=== PATIENT | male | born 1965 | race Caucasian/White ===

== ENCOUNTER 2020-03-17 09:49 | Outpatient (REF) | payer OTHER, SELFPAY ==
[2020-03-17 10:12] LABS: COVID-19 Test Negative (Negative)
== END 2020-03-17 09:50 | disposition home or self-care (01) ==
LOC: HO.LAB 09:49
PROVIDERS: Visit Provider Internal Medicine
DX: Z20.828 Contact with and (suspected) exposure to other viral communicable diseases (principal)
CPT/HCPCS: 87635; C9803

== ENCOUNTER 2020-04-02 10:52 | Outpatient (REF) | payer OTHER, SELFPAY ==
[2020-04-02 11:32] LABS: Glucose Urine UA NEG (NEG); Leukocyte Esterase Urine NEG (NEG); Nitrite Urine NEG (NEG); PH 6.5 (5.0-8.0); Urine Blood TRACE (NEG); Urine Ketones NEG (NEG); Urine Protein 2+ MG/DL (NEG-TRACE)
[2020-04-02 11:34] LABS: Appearance Urine CLEAR; Color Urine YELLOW
[2020-04-02 11:44] LABS: Squamous Epithelial Cell Urine 1+ /LPF; WBC Urine 0 /HPF (0-4)
[2020-04-02 11:54] LABS: Anion Gap 15 (12-20); Blood Urea Nitrogen 15 mg/dL (9-16); Calcium 8.8 mg/dL (8.4-10.2); Carbon Dioxide 28 mmol/L (22-29); Chloride 103 mmol/L (96-108); Estimated Glomerular Filt Rate > 60; Iron 52 mcg/dL (45-160); Magnesium 1.8 mg/dL (1.6-2.6); Percent Iron Saturation 18 % (15-50); Potassium 4.4 mmol/l (3.3-5.1); Sodium 142 mmol/L (135-145); Total Iron Binding Capacity 297 mcg/dL (228-428); Unsaturated Iron Binding 245 ug/dL; Uric Acid 6.6 mg/dL (3.4-7.0)
[2020-04-02 11:55] LABS: Renal w Reflex Lab Use Only Order verified
[2020-04-02 11:59] LABS: Estimated Average Glucose 131 mg/dL; Hemoglobin A1c % 6.2 %
[2020-04-02 12:06] LABS: Creatinine Urine 75.87 mg/dL
[2020-04-02 12:15] LABS: Ferritin 69 ng/mL (20-250)
[2020-04-02 12:18] LABS: Microalbum/Creatinine Ratio Ur 689.3 ug/mg cr
[2020-04-02 12:23] LABS: Vitamin D 25-OH Total 28.5 ng/mL (>30)
[2020-04-02 12:55] LABS: Creatinine Urine 76.98 mg/dL; Protein/Creatinine Ratio, Ur 0.95 (<0.2); Total Protein Urine Random 73 mg/dL (<12)
[2020-04-05 11:57] LABS: PTHI 69 pg/mL (14-64)
== END 2020-04-02 10:53 | disposition home or self-care (01) ==
LOC: HO.LAB 10:52
PROVIDERS: PCP Internal Medicine; Visit Provider Internal Medicine Nephrology
DX: I12.9 Hypertensive chronic kidney disease with stage 1 through stage 4 chronic kidney disease, or unspecified chronic kidney disease (principal); N18.2 Chronic kidney disease, stage 2 (mild); R80.9 Proteinuria, unspecified
CPT/HCPCS: 80051; 81001; 82040; 82043; 82306; 82310; 82565; 82728; 83036; 83540; 83735; 83970; 84100; 84156; 84520; 84550

== ENCOUNTER 2020-05-14 09:41 | Outpatient (REF) | payer OTHER, SELFPAY ==
[2020-05-14 10:12] LABS: MANUAL DIFF FLAG NO
[2020-05-14 10:13] LABS: Basophils Percent Auto 0.6 % (0-2); Eosinophils Absolute Auto 0.3 X10*3/uL (0.0-0.4); Eosinophils Percent Auto 3.7 % (0-4); Hematocrit 40.1 % (42-52); Imm Gran Abs Auto 0.02 X10*3/uL (0.00-0.03); Imm Gran Pct Auto 0.3 % (0.0-0.4); Lymphocytes Absolute Auto 2.2 X10*3/uL (1.2-4.9); Lymphocytes Percent Auto 32.8 % (20-40); Mean Corpuscular HGB Conc 32.4 g/dl (31.0-36.0); Mean Corpuscular Hemoglobin 29.3 pg (27.0-33.0); Mean Corpuscular Volume 90.5 fL (80-98); Mean Platelet Volume 9.1 fL (9.4-12.4); Monocytes Absolute Auto 0.9 X10*3/uL (0.1-1.2); Monocytes Percent Auto 13.6 % (2-11); Neutrophils Absolute Auto 3.4 X10*3/uL (2.0-8.3); Platelet Count 359 X10*3/uL (160-400); Red Blood Count 4.43 X10*6/uL (4.60-5.80); Red Cell Distribution Width 12.9 % (11.0-16.0); White Blood Count 6.8 X10*3/uL (4.8-10.8)
[2020-05-14 10:14] LABS: Glucose Urine UA NEG (NEG); Leukocyte Esterase Urine NEG (NEG); Nitrite Urine NEG (NEG); Specific Gravity - Urine >= 1.030 (1.005-1.025); Urine Blood TRACE (NEG); Urine Ketones NEG (NEG); Urine Protein 2+ MG/DL (NEG-TRACE)
[2020-05-14 10:15] LABS: Appearance Urine CLEAR; Color Urine YELLOW
[2020-05-14 10:45] LABS: Alanine Aminotransferase 24 U/L (0-40); Albumin Level 4.1 g/dL (3.5-5.0); Alkaline Phosphatase 83 U/L (39-117); Anion Gap 11 (12-20); Aspartate Amino Transferase 15 U/L (5-37); Bilirubin Total 0.5 mg/dL (0.0-1.0); Blood Urea Nitrogen 16 mg/dL (9-16); Calcium 8.8 mg/dL (8.4-10.2); Carbon Dioxide 30 mmol/L (22-29); Chloride 104 mmol/L (96-108); Cholesterol 169 mg/dL; Estimated Glomerular Filt Rate > 60; Glucose Fasting 122 mg/dL (60-99); HDL Cholesterol 35 mg/dL; LDL Cholesterol Calculated 113 mg/dl; Sodium 141 mmol/L (135-145); Total Protein 7.2 g/dL (6.5-8.0); Triglycerides 108 mg/dL
[2020-05-14 11:07] LABS: TSH reflex Free T4 0.63 mIU/mL (0.32-4.0); Vitamin D 25-OH Total 26.8 ng/mL (>30)
[2020-05-14 11:13] LABS: Creatinine Urine 124.24 mg/dL
[2020-05-14 11:16] LABS: RBC Urine 0-2 /HPF (0); Squamous Epithelial Cell Urine TRACE /LPF; WBC Urine 0 /HPF (0-4)
[2020-05-14 11:27] LABS: Microalbum/Creatinine Ratio Ur 755.7 ug/mg cr
== END 2020-05-14 09:42 | disposition home or self-care (01) ==
LOC: HO.LAB 09:41
PROVIDERS: PCP Internal Medicine; Visit Provider Internal Medicine
DX: I10 Essential (primary) hypertension (principal); R73.01 Impaired fasting glucose; E78.00 Pure hypercholesterolemia, unspecified; R80.9 Proteinuria, unspecified; K21.9 Gastro-esophageal reflux disease without esophagitis; E55.9 Vitamin D deficiency, unspecified; R00.2 Palpitations; E66.3 Overweight
CPT/HCPCS: 36415; 80053; 80061; 81001; 82043; 82306; 84443; 85025

== ENCOUNTER → 2020-06-13 09:38 | Outpatient (BNVA) | payer OTHER, SELFPAY | PROVIDERS: PCP Internal Medicine; Visit Provider Internal Medicine ==

== ENCOUNTER 2020-07-12 | Outpatient (REF) | payer OTHER, SELFPAY ==
[2020-07-14 12:42] LABS: OBS Int Ctl Valid YES; OBS1 NEG (NEG)
== END 2020-07-12 00:01 | disposition home or self-care (01) ==
LOC: HO.LNP
PROVIDERS: Visit Provider Internal Medicine Gastroenterology
DX: D64.9 Anemia, unspecified (principal)
CPT/HCPCS: 82272

== ENCOUNTER 2020-07-26 08:22 | Day surgery (SDC) | payer OTHER, SELFPAY ==
--- NOTE | 2020-07-25 08:45 | HO.ANESPROP2 ---
Documented by User: Shirley Tierra 07/25/20 08:53 HPI - Anesthesia Eval Consult details Narrative: 55yo M for Upper Endoscopy *Multiple med allergies* PMFSH Active Problems Active Problems: All Active Problems (Updated 06/13/20 @ 09:59 by Lazarus An MD) Overweight (BMI 25.0-29.9) (Acute) Anxiety (Acute) Primary insomnia (Acute) Obstructive sleep apnea (Acute) Anemia (Acute) Left thigh pain (Acute) Primary osteoarthritis of left hip (Acute) Vitamin D deficiency (Acute) Proteinuria (Acute) Palpitations (Acute) Impaired fasting glucose (Acute) Pure hypercholesterolemia (Acute) Benign essential hypertension (Acute) Blepharitis of eyelid of right eye (Acute) Past Medical History Medical History (Updated 07/26/20 @ 09:24 by Linda Dick) Anemia Anxiety Benign essential hypertension Impaired fasting glucose Left thigh pain Obstructive sleep apnea Overweight (BMI 25.0-29.9) Palpitations Primary insomnia Primary osteoarthritis of left hip Proteinuria Pure hypercholesterolemia Vitamin D deficiency Family History Family History Father No problems noted. Mother Hypertension Brother Hypertension Family/Other Asthma Surgical History Surgical History History of arthroplasty of left hip History of hip surgery Social History Social History Alcohol intake: never Smoking Status: Never smoker Use of substances other than those prescribed or required for medical reasons: No Advance Directives: No Advance Directives Information Provided: Yes Meds Allergies Allergy/AdvReac Type Severity Reaction Status Date / Time amlodipine Allergy Unknown gi Verified 06/13/20 09:45 atorvastatin Allergy Unknown myalgia at Verified 06/13/20 09:45 80 mg, muscle px chlorthalidone Allergy Unknown excessive Verified 06/13/20 09:45 urination glipizide Allergy Unknown Unknown Verified 06/13/20 09:45 hydrochlorothiazide Allergy Unknown dizziness, Verified 06/13/20 09:45 excessive urination ibuprofen [From MOTRIN] Allergy Unknown irregular Verified 06/13/20 09:45 heartbeat metformin Allergy Unknown chokling Verified 06/13/20 09:45 sensation metoprolol Allergy Unknown slow heart Verified 06/13/20 09:45 rate nifedipine Allergy Unknown tachy/kate Verified 06/13/20 09:45 buspirone [From BUSPAR] AdvReac Unknown STOMACH Verified 06/13/20 09:45 UPSET canagliflozin [Invokana] AdvReac Unknown SYNCOPE Verified 06/13/20 09:45 clonidine [From CATAPRES] AdvReac Unknown STOMACH Verified 06/13/20 09:45 UPSET SHELLFISH Allergy Severe ANAPHYLAXIS Uncoded 05/23/20 09:02 Sucralfate Allergy Unknown chest pain Uncoded 05/23/20 09:02 Home Medications Medication Instructions Recorded Confirmed Last Taken Type aspirin 81 mg tablet,delayed 81 mg PO DAILY 05/23/20 05/23/20 07/17/20 History release carvedilol 3.125 mg tablet 3.125 mg PO BID 05/23/20 05/23/20 Unknown History chlorthalidone 25 mg tablet 25 mg PO DAILY 05/23/20 05/23/20 Unknown History lisinopril 40 mg tablet 40 mg PO DAILY 05/23/20 05/23/20 Unknown History nisoldipine 8.5 mg tablet,extended 8.5 mg PO BEDTIME 05/23/20 05/23/20 Unknown History release 24 hr diclofenac sodium 1 % topical gel g TOPICAL 06/13/20 Unknown History Exam Exam Date and Time: July 25, 2020 0845 Pertinent Lab Results Pertinent Lab Results: Laboratory Tests 05/14/20 05/14/20 09:57 09:57 WBC 6.8 Hgb 13.0 L Hct 40.1 L Plt Count 359 Sodium 141 Potassium 4.0 Chloride 104 Carbon Dioxide 30 H BUN 16 Creatinine 0.83 Assessment and Plan Assessment Anesthesia Assessment: Chart Reviewed Documented by User: Linda Dick 07/26/20 09:25 [facility] Past Medical History Medical History (Updated 07/26/20 @ 09:24 by Linda Dick) Anemia Anxiety Benign essential hypertension Impaired fasting glucose Left thigh pain Obstructive sleep apnea Overweight (BMI 25.0-29.9) Palpitations Primary insomnia Primary osteoarthritis of left hip Proteinuria Pure hypercholesterolemia Vitamin D deficiency Family History Family History Father No problems noted. Mother Hypertension Brother Hypertension Family/Other Asthma Family history of problems with anesthesia: No Surgical History Surgical History History of arthroplasty of left hip History of hip surgery History of Problems with Anesthesia: No Social History Social History Alcohol intake: never Smoking Status: Never smoker Use of substances other than those prescribed or required for medical reasons: No Advance Directives: No Advance Directives Information Provided: Yes Meds Allergies Allergy/AdvReac Type Severity Reaction Status Date / Time amlodipine Allergy Unknown gi Verified 06/13/20 09:45 atorvastatin Allergy Unknown myalgia at Verified 06/13/20 09:45 80 mg, muscle px chlorthalidone Allergy Unknown excessive Verified 06/13/20 09:45 urination glipizide Allergy Unknown Unknown Verified 06/13/20 09:45 hydrochlorothiazide Allergy Unknown dizziness, Verified 06/13/20 09:45 excessive urination ibuprofen [From MOTRIN] Allergy Unknown irregular Verified 06/13/20 09:45 heartbeat metformin Allergy Unknown chokling Verified 06/13/20 09:45 sensation metoprolol Allergy Unknown slow heart Verified 06/13/20 09:45 rate nifedipine Allergy Unknown tachy/kate Verified 06/13/20 09:45 buspirone [From BUSPAR] AdvReac Unknown STOMACH Verified 06/13/20 09:45 UPSET canagliflozin [Invokana] AdvReac Unknown SYNCOPE Verified 06/13/20 09:45 clonidine [From CATAPRES] AdvReac Unknown STOMACH Verified 06/13/20 09:45 UPSET SHELLFISH Allergy Severe ANAPHYLAXIS Uncoded 05/23/20 09:02 Sucralfate Allergy Unknown chest pain Uncoded 05/23/20 09:02 Home Medications Medication Instructions Recorded Confirmed Last Taken Type aspirin 81 mg tablet,delayed 81 mg PO DAILY 05/23/20 05/23/20 07/17/20 History release carvedilol 3.125 mg tablet 3.125 mg PO BID 05/23/20 05/23/20 Unknown History chlorthalidone 25 mg tablet 25 mg PO DAILY 05/23/20 05/23/20 Unknown History lisinopril 40 mg tablet 40 mg PO DAILY 05/23/20 05/23/20 Unknown History nisoldipine 8.5 mg tablet,extended 8.5 mg PO BEDTIME 05/23/20 05/23/20 Unknown History release 24 hr diclofenac sodium 1 % topical gel g TOPICAL 06/13/20 Unknown History Exam Height,Weight and Vital Signs: Vital Signs Temp Pulse Resp BP Pulse Ox 07/26/20 08:55 96.7 F L 71 16 140/87 H 98 Airway Mallampati Class: II TM Dist: >3cm Neck ROM: Full Heart: RRR Lungs: CTAB Assessment and Plan Assessment Anesthesia Assessment: Anesthesia Plan Discussed and Chart Reviewed Final Anesthetic Review NPO: Yes ASA Class: III Final Preanesthetic Review: No Changes in Pt Med Stat, Meds/Allgs Chart Reviewed, Consent Obtained/Reviewed and Anes Risks/Benef Reviewed Patient Risk: Intermediate Procedure Risk: Low Assessment/Block/Sedation in SS: Assess/Block/Sedation-SS Anesthetic Plan Anesthetic Plan: MAC: Disposition: Standard PACU
[2020-07-25 09:19] VITALS: BMI 28.6
[2020-07-26 08:55] VITALS: BP 140/87; PULSE 71; RESP 16; TEMP 35.9; O2SAT 98
[2020-07-26] MEDS: Lactated Ringers 1,000 ML 100 ML IVCONT (09:11)
--- NOTE | 2020-07-26 09:30 | MHC.SHP ---
Pre-Procedural Eval Section A The patient is an INPATIENT: No Changes since office visit: No Cold of Flu in the past 2 weeks, No New Medical Problems, No Changes in Medication and No Patient answered all questions The History & Physical has been completed within 30 days and I have reviewed it.: Yes Section B Chief Complaint: anemia Allergies: Allergies Allergy/AdvReac Type Severity Reaction Status Date / Time amlodipine Allergy Unknown gi Verified 06/13/20 09:45 atorvastatin Allergy Unknown myalgia at Verified 06/13/20 09:45 80 mg, muscle px chlorthalidone Allergy Unknown excessive Verified 06/13/20 09:45 urination glipizide Allergy Unknown Unknown Verified 06/13/20 09:45 hydrochlorothiazide Allergy Unknown dizziness, Verified 06/13/20 09:45 excessive urination ibuprofen [From MOTRIN] Allergy Unknown irregular Verified 06/13/20 09:45 heartbeat metformin Allergy Unknown chokling Verified 06/13/20 09:45 sensation metoprolol Allergy Unknown slow heart Verified 06/13/20 09:45 rate nifedipine Allergy Unknown tachy/kate Verified 06/13/20 09:45 buspirone [From BUSPAR] AdvReac Unknown STOMACH Verified 06/13/20 09:45 UPSET canagliflozin [Invokana] AdvReac Unknown SYNCOPE Verified 06/13/20 09:45 clonidine [From CATAPRES] AdvReac Unknown STOMACH Verified 06/13/20 09:45 UPSET SHELLFISH Allergy Severe ANAPHYLAXIS Uncoded 05/23/20 09:02 Sucralfate Allergy Unknown chest pain Uncoded 05/23/20 09:02 Plan I have reviewed the history and physical and performed a pertinent physical examination on my patient. No changes have occurred unless specified.
--- NOTE | 2020-07-26 09:47 | PM.OP ---
Brief Operative Note Date of Service: 07/26/20 Pre-op diagnosis: anemia gerd Post-op diagnosis: same (gastric polyps) Surgeon: Ravindra Dietz Anesthesia: MAC Estimated blood loss (mL): 5 Pathology: other (bxs antrum, duodenum, polyps, egj) Condition: stable Disposition: PACU
[2020-07-26 09:50] VITALS: BP 117/79; PULSE 76; RESP 15; TEMP 36.4; O2SAT 94
[2020-07-26 10:05] VITALS: BP 133/87; PULSE 73; RESP 20; TEMP 36.4; O2SAT 98
--- NOTE | 2020-07-26 14:05 | OP_ITS ---
SURGEON: Ravindra Dietz MD INDICATIONS: Anemia. PREOPERATIVE DIAGNOSIS: POSTOPERATIVE DIAGNOSIS: PROCEDURE PERFORMED: Upper endoscopy with biopsy. ESTIMATED BLOOD LOSS: COMPLICATIONS: ANESTHESIA: ASSISTANTS: SPECIMENS: MEDICATIONS: Monitored anesthesia care. DESCRIPTION OF PROCEDURE: History and physical performed. The risks and benefits of the procedure were explained to the patient. Informed consent was obtained. The patient was placed in the left lateral decubitus position. The Olympus video gastroscope was introduced into the esophagus, stomach, and duodenum. Examination was performed and the scope was removed. He tolerated the procedure well and was taken to recovery area in stable condition. FINDINGS: ESOPHAGUS: The esophagus showed no esophagitis. There was no stricture. Biopsies were obtained from the EG junction. STOMACH: The stomach showed multiple benign-appearing gastric polyps in the body and fundus. Two of these were biopsied. All measured less than 10 mm. Antral biopsies were also obtained to rule out H pylori. DUODENUM: The bulb and second portion were normal. Random biopsies were obtained from the second portion. IMPRESSION: Gastric polyps. RECOMMENDATION: Follow up the biopsy results. MD SKYE Virk/JIMMY / [id number]
== END 2020-07-26 10:27 ==
LOC: HO.SSS 08:23
PROVIDERS: PCP Internal Medicine; Visit Provider Internal Medicine Gastroenterology
PROC: 0DJ08ZZ Inspection of Upper Intestinal Tract, Via Natural or Artificial Opening Endoscopic (ICD-10-PCS; CPT 43235; principal; 2020-07-26 09:00)
DX: D64.9 Anemia, unspecified (principal); K21.9 Gastro-esophageal reflux disease without esophagitis; K31.7 Polyp of stomach and duodenum; I10 Essential (primary) hypertension; E11.9 Type 2 diabetes mellitus without complications; E55.9 Vitamin D deficiency, unspecified; G47.33 Obstructive sleep apnea (adult) (pediatric); Z99.89 Dependence on other enabling machines and devices; Z79.82 Long term (current) use of aspirin; Z79.899 Other long term (current) drug therapy; Z88.8 Allergy status to other drugs, medicaments and biological substances
CPT/HCPCS: 43239; 88305; 88342

== ENCOUNTER 2020-08-08 16:03 | Outpatient (REF) | payer OTHER, SELFPAY ==
--- NOTE | ~2020-08-08 | XR_ITS ---
EXAMINATION: XR CHEST CLINICAL INFORMATION: Chest pain COMPARISON: 10/06/2018 TECHNIQUE: 2 views of the chest were obtained. FINDINGS: The lungs are well expanded. There is no focal consolidation, edema, or effusion. No pneumothorax. The cardiomediastinal silhouette is within normal limits. No acute osseous abnormality. XR/XR chest 2V IMPRESSION: Clear lungs.
== END 2020-08-08 16:04 | disposition home or self-care (01) ==
LOC: HO.XRAY 16:03
PROVIDERS: PCP Internal Medicine; Visit Provider Internal Medicine
DX: R07.9 Chest pain, unspecified (principal)
CPT/HCPCS: 71046

== ENCOUNTER → 2020-08-09 10:04 | Outpatient (REF) | payer OTHER, SELFPAY ==
--- NOTE | 2020-08-09 10:09 | ECG_ITS ---
Test Reason : 06.18.9 Blood Pressure : / mmHG Vent. Rate : 065 BPM Atrial Rate : 065 BPM P-R Int : 198 ms QRS Dur : 096 ms QT Int : 394 ms P-R-T Axes : 056 020 035 degrees QTc Int : 409 ms Normal sinus rhythm Normal ECG When compared with ECG of 12-OCT-2016 01:04, No significant change was found Referred By: Bassam Amezcua Electronically Signed By:GWYN DRAPER MD
== END ==
LOC: HO.CARD 10:04
PROVIDERS: PCP Internal Medicine; Visit Provider Internal Medicine
DX: Z13.9 Encounter for screening, unspecified (principal)
CPT/HCPCS: 93005

== ENCOUNTER 2020-08-30 00:59 | Emergency (ER) | payer OTHER, SELFPAY ==
[2020-08-30 01:43] VITALS: BP 175/106; PULSE 86; RESP 16; TEMP 37.6; O2SAT 97; BMI 28.4
--- NOTE | 2020-08-30 02:32 | ED_ITS ---
HPI - General Adult General Chief complaint: Abdominal Pain Stated complaint: covid symptoms Time Seen by Provider: 08/30/20 01:21 Source: patient Mode of arrival: ambulatory History of Present Illness HPI narrative: 55-year-old male presents with multiple medical complaints that include body aches, multiple episodes of diarrhea without blood but reports abdominal cramping that are so numerous he is unable to quantify and this started on , as well as chronic palpitations but otherwise denies shortness of breath or chest pain. He also endorses fevers and last took an antipyretic at noon. He denies any recent travel and states he has not received his COVID 19 vaccine because ?he does not want it?. Related Data Home Medications Medication Instructions Recorded Confirmed aspirin 81 mg tablet,delayed 81 mg PO DAILY 05/23/20 05/23/20 release carvedilol 3.125 mg tablet 3.125 mg PO BID 05/23/20 05/23/20 chlorthalidone 25 mg tablet 25 mg PO DAILY 05/23/20 05/23/20 lisinopril 40 mg tablet 40 mg PO DAILY 05/23/20 05/23/20 nisoldipine 8.5 mg tablet,extended 8.5 mg PO BEDTIME 05/23/20 05/23/20 release 24 hr diclofenac sodium 1 % topical gel g TOPICAL 06/13/20 acetaminophen 500 mg tablet 1,000 mg PO Q6H PRN 08/08/20 oxycodone 5 mg tablet 5 mg PO DAILY PRN tab 08/08/20 Previous Rx's Medication Instructions Recorded cholecalciferol (vitamin D3) 25 25 mcg PO DAILY #90 cap 02/29/20 mcg (1,000 unit) capsule omeprazole 20 mg capsule,delayed 20 mg PO DAILY #90 cap 04/30/20 release gabapentin 100 mg capsule 100 mg PO BID 30 Days #60 cap 05/23/20 atorvastatin 40 mg tablet 40 mg PO DAILY #90 tab 07/26/20 clonazepam 1 mg tablet See Rx Instructions .ROUTE 07/29/20 .COMPLEX 30 Days #30 tab Allergies Allergy/AdvReac Type Severity Reaction Status Date / Time amlodipine Allergy Unknown gi Verified 08/30/20 01:52 atorvastatin Allergy Unknown myalgia at Verified 08/30/20 01:52 80 mg, muscle px chlorthalidone Allergy Unknown excessive Verified 08/30/20 01:52 urination glipizide Allergy Unknown Unknown Verified 08/30/20 01:52 hydrochlorothiazide Allergy Unknown dizziness, Verified 08/30/20 01:52 excessive urination ibuprofen [From MOTRIN] Allergy Unknown irregular Verified 08/30/20 01:52 heartbeat metformin Allergy Unknown chokling Verified 08/30/20 01:52 sensation metoprolol Allergy Unknown slow heart Verified 08/30/20 01:52 rate nifedipine Allergy Unknown tachy/kate Verified 08/30/20 01:52 buspirone [From BUSPAR] AdvReac Unknown STOMACH Verified 08/30/20 01:52 UPSET canagliflozin [Invokana] AdvReac Unknown SYNCOPE Verified 08/30/20 01:52 clonidine [From CATAPRES] AdvReac Unknown STOMACH Verified 08/30/20 01:52 UPSET SHELLFISH Allergy Severe ANAPHYLAXIS Uncoded 08/30/20 01:52 Sucralfate Allergy Unknown chest pain Uncoded 08/30/20 01:52 Review of Systems Review of Systems: Pertinent positives and negatives as stated in HPI and 10 point review of systems is otherwise negative. [facility] Past Medical History Source: nursing notes reviewed Medical History Anemia Anxiety Benign essential hypertension Impaired fasting glucose Left thigh pain Obstructive sleep apnea Overweight (BMI 25.0-29.9) Palpitations Primary insomnia Primary osteoarthritis of left hip Proteinuria Pure hypercholesterolemia Vitamin D deficiency Surgical History History of arthroplasty of left hip History of hip surgery Family History Family History Father No problems noted. Mother Hypertension Brother Hypertension Family/Other Asthma Social History Social History Alcohol intake: never Smoking Status: Never smoker Use of substances other than those prescribed or required for medical reasons: No Advance Directives: No Physical Exam Vital Signs: Vital Signs: Last Vital Signs Temp 99.6 F 08/30/20 01:43 Pulse 86 08/30/20 01:43 Resp 16 08/30/20 01:43 BP 175/106 H 08/30/20 01:43 Pulse Ox 97 08/30/20 01:43 Body Mass Index 28.4 VITAL SIGNS: Reviewed. GENERAL: Well developed, well nourished, in no acute distress. HEAD: Normocephalic/atraumatic EYES: PERRLA, EOMI NOSE: Nares patent bilateral OROPHARYNX: no oral lesions noted, posterior pharynx clear NECK: Supple, no adenopathy LUNGS: Normal breath sounds. No adventitious sounds or accessory muscle use. SpO2<97> CARDIOVASCULAR: Regular rate and rhythm without noted murmurs ABDOMEN: Soft, non-tender, non-distended with bowel sounds. NEUROLOGIC: Alert and oriented x 4. Course Course Course Narrative: 55-year-old male with history and clinical presentation suggestive of viral syndrome/gastroenteritis and possible lightheadedness secondary to multiple episodes of diarrhea. Review of all investigations without acute findings from chronically stable. COVID-19 was negative and results from stool sample will be pending. On re- evaluation patient sources that his diarrhea has improved from initial onset. He was discharged in stable condition instructed to continue drinking plenty of fluids and follow up with his primary care provider. Medical Decision Making Lab Data Result diagrams: 08/30/20 04:20 08/30/20 04:20 Labs: Lab Results 08/30/20 08/30/20 08/30/20 Range/Units 02:23 04:20 04:20 WBC 10.5 (4.8-10.8) X10*3/uL RBC 4.57 L (4.60-5.80) X10*6/uL Hgb 13.6 L (14.0-18.0) g/dl Hct 41.3 L (42-52) % MCV 90.4 (80-98) fL MCH 29.8 (27.0-33.0) pg MCHC 32.9 (31.0-36.0) g/dl RDW 12.7 (11.0-16.0) % Plt Count 324 (160-400) X10*3/uL MPV 9.1 L (9.4-12.4) fL Immature Gran % (Auto) 0.2 (0.0-0.4) % Neut % (Auto) 65.3 (45-73) % Lymph % (Auto) 19.8 L (20-40) % Perkins % (Auto) 12.3 H (2-11) % Eos % (Auto) 1.9 (0-4) % Baso % (Auto) 0.5 (0-2) % Lymph # (Auto) 2.1 (1.2-4.9) X10*3/uL Perkins # (Auto) 1.3 H (0.1-1.2) X10*3/uL Eos # (Auto) 0.2 (0.0-0.4) X10*3/uL Baso # (Auto) 0.1 (0.0-0.2) X10*3/uL Abs Immat Gran (auto) 0.02 (0.00-0.03) X10*3/uL Absolute Neuts (auto) 6.9 (2.0-8.3) X10*3/uL Absolute Nucleated RBC 0.000 (0.0-0.012) X10*3/uL Nucleated RBC % (auto) 0.0 (0.0-0.2) /100WBC Sodium 142 (135-145) mmol/L Potassium 4.1 (3.3-5.1) mmol/L Chloride 105 (96-108) mmol/L Carbon Dioxide 27 (22-29) mmol/L Anion Gap 14 (12-20) BUN 14 (9-16) mg/dL Creatinine 0.87 (0.5-1.4) mg/dL Estim Creat Clear Calc 106.9 Estimated GFR > 60 Random Glucose 117 H (60-115) mg/dL Calcium 9.0 (8.4-10.2) mg/dL Total Bilirubin 0.5 (0.0-1.0) mg/dL AST 16 (5-37) U/L ALT 21 (0-40) U/L Alkaline Phosphatase 90 (39-117) U/L Total Protein 7.2 (6.5-8.0) g/dL Albumin 4.1 (3.5-5.0) g/dL Coronavirus (PCR) NEGATIVE (Negative) Influenza Type A (PCR) NEGATIVE (Negative) Influenza Type B (PCR) NEGATIVE (Negative) RSV RNA Qual (PCR) NEGATIVE (Negative) Discharge Plan Discharge Clinical Impression: Diarrhea Patient Disposition: Home, Self-Care Instructions: Acute Diarrhea (ED) Additional Instructions: Return to the emergency department should you experience any acute worsening of your symptoms, however, continue with the workup scheduled with your primary care provider. Follow-up with your primary care provider today. Prescriptions: No Action cholecalciferol (vitamin D3) 25 mcg (1,000 unit) capsule 25 mcg PO DAILY Qty: 90 RF: 1 omeprazole 20 mg capsule,delayed release(DR/EC) 20 mg PO DAILY Qty: 90 RF: 1 atorvastatin 40 mg tablet 40 mg PO DAILY Qty: 90 RF: 3 clonazepam 1 mg tablet See Rx Instructions .ROUTE .COMPLEX 30 Days Qty: 30 RF: 0 carvedilol 3.125 mg tablet 3.125 mg PO BID RF: 0 lisinopril 40 mg tablet 40 mg PO DAILY RF: 0 chlorthalidone 25 mg tablet 25 mg PO DAILY RF: 0 nisoldipine 8.5 mg tablet extended release 24 hr 8.5 mg PO BEDTIME RF: 0 aspirin 81 mg tablet,delayed release (DR/EC) 81 mg PO DAILY RF: 0 gabapentin 100 mg capsule 100 mg PO BID 30 Days Qty: 60 RF: 5 diclofenac sodium 1 % gel topical RF: 0 Referrals: Sim Reardon MD [Primary Care Provider] - 2 days (Re-evaluation )
[2020-08-30 03:21] LABS: Influenza A PCR NEGATIVE (Negative); Influenza B PCR NEGATIVE (Negative); Resp Syncy Virus RNA Qual PCR NEGATIVE (Negative); SARS COV2 PCR INHOUSE NEGATIVE (Negative)
[2020-08-30 04:24] LABS: MANUAL DIFF FLAG NO
--- NOTE | 2020-08-30 04:24 | PC.NURSE ---
patient ambulated to the bathroom with a steady gait to attempt to obtain a stool sample.
[2020-08-30 04:25] LABS: Basophils Absolute Auto 0.1 X10*3/uL (0.0-0.2); Basophils Percent Auto 0.5 % (0-2); Eosinophils Absolute Auto 0.2 X10*3/uL (0.0-0.4); Eosinophils Percent Auto 1.9 % (0-4); Hematocrit 41.3 % (42-52); Hemoglobin 13.6 g/dl (14.0-18.0); Imm Gran Abs Auto 0.02 X10*3/uL (0.00-0.03); Imm Gran Pct Auto 0.2 % (0.0-0.4); Lymphocytes Absolute Auto 2.1 X10*3/uL (1.2-4.9); Lymphocytes Percent Auto 19.8 % (20-40); Mean Corpuscular HGB Conc 32.9 g/dl (31.0-36.0); Mean Corpuscular Hemoglobin 29.8 pg (27.0-33.0); Mean Corpuscular Volume 90.4 fL (80-98); Mean Platelet Volume 9.1 fL (9.4-12.4); Monocytes Absolute Auto 1.3 X10*3/uL (0.1-1.2); Monocytes Percent Auto 12.3 % (2-11); Neutrophils Absolute Auto 6.9 X10*3/uL (2.0-8.3); Neutrophils Percent Auto 65.3 % (45-73); Platelet Count 324 X10*3/uL (160-400); Red Blood Count 4.57 X10*6/uL (4.60-5.80); Red Cell Distribution Width 12.7 % (11.0-16.0); White Blood Count 10.5 X10*3/uL (4.8-10.8)
[2020-08-30 04:56] LABS: Alanine Aminotransferase 21 U/L (0-40); Albumin Level 4.1 g/dL (3.5-5.0); Alkaline Phosphatase 90 U/L (39-117); Anion Gap 14 (12-20); Aspartate Amino Transferase 16 U/L (5-37); Bilirubin Total 0.5 mg/dL (0.0-1.0); Blood Urea Nitrogen 14 mg/dL (9-16); Carbon Dioxide 27 mmol/L (22-29); Chloride 105 mmol/L (96-108); Creatinine Clr Calc Pharmacy 106.9; Estimated Glomerular Filt Rate > 60; Glucose Random 117 mg/dL (60-115); Potassium 4.1 mmol/L (3.3-5.1); Sodium 142 mmol/L (135-145); Total Protein 7.2 g/dL (6.5-8.0)
[2020-08-30 05:29] VITALS: BP 135/81; PULSE 85; RESP 16; O2SAT 98
== END 2020-08-30 05:44 | disposition home or self-care (01) ==
PROVIDERS: Nurse Practitioner Family; Emergency Provider Student in an Organized Health Care Education/Training Program; PCP Internal Medicine
DX: R19.7 Diarrhea, unspecified (principal); Z20.822 Contact with and (suspected) exposure to COVID-19; R50.9 Fever, unspecified
CPT/HCPCS: 0241U; 36415; 80053; 85025; 99283; 99284

== ENCOUNTER 2020-09-03 09:31 | Outpatient (REF) | payer OTHER, SELFPAY ==
[2020-09-03 10:25] LABS: MANUAL DIFF FLAG NO
[2020-09-03 10:31] LABS: Basophils Percent Auto 0.1 % (0-2); Eosinophils Percent Auto 0.2 % (0-4); Hematocrit 38.9 % (42-52); Hemoglobin 12.6 g/dl (14.0-18.0); Imm Gran Abs Auto 0.05 X10*3/uL (0.00-0.03); Imm Gran Pct Auto 0.4 % (0.0-0.4); Lymphocytes Absolute Auto 1.9 X10*3/uL (1.2-4.9); Lymphocytes Percent Auto 14.5 % (20-40); Mean Corpuscular HGB Conc 32.4 g/dl (31.0-36.0); Mean Corpuscular Volume 89.6 fL (80-98); Mean Platelet Volume 9.4 fL (9.4-12.4); Monocytes Percent Auto 7.8 % (2-11); Neutrophils Absolute Auto 10.2 X10*3/uL (2.0-8.3); Platelet Count 394 X10*3/uL (160-400); Red Blood Count 4.34 X10*6/uL (4.60-5.80); Red Cell Distribution Width 12.5 % (11.0-16.0); White Blood Count 13.3 X10*3/uL (4.8-10.8)
[2020-09-03 10:45] LABS: Glucose Urine UA NEG (NEG); Leukocyte Esterase Urine NEG (NEG); Nitrite Urine NEG (NEG); PH 6.5 (5.0-8.0); Urine Blood TRACE (NEG); Urine Ketones NEG (NEG); Urine Protein 2+ MG/DL (NEG-TRACE)
[2020-09-03 10:50] LABS: Appearance Urine CLEAR; Color Urine YELLOW
[2020-09-03 10:59] LABS: Alanine Aminotransferase 28 U/L (0-40); Albumin Level 3.9 g/dL (3.5-5.0); Alkaline Phosphatase 83 U/L (39-117); Anion Gap 15 (12-20); Aspartate Amino Transferase 15 U/L (5-37); Bilirubin Total 0.4 mg/dL (0.0-1.0); Blood Urea Nitrogen 23 mg/dL (9-16); Calcium 9.1 mg/dL (8.4-10.2); Carbon Dioxide 26 mmol/L (22-29); Chloride 105 mmol/L (96-108); Cholesterol 195 mg/dL; Estimated Glomerular Filt Rate > 60; Glucose Fasting 121 mg/dL (60-99); HDL Cholesterol 33 mg/dL; LDL Cholesterol Calculated 139 mg/dl; Potassium 4.4 mmol/L (3.3-5.1); Sodium 142 mmol/L (135-145); Total Protein 7.2 g/dL (6.5-8.0); Triglycerides 118 mg/dL
[2020-09-03 11:10] LABS: RBC Urine 0-2 /HPF (0); Squamous Epithelial Cell Urine TRACE /LPF; WBC Urine 0 /HPF (0-4)
[2020-09-03 11:20] LABS: TSH reflex Free T4 0.58 uIU/mL (0.32-4.0); Vitamin D 25-OH Total 38.2 ng/mL (>30)
[2020-09-03 11:44] LABS: Creatinine Urine 94.98 mg/dL
[2020-09-03 11:57] LABS: Microalbum/Creatinine Ratio Ur 662.2 ug/mg cr
[2020-09-05 04:03] LABS: Folate 16.3 ng/mL (> or = 4.0); Vitamin B12 866 pg/mL (200-900)
== END 2020-09-03 09:32 | disposition home or self-care (01) ==
LOC: HO.LAB 09:31
PROVIDERS: PCP Internal Medicine; Visit Provider Internal Medicine
DX: I10 Essential (primary) hypertension (principal); D64.9 Anemia, unspecified; E78.00 Pure hypercholesterolemia, unspecified; R73.01 Impaired fasting glucose; R80.9 Proteinuria, unspecified; E66.3 Overweight; R00.2 Palpitations; M79.652 Pain in left thigh; E55.9 Vitamin D deficiency, unspecified
CPT/HCPCS: 36415; 80053; 80061; 81001; 82043; 82306; 82607; 82746; 84443; 85025

== ENCOUNTER 2020-09-20 10:33 | Outpatient (REF) | payer OTHER, SELFPAY ==
[2020-09-20 12:12] LABS: MANUAL DIFF FLAG NO
[2020-09-20 12:16] LABS: Basophils Absolute Auto 0.1 X10*3/uL (0.0-0.2); Basophils Percent Auto 0.8 % (0-2); Eosinophils Absolute Auto 0.2 X10*3/uL (0.0-0.4); Eosinophils Percent Auto 2.9 % (0-4); Hematocrit 41.6 % (42-52); Hemoglobin 13.5 g/dl (14.0-18.0); Imm Gran Abs Auto 0.02 X10*3/uL (0.00-0.03); Imm Gran Pct Auto 0.3 % (0.0-0.4); Lymphocytes Absolute Auto 2.1 X10*3/uL (1.2-4.9); Lymphocytes Percent Auto 28.5 % (20-40); Mean Corpuscular HGB Conc 32.5 g/dl (31.0-36.0); Mean Corpuscular Volume 89.5 fL (80-98); Mean Platelet Volume 9.5 fL (9.4-12.4); Monocytes Absolute Auto 0.8 X10*3/uL (0.1-1.2); Monocytes Percent Auto 11.3 % (2-11); Neutrophils Absolute Auto 4.1 X10*3/uL (2.0-8.3); Neutrophils Percent Auto 56.2 % (45-73); Platelet Count 397 X10*3/uL (160-400); Red Blood Count 4.65 X10*6/uL (4.60-5.80); Red Cell Distribution Width 12.9 % (11.0-16.0); White Blood Count 7.3 X10*3/uL (4.8-10.8)
[2020-09-20 12:24] LABS: Glucose Urine UA NEG (NEG); Leukocyte Esterase Urine NEG (NEG); Nitrite Urine NEG (NEG); PH 6.5 (5.0-8.0); Specific Gravity - Urine 1.025 (1.005-1.025); Urine Blood TRACE (NEG); Urine Ketones NEG (NEG); Urine Protein 2+ MG/DL (NEG-TRACE)
[2020-09-20 12:29] LABS: Appearance Urine CLEAR; Color Urine YELLOW
[2020-09-20 12:39] LABS: C Reactive Protein 0.32 mg/dL (< or = 0.50)
[2020-09-20 12:52] LABS: WBC Urine 0-2 /HPF (0-4)
[2020-09-20 13:04] LABS: Erythrocyte Sedimentation Rate 12 MM/HR (0-15)
[2020-09-22 13:32] LABS: Anti Nuclear Antibody Screen NEGATIVE (NEGATIVE)
== END 2020-09-20 10:34 | disposition home or self-care (01) ==
LOC: HO.LAB 10:33
PROVIDERS: PCP Internal Medicine; Visit Provider Internal Medicine
DX: M79.10 Myalgia, unspecified site (principal); R53.83 Other fatigue; D72.829 Elevated white blood cell count, unspecified
CPT/HCPCS: 36415; 81001; 81003; 82550; 85025; 85652; 86038; 86039; 86140

== ENCOUNTER 2020-12-10 10:47 | Outpatient (REF) | payer OTHER, SELFPAY ==
[2020-12-10 11:27] LABS: MANUAL DIFF FLAG NO
[2020-12-10 11:36] LABS: Basophils Absolute Auto 0.1 X10*3/uL (0.0-0.2); Basophils Percent Auto 0.9 % (0-2); Eosinophils Absolute Auto 0.3 X10*3/uL (0.0-0.4); Eosinophils Percent Auto 4.8 % (0-4); Hematocrit 40.9 % (42-52); Hemoglobin 13.6 g/dl (14.0-18.0); Imm Gran Abs Auto 0.01 X10*3/uL (0.00-0.03); Imm Gran Pct Auto 0.2 % (0.0-0.4); Lymphocytes Absolute Auto 1.8 X10*3/uL (1.2-4.9); Lymphocytes Percent Auto 32.7 % (20-40); Mean Corpuscular HGB Conc 33.3 g/dl (31.0-36.0); Mean Corpuscular Hemoglobin 29.7 pg (27.0-33.0); Mean Corpuscular Volume 89.3 fL (80-98); Mean Platelet Volume 9.3 fL (9.4-12.4); Neutrophils Absolute Auto 2.3 X10*3/uL (2.0-8.3); Neutrophils Percent Auto 42.4 % (45-73); Platelet Count 336 X10*3/uL (160-400); Red Blood Count 4.58 X10*6/uL (4.60-5.80); White Blood Count 5.5 X10*3/uL (4.8-10.8)
[2020-12-10 11:40] LABS: Glucose Urine UA NEG (NEG); Leukocyte Esterase Urine NEG (NEG); Nitrite Urine NEG (NEG); PH 6.5 (5.0-8.0); UACC Culture Trigger NO; Urine Blood TRACE (NEG); Urine Ketones NEG (NEG); Urine Protein 2+ MG/DL (NEG-TRACE)
[2020-12-10 11:44] LABS: Estimated Average Glucose 131 mg/dL; Hemoglobin A1c % 6.2 %
[2020-12-10 11:45] LABS: Appearance Urine CLEAR; Color Urine YELLOW
[2020-12-10 12:07] LABS: Bacteria Urine TRACE /LPF; Squamous Epithelial Cell Urine TRACE /LPF; WBC Urine 0 /HPF (0-4)
[2020-12-10 12:12] LABS: Anion Gap 11 (12-20); Blood Urea Nitrogen 14 mg/dL (9-16); Calcium 9.1 mg/dL (8.4-10.2); Carbon Dioxide 28 mmol/L (22-29); Chloride 106 mmol/L (96-108); Creatinine Urine 105.76 mg/dL; Estimated Glomerular Filt Rate > 60; Magnesium 1.9 mg/dL (1.6-2.6); Protein/Creatinine Ratio, Ur 1.51 (<0.2); Sodium 141 mmol/L (135-145); Total Protein Urine Random 160 mg/dL (<12)
[2020-12-10 12:25] LABS: Microalbum/Creatinine Ratio Ur 1062.7 ug/mg cr
[2020-12-10 13:08] LABS: Renal w Reflex Lab Use Only Order verified
[2020-12-10 13:21] LABS: Iron 44 mcg/dL (45-160); Percent Iron Saturation 15 % (15-50); Total Iron Binding Capacity 296 mcg/dL (228-428); Unsaturated Iron Binding 252 ug/dL
[2020-12-10 13:41] LABS: Ferritin 59 ng/mL (20-250)
== END 2020-12-10 10:48 | disposition home or self-care (01) ==
LOC: HO.LAB 10:47
PROVIDERS: Absent Provider Internal Medicine; PCP Internal Medicine; Visit Provider Internal Medicine Nephrology
DX: I12.9 Hypertensive chronic kidney disease with stage 1 through stage 4 chronic kidney disease, or unspecified chronic kidney disease (principal); N18.2 Chronic kidney disease, stage 2 (mild); R80.9 Proteinuria, unspecified; E11.22 Type 2 diabetes mellitus with diabetic chronic kidney disease; E11.21 Type 2 diabetes mellitus with diabetic nephropathy
CPT/HCPCS: 36415; 80051; 81001; 82040; 82043; 82310; 82565; 82728; 83036; 83540; 83735; 84100; 84156; 84520; 85025

== ENCOUNTER → 2021-02-02 08:56 | Outpatient (BNVA) | payer OTHER, SELFPAY | PROVIDERS: PCP Internal Medicine; Referring Provider Internal Medicine; Visit Provider Internal Medicine Cardiovascular Disease | DX: I95.1 Orthostatic hypotension (principal); I10 Essential (primary) hypertension; E78.5 Hyperlipidemia, unspecified; I25.10 Atherosclerotic heart disease of native coronary artery without angina pectoris | CPT/HCPCS: 93005 ==

== ENCOUNTER 2021-02-07 10:18 | Outpatient (REF) | payer OTHER, SELFPAY ==
[2021-02-07 11:41] LABS: Cholesterol 195 mg/dL; HDL Cholesterol 37 mg/dL; LDL Cholesterol Calculated 126 mg/dl; Triglycerides 162 mg/dL
[2021-02-08 14:46] LABS: CRP High Sensitivity 2.6 mg/L
== END 2021-02-07 10:19 | disposition home or self-care (01) ==
LOC: HO.LAB 10:18
PROVIDERS: PCP Internal Medicine; Visit Provider Internal Medicine Cardiovascular Disease
DX: E78.5 Hyperlipidemia, unspecified (principal); I10 Essential (primary) hypertension; I25.10 Atherosclerotic heart disease of native coronary artery without angina pectoris
CPT/HCPCS: 36415; 80061; 86141

== ENCOUNTER → 2021-03-15 09:56 | Outpatient (BNVA) | payer OTHER, SELFPAY | PROVIDERS: PCP Internal Medicine; Referring Provider Internal Medicine; Visit Provider Internal Medicine Cardiovascular Disease ==

== ENCOUNTER 2021-03-18 09:13 | Outpatient (REF) | payer OTHER, SELFPAY ==
[2021-03-18 09:28] LABS: MANUAL DIFF FLAG NO
[2021-03-18 10:29] LABS: Basophils Absolute Auto 0.1 X10*3/uL (0.0-0.2); Basophils Percent Auto 0.8 % (0-2); Eosinophils Absolute Auto 0.3 X10*3/uL (0.0-0.4); Eosinophils Percent Auto 4.9 % (0-4); Hematocrit 40.2 % (42.0-52.0); Hemoglobin 13.2 g/dl (14.0-18.0); Imm Gran Abs Auto 0.01 X10*3/uL (0.00-0.03); Imm Gran Pct Auto 0.2 % (0.0-0.4); Lymphocytes Absolute Auto 2.2 X10*3/uL (1.2-4.9); Lymphocytes Percent Auto 35.3 % (20-40); Mean Corpuscular HGB Conc 32.8 g/dl (31.0-36.0); Mean Corpuscular Hemoglobin 29.5 pg (27.0-33.0); Mean Corpuscular Volume 89.7 fL (80.0-98.0); Mean Platelet Volume 9.6 fL (9.4-12.4); Monocytes Absolute Auto 0.8 X10*3/uL (0.1-1.2); Monocytes Percent Auto 13.4 % (2-11); Neutrophils Absolute Auto 2.9 x10*3/uL (2.0-8.3); Neutrophils Percent Auto 45.4 % (45-73); Platelet Count 349 X10*3/uL (160-400); Red Blood Count 4.48 X10*6/uL (4.60-5.80); Red Cell Distribution Width 12.7 % (11.0-16.0); White Blood Count 6.3 X10*3/uL (4.8-10.8)
[2021-03-18 10:31] LABS: Appearance Urine CLEAR; Color Urine YELLOW; Glucose Urine UA NEG (NEG); Leukocyte Esterase Urine NEG (NEG); Nitrite Urine NEG (NEG); PH 6.5 (5.0-8.0); Specific Gravity - Urine 1.015 (1.005-1.025); UACC Culture Trigger NO; Urine Blood NEG (NEG); Urine Ketones NEG (NEG); Urine Protein 2+ MG/DL (NEG-TRACE)
[2021-03-18 10:36] LABS: Estimated Average Glucose 131 mg/dL; Hemoglobin A1c % 6.2 %
[2021-03-18 10:46] LABS: Alanine Aminotransferase 28 U/L (0-40); Albumin Level 4.1 g/dL (3.5-5.0); Alkaline Phosphatase 85 U/L (39-117); Anion Gap 14 (12-20); Aspartate Amino Transferase 18 U/L (5-37); Bilirubin Total 1.2 mg/dL (0.0-1.0); Blood Urea Nitrogen 13 mg/dL (9-16); Calcium 9.1 mg/dL (8.4-10.2); Carbon Dioxide 25 mmol/L (22-29); Chloride 106 mmol/L (96-108); Cholesterol 153 mg/dL; Estimated Glomerular Filt Rate > 60; Glucose Fasting 112 mg/dL (60-99); HDL Cholesterol 35 mg/dL; LDL Cholesterol Calculated 95 mg/dl; Potassium 3.8 mmol/L (3.3-5.1); Sodium 141 mmol/L (135-145); Total Protein 7.3 g/dL (6.5-8.0); Triglycerides 119 mg/dL
[2021-03-18 10:49] LABS: Mucus Urine TRACE /LPF; RBC Urine 0 /HPF (0); Squamous Epithelial Cell Urine TRACE /LPF; WBC Urine 0 /HPF (0-4)
[2021-03-18 11:09] LABS: TSH reflex Free T4 0.69 uIU/mL (0.32-4.0); Vitamin D 25-OH Total 36.9 ng/mL (>30)
== END 2021-03-18 09:14 | disposition home or self-care (01) ==
LOC: HO.LAB 09:13
PROVIDERS: PCP Internal Medicine; Visit Provider Internal Medicine
DX: I10 Essential (primary) hypertension (principal); R73.01 Impaired fasting glucose; E78.00 Pure hypercholesterolemia, unspecified; E55.9 Vitamin D deficiency, unspecified
CPT/HCPCS: 36415; 80053; 80061; 81001; 82306; 83036; 84443; 85025

== ENCOUNTER → 2021-04-04 09:08 | Outpatient (REF) | payer OTHER, SELFPAY ==
--- NOTE | ~2021-04-04 | NM_ITS ---
Myocardial perfusion study Indication: Extensive coronary artery calcium suggestive of significant CAD to evaluate for myocardial ischemia Technique: The patient was brought in for a Lexiscan perfusion study on 04/04/2021. Patient performed low-level exercise and was injected 0.4 mg of Lexiscan intravenously. Within a minute of injection, 35 mCi of sestamibi was given intravenously. Images were obtained using the SPECT gamma camera interlaced with the gating device. Images were obtained in supine position. Resting perfusion study was performed on 04/05/2021. Patient was administered 35 mCi of sestamibi intravenously at rest. Images were then obtained in supine position. Images obtained with and without CT attenuation. Total DLP 91 mGy-cm. Images were processed with the software and compared side to side in short axis, horizontal long axis and vertical long axis views. Findings: The stress perfusion study showed non attenuated images show mildly reduced uptake in the inferior wall of the LV myocardium. Remainder of the LV myocardium is normally perfused. Attenuation corrected images show mildly reduced uptake in the apex of the LV myocardium.. The gated study shows normal LV systolic function with visually estimated LVEF of greater than 60 %. LV cavity is normal in size. The gated study shows normal systolic wall thickening and contraction of segments. Resting study shows no significant change in perfusion pattern compared to stress perfusion study. Gating at rest reveals normal systolic wall motion with ejection fraction at 64%. The findings are consistent with no clear reversible defect suggestive of ischemia. Likely normal myocardial perfusion. NM/NM cardiolite stress test Impression: 1. Myocardial perfusion imaging study shows likely normal myocardial perfusion 2. Gated LVEF is 64% 3. Transient ischemic dilatation not present EKG is nondiagnostic for ischemia
--- NOTE | 2021-04-04 09:13 | CA_ITS ---
Acquisition Time: 2021-04-04 10:26:27 Total Exercise Time: 00:02:00 Test Indications: CAD Medications: SEE CHART Protocol: LEXISCAN Max HR: 122 BPM 74% of Pred: 163 BPM Max BP: 148/078 mmHG Max Work Load: 1.6 METS Pharmacological stress test with Lexiscan injection, while walking on treadmill, without anginal symptoms, with rare PVC, with normotensive response to injection, with nondiagnostic EKG for ischemia. In recovery he reported nausea that was treated with Aminophylline 75mg IVP to reverse Lexiscan with resolution of symptom. Nuclear images pending. Test reviewed with Dr Cates. Note: test was ordered as an exercise nuclear stress test and pt reports inability to walk at brisk pace on treadmill due to hip replacement surgery and current knee pain. Test changed to a pharmacological nuclear stress test. Referred By: Bhupinder Puente Overread By: ALONZO KENDRICK
== END ==
LOC: HO.CARD 09:08
PROVIDERS: PCP Internal Medicine; Visit Provider Internal Medicine Cardiovascular Disease
DX: I25.10 Atherosclerotic heart disease of native coronary artery without angina pectoris (principal)
CPT/HCPCS: 78452; 93017; A9500; J0280; J2785

== ENCOUNTER 2021-04-26 09:45 | Outpatient (REF) | payer OTHER, SELFPAY ==
[2021-04-26 10:49] LABS: Cholesterol 157 mg/dL; HDL Cholesterol 34 mg/dL; LDL Cholesterol Calculated 103 mg/dl; Triglycerides 102 mg/dL
== END 2021-04-26 09:46 | disposition home or self-care (01) ==
LOC: HO.LAB 09:45
PROVIDERS: PCP Internal Medicine; Visit Provider Internal Medicine Cardiovascular Disease
DX: I25.10 Atherosclerotic heart disease of native coronary artery without angina pectoris (principal)
CPT/HCPCS: 36415; 80061

== ENCOUNTER 2021-06-15 09:22 | Outpatient (REF) | payer OTHER, SELFPAY ==
[2021-06-15 10:16] LABS: MANUAL DIFF FLAG NO
[2021-06-15 10:35] LABS: Basophils Percent Auto 0.4 % (0-2); Eosinophils Absolute Auto 0.2 X10*3/uL (0.0-0.4); Eosinophils Percent Auto 3.1 % (0-4); Imm Gran Abs Auto 0.01 X10*3/uL (0.00-0.03); Imm Gran Pct Auto 0.1 % (0.0-0.4); Lymphocytes Absolute Auto 2.1 X10*3/uL (1.2-4.9); Mean Corpuscular HGB Conc 32.5 g/dl (31.0-36.0); Mean Corpuscular Hemoglobin 29.1 pg (27.0-33.0); Mean Corpuscular Volume 89.7 fL (80.0-98.0); Mean Platelet Volume 9.3 fL (9.4-12.4); Monocytes Absolute Auto 1.1 X10*3/uL (0.1-1.2); Monocytes Percent Auto 16.8 % (2-11); Neutrophils Absolute Auto 3.3 x10*3/uL (2.0-8.3); Neutrophils Percent Auto 48.6 % (45-73); Platelet Count 348 X10*3/uL (160-400); Red Blood Count 4.46 X10*6/uL (4.60-5.80); Red Cell Distribution Width 13.1 % (11.0-16.0); White Blood Count 6.7 X10*3/uL (4.8-10.8)
[2021-06-15 10:46] LABS: Estimated Average Glucose 137 mg/dL; Hemoglobin A1c % 6.4 %
[2021-06-15 10:55] LABS: Alanine Aminotransferase 37 U/L (0-40); Albumin Level 4.2 g/dL (3.5-5.0); Alkaline Phosphatase 84 U/L (39-117); Anion Gap 9 (12-20); Aspartate Amino Transferase 22 U/L (5-37); Bilirubin Total 0.5 mg/dL (0.0-1.0); Blood Urea Nitrogen 13 mg/dL (9-16); Calcium 9.2 mg/dL (8.4-10.2); Carbon Dioxide 30 mmol/L (22-29); Chloride 105 mmol/L (96-108); Cholesterol 145 mg/dL; Estimated Glomerular Filt Rate > 60; Glucose Fasting 117 mg/dL (60-99); HDL Cholesterol 33 mg/dL; LDL Cholesterol Calculated 96 mg/dl; Potassium 4.2 mmol/L (3.3-5.1); Sodium 140 mmol/L (135-145); Total Protein 7.3 g/dL (6.5-8.0); Triglycerides 80 mg/dL
[2021-06-15 11:04] LABS: Iron 45 mcg/dL (45-160); Percent Iron Saturation 15 % (15-50); Total Iron Binding Capacity 310 mcg/dL (228-428); Unsaturated Iron Binding 265 ug/dL
[2021-06-15 11:16] LABS: TSH reflex Free T4 0.52 uIU/mL (0.32-4.0); Vitamin D 25-OH Total 36.6 ng/mL (>30)
[2021-06-15 11:22] LABS: Ferritin 72 ng/mL (20-250)
[2021-06-15 11:25] LABS: Uric Acid 6.5 mg/dL (3.4-7.0)
[2021-06-15 12:12] LABS: Appearance Urine CLEAR; Color Urine YELLOW; Glucose Urine UA NEG (NEG); Leukocyte Esterase Urine NEG (NEG); Nitrite Urine NEG (NEG); UACC Culture Trigger NO; Urine Blood TRACE (NEG); Urine Ketones NEG (NEG); Urine Protein 2+ MG/DL (NEG-TRACE)
[2021-06-15 12:29] LABS: RBC Urine 0-2 /HPF (0); WBC Urine 0-2 /HPF (0-4)
[2021-06-15 12:30] LABS: Squamous Epithelial Cell Urine TRACE /LPF
[2021-06-15 13:06] LABS: Creatinine Urine 89.45 mg/dL
[2021-06-15 13:28] LABS: Microalbum/Creatinine Ratio Ur 1331.4 ug/mg cr
[2021-06-15 21:15] LABS: Creatinine Urine 90.42 mg/dL; Total Protein Urine Random 172 mg/dL (<12)
[2021-06-16 17:32] LABS: Calcium (PTHI) 8.9 mg/dL (8.6-10.3); PTHI 98 pg/mL (14-64)
[2021-06-21 14:47] LABS: VITAMIN D (1,25 OH) D3 55 pg/mL; Vit D (1,25-Dihydroxy) Total 55 pg/mL (18-72); Vitamin D (1,25 OH) D2 <8 pg/mL
== END 2021-06-15 09:23 | disposition home or self-care (01) ==
LOC: HO.LAB 09:22
PROVIDERS: PCP Internal Medicine; Visit Provider Internal Medicine Nephrology
DX: I12.9 Hypertensive chronic kidney disease with stage 1 through stage 4 chronic kidney disease, or unspecified chronic kidney disease (principal); N18.2 Chronic kidney disease, stage 2 (mild); E11.22 Type 2 diabetes mellitus with diabetic chronic kidney disease; E11.21 Type 2 diabetes mellitus with diabetic nephropathy; R80.1 Persistent proteinuria, unspecified; E78.00 Pure hypercholesterolemia, unspecified; E55.9 Vitamin D deficiency, unspecified; G47.33 Obstructive sleep apnea (adult) (pediatric)
CPT/HCPCS: 36415; 80053; 80061; 81001; 81003; 82043; 82306; 82652; 82728; 83036; 83540; 83970; 84156; 84443; 84550; 85025

== ENCOUNTER 2021-08-24 12:52 | Outpatient (REF) | payer OTHER, SELFPAY ==
[2021-08-24 13:49] LABS: Alanine Aminotransferase 35 U/L (0-40); Aspartate Amino Transferase 20 U/L (5-37); Cholesterol 150 mg/dL; HDL Cholesterol 39 mg/dL; LDL Cholesterol Calculated 90 mg/dl; Triglycerides 107 mg/dL
== END 2021-08-24 12:53 | disposition home or self-care (01) ==
LOC: HO.LAB 12:52
PROVIDERS: PCP Internal Medicine; Visit Provider Nurse Practitioner Family
DX: E78.00 Pure hypercholesterolemia, unspecified (principal)
CPT/HCPCS: 36415; 80061; 84450; 84460

== ENCOUNTER → 2021-09-07 08:51 | Outpatient (BNVA) | payer OTHER, SELFPAY | PROVIDERS: PCP Internal Medicine; Referring Provider Internal Medicine; Visit Provider Internal Medicine Cardiovascular Disease | DX: I25.10 Atherosclerotic heart disease of native coronary artery without angina pectoris (principal); I10 Essential (primary) hypertension | CPT/HCPCS: 93005 ==

== ENCOUNTER 2021-11-03 09:43 | Outpatient (REF) | payer OTHER, SELFPAY ==
[2021-11-03 10:08] LABS: MANUAL DIFF FLAG NO
[2021-11-03 10:23] LABS: Basophils Absolute Auto 0.1 X10*3/uL (0.0-0.2); Basophils Percent Auto 0.9 % (0-2); Eosinophils Absolute Auto 0.3 X10*3/uL (0.0-0.4); Eosinophils Percent Auto 4.6 % (0-4); Hematocrit 39.7 % (42.0-52.0); Hemoglobin 13.4 g/dl (14.0-18.0); Imm Gran Abs Auto 0.02 X10*3/uL (0.00-0.03); Imm Gran Pct Auto 0.3 % (0.0-0.4); Lymphocytes Absolute Auto 1.9 X10*3/uL (1.2-4.9); Lymphocytes Percent Auto 27.5 % (20-40); Mean Corpuscular HGB Conc 33.8 g/dl (31.0-36.0); Mean Corpuscular Hemoglobin 30.1 pg (27.0-33.0); Mean Corpuscular Volume 89.2 fL (80.0-98.0); Mean Platelet Volume 9.3 fL (9.4-12.4); Monocytes Absolute Auto 1.1 X10*3/uL (0.1-1.2); Monocytes Percent Auto 15.8 % (2-11); Neutrophils Absolute Auto 3.6 x10*3/uL (2.0-8.3); Neutrophils Percent Auto 50.9 % (45-73); Platelet Count 307 X10*3/uL (160-400); Red Blood Count 4.45 X10*6/uL (4.60-5.80)
[2021-11-03 10:49] LABS: Estimated Average Glucose 131 mg/dL; Hemoglobin A1c % 6.2 %
[2021-11-03 10:54] LABS: Appearance Urine CLEAR; Color Urine STRAW; Glucose Urine UA NEG (NEG); Leukocyte Esterase Urine NEG (NEG); Nitrite Urine NEG (NEG); UACC Culture Trigger NO; Urine Blood TRACE (NEG); Urine Ketones NEG (NEG); Urine Protein 2+ MG/DL (NEG-TRACE)
[2021-11-03 11:08] LABS: Creatinine Urine 76.21 mg/dL
[2021-11-03 11:45] LABS: Prostate Specific Antigen 3.22 ng/mL (<0.05-4.0); Vitamin D 25-OH Total 37.3 ng/mL (>30)
[2021-11-03 11:47] LABS: Alanine Aminotransferase 30 U/L (0-40); Albumin Level 4.2 g/dL (3.5-5.0); Alkaline Phosphatase 89 U/L (39-117); Anion Gap 9 (12-20); Aspartate Amino Transferase 20 U/L (5-37); Bilirubin Total 0.2 mg/dL (0.0-1.0); Blood Urea Nitrogen 15 mg/dL (9-16); Carbon Dioxide 28 mmol/L (22-29); Chloride 105 mmol/L (96-108); Cholesterol 156 mg/dL; Estimated Glomerular Filt Rate > 60; Glucose Fasting 136 mg/dL (60-99); HDL Cholesterol 36 mg/dL; LDL Cholesterol Calculated 101 mg/dl; Potassium 4.2 mmol/L (3.3-5.1); Sodium 138 mmol/L (135-145); Total Protein 7.1 g/dL (6.5-8.0); Triglycerides 99 mg/dL
[2021-11-03 11:47] LABS: Microalbum/Creatinine Ratio Ur 1015.6 ug/mg cr
[2021-11-03 11:52] LABS: Squamous Epithelial Cell Urine TRACE /LPF
[2021-11-03 11:53] LABS: WBC Urine 0-2 /HPF (0-4)
== END 2021-11-03 09:44 | disposition home or self-care (01) ==
LOC: HO.LAB 09:43
PROVIDERS: PCP Internal Medicine; Visit Provider Internal Medicine
DX: Z00.00 Encounter for general adult medical examination without abnormal findings (principal); E55.9 Vitamin D deficiency, unspecified; I10 Essential (primary) hypertension; E78.00 Pure hypercholesterolemia, unspecified; N40.0 Benign prostatic hyperplasia without lower urinary tract symptoms; R80.9 Proteinuria, unspecified; R73.01 Impaired fasting glucose; Z12.5 Encounter for screening for malignant neoplasm of prostate
CPT/HCPCS: 36415; 80053; 80061; 81001; 82043; 82306; 83036; 84153; 84443; 85025

== ENCOUNTER 2021-12-13 10:30 | Outpatient (REF) | payer OTHER, SELFPAY ==
--- NOTE | ~2021-12-13 | FL_ITS ---
EXAMINATION: FL BARIUM SWALLOW CLINICAL INFORMATION: Dysphagia. COMPARISON: None. TECHNIQUE: Barium swallow examination is performed using fluoroscopic evaluation in addition to multiple fluoroscopic spot views. The patient is imaged both upright and prone and using both thick and thin sulfate along with effervescent granules. Fluoroscopy time: 1.8 minutes DAP: 10.189 Gycm2 Images: 67 FINDINGS: Following oral administration of thick barium and barium-coated turkey there is normal propagation of bolus from the oral cavity through the pharynx, esophagus into stomach without any evidence of obstruction, narrowing or stricture. No laryngeal penetration or aspiration is seen. On oral administration of barium tablet there is spontaneous passage through the pharynx, esophagus into stomach without obstruction. On placing patient prone lying and oral administration of thin barium there is good distention of the esophagus without any intrinsic filling defect, narrowing or extrinsic compression. FL/FL barium swallow IMPRESSION: Unremarkable barium swallow exam.
== END 2021-12-13 10:31 | disposition home or self-care (01) ==
LOC: HO.XRAY 10:30
PROVIDERS: PCP Internal Medicine; Visit Provider Internal Medicine Gastroenterology
DX: R13.10 Dysphagia, unspecified (principal)
CPT/HCPCS: 74220

== ENCOUNTER 2022-04-13 09:54 | Outpatient (REF) | payer OTHER, SELFPAY ==
[2022-04-13 10:24] LABS: MANUAL DIFF FLAG NO
[2022-04-13 10:47] LABS: Basophils Absolute Auto 0.1 X10*3/uL (0.0-0.2); Basophils Percent Auto 0.9 % (0-2); Eosinophils Absolute Auto 0.4 X10*3/uL (0.0-0.4); Eosinophils Percent Auto 5.4 % (0-4); Hematocrit 39.8 % (42.0-52.0); Hemoglobin 13.2 g/dl (14.0-18.0); Imm Gran Abs Auto 0.03 X10*3/uL (0.00-0.03); Imm Gran Pct Auto 0.5 % (0.0-0.4); Lymphocytes Absolute Auto 1.9 X10*3/uL (1.2-4.9); Lymphocytes Percent Auto 28.7 % (20-40); Mean Corpuscular HGB Conc 33.2 g/dl (31.0-36.0); Mean Corpuscular Hemoglobin 29.4 pg (27.0-33.0); Mean Corpuscular Volume 88.6 fL (80.0-98.0); Mean Platelet Volume 9.3 fL (9.4-12.4); Monocytes Absolute Auto 0.9 X10*3/uL (0.1-1.2); Monocytes Percent Auto 13.8 % (2-11); Neutrophils Absolute Auto 3.4 x10*3/uL (2.0-8.3); Neutrophils Percent Auto 50.7 % (45-73); Platelet Count 320 X10*3/uL (160-400); Red Blood Count 4.49 X10*6/uL (4.60-5.80); Red Cell Distribution Width 13.2 % (11.0-16.0); White Blood Count 6.7 X10*3/uL (4.8-10.8)
[2022-04-13 10:51] LABS: Appearance Urine Clear; Color Urine Yellow; Glucose Urine UA Negative (Negative); Leukocyte Esterase Urine Negative (Negative); Nitrite Urine Positive (Negative); Specific Gravity - Urine 1.015 (1.005-1.025); UMIC TRIGGER UACC YES; Urine Blood Negative (Negative); Urine Ketones Negative (Negative); Urine Protein 100 (2+) mg/dL (Neg-Trace)
[2022-04-13 11:05] LABS: Bacteria Urine 4+ (None Seen); Hyaline Casts Urine 0-2 /LPF (0-2); RBC Urine 0-2 /HPF (0-2); Squamous Epithelial Cell Urine 0-2 /HPF (0-2); UACC Culture Trigger YES; WBC Urine 0-5 /HPF (0-5)
[2022-04-13 11:10] LABS: Estimated Average Glucose 137 mg/dL; Hemoglobin A1c % 6.4 %
[2022-04-13 11:57] LABS: Alanine Aminotransferase 30 U/L (0-40); Albumin Level 4.2 g/dL (3.5-5.0); Alkaline Phosphatase 79 U/L (39-117); Anion Gap 11 (12-20); Aspartate Amino Transferase 19 U/L (5-37); Blood Urea Nitrogen 15 mg/dL (9-16); Calcium 9.1 mg/dL (8.4-10.2); Carbon Dioxide 28 mmol/L (22-29); Chloride 104 mmol/L (96-108); Cholesterol 146 mg/dL; Estimated Glomerular Filt Rate > 60; Glucose Fasting 127 mg/dL (60-99); HDL Cholesterol 34 mg/dL; LDL Cholesterol Calculated 94 mg/dl; Sodium 139 mmol/L (135-145); Total Protein 7.1 g/dL (6.5-8.0); Triglycerides 90 mg/dL
[2022-04-13 12:13] LABS: TSH reflex Free T4 0.47 uIU/mL (0.32-4.0); Vitamin D 25-OH Total 35.7 ng/mL (>30)
[2022-04-13 12:32] LABS: Bilirubin Total 0.8 mg/dL (0.0-1.0)
== END 2022-04-13 09:55 | disposition home or self-care (01) ==
LOC: HO.LAB 09:54
PROVIDERS: PCP Internal Medicine; Visit Provider Internal Medicine
DX: E55.9 Vitamin D deficiency, unspecified (principal); E78.00 Pure hypercholesterolemia, unspecified; R73.01 Impaired fasting glucose; I10 Essential (primary) hypertension
CPT/HCPCS: 36415; 80053; 80061; 81001; 81003; 82306; 83036; 84443; 85025; 87086; 87088; 87186

== ENCOUNTER 2022-08-10 10:05 | Outpatient (REF) | payer OTHER, SELFPAY ==
[2022-08-10 10:23] LABS: MANUAL DIFF FLAG NO
[2022-08-10 10:29] LABS: Basophils Absolute Auto 0.1 X10*3/uL (0.0-0.2); Basophils Percent Auto 1.2 % (0-2); Eosinophils Absolute Auto 0.6 X10*3/uL (0.0-0.4); Eosinophils Percent Auto 7.8 % (0-4); Hematocrit 41.6 % (42.0-52.0); Hemoglobin 13.7 g/dl (14.0-18.0); Imm Gran Abs Auto 0.02 X10*3/uL (0.00-0.03); Imm Gran Pct Auto 0.3 % (0.0-0.4); Lymphocytes Absolute Auto 2.2 X10*3/uL (1.2-4.9); Mean Corpuscular HGB Conc 32.9 g/dl (31.0-36.0); Mean Corpuscular Hemoglobin 29.7 pg (27.0-33.0); Mean Corpuscular Volume 90.2 fL (80.0-98.0); Mean Platelet Volume 9.3 fL (9.4-12.4); Monocytes Percent Auto 13.2 % (2-11); Neutrophils Absolute Auto 3.5 x10*3/uL (2.0-8.3); Neutrophils Percent Auto 47.5 % (45-73); Platelet Count 338 X10*3/uL (160-400); Red Blood Count 4.61 X10*6/uL (4.60-5.80); Red Cell Distribution Width 12.8 % (11.0-16.0); White Blood Count 7.3 X10*3/uL (4.8-10.8)
[2022-08-10 10:38] LABS: Estimated Average Glucose 143 mg/dL; Hemoglobin A1c % 6.6 %
[2022-08-10 11:02] LABS: Alanine Aminotransferase 33 U/L (0-40); Albumin Level 4.1 g/dL (3.5-5.0); Alkaline Phosphatase 88 U/L (39-117); Anion Gap 13 (12-20); Aspartate Amino Transferase 20 U/L (5-37); Bilirubin Total 0.8 mg/dL (0.0-1.0); Blood Urea Nitrogen 15 mg/dL (9-16); Calcium 9.1 mg/dL (8.4-10.2); Carbon Dioxide 26 mmol/L (22-29); Chloride 106 mmol/L (96-108); Cholesterol 172 mg/dL; Estimated Glomerular Filt Rate > 60; Glucose Fasting 136 mg/dL (60-99); HDL Cholesterol 34 mg/dL; LDL Cholesterol Calculated 118 mg/dl; Potassium 4.1 mmol/L (3.3-5.1); Sodium 141 mmol/L (135-145); Total Protein 6.9 g/dL (6.5-8.0); Triglycerides 100 mg/dL
[2022-08-10 11:17] LABS: TSH reflex Free T4 0.72 uIU/mL (0.32-4.0); Vitamin D 25-OH Total 42.8 ng/mL (>30)
[2022-08-10 12:21] LABS: Appearance Urine Clear; Color Urine Yellow; Glucose Urine UA Negative (Negative); Leukocyte Esterase Urine Negative (Negative); Nitrite Urine Negative (Negative); Specific Gravity - Urine 1.015 (1.005-1.025); UMIC TRIGGER UACC YES; Urine Blood Negative (Negative); Urine Ketones Negative (Negative); Urine Protein 100 (2+) mg/dL (Neg-Trace)
[2022-08-10 12:28] LABS: Bacteria Urine 1+ (None Seen); Hyaline Casts Urine 0-2 /LPF (0-2); Squamous Epithelial Cell Urine 0-2 /HPF (0-2); WBC Urine 0-5 /HPF (0-5)
== END 2022-08-10 10:06 | disposition home or self-care (01) ==
LOC: HO.LAB 10:05
PROVIDERS: Absent Provider Internal Medicine; PCP Internal Medicine; Visit Provider Internal Medicine Cardiovascular Disease
DX: E78.00 Pure hypercholesterolemia, unspecified (principal); E55.9 Vitamin D deficiency, unspecified; R73.01 Impaired fasting glucose; I10 Essential (primary) hypertension; R30.0 Dysuria
CPT/HCPCS: 36415; 80053; 80061; 81001; 81003; 82306; 83036; 84443; 85025

== ENCOUNTER 2022-08-20 10:03 | Outpatient (REF) | payer OTHER, SELFPAY ==
--- NOTE | ~2022-08-20 | XR_ITS ---
EXAMINATION: XR LUMBOSACRAL SPINE CLINICAL INFORMATION: M54.42 - Lumbago with sciatica, left side COMPARISON: Left hip radiographs 05/22/2022, pelvic radiograph 02/24/2018, CT abdomen and pelvis 05/09/2015. TECHNIQUE: Three views of the lumbosacral spine. 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 Suspect left L5 spondylolysis on the CT exam. There are 5 nonrib-bearing lumbar vertebrae of normal height and normal lumbar lordosis. There is a gentle levocurvature again noted thoracolumbar region. There is no lumbar vertebral compression or spondylolisthesis or retrolisthesis. No destructive process. No focal disc narrowing or erosive changes. The SI joints and remainder of the sacrum are unremarkable. 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 -No lumbar vertebral compression, spondylolisthesis, disc narrowing, destructive process.
--- NOTE | ~2022-08-20 | XR_ITS ---
EXAMINATION: XR HIP, LEFT CLINICAL INFORMATION: M54.42 - Lumbago with sciatica, left side COMPARISON: Left fifth radiographs 11/27/2017, pelvis 02/24/2018, lumbar spine 08/20/2022. TECHNIQUE: Two views of the left hip. FINDINGS: There is bipolar hip replacement. Hardware is intact. No fracture, dislocation, destructive process, or osteolysis. Soft tissue planes are unremarkable. XR/XR hip LT min 2V IMPRESSION: Left hip replacement. Hardware intact. No destructive process.
== END 2022-08-20 10:04 | disposition home or self-care (01) ==
LOC: HO.XRAY 10:03
PROVIDERS: PCP Internal Medicine; Visit Provider Internal Medicine
DX: M54.42 Lumbago with sciatica, left side (principal); Z96.642 Presence of left artificial hip joint
CPT/HCPCS: 72100; 73502

== ENCOUNTER → 2022-09-10 08:50 | Outpatient (BNVA) | payer OTHER, SELFPAY | PROVIDERS: PCP Internal Medicine; Referring Provider Internal Medicine; Visit Provider Internal Medicine Cardiovascular Disease | DX: I25.10 Atherosclerotic heart disease of native coronary artery without angina pectoris (principal); I10 Essential (primary) hypertension | CPT/HCPCS: 93005 ==

== ENCOUNTER 2022-11-16 22:05 | Emergency (ER) | payer OTHER, SELFPAY ==
--- NOTE | ~2022-11-16 | US_ITS ---
EXAMINATION: US VENOUS ULTRASOUND WITH DOPPLER LOWER EXTREMITY, RIGHT CLINICAL INFORMATION: Status post knee surgery, calf swelling and pain COMPARISON: None available. TECHNIQUE: Ultrasound of the deep veins is performed from the hip to the calf with compression sonography and color and pulse Doppler assessment. Spectral analysis with color-flow imaging is performed. FINDINGS: There is normal venous compression and respiratory variation and augmented flow. The visualized common femoral vein, superficial femoral vein, profunda femoral vein, popliteal vein, and the trifurcation region shows no evidence of deep venous thrombosis. There is no significant popliteal fossa cyst. If the patient's symptoms persist, followup ultrasound in 5 days 7 days might be of value to exclude proximal propagation from a non-visualized calf vein. US/US venous duplex LE RT IMPRESSION: No DVT demonstrated in the right lower extremity.
[2022-11-16 22:30] VITALS: BP 141/76; PULSE 87; RESP 17; TEMP 36.3; O2SAT 97
--- NOTE | 2022-11-17 00:16 | PC.NURSE ---
Pt A&Ox4, reports 10/10 right knee pain, Pt reports increase swelling to calf area that started today. Pt had knee surgery 11/05/2022. Incision is intact, no drainage noted, bruising around area noted, no warmth to touch. Pt ambulated with walker and knee immobilizer.
--- NOTE | 2022-11-17 00:52 | ED.GENADULT ---
HPI - General Adult General Chief complaint: Extremity Problem Stated complaint: R/O DVT Time Seen by Provider: 11/17/22 00:39 Source: patient and RN notes reviewed Mode of arrival: ambulatory Limitations: no limitations History of Present Illness HPI narrative: 57-year-old male presents for evaluation of right leg swelling/calf pain. 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 to rule out DVT Patient denies any chest pain or shortness of breath Related Data Home Medications Medication Instructions Recorded Confirmed aspirin 81 mg tablet,delayed 81 mg PO DAILY 05/23/20 09/10/22 release acetaminophen 500 mg tablet 1,000 mg PO Q6H PRN 08/08/20 09/10/22 (Tylenol Extra Strength) oxycodone 5 mg tablet 5 mg PO DAILY PRN 08/08/20 09/10/22 amlodipine 5 mg tablet 5 mg PO DAILY 04/20/22 09/10/22 Previous Rx's Medication Instructions Recorded cholecalciferol (vitamin D3) 25 25 mcg PO DAILY #90 caps 02/29/20 mcg (1,000 unit) capsule diclofenac sodium 1 % topical gel 4 g topical QID PRN pain 30 days 07/26/21 #100 grams carvedilol 3.125 mg tablet (Coreg) See Rx Instructions PO BID 90 days 09/07/21 #270 tabs ezetimibe 10 mg tablet (Zetia) 10 mg PO DAILY #90 tabs 03/06/22 atorvastatin 80 mg tablet 80 mg PO DAILY #90 tabs 04/05/22 gabapentin 100 mg capsule 200 mg PO BID 30 days #120 caps 07/18/22 omeprazole 20 mg capsule,delayed 20 mg PO DAILY #90 caps 09/04/22 release lisinopril 40 mg tablet 40 mg PO DAILY #90 tabs 09/16/22 evolocumab 140 mg/mL subcutaneous 140 mg subcut Q2W #2 mL 09/17/22 pen injector (Jason Sanchez) tizanidine 4 mg tablet 4 mg PO Q8H PRN muscle spasms 30 09/17/22 days #90 tabs clonazepam 1 mg tablet See Rx Instructions .Route 10/19/22 .COMPLEX 30 days #30 tabs Allergies Allergy/AdvReac Type Severity Reaction Status Date / Time amlodipine Allergy Unknown gi Verified 11/16/22 22:30 atorvastatin Allergy Unknown myalgia at Verified 11/16/22 22:30 80 mg, muscle px chlorthalidone Allergy Unknown excessive Verified 11/16/22 22:30 urination glipizide Allergy Unknown Unknown Verified 11/16/22 22:30 hydrochlorothiazide Allergy Unknown dizziness, Verified 11/16/22 22:30 excessive urination ibuprofen [From MOTRIN] Allergy Unknown irregular Verified 11/16/22 22:30 heartbeat metformin Allergy Unknown chokling Verified 11/16/22 22:30 sensation metoprolol Allergy Unknown slow heart Verified 11/16/22 22:30 rate nifedipine Allergy Unknown tachy/kate Verified 11/16/22 22:30 buspirone [From BUSPAR] AdvReac Unknown STOMACH Verified 11/16/22 22:30 UPSET canagliflozin [Invokana] AdvReac Unknown SYNCOPE Verified 11/16/22 22:30 clonidine [From CATAPRES] AdvReac Unknown STOMACH Verified 11/16/22 22:30 UPSET SHELLFISH Allergy Severe ANAPHYLAXIS Uncoded 11/16/22 22:30 Sucralfate Allergy Unknown chest pain Uncoded 11/16/22 22:30 Review of Systems Cardiovascular: Cardiovascular: Denies chest pain and Denies dyspnea Respiratory: Respiratory: Denies cough and Denies dyspnea Musculoskeletal: Musculoskeletal: Reports arthralgias and Reports joint swelling PMFSH Past Medical History Medical History Anemia Anxiety Benign essential hypertension CAD (coronary artery disease) Fatigue Impaired fasting glucose Left thigh pain Myalgia Obstructive sleep apnea Overweight (BMI 25.0-29.9) Palpitations Primary insomnia Primary osteoarthritis of left hip Proteinuria Pure hypercholesterolemia Vitamin D deficiency Surgical History History of arthroplasty of left hip History of hip surgery Family History Family History Father No problems noted. 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 Cognitive needs: No Hearing needs: No Vision needs: Yes Physical Exam ED Vital Signs: Vital Signs - 24 hr 11/16/22 22:30 Temperature 97.3 F Pulse Rate 87 Respiratory Rate 17 Blood Pressure 141/76 H Pulse Oximetry 97 Oxygen Delivery Method Room Air BMI result Body Mass Index 30.0 Const General: healthy appearing, comfortable, no acute distress, alert and awake Nutritional Appearance: well nourished Orientation/consciousness: patient oriented x3 HENMT Head: Yes normocephalic and Yes atraumatic Eyes Eyelids: Yes eyelids normal Conjunctivae: conjunctivae normal Sclerae: sclerae normal Corneas: corneas normal Pupils: Equal, round and reactive pupils present EOM: EOMs intact bilaterally Neck Neck: Yes full ROM Resp Effort & Inspection: normal respiratory effort, able to speak in complete sentences and not labored Skin Other: Large, healing surgical incisions and right anterior knee. No surrounding erythema. There remains some degree of surrounding ecchymosis. There is moderate edema. Patient has mild calf tenderness. Skin is warm, dry, well perfused, no palpable cords General skin exam: elasticity normal Neuro General: patient oriented x3 Cranial nerves: Yes Equal, round and reactive pupils present and Yes Bilaterally intact EOM present Cognition (Neuro): normal cognition Medical Decision Making Medical Decision Making MDM Narrative: Patient has continued right leg pain and swelling after a recent orthopedic surgery. Ultrasound is negative for DVT. His pain is likely related to the surgery but he is stable for discharge at this time. Differential Diagnosis Postop pain DVT Leg edema Dependent edema Thrombophlebitis Cellulitis Radiology Impression Discussion of test interpretation with radiology: I have reviewed the radiologist's reading. (No acute DVT of the right lower extremity) Discharge Plan Discharge Clinical Impression: Acute pain of right lower extremity Patient Disposition: Home, Self-Care Instructions: Leg Pain (ED) Additional Instructions: Your ultrasound was negative for a DVT/blood clots. Your pain is most likely related to your recent surgery. It does not appear infected and appears to be healing well Continue with your current pain regimen. Elevate the leg while at rest. Follow-up with your orthopedic doctor as planned Prescriptions: No Action cholecalciferol (vitamin D3) 25 mcg (1,000 unit) capsule 25 mcg PO DAILY Qty: 90 1RF ezetimibe [Zetia] 10 mg tablet 10 mg PO DAILY Qty: 90 3RF atorvastatin 80 mg tablet 80 mg PO DAILY Qty: 90 3RF gabapentin 100 mg capsule 200 mg PO BID 30 Days Qty: 120 5RF omeprazole 20 mg capsule,delayed release(DR/EC) 20 mg PO DAILY Qty: 90 1RF lisinopril 40 mg tablet 40 mg PO DAILY Qty: 90 0RF tizanidine 4 mg tablet 4 mg PO Q8H PRN (Reason: muscle spasms) 30 Days Qty: 90 0RF Repatha SureClick 140 mg/mL pen injector 140 mg subcut Q2W Qty: 2 5RF clonazepam 1 mg tablet See Rx Instructions .ROUTE .COMPLEX 30 Days Qty: 30 0RF Rx Instructions: 1/2 to 1 tablet by mouth once a day as needed for increased anxiety; oxycodone 5 mg tablet 5 mg PO DAILY PRN acetaminophen [Tylenol Extra Strength] 500 mg tablet 1,000 mg PO Q6H PRN aspirin 81 mg tablet,delayed release (DR/EC) 81 mg PO DAILY diclofenac sodium 1 % gel 4 g topical QID PRN (Reason: pain) 30 Days Qty: 100 5RF amlodipine 5 mg tablet 5 mg PO DAILY carvedilol [Coreg] 3.125 mg tablet See Rx Instructions PO BID 90 Days Qty: 270 1RF Rx Instructions: 1 tablet in a.m. and 2 tablets in p.m. PO 2 times a day; must administer with a meal/food
== END 2022-11-17 01:21 | disposition home or self-care (01) ==
PROVIDERS: Emergency Provider Emergency Medicine; PCP Internal Medicine
DX: M79.661 Pain in right lower leg (principal); E78.00 Pure hypercholesterolemia, unspecified; Z96.651 Presence of right artificial knee joint; Z79.82 Long term (current) use of aspirin; Z79.899 Other long term (current) drug therapy
CPT/HCPCS: 93971; 99284

== ENCOUNTER 2022-12-11 11:58 | Outpatient (REF) | payer OTHER, SELFPAY ==
[2022-12-11 12:20] LABS: MANUAL DIFF FLAG NO
[2022-12-11 12:48] LABS: Basophils Absolute Auto 0.1 X10*3/uL (0.0-0.2); Basophils Percent Auto 1.1 % (0-2); Eosinophils Absolute Auto 0.3 X10*3/uL (0.0-0.4); Eosinophils Percent Auto 5.6 % (0-4); Hematocrit 39.4 % (42.0-52.0); Hemoglobin 12.7 g/dl (14.0-18.0); Imm Gran Abs Auto 0.02 X10*3/uL (0.00-0.03); Imm Gran Pct Auto 0.4 % (0.0-0.4); Lymphocytes Absolute Auto 1.7 X10*3/uL (1.2-4.9); Lymphocytes Percent Auto 30.7 % (20-40); Mean Corpuscular HGB Conc 32.2 g/dl (31.0-36.0); Mean Corpuscular Hemoglobin 29.2 pg (27.0-33.0); Mean Corpuscular Volume 90.6 fL (80.0-98.0); Mean Platelet Volume 9.3 fL (9.4-12.4); Monocytes Absolute Auto 0.7 X10*3/uL (0.1-1.2); Monocytes Percent Auto 12.9 % (2-11); Neutrophils Absolute Auto 2.8 x10*3/uL (2.0-8.3); Neutrophils Percent Auto 49.3 % (45-73); Platelet Count 304 X10*3/uL (160-400); Red Blood Count 4.35 X10*6/uL (4.60-5.80); Red Cell Distribution Width 13.7 % (11.0-16.0); White Blood Count 5.6 X10*3/uL (4.8-10.8)
[2022-12-11 13:22] LABS: Estimated Average Glucose 120 mg/dL; Hemoglobin A1c % 5.8 %
[2022-12-11 13:24] LABS: Alanine Aminotransferase 17 U/L (0-40); Albumin Level 4.1 g/dL (3.5-5.0); Alkaline Phosphatase 97 U/L (39-117); Anion Gap 12 (12-20); Aspartate Amino Transferase 13 U/L (5-37); Bilirubin Total 0.7 mg/dL (0.0-1.0); Blood Urea Nitrogen 13 mg/dL (9-16); Calcium 9.2 mg/dL (8.4-10.2); Carbon Dioxide 29 mmol/L (22-29); Chloride 105 mmol/L (96-108); Cholesterol 80 mg/dL; Estimated Glomerular Filt Rate > 60; Glucose Fasting 116 mg/dL (60-99); HDL Cholesterol 33 mg/dL; LDL Cholesterol Calculated 32 mg/dl; Potassium 4.1 mmol/L (3.3-5.1); Sodium 142 mmol/L (135-145); Total Protein 7.7 g/dL (6.5-8.0); Triglycerides 77 mg/dL
[2022-12-11 13:40] LABS: Prostate Specific Antigen Scr 3.97 ng/mL (<0.05-4.0)
[2022-12-11 13:41] LABS: TSH reflex Free T4 0.59 uIU/mL (0.32-4.0); Vitamin D 25-OH Total 36.8 ng/mL (>30)
[2022-12-11 14:31] LABS: Appearance Urine Clear; Color Urine Yellow; Glucose Urine UA Negative (Negative); Leukocyte Esterase Urine Negative (Negative); Nitrite Urine Negative (Negative); Specific Gravity - Urine 1.015 (1.005-1.025); UMIC TRIGGER UACC YES; Urine Blood Trace (Negative); Urine Ketones Negative (Negative); Urine Protein 100 (2+) mg/dL (Neg-Trace)
[2022-12-11 14:36] LABS: Bacteria Urine None Seen (None Seen); Hyaline Casts Urine 0-2 /LPF (0-2); RBC Urine 0-2 /HPF (0-2); Squamous Epithelial Cell Urine 0-2 /HPF (0-2); WBC Urine 0-5 /HPF (0-5)
[2022-12-11 15:40] LABS: Creatinine Urine 91.06 mg/dL
[2022-12-11 15:56] LABS: Microalbum/Creatinine Ratio Ur 744.5 ug/mg cr
== END 2022-12-11 11:59 | disposition home or self-care (01) ==
LOC: HO.LAB 11:58
PROVIDERS: PCP Internal Medicine; Visit Provider Internal Medicine
DX: Z00.00 Encounter for general adult medical examination without abnormal findings (principal); Z12.5 Encounter for screening for malignant neoplasm of prostate; E55.9 Vitamin D deficiency, unspecified; E11.9 Type 2 diabetes mellitus without complications; I10 Essential (primary) hypertension; E78.00 Pure hypercholesterolemia, unspecified
CPT/HCPCS: 36415; 80053; 80061; 81001; 82043; 82306; 83036; 84153; 84443; 85025

== ENCOUNTER 2022-12-25 09:04 | Outpatient (AMB) | payer OTHER, SELFPAY ==
[2022-12-25 09:06] VITALS: BP 140/82; PULSE 65; O2SAT 98; BMI 29.7
--- NOTE | 2022-12-25 09:06 | MHC.PC.OV ---
Vital Signs 12/25/22 09:06 Height 5 ft 9 in Weight 201 lb BMI 29.7 BP 140/82 H Blood Pressure Location Lt brachial Position Sitting Pulse 65 Pulse Source Pulse Oximeter Pulse Oximetry (%) 98 Oxygen Delivery Method Room Air Intake Visit Reasons: PE Professional Healthcare Representative Required: No Accompanied by: Self / Same As Patient Allergies amlodipine Allergy (Unknown, Verified 12/25/22 09:30) gi atorvastatin Allergy (Unknown, Verified 12/25/22 09:30) myalgia at 80 mg, muscle px chlorthalidone Allergy (Unknown, Verified 12/25/22 09:30) excessive urination glipizide Allergy (Unknown, Verified 12/25/22 09:30) Unknown hydrochlorothiazide Allergy (Unknown, Verified 12/25/22 09:30) dizziness, excessive urination ibuprofen [From MOTRIN] Allergy (Unknown, Verified 12/25/22 09:30) irregular heartbeat metformin Allergy (Unknown, Verified 12/25/22 09:30) chokling sensation metoprolol Allergy (Unknown, Verified 12/25/22 09:30) slow heart rate nifedipine Allergy (Unknown, Verified 12/25/22 09:30) tachy/kate buspirone [From BUSPAR] Adverse Reaction (Unknown, Verified 12/25/22 09:30) STOMACH UPSET canagliflozin [Invokana] Adverse Reaction (Unknown, Verified 12/25/22 09:30) SYNCOPE clonidine [From CATAPRES] Adverse Reaction (Unknown, Verified 12/25/22 09:30) STOMACH UPSET SHELLFISH Allergy (Severe, Uncoded 12/25/22 09:30) ANAPHYLAXIS Sucralfate Allergy (Unknown, Uncoded 12/25/22 09:30) chest pain Medication List - Last Reconciled 12/25/22 by Sim Reardon MD acetaminophen (Tylenol Extra Strength) 1,000 mg PO Q6H PRN amlodipine 5 mg PO DAILY aspirin 81 mg PO DAILY atorvastatin 80 mg PO DAILY carvedilol (Coreg) 1 tablet in a.m. and 2 tablets in p.m. PO 2 times a day; must administer with a meal/food 90 days celecoxib 200 mg PO DAILY cholecalciferol (vitamin D3) 25 mcg PO DAILY cholecalciferol (vitamin D3) 125 mcg PO DAILY clonazepam 1/2 to 1 tablet by mouth once a day as needed for increased anxiety; 30 days diclofenac sodium 1% 4 grams topical QID PRN 30 days docusate sodium 100 mg PO DAILY evolocumab (Repatha SureClick) 140 mg subcut Q2W evolocumab (Repatha SureClick) 140 mg subcut Q2W ezetimibe (Zetia) 10 mg PO DAILY gabapentin 200 mg (2 x 100 mg) PO BID 30 days hydromorphone 2 mg PO Q4-6H PRN lisinopril 40 mg PO DAILY melatonin 10 mg PO BEDTIME PRN [id number] mcg (Centrum Silver Men) 1 tab PO DAILY omeprazole 20 mg PO DAILY oxycodone 5 mg PO DAILY PRN sennosides (Natural Senna Laxative) 8.6 mg PO DAILY tizanidine 4 mg PO Q8H PRN 30 days Tobacco use date assessed: 12/25/22 Dental Screening Dental Screen Date: 12/25/22 Did you have a dental visit in the last 12 months?: No Did you have a dental problem in the last 6 months where you did not have access to dental care?: No Was dental information given to patient?: No HPI PE HPI Details Patient comes in today for his annual physical examination States that he feels okay Had total right knee arthroplasty with [facility] back on 11/05/22 - states that his knee is healing well but he still has some pain in the knee Is still going to physical therapy for his knee He denies any headaches or dizziness Denies any chest pains, no SOB No nausea/vomiting, no abdominal pain No change in bowel habits noted Denies any acute urinary symptoms Had his follow up labs done a couple of weeks ago - to discuss his results Had his last screening colonoscopy (normal) done with Dr. Dietz in July 2018 - was advised to get repeat procedure in 10 years [facility] Medical History Anemia Anxiety Benign essential hypertension CAD (coronary artery disease) Fatigue Impaired fasting glucose Left thigh pain Myalgia Obstructive sleep apnea Overweight (BMI 25.0-29.9) Palpitations Primary insomnia Primary osteoarthritis of left hip Proteinuria Pure hypercholesterolemia Vitamin D deficiency Surgical History (Updated 12/25/22 @ 09:35 by Sim Reardon MD) History of arthroplasty of left hip History of arthroplasty of right knee (~11/05/22) History of hip surgery Hx of colonoscopy Family History Father No problems noted. 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 1. Little interest or pleasure in doing things: not at all 2. Feeling down, depressed, or hopeless: not at all 3. Trouble falling or staying asleep, or sleeping too much: not at all 4. Feeling tired or having little energy: not at all 5. Poor appetite or overeating: not at all 6. Feeling bad about yourself - or that you are a failure or have let yourself or your family down: not at all 7. Trouble concentrating on things, such as reading the newspaper or watching television: not at all 8. Moving or speaking so slowly that other people could have noticed. Or the opposite - being so fidgety or restless that you have been moving around a lot more than usual: not at all 9. Thoughts that you would be better off or of hurting yourself in some way: not at all Total score: 0 Depression Screening Interpretation: Negative 05702 - PHQ-9 Billing: Yes Source: Developed by Drs. Alex Clarke, Nhung Wolf, Jese Leos and colleagues, with an educational kristin from [employer]. Thrive Questionnaire Date Thrive assessed: 12/25/22 I am a: Patient What is your living situation today?: I have a steady place to live Within the past 12 months, did the food you bought not last and you didn't have the money to get more?: Never true Within the past 12 months, did you worry whether your food would run out before you got money to buy more?: Never true Do you have trouble paying for medicines?: No Do you have trouble getting transportation to medical appointments?: No Do you have trouble paying your heating and electricity bill?: No Do you have trouble taking care of your child, family member or friend?: No Do you have trouble with day-to-day activities such as bathing, preparing meals, shopping, managing finances, etc.?: No Are you currently unemployed and looking for a job?: No Are you interested in more education?: No Please select the resources that you would like help with: None Currently or been in a relationship where the following occur: no concerns reported AUDIT C Alcohol Use Questionnaire (AUDIT-C) 1. How often do you have a drink containing alcohol?: Never 3. How often do you have six or more drinks on one occasion?: Never Total Score: 0 Score Reviewed/Action Taken: Yes DILLON-7 AMB Questionnaire DILLON-7 Date DILLON - 7 assessed: 12/25/22 Feeling nervous, anxious, or on edge: 0 = Not at all Not being able to stop or control worryin = Not at all Worrying too much about different things: 0 = Not at all Trouble relaxin = Not at all Being so restless that it is hard to sit still: 0 = Not at all Becoming easily annoyed or irritable: 0 = Not at all Feeling afraid as if something awful might happen: 0 = Not at all Total DILLON-7 score (0-4 normal; 5-9 mild; 10-14 moderate; 15-21 severe): 0 Source: Developed by Drs. Alex Clarke, Nhung Wolf, Jese Leos and colleagues, with an educational kristin from [employer]. Review of Systems Const Denies chills, Denies fatigue, Denies fever(s), Denies headache(s), Denies malaise and Denies weakness Eyes Denies blurry vision, Denies change in vision, Denies irritation and Denies itchy eyes ENT Denies dysphagia, Denies dizziness, Denies otalgia, Denies headache(s), Denies nasal congestion, Denies neck pain, Denies odynophagia and Denies sore throat Card Denies chest pain, Denies rapid heart rate, Denies irregular heart rhythm, Denies palpitations and Denies dyspnea Resp Denies chest congestion, Denies cough, Denies dyspnea and Denies wheezing GI Denies abdominal pain, Denies bloating, Denies constipation, Denies dysphagia, Denies heartburn, Denies diarrhea, Denies nausea, Denies odynophagia and Denies vomiting Denies hematuria, Denies difficulty urinating, Denies dysuria, Denies urinary frequency and Denies urinary urgency Musc Denies back pain, Reports arthralgias (right knee - S/P arthroplasty on 11/05/22), Reports joint swelling (mild, in the right knee), Denies muscle weakness and Denies neck pain Skin/Breast Denies change in pigmentation, Denies lesions, Denies rash and Denies unusual bruising Neuro Denies dizziness, Denies headache(s), Denies paresthesias and Denies weakness Endo Denies fatigue and Denies palpitations Aller/Immun Denies itchy eyes and Denies wheezing Physical exam (Primary Care) Vital Signs: Last Vital Signs Pulse 65 12/25/22 09:06 BP 140/82 H 12/25/22 09:06 Pulse Ox 98 12/25/22 09:06 Oxygen Delivery Method Room Air 12/25/22 09:06 BMI result Body Mass Index 29.7 Tobacco/Smoking Status: Tobacco use Status Tobacco use date assessed 12/25/22 12/25/22 09:07 Patient Tobacco Use Status Never used Tobacco 12/25/22 09:07 e-Cigarette/Vaping Use Never Used 12/25/22 09:07 PHQ-9: PHQ-9 Score PHQ-9: Total score 0 12/25/22 09:21 Depression Screening Interpretation: Negative Thrive Assessment: Date of Thrive Assessment Date Thrive assessed 12/25/22 12/25/22 09:07 Currently or been in a relationship where the following occur: no concerns reported Const General: no acute distress, alert and awake Orientation/consciousness: patient oriented x3 HENMT Head: Yes normocephalic and Yes atraumatic Ears: external ears normal, TM's normal bilaterally and EAC's normal General nose exam: No nasal discharge present Face and sinus: Yes normal facial exam and Yes sinuses nontender Teeth and gingiva: dentition normal Throat: Yes posterior oropharynx normal and Yes tonsils normal (no TP congestion) Eyes Eyelids: Yes eyelids normal Conjunctivae: conjunctivae normal Pupils: Equal, round and reactive pupils present EOM: EOMs intact bilaterally Neck Neck: Yes no lymphadenopathy and Yes supple Thyroid: Thyroid normal Resp Auscultation: clear to auscultation bilaterally, no rales and no wheezes Cardio Rate: regular rate Rhythm: regular rhythm Heart sounds: no murmurs GI Palpation (GI): Soft to palpation, nontender and No hepatosplenomegaly present Auscultation: normal bowel sounds General: Yes no CVA tenderness Back/Spine/Pelvis Back: no CVA tenderness Thoracic/Lumbar Spine: thoracic and lumbar spine normal to inspection Skin Lesions: no lesions Rashes: no rashes Neuro General: patient oriented x3, moves all extremities, no focal motor deficits and CN's II-XI intact bilaterally Cranial nerves: Yes Equal, round and reactive pupils present Cognition (Neuro): normal cognition Gait exam (Neuro): Normal gait present Extrem General: Yes no clubbing, cyanosis or edema Right lower extremity: knee ((+) mild tenderness over the knee, with a healed vertical scar noted) Results Reviewed Results Reviewed: Laboratory Tests 12/11/22 12/11/22 12/11/22 12:17 12:17 12:17 WBC 5.6 Hgb 12.7 L Hct 39.4 L Plt Count 304 Sodium 142 Potassium 4.1 Creatinine 0.85 Estimated GFR > 60 Fasting Glucose 116 H Hemoglobin A1c % Calcium 9.2 AST 13 ALT 17 Triglycerides 77 Cholesterol 80 LDL Cholesterol, Calc 32 HDL Cholesterol 33 PSA Screen 25-OH Vitamin D Total 36.8 TSH 0.59 Ur Specific [place] 1.015 Urine Protein 100 (2+) H Urine Glucose (UA) Negative Urine Blood Trace H Microalb/Creat Ratio 12/11/22 12/11/22 12/11/22 12:17 12:17 12:17 WBC Hgb Hct Plt Count Sodium Potassium Creatinine Estimated GFR Fasting Glucose Hemoglobin A1c % 5.8 Calcium AST ALT Triglycerides Cholesterol LDL Cholesterol, Calc HDL Cholesterol PSA Screen 3.97 25-OH Vitamin D Total TSH Ur Specific [place] Urine Protein Urine Glucose (UA) Urine Blood Microalb/Creat Ratio 744.5 Assessment and Plan Assessment & Plan (1) Annual physical exam: Code(s): Z00.00 - Encounter for general adult medical examination without abnormal findings Plan: Results of his labs done a couple of weeks ago reviewed and discussed with patient Patient is up-to-date with his colon cancer screening PSA is again slightly elevated on his recent labs at 3.97 but patient denies any acute urinary symptoms Will recheck his PSA in 6 months and if it remains elevated, may need to refer to urology for further evaluation (2) CAD (coronary artery disease): Comment: Coronary calcium score greater than 1000, February 2021 Code(s): I25.10 - Atherosclerotic heart disease of [place] coronary artery without angina pectoris Qualifiers: Coronary Disease-Associated Artery/Lesion type: unspecified vessel or lesion type [place] vs. transplanted heart: [place] heart Associated angina: without angina Qualified Code(s): I25.10 - Atherosclerotic heart disease of [place] coronary artery without angina pectoris Plan: Recently had coronary CTA done last year (2020) to assess his CV risks - test came out showing significantly elevated coronary calcium score of > 1000 suggestive of 3-vessel disease Nuclear stress testing done at [facility] in April 2021 came out normal Continue Aspirin 81 mg QD and Carvedilol 3.125 mg in AM and 6.25 mg in PM Follow up with cardiology as scheduled (3) Palpitations: Comment: Echocardiogram (normal EF, mild TR and mild MR) and Holter monitor (SR with rare PAC and PVC) done last year (2019) were mostly normal Code(s): R00.2 - Palpitations Plan: Symptoms have reportedly subsided/resolved and have not recurred recently Follow up with cardiology as scheduled (4) Benign essential hypertension: Code(s): I10 - Essential (primary) hypertension Plan: Reinforced low sodium diet - goal is systolic BP of at least 120 to 130 mm Continue Amlodipine 5 mg QD, Lisinopril 40 mg QD and Carvedilol 3.125 mg in AM and 6.25 mg in PM Follow up with cardiology as scheduled (5) Pure hypercholesterolemia: Code(s): E78.00 - Pure hypercholesterolemia, unspecified Plan: Patient is advised that his cholesterol numbers have improved significantly from previous - states that this is mostly because he is now back on Repatha injections Reinforced low cholesterol diet Continue Atorvastatin 80 mg QD and Ezetimibe 10 mg QD Cardiology has recommended adding/switching to Praluent, especially in light of patient's recent high coronary calcium CTA score and he is now alsoon Repatha 140 mg SQ every 2 weeks Will recheck his labs and fasting lipids in 4 months for follow up (6) Impaired fasting glucose: Comment: Was on hypoglycemics in the past but stopped secondary to side effects. Not taking any medication for diabetes now. Very rarely checks his blood sugar. Code(s): R73.01 - Impaired fasting glucose Plan: HgbA1c has improved to 5.8% on his labs done a couple of weeks ago; was at 6.6% previously Reinforced low calorie diet/exercise as tolerated Will recheck his labs and HgbA1c in 4 months for follow up (7) Proteinuria: Code(s): R80.9 - Proteinuria, unspecified Qualifiers: Proteinuria type: unspecified Qualified Code(s): R80.9 - Proteinuria, unspecified Plan: Patient still has significant proteinuria on his recent labs although this appears to be stable lately Follow up with nephrology as scheduled (8) Vitamin D deficiency: Code(s): E55.9 - Vitamin D deficiency, unspecified Plan: Corrected - continue VItamin D3 2000 units QD (9) Primary osteoarthritis of left hip: Comment: S/P total left hip arthroplasty with [facility] in August 2019 and S/P physical therapy, with significant improvement of hip pain Code(s): M16.12 - Unilateral primary osteoarthritis, left hip Plan: Continue Tylenol 325 mg every 4 to 6 hours as needed Follow up with orthopedics ([facility]) as scheduled or as needed (10) Obstructive sleep apnea: Comment: Obstructive sleep apnea, well treated with use of CPAP. He is very compliant and benefitting from the use of CPAP. No specific issues concerning CPAP device. Code(s): G47.33 - Obstructive sleep apnea (adult) (pediatric) Plan: Continue using his CPAP device when sleeping at night States that he has been experiencing some problems with his CPAP device mask (poor fit?) and will be checking with the Sleep Medicine specialist for this soon (11) Anemia: Code(s): D64.9 - Anemia, unspecified Qualifiers: Anemia type: unspecified type Qualified Code(s): D64.9 - Anemia, unspecified Plan: Iron studies done previously were normal Patient last had a normal colonoscopy with Dr. Dietz on 07/21/2008 and last year in July 2020; normal EGD done at [facility] in 2017 Will continue to monitor his CBC regularly (12) Left thigh pain: Comment: EMG & NCV done on 01/28/2020 revealed (+) chronic left mid lumbar radiculopathy with mild underlying sensorimotor peripheral neuropathy Code(s): M79.652 - Pain in left thigh Plan: Possible meralgia paresthetica Continue Gabapentin 200 mg BID - symptoms appear controlled lately with Rx (13) Primary osteoarthritis of right knee: Code(s): M17.11 - Unilateral primary osteoarthritis, right knee Plan: MRI of the right knee done at [facility] on 02/13/2020 revealed (+) significant OA changes He is now S/P total right knee arthroplasty with [facility], done on 11/05/22 and is currently still going to physical therapy for his knee Follow up with [facility] as scheduled (14) Primary insomnia: Code(s): F51.01 - Primary insomnia Plan: Sleep hygiene reinforced Continue OTC Melatonin PRN for sleep (15) Anxiety: Code(s): F41.9 - Anxiety disorder, unspecified Plan: Continue Clonazepam 1 mg 1/2 to 1 tablet once a day as needed (16) Overweight (BMI 25.0-29.9): Code(s): E66.3 - Overweight Plan: Reinforced diet/exercise as tolerated/lose weight Plan Follow up in 4 months Orders: Orders Comprehensive [place]. Panel Fast 4 Months E78.00 - Pure hypercholesterolemia, unspecified Hemoglobin A1c 4 Months E11.9 - Type 2 diabetes mellitus without complications Lipid Panel 4 Months E78.00 - Pure hypercholesterolemia, unspecified Vitamin B12 and Folate 4 Months D64.9 - Anemia, unspecified, E53.8 - Deficiency of other specified B group vitamins IRON PROFILE 4 Months D64.9 - Anemia, unspecified Complete Blood Count Auto Diff 4 Months D64.9 - Anemia, unspecified TSH reflex Free T4 4 Months E78.00 - Pure hypercholesterolemia, unspecified Vitamin D 25-OH Total 4 Months E55.9 - Vitamin D deficiency, unspecified Microalbumin, Random (w Creat) 4 Months E11.9 - Type 2 diabetes mellitus without complications UA CC w/rflx Micro + Cult 4 Months R30.0 - Dysuria Coding Level of Care Code Est Pt Level 4 (05121) Diagnoses Annual physical exam Z00.00 CAD (coronary artery disease) I25.10 Coronary Disease-Associated Artery/Lesion type: unspecified vessel or lesion type [place] vs. transplanted heart: [place] heart Associated angina: without angina Palpitations R00.2 Benign essential hypertension I10 Pure hypercholesterolemia E78.00 Impaired fasting glucose R73.01 Proteinuria R80.9 Proteinuria type: unspecified Vitamin D deficiency E55.9 Primary osteoarthritis of left hip M16.12 Obstructive sleep apnea G47.33 Anemia D64.9 Anemia type: unspecified type Left thigh pain M79.652 Primary osteoarthritis of right knee M17.11 Primary insomnia F51.01 Anxiety F41.9 Overweight (BMI 25.0-29.9) E66.3
== END 2022-12-25 09:41 | disposition home or self-care (01) ==
PROVIDERS: PCP Internal Medicine; Visit Provider Internal Medicine
DX: Z00.00 Encounter for general adult medical examination without abnormal findings (principal); I10 Essential (primary) hypertension; F41.9 Anxiety disorder, unspecified; E55.9 Vitamin D deficiency, unspecified; I25.10 Atherosclerotic heart disease of native coronary artery without angina pectoris; R00.2 Palpitations; E78.00 Pure hypercholesterolemia, unspecified; R73.01 Impaired fasting glucose; R80.9 Proteinuria, unspecified; M16.12 Unilateral primary osteoarthritis, left hip; G47.33 Obstructive sleep apnea (adult) (pediatric); D64.9 Anemia, unspecified
CPT/HCPCS: 99396

== ENCOUNTER 2023-01-23 15:47 | Outpatient (AMB) | payer OTHER, SELFPAY ==
[2023-01-23 15:50] VITALS: BP 150/90; PULSE 82; TEMP 36.6; O2SAT 97
--- NOTE | 2023-01-23 15:50 | AM.OFFWIN_ITS ---
Intake Vital Signs 01/23/23 15:50 Height 5 ft 9 in Weight 203 lb BMI 30.0 BP 150/90 H Blood Pressure Location Rt brachial Position Sitting Pulse 82 Pulse Source Pulse Oximeter Temp 97.9 F Temp Source Temporal Artery Scan Pulse Oximetry (%) 97 Intake Visit Reasons: EP, diarrhea, abdominal pain Intake Note: pt is here for c/o diarrhea, abd pain Patient Tobacco Use Status: Never used Tobacco Allergies amlodipine Allergy (Unknown, Verified 01/26/23 08:04) gi atorvastatin Allergy (Unknown, Verified 01/26/23 08:04) myalgia at 80 mg, muscle px chlorthalidone Allergy (Unknown, Verified 01/26/23 08:04) excessive urination glipizide Allergy (Unknown, Verified 01/26/23 08:04) Unknown hydrochlorothiazide Allergy (Unknown, Verified 01/26/23 08:04) dizziness, excessive urination ibuprofen [From MOTRIN] Allergy (Unknown, Verified 01/26/23 08:04) irregular heartbeat metformin Allergy (Unknown, Verified 01/26/23 08:04) chokling sensation metoprolol Allergy (Unknown, Verified 01/26/23 08:04) slow heart rate nifedipine Allergy (Unknown, Verified 01/26/23 08:04) tachy/kate buspirone [From BUSPAR] Adverse Reaction (Unknown, Verified 01/26/23 08:04) STOMACH UPSET canagliflozin [Invokana] Adverse Reaction (Unknown, Verified 01/26/23 08:04) SYNCOPE clonidine [From CATAPRES] Adverse Reaction (Unknown, Verified 01/26/23 08:04) STOMACH UPSET SHELLFISH Allergy (Severe, Uncoded 01/26/23 08:04) ANAPHYLAXIS Sucralfate Allergy (Unknown, Uncoded 01/26/23 08:04) chest pain Medication List - Last Reconciled 01/26/23 by Rito Leslie MD acetaminophen (Tylenol Extra Strength) 1,000 mg PO Q6H PRN amlodipine 5 mg PO DAILY aspirin 81 mg PO DAILY atorvastatin 80 mg PO DAILY carvedilol (Coreg) 1 tablet in a.m. and 2 tablets in p.m. PO 2 times a day; must administer with a meal/food 90 days celecoxib 200 mg PO DAILY cholecalciferol (vitamin D3) 125 mcg PO DAILY ciprofloxacin HCl 250 mg PO BID clonazepam 1/2 to 1 tablet by mouth once a day as needed for increased anxiety; 30 days diclofenac sodium 1% 4 grams topical QID PRN 30 days docusate sodium 100 mg PO DAILY evolocumab (Repatha SureClick) 140 mg subcut Q2W ezetimibe (Zetia) 10 mg PO DAILY gabapentin 200 mg (2 x 100 mg) PO BID 30 days hydromorphone 2 mg PO Q4-6H PRN lisinopril 40 mg PO DAILY melatonin 10 mg PO BEDTIME PRN [id number] mcg (Centrum Silver Men) 1 tab PO DAILY omeprazole 20 mg PO DAILY oxycodone 5 mg PO DAILY PRN sennosides (Natural Senna Laxative) 8.6 mg PO DAILY tizanidine 4 mg PO Q8H PRN 30 days Do you need a note to return to daycare/school/sports/work: Yes HPI EP, diarrhea, abdominal pain HPI Details 58-year-old male presents to the office for a sick visit. For the few days patient is complaining of diarrhea and abdominal pain. No fevers or chills. Increased frequency of going to the bathroom. Liquid stool. Patient reports that he is not passing any blood or mucus. [facility] Medical History CAD (coronary artery disease) Fatigue Myalgia Overweight (BMI 25.0-29.9) Anxiety Primary insomnia Obstructive sleep apnea Anemia Left thigh pain Primary osteoarthritis of left hip Vitamin D deficiency Proteinuria Palpitations Impaired fasting glucose Pure hypercholesterolemia Benign essential hypertension Surgical History (Updated 12/25/22 @ 09:35 by Sim Reardon MD) History of arthroplasty of right knee (~11/05/22) Hx of colonoscopy History of arthroplasty of left hip History of hip surgery Family History Father No problems noted. 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 Cognitive needs: No Hearing needs: No Vision needs: Yes Physical Exam Vital Signs: Last Vital Signs Temp 97.9 F 01/23/23 15:50 Pulse 82 01/23/23 15:50 BP 150/90 H 01/23/23 15:50 Pulse Ox 97 01/23/23 15:50 BMI result Body Mass Index 30.0 Const General: cooperative and healthy appearing Nutritional Appearance: well nourished Orientation/consciousness: patient oriented x3 Limitations: no limitations HEENT Head: Yes normal to inspection Eyes General: appearance normal, both eyes and all related structures Neck Neck: Yes normal visual inspection Chest Chest palpation & inspection: normal palpation of entire chest wall Resp Effort & Inspection: normal respiratory effort Neuro General: patient oriented x3 Assessment & Plan Assessment & Plan (1) Diarrhea: Code(s): R19.7 - Diarrhea, unspecified Plan Most likely infectious etiology. Blood work has been ordered. Cipro has been ordered. Will call with results. Orders: Orders Complete Blood Count no Diff 01/23/23 R19.7 - Diarrhea, unspecified Liver Panel 01/23/23 R19.7 - Diarrhea, unspecified Basic Metabolic Panel 01/23/23 R19.7 - Diarrhea, unspecified Medications: New ciprofloxacin HCl 250 mg PO BID 14 tabs 0RF Coding Level of Care Code Est Pt Level 4 (27669) Diagnoses Diarrhea R19.7
== END 2023-01-23 17:00 | disposition home or self-care (01) ==
PROVIDERS: PCP Internal Medicine; Visit Provider Internal Medicine
DX: R19.7 Diarrhea, unspecified (principal)
CPT/HCPCS: 99214

== ENCOUNTER 2023-01-23 16:58 | Outpatient (REF) | payer OTHER, SELFPAY ==
[2023-01-23 17:34] LABS: Hematocrit 42.8 % (42.0-52.0); Hemoglobin 13.9 g/dl (14.0-18.0); Mean Corpuscular HGB Conc 32.5 g/dl (31.0-36.0); Mean Corpuscular Hemoglobin 28.8 pg (27.0-33.0); Mean Corpuscular Volume 88.8 fL (80.0-98.0); Mean Platelet Volume 9.4 fL (9.4-12.4); Platelet Count 378 X10*3/uL (160-400); Red Blood Count 4.82 X10*6/uL (4.60-5.80); White Blood Count 8.3 X10*3/uL (4.8-10.8)
[2023-01-23 18:17] LABS: Alanine Aminotransferase 22 U/L (0-40); Albumin Level 4.3 g/dL (3.5-5.0); Alkaline Phosphatase 127 U/L (39-117); Anion Gap 14 (12-20); Aspartate Amino Transferase 18 U/L (5-37); Bilirubin Direct 0.2 mg/dL (0.0-0.5); Bilirubin Total 0.6 mg/dL (0.0-1.0); Blood Urea Nitrogen 10 mg/dL (9-16); Calcium 9.5 mg/dL (8.4-10.2); Carbon Dioxide 28 mmol/L (22-29); Chloride 103 mmol/L (96-108); Estimated Glomerular Filt Rate > 60; Glucose Random 112 mg/dL (60-115); Potassium 3.9 mmol/L (3.3-5.1); Sodium 141 mmol/L (135-145); Total Protein 8.1 g/dL (6.5-8.0)
== END 2023-01-23 16:59 | disposition home or self-care (01) ==
LOC: HO.LAB 16:58
PROVIDERS: PCP Internal Medicine; Visit Provider Internal Medicine
DX: R19.7 Diarrhea, unspecified (principal)
CPT/HCPCS: 36415; 80048; 80076; 85027

== ENCOUNTER 2023-04-20 10:02 | Outpatient (REF) | payer OTHER, SELFPAY ==
[2023-04-20 10:26] LABS: MANUAL DIFF FLAG NO
[2023-04-20 10:47] LABS: Basophils Absolute Auto 0.1 X10*3/uL (0.0-0.2); Basophils Percent Auto 0.8 % (0-2); Eosinophils Absolute Auto 0.2 X10*3/uL (0.0-0.4); Eosinophils Percent Auto 3.4 % (0-4); Hematocrit 39.4 % (42.0-52.0); Hemoglobin 12.9 g/dl (14.0-18.0); Imm Gran Abs Auto 0.02 X10*3/uL (0.00-0.03); Imm Gran Pct Auto 0.3 % (0.0-0.4); Lymphocytes Absolute Auto 1.8 X10*3/uL (1.2-4.9); Lymphocytes Percent Auto 27.3 % (20-40); Mean Corpuscular HGB Conc 32.7 g/dl (31.0-36.0); Mean Corpuscular Hemoglobin 28.5 pg (27.0-33.0); Mean Corpuscular Volume 87.2 fL (80.0-98.0); Mean Platelet Volume 9.1 fL (9.4-12.4); Monocytes Absolute Auto 0.8 X10*3/uL (0.1-1.2); Monocytes Percent Auto 11.6 % (2-11); Neutrophils Absolute Auto 3.7 x10*3/uL (2.0-8.3); Neutrophils Percent Auto 56.6 % (45-73); Platelet Count 343 X10*3/uL (160-400); Red Blood Count 4.52 X10*6/uL (4.60-5.80); Red Cell Distribution Width 13.8 % (11.0-16.0); White Blood Count 6.5 X10*3/uL (4.8-10.8)
[2023-04-20 11:01] LABS: Estimated Average Glucose 143 mg/dL; Hemoglobin A1c % 6.6 % (<6.0)
[2023-04-20 11:22] LABS: Alanine Aminotransferase 27 U/L (0-40); Albumin Level 4.1 g/dL (3.5-5.0); Alkaline Phosphatase 114 U/L (39-117); Anion Gap 15 (12-20); Aspartate Amino Transferase 19 U/L (5-37); Bilirubin Total 0.9 mg/dL (0.0-1.0); Blood Urea Nitrogen 16 mg/dL (9-16); Calcium 9.2 mg/dL (8.4-10.2); Carbon Dioxide 24 mmol/L (22-29); Chloride 107 mmol/L (96-108); Cholesterol 80 mg/dL (<200); Estimated Glomerular Filt Rate > 60; Glucose Fasting 130 mg/dL (60-99); HDL Cholesterol 38 mg/dL (>40); Iron 76 mcg/dL (45-160); LDL Cholesterol Calculated 32 mg/dL (<100); Percent Iron Saturation 28 % (15-50); Potassium 3.8 mmol/L (3.3-5.1); Sodium 142 mmol/L (135-145); Total Iron Binding Capacity 275 mcg/dL (228-428); Total Protein 7.7 g/dL (6.5-8.0); Triglycerides 52 mg/dL (<150); Unsaturated Iron Binding 199 ug/dL
[2023-04-20 11:40] LABS: TSH reflex Free T4 0.49 uIU/mL (0.32-4.0); Vitamin D 25-OH Total 42.1 ng/mL (>30)
[2023-04-20 11:46] LABS: Appearance Urine Clear; Color Urine Yellow; Glucose Urine UA Negative (Negative); Leukocyte Esterase Urine Negative (Negative); Nitrite Urine Negative (Negative); PH 7.5 (5.0-9.0); UMIC TRIGGER UACC YES; Urine Blood Negative (Negative); Urine Ketones Negative (Negative); Urine Protein 100 (2+) mg/dL (Neg-Trace)
[2023-04-20 11:49] LABS: Bacteria Urine None Seen (None Seen); Hyaline Casts Urine 0-2 /LPF (0-2); RBC Urine 0-2 /HPF (0-2); Squamous Epithelial Cell Urine 0-2 /HPF (0-2); WBC Urine 0-5 /HPF (0-5)
[2023-04-20 11:51] LABS: Folate 12.9 ng/mL (> or = 4.0); Vitamin B12 1128 pg/mL (200-900)
[2023-04-20 12:07] LABS: Creatinine Urine 44.72 mg/dL; Microalbum/Creatinine Ratio Ur 1012.9 ug/mg cr (<30)
== END 2023-04-20 10:03 | disposition home or self-care (01) ==
LOC: HO.LAB 10:02
PROVIDERS: PCP Internal Medicine; Visit Provider Internal Medicine
DX: D64.9 Anemia, unspecified (principal); E55.9 Vitamin D deficiency, unspecified; E11.9 Type 2 diabetes mellitus without complications; E53.8 Deficiency of other specified B group vitamins; E78.00 Pure hypercholesterolemia, unspecified
CPT/HCPCS: 36415; 80053; 80061; 81001; 82043; 82306; 82570; 82607; 82746; 83036; 83540; 84443; 85025

== ENCOUNTER 2023-05-01 09:01 | Outpatient (AMB) | payer OTHER, SELFPAY ==
--- NOTE | 2023-05-01 09:03 | MHC.PC.OV ---
Vital Signs 05/01/23 09:05 Height 5 ft 9 in Weight 201 lb 8 oz BMI 29.8 BP 120/64 Blood Pressure Location Lt brachial Position Sitting Pulse 85 Pulse Source Pulse Oximeter Pulse Oximetry (%) 98 Oxygen Delivery Method Room Air Intake Visit Reasons: hyperlipidemia, OA, DM, anemia Intake Note: Patient is here to follow up on Hyperlipidemia, OA, DM, Anemia. Complaint of feeling sick, symptoms are sore throat, stuffy noise, cough, body ache. Covid test was negative. 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: Not Required per policy Accompanied by: Self / Same As Patient Allergies amlodipine Allergy (Unknown, Verified 05/01/23 09:17) gi atorvastatin Allergy (Unknown, Verified 05/01/23 09:17) myalgia at 80 mg, muscle px chlorthalidone Allergy (Unknown, Verified 05/01/23 09:17) excessive urination glipizide Allergy (Unknown, Verified 05/01/23 09:17) Unknown hydrochlorothiazide Allergy (Unknown, Verified 05/01/23 09:17) dizziness, excessive urination ibuprofen [From MOTRIN] Allergy (Unknown, Verified 05/01/23 09:17) irregular heartbeat metformin Allergy (Unknown, Verified 05/01/23 09:17) chokling sensation metoprolol Allergy (Unknown, Verified 05/01/23 09:17) slow heart rate nifedipine Allergy (Unknown, Verified 05/01/23 09:17) tachy/kate buspirone [From BUSPAR] Adverse Reaction (Unknown, Verified 05/01/23 09:17) STOMACH UPSET canagliflozin [Invokana] Adverse Reaction (Unknown, Verified 05/01/23 09:17) SYNCOPE clonidine [From CATAPRES] Adverse Reaction (Unknown, Verified 05/01/23 09:17) STOMACH UPSET SHELLFISH Allergy (Severe, Uncoded 05/01/23 09:17) ANAPHYLAXIS Sucralfate Allergy (Unknown, Uncoded 05/01/23 09:17) chest pain Medication List - Last Reconciled 05/01/23 by Sim Reardon MD acetaminophen (Tylenol Extra Strength) 1,000 mg PO Q6H PRN amlodipine 5 mg PO DAILY aspirin 81 mg PO DAILY atorvastatin 80 mg PO DAILY carvedilol (Coreg) 1 tablet in a.m. and 2 tablets in p.m. PO 2 times a day; must administer with a meal/food 90 days celecoxib 200 mg PO DAILY cholecalciferol (vitamin D3) 125 mcg PO DAILY clonazepam 1/2 to 1 tablet by mouth once a day as needed for increased anxiety; 30 days diclofenac sodium 1% 4 grams topical QID PRN 30 days docusate sodium 100 mg PO DAILY evolocumab (Repatha SureClick) 140 mg subcut Q2W 90 days ezetimibe (Zetia) 10 mg PO DAILY gabapentin 200 mg (2 x 100 mg) PO BID 30 days hydromorphone 2 mg PO Q4-6H PRN lisinopril 40 mg PO DAILY melatonin 10 mg PO BEDTIME PRN [id number] mcg (Centrum Silver Men) 1 tab PO DAILY omeprazole 20 mg PO DAILY oxycodone 5 mg PO DAILY PRN sennosides (Natural Senna Laxative) 8.6 mg PO DAILY tizanidine 4 mg PO Q8H PRN 30 days Tobacco use date assessed: 05/01/23 HPI hyperlipidemia, OA, DM, anemia HPI Details Patient comes in today for his follow up visit States that he has been feeling sick for the past 3 days, with malaise, sore throat, nasal and sinus congestion Notes that he feels somewhat feverish at times but he has no way of checking his own temperature Coughs up some brownish phlegm at times He denies any headaches or dizziness Denies any chest pains, no SOB although his chest feels somewhat congested lately No nausea/vomiting, no abdominal pain No change in bowel habits noted Had his follow up labs done a couple of weeks ago - to discuss his results [facility] Medical History (Updated 05/01/23 @ 09:49 by Sim Reardon MD) Type 2 diabetes mellitus with albuminuria CAD (coronary artery disease) Fatigue Myalgia Overweight (BMI 25.0-29.9) Anxiety Primary insomnia Obstructive sleep apnea Anemia Left thigh pain Primary osteoarthritis of left hip Vitamin D deficiency Proteinuria Palpitations Impaired fasting glucose Pure hypercholesterolemia Benign essential hypertension Surgical History (Updated 05/01/23 @ 09:32 by Sim Reardon MD) History of arthroplasty of right knee (~11/05/22) Hx of colonoscopy History of arthroplasty of left hip History of hip surgery Family History Father No problems noted. 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 Alex Clarke, Nhung Wolf, Jese Leos and colleagues, with an educational kristin from [email or web address]. Review of Systems Const Denies chills, Reports fatigue, Denies fever(s), Denies headache(s) and Reports malaise ENT Denies dysphagia, Denies dizziness, Denies otalgia, Denies headache(s), Reports nasal congestion, Denies odynophagia, Denies sinus pain and Reports sore throat (mild) Card Denies chest pain, Denies palpitations and Denies dyspnea Resp Reports chest congestion (mild), Reports cough (on and off, coughs up brownish phlegm at times), Denies dyspnea and Denies wheezing GI Denies abdominal pain, Denies constipation, Denies dysphagia, Denies heartburn, Denies diarrhea, Denies nausea, Denies odynophagia and Denies vomiting Denies dysuria, Denies nocturia and Denies urinary frequency Musc Reports back pain (left lower back ), Reports arthralgias (right knee, on and off) and Reports radiating pain into limb (left leg - see HPI) Skin/Breast Denies rash Neuro Denies dizziness, Denies headache(s) and Reports radicular pain (in the left leg - on and off - worse at night and with increased activity) Endo Reports fatigue and Denies palpitations Aller/Immun Denies wheezing Physical exam (Primary Care) Vital Signs: Last Vital Signs Pulse 85 05/01/23 09:05 BP 120/64 05/01/23 09:05 Pulse Ox 98 05/01/23 09:05 Oxygen Delivery Method Room Air 05/01/23 09:05 BMI result Body Mass Index 29.8 Tobacco/Smoking Status: Tobacco use Status Tobacco use date assessed 05/01/23 05/01/23 09:13 Patient Tobacco Use Status Never used Tobacco 05/01/23 09:13 e-Cigarette/Vaping Use Never Used 05/01/23 09:13 Thrive Assessment: Date of Thrive Assessment Date Thrive assessed 12/25/22 05/01/23 09:13 Const General: no acute distress and alert HENMT Ears: TM's normal bilaterally and EAC's normal Face and sinus: No sinus tenderness Throat: Yes tonsils normal (no TP congestion) and Yes posterior oropharynx abnormal (increased erythema over the posterior pharynx) Neck Neck: Yes no lymphadenopathy and Yes supple Thyroid: Thyroid normal Resp Auscultation: no rales, rhonchi (occasional), no wheezes and bronchial breath sounds (mild) bilateral Cardio Rate: regular rate Rhythm: regular rhythm Heart sounds: no murmurs GI Palpation (GI): Soft to palpation and nontender Auscultation: normal bowel sounds Back/Spine/Pelvis Thoracic/Lumbar Spine: lumbar spinal tenderness Skin Rashes: no rashes Extrem General: Yes no clubbing, cyanosis or edema Results Reviewed Results Reviewed: Laboratory Tests 04/20/23 04/20/23 10:21 10:24 WBC 6.5 Hgb 12.9 L Hct 39.4 L Plt Count 343 Sodium 142 Potassium 3.8 Creatinine 0.86 Estimated GFR > 60 Fasting Glucose 130 H Hemoglobin A1c % 6.6 H Calcium 9.2 Iron 76 TIBC 275 % Saturation 28 AST 19 ALT 27 Triglycerides 52 Cholesterol 80 LDL Cholesterol, Calc 32 HDL Cholesterol 38 L Vitamin B12 1128 H 25-OH Vitamin D Total 42.1 TSH 0.49 Urine pH 7.5 Ur Specific [place] 1.010 Urine Protein 100 (2+) H Urine Glucose (UA) Negative Urine Blood Negative Urine Nitrite Negative Ur Leukocyte Esterase Negative Microalb/Creat Ratio 1012.9 H Assessment and Plan Assessment & Plan (1) CAD (coronary artery disease): Comment: Coronary calcium score greater than 1000, February 2021 Code(s): I25.10 - Atherosclerotic heart disease of [place] coronary artery without angina pectoris Qualifiers: Coronary Disease-Associated Artery/Lesion type: unspecified vessel or lesion type [place] vs. transplanted heart: [place] heart Associated angina: without angina Qualified Code(s): I25.10 - Atherosclerotic heart disease of [place] coronary artery without angina pectoris Plan: Recently had coronary CTA done in 2020 to assess his CV risks - test came out with a significantly elevated coronary calcium score of > 1000 suggestive of 3-vessel disease Nuclear stress testing done at [facility] [place] in April 2021 came out normal Continue Aspirin 81 mg QD and Carvedilol 3.125 mg in AM and 6.25 mg in PM Follow up with cardiology as scheduled (2) Palpitations: Comment: Echocardiogram (normal EF, mild TR and mild MR) and Holter monitor (SR with rare PAC and PVC) done last year (2019) were mostly normal Code(s): R00.2 - Palpitations Plan: Symptoms have reportedly subsided and have not recurred recently Follow up with cardiology as scheduled (3) Benign essential hypertension: Code(s): I10 - Essential (primary) hypertension Plan: Reinforced low sodium diet - goal is systolic BP of at least 120 to 130 mm Continue Amlodipine 5 mg QD, Lisinopril 40 mg QD and Carvedilol 3.125 mg in AM and 6.25 mg in PM Follow up with cardiology as scheduled (4) Pure hypercholesterolemia: Code(s): E78.00 - Pure hypercholesterolemia, unspecified Plan: Results of his labs done a couple of weeks ago reviewed and discussed with patient - his cholesterol numbers are well-controlled and remain at goal Reinforced low cholesterol diet Continue Atorvastatin 80 mg QD, Ezetimibe 10 mg QD and Repatha 140 mg SQ every 2 weeks Will recheck his labs and fasting lipids in 4 months for follow up (5) Type 2 diabetes mellitus with albuminuria: Comment: Was on hypoglycemics in the past but stopped secondary to side effects. Not taking any medication for diabetes now. Very rarely checks his blood sugar. Code(s): E11.29 - Type 2 diabetes mellitus with other diabetic kidney complication; R80.9 - Proteinuria, unspecified Plan: HgbA1c has regressed again to 6.6% on his labs done a couple of weeks ago; was previously at 5.8% a few months ago Reinforced low calorie diet/exercise as tolerated Will recheck his labs and HgbA1c in 4 months for follow up - is advised that IF he cannot get his blood sugar back under control over the next few months, we may need to consider starting him again on medications to help manage his diabetes (6) Proteinuria: Code(s): R80.9 - Proteinuria, unspecified Qualifiers: Proteinuria type: unspecified Qualified Code(s): R80.9 - Proteinuria, unspecified Plan: Patient still has significant proteinuria on his recent labs although this appears to be stable Follow up with nephrology as scheduled - per request, will refer him to Dr. Rose stubbs here at [facility] [place] as he states he used to see him at his other practice and would like to continue following up with the same doctor (7) Vitamin D deficiency: Code(s): E55.9 - Vitamin D deficiency, unspecified Plan: Continue VItamin D3 2000 units QD (8) Primary osteoarthritis of left hip: Comment: S/P total left hip arthroplasty with [facility] in August 2019 and S/P physical therapy, with significant improvement of hip pain Code(s): M16.12 - Unilateral primary osteoarthritis, left hip Plan: Continue Tylenol 325 mg every 4 to 6 hours as needed Follow up with orthopedics ([facility]) as scheduled or as needed (9) Obstructive sleep apnea: Comment: Obstructive sleep apnea, well treated with use of CPAP. He is very compliant and benefitting from the use of CPAP. No specific issues concerning CPAP device. Code(s): G47.33 - Obstructive sleep apnea (adult) (pediatric) Plan: Continue using his CPAP device when sleeping at night States that he has been experiencing some problems with his CPAP device mask (poor fit?) and will be checking with the Sleep Medicine specialist for this soon (10) Anemia: Code(s): D64.9 - Anemia, unspecified Qualifiers: Anemia type: unspecified type Qualified Code(s): D64.9 - Anemia, unspecified Plan: Iron studies done recently were again normal Patient last had a normal colonoscopy with Dr. Dietz on 07/21/2008 and last year in July 2020; normal EGD done at [facility] in 2017 Will continue to monitor his CBC regularly (11) Respiratory tract infection: Code(s): J98.8 - Other specified respiratory disorders Plan: Most likely viral URI Continue with OTC cough/cold meds PRN for symptomatic relief for now but instructed to call of his symptoms progress or if he feels worse over the next few days Will send him to the lab to check his viral respiratory panel (12) Left thigh pain: Comment: EMG & NCV done on 01/28/2020 revealed (+) chronic left mid lumbar radiculopathy with mild underlying sensorimotor peripheral neuropathy Code(s): M79.652 - Pain in left thigh Plan: Possible meralgia paresthetica Continue Gabapentin 200 mg BID - symptoms appear controlled lately with Rx (13) Primary osteoarthritis of right knee: Code(s): M17.11 - Unilateral primary osteoarthritis, right knee Plan: MRI of the right knee done at [facility] on 02/13/2020 revealed (+) significant OA changes S/P total right knee arthroplasty with [facility] on 11/05/22 and completed physical therapy for his knee Follow up with [facility] as scheduled (14) Primary insomnia: Code(s): F51.01 - Primary insomnia Plan: Sleep hygiene reinforced Continue OTC Melatonin PRN for sleep (15) Anxiety: Code(s): F41.9 - Anxiety disorder, unspecified Plan: Continue Clonazepam 1 mg 1/2 to 1 tablet once a day as needed (16) Overweight (BMI 25.0-29.9): Code(s): E66.3 - Overweight Plan: Reinforced diet/exercise as tolerated/lose weight Plan Follow up in 4 months Orders: Orders SARS-CoV2/FLU/RSV Today J98.8 - Other specified respiratory disorders Hemoglobin A1c 4 Months E11.9 - Type 2 diabetes mellitus without complications TSH reflex Free T4 4 Months E78.00 - Pure hypercholesterolemia, unspecified Prostate Specific Antigen 4 Months R97.20 - Elevated prostate specific antigen [PSA] Complete Blood Count Auto Diff 4 Months I10 - Essential (primary) hypertension Comprehensive [place]. Panel Fast 4 Months E78.00 - Pure hypercholesterolemia, unspecified UA CC w/rflx Micro + Cult 4 Months R30.0 - Dysuria Referrals Nephrology Referral R80.9 - Proteinuria, unspecified Coding Level of Care Code Est Pt Level 4 (99138) Diagnoses Coronary artery disease involving [place] heart without angina pectoris, unspecified vessel or lesion type I25.10 Coronary Disease-Associated Artery/Lesion type: unspecified vessel or lesion type [place] vs. transplanted heart: [place] heart Associated angina: without angina Palpitations R00.2 Benign essential hypertension I10 Pure hypercholesterolemia E78.00 Type 2 diabetes mellitus with albuminuria E11.29; R80.9 Proteinuria, unspecified type R80.9 Proteinuria type: unspecified Vitamin D deficiency E55.9 Primary osteoarthritis of left hip M16.12 Obstructive sleep apnea G47.33 Anemia, unspecified type D64.9 Anemia type: unspecified type Respiratory tract infection J98.8 Left thigh pain M79.652 Primary osteoarthritis of right knee M17.11 Primary insomnia F51.01 Anxiety F41.9 Overweight (BMI 25.0-29.9) E66.3
[2023-05-01 09:05] VITALS: BP 120/64; PULSE 85; O2SAT 98; BMI 29.8
== END 2023-05-01 09:40 | disposition home or self-care (01) ==
PROVIDERS: PCP Internal Medicine; Visit Provider Internal Medicine
DX: I25.10 Atherosclerotic heart disease of native coronary artery without angina pectoris (principal); R00.2 Palpitations; I10 Essential (primary) hypertension; E11.29 Type 2 diabetes mellitus with other diabetic kidney complication; E78.00 Pure hypercholesterolemia, unspecified; R80.9 Proteinuria, unspecified; E55.9 Vitamin D deficiency, unspecified; M16.12 Unilateral primary osteoarthritis, left hip; G47.33 Obstructive sleep apnea (adult) (pediatric); D64.9 Anemia, unspecified; J98.8 Other specified respiratory disorders; M79.652 Pain in left thigh
CPT/HCPCS: 99214

== ENCOUNTER 2023-05-01 09:46 | Outpatient (REF) | payer OTHER, SELFPAY ==
[2023-05-01 10:38] LABS: Influenza A PCR NEGATIVE (Negative); Influenza B PCR NEGATIVE (Negative); Resp Syncy Virus RNA Qual PCR NEGATIVE (Negative); SARS COV2 PCR INHOUSE NEGATIVE (Negative)
== END 2023-05-01 09:47 | disposition home or self-care (01) ==
LOC: HO.LAB 09:46
PROVIDERS: PCP Internal Medicine; Visit Provider Internal Medicine
DX: J98.8 Other specified respiratory disorders (principal); Z20.822 Contact with and (suspected) exposure to COVID-19
CPT/HCPCS: 0241U

== ENCOUNTER 2023-05-14 14:23 | Outpatient (AMB) | payer OTHER, SELFPAY ==
--- NOTE | 2023-05-14 14:27 | HO.NEPHOV_ITS ---
HPI HPI Comments History of Present Illness Details Middle-aged man with a history of longstanding hypertension diabetes mellitus with proteinuria. However no new over the last 15-20 years. He is currently on lisinopril for protection. New recently amlodipine was added. In the past he was on calcium channel matt which caused leg edema. However he is able to tolerate amlodipine 5 mg. He has gained some weight. He is not monitoring his blood sugars regularly. [facility] Medical History (Updated 05/14/23 @ 14:47 by Jarvis Rose MD) Type 2 diabetes mellitus with albuminuria CAD (coronary artery disease) Fatigue Myalgia Overweight (BMI 25.0-29.9) Anxiety Primary insomnia Obstructive sleep apnea Anemia Left thigh pain Primary osteoarthritis of left hip Vitamin D deficiency Proteinuria Palpitations Impaired fasting glucose Pure hypercholesterolemia Benign essential hypertension Surgical History History of arthroplasty of right knee (~11/05/22) Hx of colonoscopy History of arthroplasty of left hip History of hip surgery Family History Father No problems noted. 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 Cognitive needs: No Hearing needs: No Vision needs: Yes (glasses) Vital Signs 05/14/23 14:28 05/14/23 14:44 Height 5 ft 9 in Weight 202 lb 4 oz BMI 29.9 BP 140/80 H 120/70 Blood Pressure Location Lt brachial Lt brachial Pulse 74 Pulse Source Pulse Oximeter Pulse Oximetry (%) 97 Oxygen Delivery Method Room Air Physical Exam Vital Signs: Last Vital Signs Pulse 74 05/14/23 14:28 BP 120/70 05/14/23 14:44 Pulse Ox 97 05/14/23 14:28 Oxygen Delivery Method Room Air 05/14/23 14:28 BMI result Body Mass Index 29.9 Const General: comfortable Nutritional Appearance: well nourished Orientation/consciousness: patient oriented x3 HEENT Head: No normal to inspection Mouth: moist mucous membranes Neck Neck: Yes supple and Yes no JVD Resp Auscultation: clear to auscultation bilaterally, no rales and rub present Cardio Jugular venous distension: no JVD Palpation: no palpable S3 and no palpable S4 Heart sounds: no rubs GI Palpation (GI): Soft to palpation and nontender Percussion: No Fluid wave present General: Yes no CVA tenderness Back/Spine/Pelvis Back: no CVA tenderness Skin General skin exam: no rashes or lesions noted Neuro General: patient oriented x3 Extrem General: Yes no pedal edema and No clubbing Assessment & Plan Assessment & Plan (1) Proteinuria: Code(s): R80.9 - Proteinuria, unspecified Qualifiers: Proteinuria type: unspecified Qualified Code(s): R80.9 - Proteinuria, unspecified (2) Benign essential hypertension: Code(s): I10 - Essential (primary) hypertension (3) Type 2 diabetes mellitus with albuminuria: Code(s): E11.29 - Type 2 diabetes mellitus with other diabetic kidney complication; R80.9 - Proteinuria, unspecified Plan Middle-aged man with proteinuria in the setting of longstanding diabetes mellitus. He probably has underlying diabetic nephropathy. Renal function stable. Goal is to slow the progression of renal disease. We will continue to maximize CLEVE inhibition. blood pressure should be maintained less than 130/80. Discussed importance of tight control of blood sugar to maintain hemoglobin A1c at the target range. We also discussed weight loss. Today I have not made any changes. Increase him to stand low-sodium diet. Continue to avoid nephrotoxic agents including NSAIDs. Orders: Orders Basic Metabolic Panel 5 Months E11.29 - Type 2 diabetes mellitus with other diabetic kidney complication, R80.9 - Proteinuria, unspecified Creatinine Urine 5 Months E11.29 - Type 2 diabetes mellitus with other diabetic kidney complication, R80.9 - Proteinuria, unspecified Total Protein Urine Random 5 Months E11.29 - Type 2 diabetes mellitus with other diabetic kidney complication, R80.9 - Proteinuria, unspecified Medications: New carvedilol must administer with a meal/food 6.25 mg PO BID 30 tabs 6RF amlodipine 5 mg PO DAILY 30 tabs 6RF Coding Level of Care Code Est Pt Level 4 (18012) Diagnoses Proteinuria, unspecified type R80.9 Proteinuria type: unspecified Benign essential hypertension I10 Type 2 diabetes mellitus with albuminuria E11.29; R80.9 Results Reviewed Nephrology Results: Hgb 12.9 g/dl (14.0-18.0) L 04/20/23 WBC 6.5 X10*3/uL (4.8-10.8) 04/20/23 Plt Count 343 X10*3/uL (160-400) 04/20/23 Sodium 142 mmol/L (135-145) 04/20/23 Potassium 3.8 mmol/L (3.3-5.1) 04/20/23 Chloride 107 mmol/L (96-108) 04/20/23 Carbon Dioxide 24 mmol/L (22-29) 04/20/23 BUN 16 mg/dL (9-16) 04/20/23 Creatinine 0.86 mg/dL (0.5-1.4) 04/20/23 Calcium 9.2 mg/dL (8.4-10.2) 04/20/23 Urine Protein 100 (2+) mg/dL (Neg-Trace) H 04/20/23 Urine Creatinine 44.72 mg/dL 04/20/23
[2023-05-14 14:28] VITALS: BP 140/80; PULSE 74; O2SAT 97; BMI 29.9
[2023-05-14 14:44] VITALS: BP 120/70
== END 2023-05-14 14:50 | disposition home or self-care (01) ==
PROVIDERS: PCP Internal Medicine; Referring Provider Internal Medicine; Visit Provider Internal Medicine Hypertension Specialist
DX: R80.9 Proteinuria, unspecified (principal); I10 Essential (primary) hypertension; E11.29 Type 2 diabetes mellitus with other diabetic kidney complication
CPT/HCPCS: 99214

== ENCOUNTER → 2023-05-14 14:23 | Outpatient (BNVA) | payer OTHER, SELFPAY | PROVIDERS: PCP Internal Medicine; Referring Provider Internal Medicine; Visit Provider Internal Medicine Hypertension Specialist ==

== ENCOUNTER 2023-08-22 11:50 | Outpatient (REF) | payer OTHER, SELFPAY ==
[2023-08-22 12:15] LABS: MANUAL DIFF FLAG NO
[2023-08-22 12:27] LABS: Basophils Absolute Auto 0.1 X10*3/uL (0.0-0.2); Basophils Percent Auto 1.1 % (0-2); Eosinophils Absolute Auto 0.3 X10*3/uL (0.0-0.4); Eosinophils Percent Auto 4.5 % (0-4); Hematocrit 42.5 % (42.0-52.0); Hemoglobin 13.9 g/dl (14.0-18.0); Imm Gran Abs Auto 0.02 X10*3/uL (0.00-0.03); Imm Gran Pct Auto 0.3 % (0.0-0.4); Lymphocytes Percent Auto 28.2 % (20-40); Mean Corpuscular HGB Conc 32.7 g/dl (31.0-36.0); Mean Corpuscular Volume 88.7 fL (80.0-98.0); Mean Platelet Volume 9.1 fL (9.4-12.4); Monocytes Absolute Auto 0.9 X10*3/uL (0.1-1.2); Monocytes Percent Auto 12.6 % (2-11); Neutrophils Absolute Auto 3.8 x10*3/uL (2.0-8.3); Neutrophils Percent Auto 53.3 % (45-73); Platelet Count 319 X10*3/uL (160-400); Red Blood Count 4.79 X10*6/uL (4.60-5.80); Red Cell Distribution Width 13.2 % (11.0-16.0); White Blood Count 7.1 X10*3/uL (4.8-10.8)
[2023-08-22 12:36] LABS: Estimated Average Glucose 143 mg/dL; Hemoglobin A1c % 6.6 % (<6.0)
[2023-08-22 13:10] LABS: Alanine Aminotransferase 25 U/L (0-40); Albumin Level 4.1 g/dL (3.5-5.0); Alkaline Phosphatase 109 U/L (39-117); Anion Gap 8 (12-20); Aspartate Amino Transferase 19 U/L (5-37); Bilirubin Total 0.7 mg/dL (0.0-1.0); Blood Urea Nitrogen 15 mg/dL (9-16); Calcium 9.1 mg/dL (8.4-10.2); Carbon Dioxide 31 mmol/L (22-29); Chloride 108 mmol/L (96-108); Estimated Glomerular Filt Rate > 60; Glucose Fasting 121 mg/dL (60-99); Potassium 3.8 mmol/L (3.3-5.1); Sodium 143 mmol/L (135-145); Total Protein 7.5 g/dL (6.5-8.0)
[2023-08-22 13:26] LABS: Prostate Specific Antigen 4.13 ng/mL (<0.05-4.0)
[2023-08-22 13:27] LABS: TSH reflex Free T4 0.76 uIU/mL (0.32-4.0)
[2023-08-22 14:01] LABS: Appearance Urine Clear; Color Urine Yellow; Glucose Urine UA Negative (Negative); Leukocyte Esterase Urine Negative (Negative); Nitrite Urine Negative (Negative); UMIC TRIGGER UACC YES; Urine Blood Negative (Negative); Urine Ketones Negative (Negative); Urine Protein 100 (2+) mg/dL (Neg-Trace)
[2023-08-22 14:15] LABS: Bacteria Urine None Seen (None Seen); Hyaline Casts Urine 0-2 /LPF (0-2); RBC Urine 0-2 /HPF (0-2); Squamous Epithelial Cell Urine 0-2 /HPF (0-2); WBC Urine 0-5 /HPF (0-5)
== END 2023-08-22 11:51 | disposition home or self-care (01) ==
LOC: HO.LAB 11:50
PROVIDERS: PCP Internal Medicine; Visit Provider Internal Medicine
DX: Z12.5 Encounter for screening for malignant neoplasm of prostate (principal); I10 Essential (primary) hypertension; E78.00 Pure hypercholesterolemia, unspecified; R97.20 Elevated prostate specific antigen [PSA]; E11.9 Type 2 diabetes mellitus without complications
CPT/HCPCS: 36415; 80053; 81001; 81003; 83036; 84153; 84443; 85025

== ENCOUNTER 2023-09-02 09:20 | Outpatient (AMB) | payer OTHER, SELFPAY ==
--- NOTE | 2023-09-02 09:21 | A.OFFPC_ITS ---
Vital Signs 09/02/23 09:24 Height 5 ft 9 in Weight 200 lb 6 oz BMI 29.6 BP 132/78 Blood Pressure Location Lt brachial Position Sitting Pulse 67 Pulse Source Pulse Oximeter Pulse Oximetry (%) 96 Oxygen Delivery Method Room Air Intake Visit Reasons: 4mth f/u Intake Note: Patient is here to follow up on DM, CAD, HTN, DANO. 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: Not Required per policy Accompanied by: Self / Same As Patient Allergies amlodipine Allergy (Unknown, Verified 09/02/23 09:33) gi atorvastatin Allergy (Unknown, Verified 09/02/23 09:33) myalgia at 80 mg, muscle px chlorthalidone Allergy (Unknown, Verified 09/02/23 09:33) excessive urination glipizide Allergy (Unknown, Verified 09/02/23 09:33) Unknown hydrochlorothiazide Allergy (Unknown, Verified 09/02/23 09:33) dizziness, excessive urination ibuprofen [From MOTRIN] Allergy (Unknown, Verified 09/02/23 09:33) irregular heartbeat metformin Allergy (Unknown, Verified 09/02/23 09:33) chokling sensation metoprolol Allergy (Unknown, Verified 09/02/23 09:33) slow heart rate nifedipine Allergy (Unknown, Verified 09/02/23 09:33) tachy/kate buspirone [From BUSPAR] Adverse Reaction (Unknown, Verified 09/02/23 09:33) STOMACH UPSET canagliflozin [Invokana] Adverse Reaction (Unknown, Verified 09/02/23 09:33) SYNCOPE clonidine [From CATAPRES] Adverse Reaction (Unknown, Verified 09/02/23 09:33) STOMACH UPSET SHELLFISH Allergy (Severe, Uncoded 09/02/23 09:33) ANAPHYLAXIS Sucralfate Allergy (Unknown, Uncoded 09/02/23 09:33) chest pain Medication List - Last Reconciled 09/02/23 by Sim Reardon MD acetaminophen (Tylenol Extra Strength) 1,000 mg PO Q6H PRN amlodipine 5 mg PO DAILY aspirin 81 mg PO DAILY atorvastatin 80 mg PO DAILY carvedilol 6.25 mg PO BID celecoxib 200 mg PO DAILY cholecalciferol (vitamin D3) 125 mcg PO DAILY clonazepam 1/2 to 1 tablet by mouth once a day as needed for increased anxiety; 30 days diclofenac sodium 1% 4 grams topical QID PRN 30 days docusate sodium 100 mg PO DAILY evolocumab (Repatha SureClick) 140 mg subcut Q2W 90 days ezetimibe (Zetia) 10 mg PO DAILY gabapentin 200 mg (2 x 100 mg) PO BID 30 days hydromorphone 2 mg PO Q4-6H PRN lisinopril 40 mg PO DAILY melatonin 10 mg PO BEDTIME PRN [id number] mcg (Centrum Silver Men) 1 tab PO DAILY omeprazole 20 mg PO DAILY sennosides (Natural Senna Laxative) 8.6 mg PO DAILY tizanidine 4 mg PO Q8H PRN 30 days Tobacco use date assessed: 09/02/23 Dental Screening Dental Screen Date: 09/02/23 Did you have a dental visit in the last 12 months?: No Did you have a dental problem in the last 6 months where you did not have access to dental care?: No Was dental information given to patient?: No HPI 4mth f/u HPI Details Patient comes in today for his follow up visit States that he feels okay He denies any headaches or dizziness Denies any chest pains, no SOB No nausea/vomiting, no abdominal pain No change in bowel habits noted Had his follow up labs done a couple of weeks ago - to discuss his results [facility] Medical History Type 2 diabetes mellitus with albuminuria CAD (coronary artery disease) Fatigue Myalgia Overweight (BMI 25.0-29.9) Anxiety Primary insomnia Obstructive sleep apnea Anemia Left thigh pain Primary osteoarthritis of left hip Vitamin D deficiency Proteinuria Palpitations Impaired fasting glucose Pure hypercholesterolemia Benign essential hypertension Surgical History History of arthroplasty of right knee (~11/05/22) Hx of colonoscopy History of arthroplasty of left hip History of hip surgery Family History Father No problems noted. 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 1. Little interest or pleasure in doing things: not at all 2. Feeling down, depressed, or hopeless: not at all 3. Trouble falling or staying asleep, or sleeping too much: not at all 4. Feeling tired or having little energy: not at all 5. Poor appetite or overeating: not at all 6. Feeling bad about yourself - or that you are a failure or have let yourself or your family down: not at all 7. Trouble concentrating on things, such as reading the newspaper or watching television: not at all 8. Moving or speaking so slowly that other people could have noticed. Or the opposite - being so fidgety or restless that you have been moving around a lot more than usual: not at all 9. Thoughts that you would be better off or of hurting yourself in some way: not at all Total score: 0 Depression Screening Interpretation: Negative Depression Screening Done: Yes 69918 - PHQ-9 Billing: Yes Source: Developed by Drs. Alex Clarke, Nhung Wolf, Jese Leos and colleagues, with an educational kristin from [employer]. Thrive Questionnaire Date Thrive assessed: 09/02/23 I am a: Patient What is your living situation today?: I have a steady place to live Within the past 12 months, did the food you bought not last and you didn't have the money to get more?: Never true Within the past 12 months, did you worry whether your food would run out before you got money to buy more?: Never true Do you have trouble paying for medicines?: No Do you have trouble getting transportation to medical appointments?: No Do you have trouble paying your heating and electricity bill?: No Do you have trouble taking care of your child, family member or friend?: No Do you have trouble with day-to-day activities such as bathing, preparing meals, shopping, managing finances, etc.?: No Are you currently unemployed and looking for a job?: No Are you interested in more education?: No Currently or been in a relationship where the following occur: no concerns reported THRIVE Score: 0 AUDIT C Alcohol Use Questionnaire (AUDIT-C) 1. How often do you have a drink containing alcohol?: Never Total Score: 0 Score Reviewed/Action Taken: Yes DILLON-7 AMB Questionnaire DILLON-7 Date DILLON - 7 assessed: 09/02/23 Feeling nervous, anxious, or on edge: 0 = Not at all Not being able to stop or control worryin = Not at all Worrying too much about different things: 0 = Not at all Trouble relaxin = Not at all Being so restless that it is hard to sit still: 0 = Not at all Becoming easily annoyed or irritable: 0 = Not at all Feeling afraid as if something awful might happen: 0 = Not at all Total DILLON-7 score (0-4 normal; 5-9 mild; 10-14 moderate; 15-21 severe): 0 Source: Developed by Drs. Alex Clarke, Nhung Wolf, Jese Leos and colleagues, with an educational kristin from [employer]. Review of Systems Const Denies chills, Denies fatigue, Denies fever(s) and Denies headache(s) ENT Denies dysphagia, Denies dizziness, Denies otalgia, Denies headache(s), Denies neck pain, Denies odynophagia and Denies sore throat Card Denies chest pain, Denies palpitations and Denies dyspnea Resp Denies cough, Denies dyspnea and Denies wheezing GI Denies abdominal pain, Denies constipation, Denies dysphagia, Denies heartburn, Denies diarrhea, Denies nausea, Denies odynophagia and Denies vomiting Denies dysuria, Denies nocturia and Denies urinary frequency Musc Reports back pain (over the left lower back ), Reports arthralgias (right knee, on and off) and Denies neck pain Skin/Breast Denies rash Neuro Denies dizziness and Denies headache(s) Endo Denies fatigue and Denies palpitations Aller/Immun Denies wheezing Physical exam (Primary Care) Vital Signs: Last Vital Signs Pulse 67 09/02/23 09:24 BP 132/78 09/02/23 09:24 Pulse Ox 96 09/02/23 09:24 Oxygen Delivery Method Room Air 09/02/23 09:24 BMI result Body Mass Index 29.6 Tobacco/Smoking Status: Tobacco use Status Tobacco use date assessed 09/02/23 09/02/23 09:29 Patient Tobacco Use Status Never used Tobacco 09/02/23 09:29 e-Cigarette/Vaping Use Never Used 09/02/23 09:29 PHQ-9: PHQ-9 Score PHQ-9: Total score 0 09/02/23 09:29 Depression Screening Interpretation: Negative Thrive Assessment: Date of Thrive Assessment Date Thrive assessed 09/02/23 09/02/23 09:29 Currently or been in a relationship where the following occur: no concerns reported Const General: no acute distress and alert HENMT Ears: TM's normal bilaterally and EAC's normal Throat: Yes posterior oropharynx normal and Yes tonsils normal (no TP congestion) Neck Neck: Yes no lymphadenopathy and Yes supple Thyroid: Thyroid normal Resp Auscultation: clear to auscultation bilaterally, no rales and no wheezes Cardio Rate: regular rate Rhythm: regular rhythm Heart sounds: no murmurs GI Palpation (GI): Soft to palpation and nontender Auscultation: normal bowel sounds General: Yes no CVA tenderness Back/Spine/Pelvis Back: no CVA tenderness Thoracic/Lumbar Spine: lumbar spinal tenderness Skin Rashes: no rashes Extrem General: Yes no clubbing, cyanosis or edema Results Reviewed Results Reviewed: Laboratory Tests 04/20/23 04/20/23 08/22/23 10:21 10:24 12:10 WBC Hgb Hct Plt Count Sodium Potassium Creatinine Estimated GFR Fasting Glucose Hemoglobin A1c % Calcium AST ALT Triglycerides 52 Cholesterol 80 LDL Cholesterol, Calc 32 HDL Cholesterol 38 L Prostate Specific Ag TSH Ur Specific [place] 1.020 Urine Protein 100 (2+) H Urine Glucose (UA) Negative Urine Blood Negative Urine Nitrite Negative Ur Leukocyte Esterase Negative Microalb/Creat Ratio 1012.9 H 08/22/23 12:13 WBC 7.1 Hgb 13.9 L Hct 42.5 Plt Count 319 Sodium 143 Potassium 3.8 Creatinine 0.92 Estimated GFR > 60 Fasting Glucose 121 H Hemoglobin A1c % 6.6 H Calcium 9.1 AST 19 ALT 25 Triglycerides Cholesterol LDL Cholesterol, Calc HDL Cholesterol Prostate Specific Ag 4.13 H TSH 0.76 Ur Specific [place] Urine Protein Urine Glucose (UA) Urine Blood Urine Nitrite Ur Leukocyte Esterase Microalb/Creat Ratio Assessment and Plan Assessment & Plan (1) CAD (coronary artery disease): Comment: Coronary calcium score greater than 1000, February 2021 Code(s): I25.10 - Atherosclerotic heart disease of cheesh-na coronary artery without angina pectoris Qualifiers: Coronary Disease-Associated Artery/Lesion type: unspecified vessel or lesion type [place] vs. transplanted heart: cheesh-na heart Associated angina: without angina Qualified Code(s): I25.10 - Atherosclerotic heart disease of cheesh-na coronary artery without angina pectoris Plan: Recently had coronary CTA done in 2020 to assess his CV risks - test came out with a significantly elevated coronary calcium score of > 1000 suggestive of 3- vessel disease Nuclear stress testing done at [facility] in April 2021 came out normal Continue Aspirin 81 mg QD and Carvedilol 6.25 mg BID Follow up with cardiology as scheduled (2) Palpitations: Comment: Echocardiogram (normal EF, mild TR and mild MR) and Holter monitor (SR with rare PAC and PVC) done last year (2019) were mostly normal Code(s): R00.2 - Palpitations Plan: Symptoms have reportedly subsided and have not recurred recently Follow up with cardiology as scheduled (3) Benign essential hypertension: Code(s): I10 - Essential (primary) hypertension Plan: Reinforced low sodium diet - goal is systolic BP of at least 120 to 130 mm Continue Amlodipine 5 mg QD, Lisinopril 40 mg QD and Carvedilol 6.25 mg BID Follow up with cardiology as scheduled (4) Pure hypercholesterolemia: Code(s): E78.00 - Pure hypercholesterolemia, unspecified Plan: Results of his labs done a couple of weeks ago reviewed and discussed with patient - his cholesterol numbers are well-controlled and remain at goal Reinforced low cholesterol diet Continue Atorvastatin 80 mg QD, Ezetimibe 10 mg QD and Repatha 140 mg SQ every 2 weeks Will recheck his labs and fasting lipids in 4 months for follow up (5) Type 2 diabetes mellitus with albuminuria: Code(s): E11.29 - Type 2 diabetes mellitus with other diabetic kidney complication; R80.9 - Proteinuria, unspecified Plan: His HgbA1c has remained unchanged at 6.6% on his labs done a couple of weeks ago - goal is at least <7.0% but ideally <6.5% Reinforced low calorie diet/exercise as tolerated Will recheck his labs and HgbA1c in 4 months for follow up (6) Proteinuria: Code(s): R80.9 - Proteinuria, unspecified Qualifiers: Proteinuria type: unspecified Qualified Code(s): R80.9 - Proteinuria, unspecified Plan: Patient still has significant proteinuria on his recent labs although this appears to be stable [place] [facility] as scheduled (7) Vitamin D deficiency: Code(s): E55.9 - Vitamin D deficiency, unspecified Plan: Continue VItamin D3 2000 units QD (8) Primary osteoarthritis of left hip: Comment: S/P total left hip arthroplasty with [facility] in August 2019 and S/P physical therapy, with significant improvement of hip pain Code(s): M16.12 - Unilateral primary osteoarthritis, left hip Plan: Continue Tylenol 325 mg every 4 to 6 hours as needed Follow up with orthopedics ([facility]) as scheduled or as needed (9) Obstructive sleep apnea: Comment: Obstructive sleep apnea, well treated with use of CPAP. He is very compliant and benefitting from the use of CPAP. No specific issues concerning CPAP device. Code(s): G47.33 - Obstructive sleep apnea (adult) (pediatric) Plan: Continue using his CPAP device when sleeping at night States that he has been experiencing some problems with his CPAP device mask (poor fit?) and will be checking with the Sleep Medicine specialist for this soon (10) Anemia: Code(s): D64.9 - Anemia, unspecified Qualifiers: Anemia type: unspecified type Qualified Code(s): D64.9 - Anemia, unspecified Plan: Iron studies done recently were again normal Patient last had a normal colonoscopy with Dr. Dietz on 07/21/2008 and last year in July 2020; normal EGD done at [facility] in 2017 Will continue to monitor his CBC regularly (11) Elevated PSA: Code(s): R97.20 - Elevated prostate specific antigen [PSA] Plan: He is advised that his PSA level came back elevated (>4) and is higher than his level from last year Patient denies any acute urinary symptoms but as his level is now >4.0 ng/ml, advised that he should at least get this checked out further Will refer him to urology for further evaluation and management (12) Primary osteoarthritis of right knee: Code(s): M17.11 - Unilateral primary osteoarthritis, right knee Plan: MRI of the right knee done at [facility] on 02/13/2020 revealed (+) significant OA changes S/P total right knee arthroplasty with [facility] on 11/05/22 and completed physical therapy for his knee Follow up with [facility] as scheduled (13) Primary insomnia: Code(s): F51.01 - Primary insomnia Plan: Sleep hygiene reinforced Continue OTC Melatonin PRN for sleep (14) Anxiety: Code(s): F41.9 - Anxiety disorder, unspecified Plan: Continue Clonazepam 1 mg 1/2 to 1 tablet once a day as needed (15) Overweight (BMI 25.0-29.9): Code(s): E66.3 - Overweight Plan: Reinforced diet/exercise as tolerated/lose weight Plan To return in 4 months for his next annual physical examination Orders: Orders Lipid Panel 4 Months E78.00 - Pure hypercholesterolemia, unspecified Complete Blood Count Auto Diff 4 Months D64.9 - Anemia, unspecified Microalbumin, Random (w Creat) 4 Months E11.9 - Type 2 diabetes mellitus without complications TSH reflex Free T4 4 Months E78.00 - Pure hypercholesterolemia, unspecified Vitamin B12 and Folate 4 Months E53.8 - Deficiency of other specified B group vitamins Hemoglobin A1c 4 Months E11.9 - Type 2 diabetes mellitus without complications Comprehensive [place]. Panel Fast 4 Months E78.00 - Pure hypercholesterolemia, unspecified UA CC w/rflx Micro + Cult 4 Months R30.0 - Dysuria Vitamin D 25-OH Total 4 Months E55.9 - Vitamin D deficiency, unspecified Referrals Urology Referral R97.20 - Elevated prostate specific antigen [PSA] Coding Level of Care Code Est Pt Level 4 (41995) Diagnoses Coronary artery disease involving cheesh-na heart without angina pectoris, unspecified vessel or lesion type I25.10 Coronary Disease-Associated Artery/Lesion type: unspecified vessel or lesion type [place] vs. transplanted heart: cheesh-na heart Associated angina: without angina Palpitations R00.2 Benign essential hypertension I10 Pure hypercholesterolemia E78.00 Type 2 diabetes mellitus with albuminuria E11.29; R80.9 Proteinuria, unspecified type R80.9 Proteinuria type: unspecified Vitamin D deficiency E55.9 Primary osteoarthritis of left hip M16.12 Obstructive sleep apnea G47.33 Anemia, unspecified type D64.9 Anemia type: unspecified type Elevated PSA R97.20 Primary osteoarthritis of right knee M17.11 Primary insomnia F51.01 Anxiety F41.9 Overweight (BMI 25.0-29.9) E66.3
[2023-09-02 09:24] VITALS: BP 132/78; PULSE 67; O2SAT 96; BMI 29.6
== END 2023-09-02 09:54 | disposition home or self-care (01) ==
PROVIDERS: PCP Internal Medicine; Visit Provider Internal Medicine
DX: I25.10 Atherosclerotic heart disease of native coronary artery without angina pectoris (principal); R00.2 Palpitations; E11.29 Type 2 diabetes mellitus with other diabetic kidney complication; R80.9 Proteinuria, unspecified; E55.9 Vitamin D deficiency, unspecified; M16.12 Unilateral primary osteoarthritis, left hip; G47.33 Obstructive sleep apnea (adult) (pediatric); D64.9 Anemia, unspecified; R97.20 Elevated prostate specific antigen [PSA]; M17.11 Unilateral primary osteoarthritis, right knee; F51.01 Primary insomnia; F41.9 Anxiety disorder, unspecified
CPT/HCPCS: 99214

== ENCOUNTER 2023-09-09 08:47 | Outpatient (AMB) | payer OTHER, SELFPAY ==
[2023-09-09 08:49] VITALS: BP 110/70; PULSE 62; BMI 29.9
--- NOTE | 2023-09-09 08:49 | MHC.OFFVIS ---
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: No Allergies amlodipine Allergy (Unknown, Verified 09/02/23 09:33) gi atorvastatin Allergy (Unknown, Verified 09/02/23 09:33) myalgia at 80 mg, muscle px chlorthalidone Allergy (Unknown, Verified 09/02/23 09:33) excessive urination glipizide Allergy (Unknown, Verified 09/02/23 09:33) Unknown hydrochlorothiazide Allergy (Unknown, Verified 09/02/23 09:33) dizziness, excessive urination ibuprofen [From MOTRIN] Allergy (Unknown, Verified 09/02/23 09:33) irregular heartbeat metformin Allergy (Unknown, Verified 09/02/23 09:33) chokling sensation metoprolol Allergy (Unknown, Verified 09/02/23 09:33) slow heart rate nifedipine Allergy (Unknown, Verified 09/02/23 09:33) tachy/kate buspirone [From BUSPAR] Adverse Reaction (Unknown, Verified 09/02/23 09:33) STOMACH UPSET canagliflozin [Invokana] Adverse Reaction (Unknown, Verified 09/02/23 09:33) SYNCOPE clonidine [From CATAPRES] Adverse Reaction (Unknown, Verified 09/02/23 09:33) STOMACH UPSET SHELLFISH Allergy (Severe, Uncoded 09/02/23 09:33) ANAPHYLAXIS Sucralfate Allergy (Unknown, Uncoded 09/02/23 09:33) chest pain Medication List - Last Reconciled 09/09/23 by Bhupinder Puente MD acetaminophen (Tylenol Extra Strength) 1,000 mg PO Q6H PRN amlodipine 5 mg PO DAILY aspirin 81 mg PO DAILY atorvastatin 80 mg PO DAILY carvedilol 6.25 mg PO BID celecoxib 200 mg PO DAILY cholecalciferol (vitamin D3) 125 mcg PO DAILY clonazepam 1/2 to 1 tablet by mouth once a day as needed for increased anxiety; 30 days diclofenac sodium 1% 4 grams topical QID PRN 30 days docusate sodium 100 mg PO DAILY evolocumab (Repatha SureHeberick) 140 mg subcut Q2W 90 days ezetimibe (Zetia) 10 mg PO DAILY gabapentin 200 mg (2 x 100 mg) PO BID 30 days hydromorphone 2 mg PO Q4-6H PRN lisinopril 40 mg PO DAILY melatonin 10 mg PO BEDTIME PRN [id number] mcg (Centrum Silver Men) 1 tab PO DAILY omeprazole 20 mg PO DAILY sennosides (Natural Senna Laxative) 8.6 mg PO DAILY tizanidine 4 mg PO Q8H PRN 30 days HPI Comments Details: Girish comes for follow-up. He has been doing well from cardiac perspective. 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 Denies any exertional chest pain or shortness of breath. Denies any palpitations or prolonged irregular heartbeat. Denies any lightheadedness or syncope. Drinks adequate water. Takes all his medications. He says his sugars always high although his hemoglobin A1c is at 6.6 which is optimized. His last LDL is 32 mg/dL well controlled. Takes all his medications. [facility] Medical History Type 2 diabetes mellitus with albuminuria CAD (coronary artery disease) Fatigue Myalgia Overweight (BMI 25.0-29.9) Anxiety Primary insomnia Obstructive sleep apnea Anemia Left thigh pain Primary osteoarthritis of left hip Vitamin D deficiency Proteinuria Palpitations Impaired fasting glucose Pure hypercholesterolemia Benign essential hypertension Surgical History History of arthroplasty of right knee (~11/05/22) Hx of colonoscopy History of arthroplasty of left hip History of hip surgery Family History Father No problems noted. 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 Cognitive needs: No Hearing needs: No Vision needs: Yes (glasses) Review of Systems Const Denies chills, Denies fatigue, Denies fever(s), Denies frequent falls, Denies weakness, Denies weight gain and Denies weight loss ENT Denies dizziness Card Denies chest pain, Denies leg edema, Denies lightheadedness, Denies palpitations, Denies dyspnea, Denies dyspnea on exertion, Denies orthopnea and Denies other (loss of consciousness) Resp Denies cough, Denies dyspnea and Denies dyspnea on exertion GI Denies hematochezia and Denies change in stool character Musc Denies abnormal gait, Denies muscle weakness, Denies numbness, Denies radiating pain into limb and Denies tingling Neuro Denies abnormal gait, Denies dizziness, Denies frequent falls, Denies numbness, Denies tingling and Denies weakness Endo Denies fatigue and Denies palpitations Physical Exam Vital Signs: Last Vital Signs Pulse 62 09/09/23 08:49 BP 110/70 09/09/23 08:49 BMI result Body Mass Index 29.9 Const General: cooperative, comfortable, no acute distress, alert and awake Nutritional Appearance: overweight Orientation/consciousness: patient oriented x3 Limitations: no limitations Neck Neck: Yes trachea midline, Yes supple and Yes no JVD Resp Effort & Inspection: normal respiratory effort Auscultation: clear to auscultation bilaterally Cardio Jugular venous distension: no JVD Palpation: normal PMI Rate: regular rate Rhythm: regular rhythm Heart sounds: S1 normal heart sound present, S2 normal heart sound present, no click, no gallops and no murmurs GI Auscultation: normal bowel sounds Skin General skin exam: no rashes or lesions noted Neuro General: patient oriented x3 Extrem General: Yes no clubbing, cyanosis or edema Office Procedures EKG Details: EKG shows normal sinus rhythm with normal EKG [id number], Complete Assessment & Plan Assessment & Plan (1) CAD (coronary artery disease): Comment: Coronary calcium score greater than 1000, February 2021 Code(s): I25.10 - Atherosclerotic heart disease of augustine coronary artery without angina pectoris Category: Medical Qualifiers: Coronary Disease-Associated Artery/Lesion type: unspecified vessel or lesion type [place] vs. transplanted heart: augustine heart Associated angina: without angina Qualified Code(s): I25.10 - Atherosclerotic heart disease of [place] coronary artery without angina pectoris Plan: CAD with extensive calcium. No current symptoms of angina. He is diabetic could have silent myocardial ischemia. Follow-up exercise myocardial perfusion imaging 1 year's time. Continue aggressive medical therapy. LDL is well optimized. His diabetes also appears to be well controlled. Continue current therapy. Blood pressure is currently well optimized. Advised to call me with any new symptoms. (2) Benign essential hypertension: Code(s): I10 - Essential (primary) hypertension Category: Medical Plan: Hypertension with significantly labile blood pressure in the past with symptoms of orthostatic syncope in the past. This has not resolved on current regimen. Doing well with increase fluid intake and current regimen. Advised to monitor blood pressure intermittently at home. Low-salt diet was discussed. Participate in stress mitigation strategy. Continue CPAP therapy. Follow-up echocardiogram in 1 year's time. Will follow up in the clinic in 1 year's time, sooner p.r.n.. Thank you for allowing me to partake in his care Coding Level of Care Code Est Pt Level 4 (12847) Diagnoses Coronary artery disease involving augustine heart without angina pectoris, unspecified vessel or lesion type I25.10 Coronary Disease-Associated Artery/Lesion type: unspecified vessel or lesion type [place] vs. transplanted heart: augustine heart Associated angina: without angina Benign essential hypertension I10 CPT Codes EKG - CPT: [id number], Complete ([id number])
== END 2023-09-09 09:26 | disposition home or self-care (01) ==
PROVIDERS: Visit Provider Internal Medicine Cardiovascular Disease
DX: I25.10 Atherosclerotic heart disease of native coronary artery without angina pectoris (principal); I10 Essential (primary) hypertension
CPT/HCPCS: 93010; 99214

== ENCOUNTER → 2023-09-09 08:47 | Outpatient (BNVA) | payer OTHER, SELFPAY | PROVIDERS: Visit Provider Internal Medicine Cardiovascular Disease | DX: I25.10 Atherosclerotic heart disease of native coronary artery without angina pectoris (principal); I10 Essential (primary) hypertension | CPT/HCPCS: 93005 ==

== ENCOUNTER 2023-10-15 15:11 | Outpatient (AMB) | payer OTHER, SELFPAY ==
--- NOTE | 2023-10-15 15:13 | A.OFFVIS_ITS ---
Intake Visit Reasons: elevated PSA Intake Note: New Patient is present for Elevated PSA Antibiotic Allergy: None Blood Thinner: Aspirin Patient states he was seen at [facility] Requested notes Allergies amlodipine Allergy (Unknown, Verified 12/24/23 09:59) gi atorvastatin Allergy (Unknown, Verified 12/24/23 09:59) myalgia at 80 mg, muscle px chlorthalidone Allergy (Unknown, Verified 12/24/23 09:59) excessive urination glipizide Allergy (Unknown, Verified 12/24/23 09:59) Unknown hydrochlorothiazide Allergy (Unknown, Verified 12/24/23 09:59) dizziness, excessive urination ibuprofen [From MOTRIN] Allergy (Unknown, Verified 12/24/23 09:59) irregular heartbeat metformin Allergy (Unknown, Verified 12/24/23 09:59) chokling sensation metoprolol Allergy (Unknown, Verified 12/24/23 09:59) slow heart rate nifedipine Allergy (Unknown, Verified 12/24/23 09:59) tachy/kate buspirone [From BUSPAR] Adverse Reaction (Unknown, Verified 12/24/23 09:59) STOMACH UPSET canagliflozin [Invokana] Adverse Reaction (Unknown, Verified 12/24/23 09:59) SYNCOPE clonidine [From CATAPRES] Adverse Reaction (Unknown, Verified 12/24/23 09:59) STOMACH UPSET SHELLFISH Allergy (Severe, Uncoded 12/24/23 09:59) ANAPHYLAXIS Sucralfate Allergy (Unknown, Uncoded 12/24/23 09:59) chest pain HPI Comments Details: Girish is a pleasant male. He is a patient of Dr. Reardon. He has seen for the following urologic conditions - elevated PSA - erectile dysfunction Repeat PSA in three-month Trial erectile medications Elevated PSA Borderline MARYCARMEN normal PSA - 08/27 4.1 Erectile dysfunction Progressive Trouble maintaining erection [facility] Medical History Type 2 diabetes mellitus with albuminuria CAD (coronary artery disease) Fatigue Myalgia Overweight (BMI 25.0-29.9) Anxiety Primary insomnia Obstructive sleep apnea Anemia Left thigh pain Primary osteoarthritis of left hip Vitamin D deficiency Proteinuria Palpitations Impaired fasting glucose Pure hypercholesterolemia Benign essential hypertension Surgical History History of arthroplasty of right knee (~11/05/22) Hx of colonoscopy History of arthroplasty of left hip History of hip surgery Family History Father No problems noted. 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 Cognitive needs: No Hearing needs: No Vision needs: Yes (glasses) Review of Systems Const Denies chills and Denies fever(s) Card Reports no additional complaints and Denies syncope Resp Denies cough GI Denies abdominal pain and Denies heartburn Reports as per HPI and Denies change in libido Neuro Denies syncope Psych Denies change in libido Endo Denies change in libido Physical Exam Const General: cooperative, healthy appearing, comfortable and no acute distress Orientation/consciousness: patient oriented x3 HEENT Face and sinus: Yes normal facial exam Mouth: moist mucous membranes Neck Neck: Yes normal visual inspection, Yes full ROM and Yes trachea midline Chest Chest palpation & inspection: normal inspection of the chest Resp Effort & Inspection: normal respiratory effort, able to speak in complete sentences and no respiratory distress GI Inspection: Yes normal to inspection Back/Spine/Pelvis Cervical Spine: normal cervical lordosis Thoracic/Lumbar Spine: thoracic and lumbar spine normal to inspection Skin General skin exam: no rashes or lesions noted Neuro General: patient oriented x3, gait normal, tone normal and moves all extremities Extrem General: Yes normal to inspection and Yes capillary refill normal Assessment & Plan Assessment & Plan (1) Erectile dysfunction associated with type 2 diabetes mellitus: Code(s): E11.69 - Type 2 diabetes mellitus with other specified complication; N52.1 - Erectile dysfunction due to diseases classified elsewhere Category: Medical Plan Three-month follow-up baseline labs Trial daily tadalafil Orders: Orders PSA,Total (Free>4and<10) 3 Months R97.20 - Elevated prostate specific antigen [PSA] Testosterone, Free/Total 3 Months E11.69 - Type 2 diabetes mellitus with other specified complication, N52.1 - Erectile dysfunction due to diseases classified elsewhere Medications: New tadalafil 5 mg PO DAILY 90 tabs 1RF sexual activity 90 days E11.69 - Type 2 diabetes mellitus with other specified complication, N52.1 - Erectile dysfunction due to diseases classified elsewhere Patient Instructions: Imaging studies, laboratory and physical exam results were discussed and reviewed in detail. No major barriers to patient understanding were identified. An opportunity to ask questions regarding the treatment plan was provided. All questions were answered. The patient expressed understanding and agreement with the above treatment plan. The patient is aware they should contact our office by phone for worsening of their current condition or the appearance of new urologic symptoms. Compliance is encouraged with any medications and followup testing that is ordered. It is a privilege to participate in the urologic care of your patient. If you have any questions or concerns regarding treatment for the above conditions, or other urologic issues, please do not hesitate to contact me. The office teleph one contact is [phone]. This note is constructed using voice recognition software. While every effort has been made to ensure accuracy maintenance technician 2nd shift errors may have been included. Yours sincerely, Dr Benny Suazo MD, [facility] - Urology Providers of Expert, Compassionate Care for the Genitourinary System Coding Level of Care Code New Pt Level 4 (05647) Diagnoses Erectile dysfunction associated with type 2 diabetes mellitus E11.69; N52.1
== END 2023-10-15 16:04 | disposition home or self-care (01) ==
PROVIDERS: PCP Internal Medicine; Visit Provider Urology
DX: E11.69 Type 2 diabetes mellitus with other specified complication (principal); N52.1 Erectile dysfunction due to diseases classified elsewhere
CPT/HCPCS: 99204

== ENCOUNTER → 2023-10-15 15:11 | Outpatient (BNVA) | payer OTHER, SELFPAY | PROVIDERS: PCP Internal Medicine; Visit Provider Urology ==

== ENCOUNTER 2023-11-06 09:58 | Outpatient (REF) | payer OTHER, SELFPAY ==
[2023-11-06 11:02] LABS: Anion Gap 10 (12-20); Blood Urea Nitrogen 14 mg/dL (9-16); Calcium 9.1 mg/dL (8.4-10.2); Carbon Dioxide 28 mmol/L (22-29); Chloride 105 mmol/L (96-108); Estimated Glomerular Filt Rate > 60; Glucose Random 122 mg/dL (60-115); Potassium 3.9 mmol/L (3.3-5.1); Sodium 139 mmol/L (135-145)
[2023-11-06 11:18] LABS: Creatinine Urine 78.55 mg/dL; Total Protein Urine Random 87 mg/dL (<12)
== END 2023-11-06 09:59 | disposition home or self-care (01) ==
LOC: HO.LAB 09:58
PROVIDERS: PCP Internal Medicine; Visit Provider Internal Medicine Hypertension Specialist
DX: E11.29 Type 2 diabetes mellitus with other diabetic kidney complication (principal); R80.9 Proteinuria, unspecified
CPT/HCPCS: 36415; 80048; 82570; 84156

== ENCOUNTER → 2023-11-12 16:33 | Outpatient (BNVA) | payer OTHER, SELFPAY | PROVIDERS: PCP Internal Medicine; Visit Provider Internal Medicine Hypertension Specialist ==

== ENCOUNTER → 2023-11-12 16:47 | Outpatient (AMB) | payer OTHER, SELFPAY ==
[2023-11-12 16:33] VITALS: BP 118/80; PULSE 73; O2SAT 97; BMI 30.4
--- NOTE | 2023-11-12 16:33 | HO.NEPHOV_ITS ---
Vital Signs 11/12/23 16:33 Height 5 ft 9 in Weight 206 lb BMI 30.4 BP 118/80 Blood Pressure Location Lt brachial Position Sitting Pulse 73 Pulse Source Pulse Oximeter Pulse Oximetry (%) 97 Oxygen Delivery Method Room Air Intake Visit Reasons: Proteinuria 6 months fu/ Conf Package Delivery Driver Required: No Accompanied by: Self / Same As Patient Allergies amlodipine Allergy (Unknown, Verified 11/12/23 16:35) gi atorvastatin Allergy (Unknown, Verified 11/12/23 16:35) myalgia at 80 mg, muscle px chlorthalidone Allergy (Unknown, Verified 11/12/23 16:35) excessive urination glipizide Allergy (Unknown, Verified 11/12/23 16:35) Unknown hydrochlorothiazide Allergy (Unknown, Verified 11/12/23 16:35) dizziness, excessive urination ibuprofen [From MOTRIN] Allergy (Unknown, Verified 11/12/23 16:35) irregular heartbeat metformin Allergy (Unknown, Verified 11/12/23 16:35) chokling sensation metoprolol Allergy (Unknown, Verified 11/12/23 16:35) slow heart rate nifedipine Allergy (Unknown, Verified 11/12/23 16:35) tachy/kate buspirone [From BUSPAR] Adverse Reaction (Unknown, Verified 11/12/23 16:35) STOMACH UPSET canagliflozin [Invokana] Adverse Reaction (Unknown, Verified 11/12/23 16:35) SYNCOPE clonidine [From CATAPRES] Adverse Reaction (Unknown, Verified 11/12/23 16:35) STOMACH UPSET SHELLFISH Allergy (Severe, Uncoded 10/15/23 15:14) ANAPHYLAXIS Sucralfate Allergy (Unknown, Uncoded 10/15/23 15:14) chest pain HPI Comments Details: Middle-aged man with a history of longstanding hypertension diabetes mellitus with proteinuria. However no new over the last 15-20 years. He is currently on lisinopril for protection. New recently amlodipine was added. In the past he was on calcium channel matt which caused leg edema. However he is able to tolerate amlodipine 5 mg. He has gained some weight. He is not monitoring his blood sugars regularly. 11/12/23 Overall doing well Gained few pounds Left ankle is mildly swollen [facility] Medical History Type 2 diabetes mellitus with albuminuria CAD (coronary artery disease) Fatigue Myalgia Overweight (BMI 25.0-29.9) Anxiety Primary insomnia Obstructive sleep apnea Anemia Left thigh pain Primary osteoarthritis of left hip Vitamin D deficiency Proteinuria Palpitations Impaired fasting glucose Pure hypercholesterolemia Benign essential hypertension Surgical History History of arthroplasty of right knee (~11/05/22) Hx of colonoscopy History of arthroplasty of left hip History of hip surgery Family History Father No problems noted. 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 Cognitive needs: No Hearing needs: No Vision needs: Yes (glasses) Physical Exam Vital Signs: Last Vital Signs Pulse 73 11/12/23 16:33 Pulse Ox 97 11/12/23 16:33 Oxygen Delivery Method Room Air 11/12/23 16:33 BMI result Body Mass Index 30.4 Const General: comfortable; No acute distress Orientation/consciousness: patient oriented x3 Eyes General: appearance normal, both eyes and all related structures Visual Yates: normal visual yates by confrontation Neck Neck: Yes supple and Yes no JVD Resp Effort & Inspection: normal respiratory effort and respiratory effort not decreased Auscultation: rhonchi Cardio Palpation: no palpable S3 and no palpable S4 Heart sounds: no rubs GI Inspection: Yes normal to inspection Palpation (GI): Soft to palpation Percussion: Yes normal to percussion Auscultation: normal bowel sounds General: Yes no CVA tenderness Back/Spine/Pelvis Back: no CVA tenderness Skin General skin exam: no petechiae and no purpura Neuro General: patient oriented x3 and no focal motor deficits Extrem General: No clubbing and No edema Results Reviewed Nephrology Results: Hgb 13.9 g/dl (14.0-18.0) L 08/22/23 WBC 7.1 X10*3/uL (4.8-10.8) 08/22/23 Plt Count 319 X10*3/uL (160-400) 08/22/23 Sodium 139 mmol/L (135-145) 11/06/23 Potassium 3.9 mmol/L (3.3-5.1) 11/06/23 Chloride 105 mmol/L (96-108) 11/06/23 Carbon Dioxide 28 mmol/L (22-29) 11/06/23 BUN 14 mg/dL (9-16) 11/06/23 Creatinine 0.86 mg/dL (0.5-1.4) 11/06/23 Calcium 9.1 mg/dL (8.4-10.2) 11/06/23 Urine Protein 100 (2+) mg/dL (Neg-Trace) H 08/22/23 Urine Creatinine 78.55 mg/dL 11/06/23 Assessment & Plan Assessment & Plan (1) Proteinuria: Code(s): R80.9 - Proteinuria, unspecified Category: Medical Qualifiers: Proteinuria type: unspecified Qualified Code(s): R80.9 - Proteinuria, unspecified (2) Benign essential hypertension: Code(s): I10 - Essential (primary) hypertension Category: Medical (3) Type 2 diabetes mellitus with albuminuria: Code(s): E11.29 - Type 2 diabetes mellitus with other diabetic kidney complication; R80.9 - Proteinuria, unspecified Category: Medical Plan Middle-aged man with proteinuria in the setting of longstanding diabetes mellitus. He probably has underlying diabetic nephropathy. Renal function stable. Goal is to slow the progression of renal disease. We will continue to maximize CLEVE inhibition. blood pressure should be maintained less than 130/80. Discussed importance of tight control of blood sugar to maintain hemoglobin A1c at the target range. He would benefit from SGLT-2 inhibitor. We also discussed weight loss. Today I have not made any changes. Encouraged him to stay on low-sodium diet. Continue to avoid nephrotoxic agents including NSAIDs. (Admits to eating junk food/fast food!!) Coding Level of Care Code Est Pt Level 4 (20207) Diagnoses Proteinuria, unspecified type R80.9 Proteinuria type: unspecified Benign essential hypertension I10 Type 2 diabetes mellitus with albuminuria E11.29; R80.9
== END | disposition home or self-care (01) ==
LOC: HO.HKA 16:33
PROVIDERS: PCP Internal Medicine; Visit Provider Internal Medicine Hypertension Specialist
DX: R80.9 Proteinuria, unspecified (principal); I10 Essential (primary) hypertension; E11.29 Type 2 diabetes mellitus with other diabetic kidney complication
CPT/HCPCS: 99214

== ENCOUNTER 2023-12-09 09:48 | Outpatient (AMB) | payer OTHER, SELFPAY ==
[2023-12-09 09:57] VITALS: BP 120/78; PULSE 74; O2SAT 98; BMI 30.8
--- NOTE | 2023-12-09 09:57 | A.OFFVIS_ITS ---
Vital Signs 12/09/23 09:57 Height 5 ft 9 in Weight 208 lb 5.389 oz BMI 30.8 BP 120/78 Blood Pressure Location Lt brachial Position Sitting Pulse 74 Pulse Source Pulse Oximeter Pulse Oximetry (%) 98 Oxygen Delivery Method Room Air Intake Visit Reasons: Sleep apnea Intake Note: pt is here for follow up of DANO and doing well with cpap. 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 Required: No Allergies amlodipine Allergy (Unknown, Verified 12/09/23 10:22) gi atorvastatin Allergy (Unknown, Verified 12/09/23 10:22) myalgia at 80 mg, muscle px chlorthalidone Allergy (Unknown, Verified 12/09/23 10:22) excessive urination glipizide Allergy (Unknown, Verified 12/09/23 10:22) Unknown hydrochlorothiazide Allergy (Unknown, Verified 12/09/23 10:22) dizziness, excessive urination ibuprofen [From MOTRIN] Allergy (Unknown, Verified 12/09/23 10:22) irregular heartbeat metformin Allergy (Unknown, Verified 12/09/23 10:22) chokling sensation metoprolol Allergy (Unknown, Verified 12/09/23 10:22) slow heart rate nifedipine Allergy (Unknown, Verified 12/09/23 10:22) tachy/kate buspirone [From BUSPAR] Adverse Reaction (Unknown, Verified 12/09/23 10:22) STOMACH UPSET canagliflozin [Invokana] Adverse Reaction (Unknown, Verified 12/09/23 10:22) SYNCOPE clonidine [From CATAPRES] Adverse Reaction (Unknown, Verified 12/09/23 10:22) STOMACH UPSET SHELLFISH Allergy (Severe, Uncoded 12/09/23 10:22) ANAPHYLAXIS Sucralfate Allergy (Unknown, Uncoded 12/09/23 10:22) chest pain Do you need a note to return to daycare/school/sports/work: No HPI HPI Sleep apnea: Details: Girish 58 years old gentleman is here for his f u of sleep apnea. He has come for follow-up after almost 2 years. He uses CPAP device every night very regularly and sleeps good. There is no problem with the CPAP device. He is well worse with the use of CPAP device and also with the cleaning process. Is the CPAP device is not transmitting the data for compliance. But he has no issues with its use and he uses at least for 6 hours every night. [facility] Medical History Type 2 diabetes mellitus with albuminuria CAD (coronary artery disease) Fatigue Myalgia Overweight (BMI 25.0-29.9) Anxiety Primary insomnia Obstructive sleep apnea Anemia Left thigh pain Primary osteoarthritis of left hip Vitamin D deficiency Proteinuria Palpitations Impaired fasting glucose Pure hypercholesterolemia Benign essential hypertension Surgical History History of arthroplasty of right knee (~11/05/22) Hx of colonoscopy History of arthroplasty of left hip History of hip surgery Family History Father No problems noted. 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 Cognitive needs: No Hearing needs: No Vision needs: Yes (glasses) Review of Systems Const Denies chills, Denies fatigue, Denies fever(s), Denies frequent falls, Denies weakness, Denies weight gain and Denies weight loss ENT Denies dizziness Card Denies chest pain, Denies leg edema, Denies lightheadedness, Denies palpitations, Denies dyspnea, Denies dyspnea on exertion, Denies orthopnea and Denies other (loss of consciousness) Resp Denies cough, Denies dyspnea and Denies dyspnea on exertion GI Denies hematochezia and Denies change in stool character Musc Denies abnormal gait, Denies muscle weakness, Denies numbness, Denies radiating pain into limb and Denies tingling Neuro Denies abnormal gait, Denies dizziness, Denies frequent falls, Denies numbness, Denies tingling and Denies weakness Endo Denies fatigue and Denies palpitations Physical Exam Vital Signs: Last Vital Signs Pulse 74 12/09/23 09:57 BP 120/78 12/09/23 09:57 Pulse Ox 98 12/09/23 09:57 Oxygen Delivery Method Room Air 08/05/24 09:57 BMI result Body Mass Index 30.8 Const General: healthy appearing (Slightly overweight), comfortable, no acute distress, alert and awake Orientation/consciousness: patient oriented x3 HEENT Head: Yes normal to inspection General nose exam: No nasal polyps present and No nasal discharge present Face and sinus: Yes sinuses nontender Mouth: oropharynx normal Throat: Yes posterior oropharynx normal Eyes General: appearance normal, both eyes and all related structures Neck Neck: Yes normal visual inspection, Yes no lymphadenopathy, Yes trachea midline and Yes no JVD Thyroid: Thyroid normal Resp Effort & Inspection: normal respiratory effort Auscultation: clear to auscultation bilaterally, no crackles and no wheezes Percussion: percussion normal Cardio Palpation: normal PMI Rate: regular rate Rhythm: regular rhythm Heart sounds: no gallops and no murmurs Peripheral pulses: Peripheral pulses 2+ throughout GI Palpation (GI): Soft to palpation, nontender, No hepatosplenomegaly present and no masses Auscultation: normal bowel sounds Back/Spine/Pelvis Thoracic/Lumbar Spine: thoracic and lumbar spine normal to inspection Skin General skin exam: no rashes or lesions noted Neuro General: patient oriented x3 and no focal motor deficits Cranial nerves: Yes CN's II-XII intact bilaterally Extrem General: Yes normal to inspection, Yes no clubbing, cyanosis or edema and Yes no calf tenderness Psych Appearance: grossly normal and well kempt Speech and movement: Normal speech and movement present Results Reviewed Results Reviewed: His CPAP device the is about 7 years old, but he claims that is working fine and does not give any trouble. He does not transmit data for the compliance report. But according to him he is using it regularly Assessment & Plan Assessment & Plan (1) Obstructive sleep apnea: Comment: Obstructive sleep apnea, well treated with use of CPAP. He is very compliant and benefitting from the use of CPAP. No specific issues concerning CPAP device. Code(s): G47.33 - Obstructive sleep apnea (adult) (pediatric) Category: Medical Plan: Commended for good compliance and advised to continue using the CPAP every night. If his CPAP device starts giving any problem mechanically or functionally then he will be eligible to have a new CPAP device. Coding Level of Care Code Est Pt Level 3 (66924) Diagnoses Obstructive sleep apnea G47.33
== END 2023-12-09 10:24 | disposition home or self-care (01) ==
PROVIDERS: PCP Internal Medicine; Visit Provider Internal Medicine
DX: G47.33 Obstructive sleep apnea (adult) (pediatric) (principal)
CPT/HCPCS: 99213

== ENCOUNTER → 2023-12-09 09:48 | Outpatient (BNVA) | payer OTHER, SELFPAY | PROVIDERS: PCP Internal Medicine; Visit Provider Internal Medicine ==

== ENCOUNTER 2023-12-24 09:49 | Outpatient (AMB) | payer OTHER, SELFPAY ==
--- NOTE | 2023-12-24 09:57 | AM.OFFWIN_ITS ---
Intake Vital Signs 12/24/23 09:58 Height 5 ft 9 in Weight 208 lb BMI 30.7 BP 130/90 H Blood Pressure Location Rt brachial Position Sitting Pulse 84 Pulse Source Pulse Oximeter Temp 98.9 F Temp Source Oral Pulse Oximetry (%) 98 Oxygen Delivery Method Room Air Intake Visit Reasons: EP- sore throat, fever, runny nose, diarrheia Intake Note: Patient here for sore throat,runny nose, diarrhea that started yesterday. Patient Tobacco Use Status: Never used Tobacco Allergies amlodipine Allergy (Unknown, Verified 12/24/23 09:59) gi atorvastatin Allergy (Unknown, Verified 12/24/23 09:59) myalgia at 80 mg, muscle px chlorthalidone Allergy (Unknown, Verified 12/24/23 09:59) excessive urination glipizide Allergy (Unknown, Verified 12/24/23 09:59) Unknown hydrochlorothiazide Allergy (Unknown, Verified 12/24/23 09:59) dizziness, excessive urination ibuprofen [From MOTRIN] Allergy (Unknown, Verified 12/24/23 09:59) irregular heartbeat metformin Allergy (Unknown, Verified 12/24/23 09:59) chokling sensation metoprolol Allergy (Unknown, Verified 12/24/23 09:59) slow heart rate nifedipine Allergy (Unknown, Verified 12/24/23 09:59) tachy/kate buspirone [From BUSPAR] Adverse Reaction (Unknown, Verified 12/24/23 09:59) STOMACH UPSET canagliflozin [Invokana] Adverse Reaction (Unknown, Verified 12/24/23 09:59) SYNCOPE clonidine [From CATAPRES] Adverse Reaction (Unknown, Verified 12/24/23 09:59) STOMACH UPSET SHELLFISH Allergy (Severe, Uncoded 12/24/23 09:59) ANAPHYLAXIS Sucralfate Allergy (Unknown, Uncoded 12/24/23 09:59) chest pain Do you need a note to return to daycare/school/sports/work: Yes HPI HPI Comments History of Present Illness Details 58 y/o male patient who presents to the walk in clinic with c/o URI symptoms. Reports that symptoms started Saturday. He has been using OTC remedies with some relief. Reports fever this morning (100F) and took Acetaminophen with good relief. Denies nausea or vomiting but reports diarrhea and bloating. 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 [facility] Medical History Type 2 diabetes mellitus with albuminuria CAD (coronary artery disease) Fatigue Myalgia Overweight (BMI 25.0-29.9) Anxiety Primary insomnia Obstructive sleep apnea Anemia Left thigh pain Primary osteoarthritis of left hip Vitamin D deficiency Proteinuria Palpitations Impaired fasting glucose Pure hypercholesterolemia Benign essential hypertension Surgical History History of arthroplasty of right knee (~11/05/22) Hx of colonoscopy History of arthroplasty of left hip History of hip surgery Family History Father No problems noted. 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 Cognitive needs: No Hearing needs: No Vision needs: Yes (glasses) Review of Systems Const All systems reviewed & are unremarkable except as noted in HPI and below Physical Exam Vital Signs: Last Vital Signs Temp 98.9 F 12/24/23 09:58 Pulse 84 12/24/23 09:58 BP 130/90 H 12/24/23 09:58 Pulse Ox 98 12/24/23 09:58 Oxygen Delivery Method Room Air 12/24/23 09:58 BMI result Body Mass Index 30.7 Const General: cooperative and no acute distress Nutritional Appearance: overweight Orientation/consciousness: patient oriented x3 HEENT Head: Yes normocephalic Ears: external ears normal and TM abnormal bulging bilateral and with fluid be hind the TM bilateral; not erythematous, not perforated and not retracted General nose exam: Normal nasal mucous membranes and turbinates present Face and sinus: Yes sinuses nontender Mouth: moist mucous membranes Throat: Yes posterior oropharynx normal Resp Effort & Inspection: normal respiratory effort and able to speak in complete sentences Auscultation: clear to auscultation bilaterally, no crackles, no rales, no rhonchi and no wheezes Cardio Heart sounds: S1 normal heart sound present and S2 normal heart sound present Neuro General: patient oriented x3 Results AMB Rapid Strep AMB Rapid Strep Negative Last Edit by EDEN Morfin on 12/24/23 10:09 Results Reviewed Results Reviewed: Laboratory Last Values Strep Scn Rapid Clinic Negative 12/24/23 10:05 Assessment & Plan Assessment & Plan (1) Upper respiratory infection: Code(s): J06.9 - Acute upper respiratory infection, unspecified Qualifiers: URI type: unspecified viral URI Qualified Code(s): J06.9 - Acute upper respiratory infection, unspecified Plan: Rest and hydrate well with warm fluids and honey OTC cold remedies Orders: Orders AMB Rapid Strep Screen Today Z13.9 - Encounter for screening, unspecified SARS-CoV2/FLU/RSV Today J06.9 - Acute upper respiratory infection, unspecified Medications: New metoclopramide HCl (Reglan) 10 mg PO Q6H PRN 30 tabs 0RF nausea and vomiting and diarrhea R19.7 - Diarrhea, unspecified Changed From acetaminophen (Tylenol Extra Strength) 1,000 mg PO Q6H PRN J06.9 - Acute upper respiratory infection, unspecified To acetaminophen (Tylenol Extra Strength) 1,000 mg (2 x 500 mg) PO Q8H PRN 30 tabs 0RF fever J06.9 - Acute upper respiratory infection, unspecified Coding Level of Care Code Est Pt Level 3 (07779) Diagnoses Viral upper respiratory tract infection J06.9 URI type: unspecified viral URI Time Spent (min) 15
[2023-12-24 09:58] VITALS: BP 130/90; PULSE 84; TEMP 37.2; O2SAT 98; BMI 30.7
== END 2023-12-24 10:25 | disposition home or self-care (01) ==
PROVIDERS: PCP Internal Medicine; Visit Provider Nurse Practitioner Family
DX: Z13.9 Encounter for screening, unspecified (principal); J06.9 Acute upper respiratory infection, unspecified
CPT/HCPCS: 87880; 99213

== ENCOUNTER 2023-12-24 10:11 | Outpatient (REF) | payer OTHER, SELFPAY ==
[2023-12-24 14:15] LABS: Influenza A PCR NEGATIVE (Negative); Influenza B PCR NEGATIVE (Negative); Resp Syncy Virus RNA Qual PCR NEGATIVE (Negative); SARS COV2 PCR INHOUSE NEGATIVE (Negative)
== END 2023-12-24 10:12 | disposition home or self-care (01) ==
LOC: HO.LAB 10:11
PROVIDERS: Visit Provider Nurse Practitioner Family
DX: J06.9 Acute upper respiratory infection, unspecified (principal)
CPT/HCPCS: 0241U

== ENCOUNTER 2024-01-09 09:19 | Outpatient (REF) | payer OTHER, SELFPAY ==
[2024-01-09 09:40] LABS: MANUAL DIFF FLAG NO
[2024-01-09 10:26] LABS: Basophils Absolute Auto 0.1 X10*3/uL (0.0-0.2); Eosinophils Absolute Auto 0.4 X10*3/uL (0.0-0.4); Hematocrit 40.4 % (42.0-52.0); Hemoglobin 13.4 g/dl (14.0-18.0); Imm Gran Abs Auto 0.01 X10*3/uL (0.00-0.03); Imm Gran Pct Auto 0.2 % (0.0-0.4); Lymphocytes Absolute Auto 2.1 X10*3/uL (1.2-4.9); Lymphocytes Percent Auto 35.2 % (20-40); Mean Corpuscular HGB Conc 33.2 g/dl (31.0-36.0); Mean Corpuscular Hemoglobin 29.2 pg (27.0-33.0); Mean Platelet Volume 9.2 fL (9.4-12.4); Monocytes Absolute Auto 0.8 X10*3/uL (0.1-1.2); Monocytes Percent Auto 13.7 % (2-11); Neutrophils Absolute Auto 2.5 x10*3/uL (2.0-8.3); Neutrophils Percent Auto 42.9 % (45-73); Platelet Count 334 X10*3/uL (160-400); Red Blood Count 4.59 X10*6/uL (4.60-5.80); White Blood Count 5.8 X10*3/uL (4.8-10.8)
[2024-01-09 10:36] LABS: Appearance Urine Clear; Color Urine Yellow; Glucose Urine UA Negative (Negative); Leukocyte Esterase Urine Negative (Negative); Nitrite Urine Negative (Negative); PH 6.5 (5.0-9.0); Specific Gravity - Urine 1.015 (1.005-1.025); UMIC TRIGGER UACC YES; Urine Blood Negative (Negative); Urine Ketones Negative (Negative); Urine Protein 100 (2+) mg/dL (Neg-Trace)
[2024-01-09 10:36] LABS: Estimated Average Glucose 140 mg/dL; Hemoglobin A1c % 6.5 % (<6.0)
[2024-01-09 10:43] LABS: Bacteria Urine None Seen (None Seen); Hyaline Casts Urine 0-2 /LPF (0-2); RBC Urine 0-2 /HPF (0-2); Squamous Epithelial Cell Urine 0-2 /HPF (0-2); WBC Urine 0-5 /HPF (0-5)
[2024-01-09 11:07] LABS: Creatinine Urine 60.76 mg/dL; Microalbum/Creatinine Ratio Ur 622.1 ug/mg cr (<30)
[2024-01-09 11:13] LABS: PSA,Total (Free>4and<10) 3.75 ng/mL (0.00-4.00)
[2024-01-09 11:26] LABS: Alanine Aminotransferase 33 U/L (0-40); Albumin Level 3.9 g/dL (3.5-5.0); Alkaline Phosphatase 101 U/L (39-117); Anion Gap 13 (12-20); Aspartate Amino Transferase 18 U/L (5-37); Bilirubin Total 0.5 mg/dL (0.0-1.0); Blood Urea Nitrogen 12 mg/dL (9-16); Calcium 8.9 mg/dL (8.4-10.2); Carbon Dioxide 25 mmol/L (22-29); Chloride 108 mmol/L (96-108); Cholesterol 86 mg/dL (<200); Estimated Glomerular Filt Rate > 60; Glucose Fasting 139 mg/dL (60-99); HDL Cholesterol 35 mg/dL (>40); LDL Cholesterol Calculated 36 mg/dL (<100); Potassium 3.8 mmol/L (3.3-5.1); Sodium 142 mmol/L (135-145); Total Protein 7.2 g/dL (6.5-8.0); Triglycerides 77 mg/dL (<150)
[2024-01-09 11:27] LABS: TSH reflex Free T4 0.69 uIU/mL (0.32-4.0); Vitamin D 25-OH Total 38.3 ng/mL (>30)
[2024-01-09 11:29] LABS: Folate 16.7 ng/mL (> or = 4.0); Vitamin B12 1098 pg/mL (200-900)
[2024-01-13 19:28] LABS: Testosterone, Free 39.3 pg/mL (35.0-155.0); Testosterone, Total 189 ng/dL (250-1100)
== END 2024-01-09 09:20 | disposition home or self-care (01) ==
LOC: HO.LAB 09:19
PROVIDERS: Absent Provider Urology; PCP Internal Medicine; Visit Provider Internal Medicine
DX: D64.9 Anemia, unspecified (principal); E11.9 Type 2 diabetes mellitus without complications; E78.00 Pure hypercholesterolemia, unspecified; E53.8 Deficiency of other specified B group vitamins; E55.9 Vitamin D deficiency, unspecified; R97.20 Elevated prostate specific antigen [PSA]; E11.69 Type 2 diabetes mellitus with other specified complication; N52.1 Erectile dysfunction due to diseases classified elsewhere; Z12.5 Encounter for screening for malignant neoplasm of prostate
CPT/HCPCS: 36415; 80053; 80061; 81001; 82043; 82306; 82570; 82607; 82746; 83036; 84153; 84402; 84403; 84443; 85025

== ENCOUNTER 2024-01-24 09:02 | Outpatient (AMB) | payer OTHER, SELFPAY ==
[2024-01-24 09:03] VITALS: BP 110/68; PULSE 72; O2SAT 95; BMI 30.6
--- NOTE | 2024-01-24 09:03 | A.OFFPC_ITS ---
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 Accompanied by: Self / Same As Patient Allergies amlodipine Allergy (Unknown, Verified 01/24/24 09:19) gi atorvastatin Allergy (Unknown, Verified 01/24/24 09:19) myalgia at 80 mg, muscle px chlorthalidone Allergy (Unknown, Verified 01/24/24 09:19) excessive urination glipizide Allergy (Unknown, Verified 01/24/24 09:19) Unknown hydrochlorothiazide Allergy (Unknown, Verified 01/24/24 09:19) dizziness, excessive urination ibuprofen [From MOTRIN] Allergy (Unknown, Verified 01/24/24 09:19) irregular heartbeat metformin Allergy (Unknown, Verified 01/24/24 09:19) chokling sensation metoprolol Allergy (Unknown, Verified 01/24/24 09:19) slow heart rate nifedipine Allergy (Unknown, Verified 01/24/24 09:19) tachy/kate buspirone [From BUSPAR] Adverse Reaction (Unknown, Verified 01/24/24 09:19) STOMACH UPSET canagliflozin [Invokana] Adverse Reaction (Unknown, Verified 01/24/24 09:19) SYNCOPE clonidine [From CATAPRES] Adverse Reaction (Unknown, Verified 01/24/24 09:19) STOMACH UPSET SHELLFISH Allergy (Severe, Uncoded 01/24/24 09:19) ANAPHYLAXIS Sucralfate Allergy (Unknown, Uncoded 01/24/24 09:19) chest pain Medication List - Last Reconciled 01/24/24 by Sim Reardon MD acetaminophen (Tylenol Extra Strength) 1,000 mg (2 x 500 mg) PO Q8H PRN amlodipine 5 mg PO DAILY aspirin 81 mg PO DAILY atorvastatin 80 mg PO DAILY carvedilol 6.25 mg PO BID cholecalciferol (vitamin D3) 125 mcg PO DAILY clonazepam 1/2 to 1 tablet by mouth once a day as needed for increased anxiety; 30 days diclofenac sodium 1% 4 grams topical QID PRN 30 days evolocumab (Repatha SureClick) 140 mg subcut Q2W 90 days ezetimibe (Zetia) 10 mg PO DAILY gabapentin 200 mg (2 x 100 mg) PO BID 30 days hydromorphone 2 mg PO Q4-6H PRN lisinopril 40 mg PO DAILY melatonin 10 mg PO BEDTIME PRN metoclopramide HCl (Reglan) 10 mg PO Q6H PRN [id number] mcg (Centrum Silver Men) 1 tab PO DAILY omeprazole 20 mg PO DAILY tadalafil 5 mg PO DAILY 90 days tizanidine 4 mg PO Q8H PRN 30 days tramadol 50 - 100 mg PO QID PRN Tobacco use date assessed: 01/24/24 Dental Screening Dental Screen Date: 01/24/24 Did you have a dental visit in the last 12 months?: No Did you have a dental problem in the last 6 months where you did not have access to dental care?: No Was dental information given to patient?: No HPI pe HPI Details Patient comes in today for his annual physical examination States that he feels okay He denies any headaches or dizziness Denies any chest pains, no SOB No nausea/vomiting, no abdominal pain No change in bowel habits noted He denies any acute urinary symptoms He continues to experience recurrent knee pain, including the right knee which he had TKA on with [facility] last year Was reportedly advised that they will likely need to do a revision arthroplasty on his knee and patient is still debating on whether he wants to get this done or not He had his follow up labs done a couple of weeks ago - to discuss his results His screening colonoscopy (normal) was last done on 07/26/[address] Dietz - was recommended to get his repeat colonoscopy again in 10 years [facility] Medical History Type 2 diabetes mellitus with albuminuria CAD (coronary artery disease) Fatigue Myalgia Overweight (BMI 25.0-29.9) Anxiety Primary insomnia Obstructive sleep apnea Anemia Left thigh pain Primary osteoarthritis of left hip Vitamin D deficiency Proteinuria Palpitations Impaired fasting glucose Pure hypercholesterolemia Benign essential hypertension Surgical History History of arthroplasty of right knee (~11/05/22) Hx of colonoscopy History of arthroplasty of left hip History of hip surgery Family History Father No problems noted. 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 1. Little interest or pleasure in doing things: not at all 2. Feeling down, depressed, or hopeless: not at all 3. Trouble falling or staying asleep, or sleeping too much: not at all 4. Feeling tired or having little energy: several days 5. Poor appetite or overeating: not at all 6. Feeling bad about yourself - or that you are a failure or have let yourself or your family down: not at all 7. Trouble concentrating on things, such as reading the newspaper or watching television: not at all 8. Moving or speaking so slowly that other people could have noticed. Or the opposite - being so fidgety or restless that you have been moving around a lot more than usual: not at all 9. Thoughts that you would be better off or of hurting yourself in some way: not at all Total score: 1 Depression Screening Interpretation: Negative Depression Screening Done: Yes 50971 - PHQ-9 Billing: Yes Source: Developed by Drs. Alex Clarke, Nhung Wolf, Jese Leos and colleagues, with an educational kristin from [employer]. Thrive Questionnaire Date Thrive assessed: 01/24/24 I am a: Patient What is your living situation today?: I have a steady place to live Within the past 12 months, did the food you bought not last and you didn't have the money to get more?: I choose not to answer this question Within the past 12 months, did you worry whether your food would run out before you got money to buy more?: I choose not to answer this question Do you have trouble paying for medicines?: No Do you have trouble getting transportation to medical appointments?: No Do you have trouble paying your heating and electricity bill?: No Do you have trouble taking care of your child, family member or friend?: No Do you have trouble with day-to-day activities such as bathing, preparing meals, shopping, managing finances, etc.?: No Are you currently unemployed and looking for a job?: No Are you interested in more education?: No Please select the resources that you would like help with: None Currently or been in a relationship where the following occur: No concerns reported THRIVE Score: 0 AUDIT C Alcohol Use Questionnaire (AUDIT-C) 1. How often do you have a drink containing alcohol?: Never 3. How often do you have six or more drinks on one occasion?: Never Total Score: 0 Score Reviewed/Action Taken: Yes DILLON-7 AMB Questionnaire DILLON-7 Date DILLON - 7 assessed: 01/24/24 Feeling nervous, anxious, or on edge: 0 = Not at all Not being able to stop or control worryin = Not at all Worrying too much about different things: 0 = Not at all Trouble relaxin = Not at all Being so restless that it is hard to sit still: 0 = Not at all Becoming easily annoyed or irritable: 0 = Not at all Feeling afraid as if something awful might happen: 0 = Not at all Total DILLON-7 score (0-4 normal; 5-9 mild; 10-14 moderate; 15-21 severe): 0 Source: Developed by Drs. Alex Clarke, Nhung Wolf, Jese Leos and colleagues, with an educational kristin from [employer]. Review of Systems Const Denies chills, Denies fatigue, Denies fever(s), Denies headache(s), Denies malaise and Denies weakness Eyes Denies blurry vision, Denies change in vision, Denies irritation and Denies itchy eyes ENT Denies dysphagia, Denies dizziness, Denies otalgia, Denies headache(s), Denies nasal congestion, Denies neck pain, Denies odynophagia and Denies sore throat Card Denies chest pain, Denies rapid heart rate, Denies irregular heart rhythm, Denies palpitations and Denies dyspnea Resp Denies chest congestion, Denies cough, Denies dyspnea and Denies wheezing GI Denies abdominal pain, Denies bloating, Denies constipation, Denies dysphagia, Denies heartburn, Denies diarrhea, Denies nausea, Denies odynophagia and Denies vomiting Denies hematuria, Denies difficulty urinating, Denies dysuria, Denies urinary frequency and Denies urinary urgency Musc Reports back pain (on and off), Reports arthralgias (right knee), Denies joint swelling, Denies muscle weakness and Denies neck pain Skin/Breast Denies change in pigmentation, Denies lesions, Denies rash and Denies unusual bruising Neuro Denies dizziness, Denies headache(s), Denies paresthesias and Denies weakness Endo Denies fatigue and Denies palpitations Aller/Immun Denies itchy eyes and Denies wheezing Physical exam (Primary Care) Vital Signs: Last Vital Signs Pulse 72 01/24/24 09:03 BP 110/68 01/24/24 09:03 Pulse Ox 95 01/24/24 09:03 Oxygen Delivery Method Room Air 01/24/24 09:03 BMI result Body Mass Index 30.6 Tobacco/Smoking Status: Tobacco use Status Tobacco use date assessed 01/24/24 01/24/24 09:09 Patient Tobacco Use Status Never used Tobacco 01/24/24 09:09 e-Cigarette/Vaping Use Never Used 01/24/24 09:09 PHQ-9: PHQ-9 Score PHQ-9: Total score 1 01/24/24 09:09 Depression Screening Interpretation: Negative Thrive Assessment: Date of Thrive Assessment Date Thrive assessed 01/24/24 01/24/24 09:09 Currently or been in a relationship where the following occur: No concerns reported Const General: no acute distress, alert and awake Orientation/consciousness: patient oriented x3 HENMT Head: Yes normocephalic and Yes atraumatic Ears: external ears normal, TM's normal bilaterally and EAC's normal General nose exam: No nasal discharge present Face and sinus: Yes normal facial exam and Yes sinuses nontender Teeth and gingiva: dentition normal Throat: Yes posterior oropharynx normal and Yes tonsils normal (no TP congestion) Eyes Eyelids: Yes eyelids normal Conjunctivae: conjunctivae normal Pupils: Equal, round and reactive pupils present EOM: EOMs intact bilaterally Neck Neck: Yes no lymphadenopathy and Yes supple Thyroid: Thyroid normal Resp Auscultation: clear to auscultation bilaterally, no rales and no wheezes Cardio Rate: regular rate Rhythm: regular rhythm Heart sounds: no murmurs GI Palpation (GI): Soft to palpation, nontender and No hepatosplenomegaly present Auscultation: normal bowel sounds General: Yes no CVA tenderness Back/Spine/Pelvis Back: no CVA tenderness Thoracic/Lumbar Spine: lumbar spinal tenderness (mild) Skin Lesions: no lesions Rashes: no rashes Neuro General: patient oriented x3, moves all extremities, no focal motor deficits and CN's II-XI intact bilaterally Cranial nerves: Yes Equal, round and reactive pupils present Cognition (Neuro): normal cognition Gait exam (Neuro): Normal gait present Extrem General: Yes no clubbing, cyanosis or edema Right lower extremity: knee Details: tenderness; no swelling Results Reviewed Results Reviewed: Laboratory Tests 01/09/24 01/09/24 09:32 09:38 WBC 5.8 Hgb 13.4 L Hct 40.4 L Plt Count 334 Sodium 142 Potassium 3.8 Creatinine 0.83 Estimated GFR > 60 Fasting Glucose 139 H Hemoglobin A1c % 6.5 H Calcium 8.9 AST 18 ALT 33 Triglycerides 77 Cholesterol 86 LDL Cholesterol, Calc 36 HDL Cholesterol 35 L Total PSA 3.75 Vitamin B12 1098 H 25-OH Vitamin D Total 38.3 TSH 0.69 Total Testosterone 189 L Fr Testosterone Dialys 39.3 Ur Specific [place] 1.015 Urine Protein 100 (2+) H Urine Glucose (UA) Negative Urine Blood Negative Urine Nitrite Negative Ur Leukocyte Esterase Negative Microalb/Creat Ratio 622.1 H Assessment and Plan Assessment & Plan (1) Annual physical exam: Code(s): Z00.00 - Encounter for general adult medical examination without abnormal findings Plan: Results of his labs done a couple of weeks ago reviewed and discussed with patient He is up-to-date with his colon cancer screening - had his last colonoscopy done in [address] Dietz and he will be due for repeat colonoscopy in 10 years (2030) (2) CAD (coronary artery disease): Comment: Coronary calcium score greater than 1000, February 2021 Code(s): I25.10 - Atherosclerotic heart disease of [place] coronary artery without angina pectoris Qualifiers: Coronary Disease-Associated Artery/Lesion type: unspecified vessel or lesion type [place] vs. transplanted heart: [place] heart Associated angina: without angina Qualified Code(s): I25.10 - Atherosclerotic heart disease of [place] coronary artery without angina pectoris Plan: Patient had coronary CTA done in 2020 to assess his CV risks - test came out with a significantly elevated coronary calcium score of > 1000 suggestive of 3-vessel disease Nuclear stress testing done at [facility] [place] in April 2021 came out normal Continue Aspirin 81 mg QD and Carvedilol 6.25 mg BID Follow up with cardiology as scheduled (3) Palpitations: Comment: Echocardiogram (normal EF, mild TR and mild MR) and Holter monitor (SR with rare PAC and PVC) done last year (2019) were mostly normal Code(s): R00.2 - Palpitations Plan: States that his symptoms have reportedly subsided and have not been recurring too often lately Follow up with cardiology as scheduled (4) Benign essential hypertension: Code(s): I10 - Essential (primary) hypertension Plan: Reinforced low sodium diet - goal is systolic BP of at least 120 to 130 mm Continue Amlodipine 5 mg QD, Lisinopril 40 mg QD and Carvedilol 6.25 mg BID Follow up with cardiology as scheduled (5) Pure hypercholesterolemia: Code(s): E78.00 - Pure hypercholesterolemia, unspecified Plan: Patient is advised that his cholesterol numbers remain very well-controlled and at goal Reinforced low cholesterol diet Continue Atorvastatin 80 mg QD, Ezetimibe 10 mg QD and Repatha 140 mg SQ every 2 weeks Will recheck his labs and fasting lipids in 4 months for follow up (6) Type 2 diabetes mellitus with albuminuria: Code(s): E11.29 - Type 2 diabetes mellitus with other diabetic kidney complication; R80.9 - Proteinuria, unspecified Plan: His HgbA1c was at 6.5% on his labs done a couple of weeks ago (was previously at 6.6%) - goal is at least <7.0% but ideally <6.5% Reinforced low calorie diet/exercise as tolerated He is currently on NO meds for his DM and would like to continue to keep it this was for as long as possible Will recheck his labs and HgbA1c in 4 months for follow up (7) Proteinuria: Code(s): R80.9 - Proteinuria, unspecified Qualifiers: Proteinuria type: unspecified Qualified Code(s): R80.9 - Proteinuria, unspecified Plan: Patient still has significant proteinuria on his recent labs although this appears to be stable Follow up with [facility] [place] Nephrology as scheduled (8) Vitamin D deficiency: Code(s): E55.9 - Vitamin D deficiency, unspecified Plan: Continue Vitamin D3 2000 units QD (9) Primary osteoarthritis of left hip: Comment: S/P total left hip arthroplasty with [facility] in August 2019 and S/P physical therapy, with significant improvement of hip pain Code(s): M16.12 - Unilateral primary osteoarthritis, left hip Plan: S/P left hip arthroplasty in 2019 Continue Tylenol 325 mg every 4 to 6 hours as needed Follow up with orthopedics ([facility]) as scheduled or as needed (10) Primary osteoarthritis of right knee: Code(s): M17.11 - Unilateral primary osteoarthritis, right knee Plan: MRI of the right knee done at [facility] on 02/13/2020 revealed (+) significant OA changes S/P total right knee arthroplasty with [facility] on 11/05/22 and completed physical therapy for his knee He reports that he is still experiencing a lot of pain often in his knee and was recently recommended to undergo a revision arthroplasty, which he is still debating on Follow up with [facility] as scheduled (11) Obstructive sleep apnea: Comment: Obstructive sleep apnea, well treated with use of CPAP. He is very compliant and benefitting from the use of CPAP. No specific issues concerning CPAP device. Code(s): G47.33 - Obstructive sleep apnea (adult) (pediatric) Plan: Continue using his CPAP device when sleeping at night Follow up with Sleep Medicine as scheduled (12) Anemia: Code(s): D64.9 - Anemia, unspecified Qualifiers: Anemia type: unspecified type Qualified Code(s): D64.9 - Anemia, unspecified Plan: Stable Iron studies done recently were again normal Patient last had a normal colonoscopy with Dr. Dietz on 07/21/2008 and last year in July 2020; EGD was normal (done at [facility]) in 2017 Will continue to monitor his CBC regularly (13) Elevated PSA: Code(s): R97.20 - Elevated prostate specific antigen [PSA] Plan: His PSA level came back recently at 3.75 - was elevated at >4 previously Patient denies any acute urinary symptoms Follow up with urology (Dr. Suazo) as scheduled (14) Primary insomnia: Code(s): F51.01 - Primary insomnia Plan: Sleep hygiene reinforced Continue OTC Melatonin PRN for sleep (15) Anxiety: Code(s): F41.9 - Anxiety disorder, unspecified Plan: Continue Clonazepam 1 mg 1/2 to 1 tablet once a day as needed (16) Overweight (BMI 25.0-29.9): Code(s): E66.3 - Overweight Plan: Reinforced diet/exercise as tolerated/lose weight Plan Follow up in 4 months Orders: Orders Complete Blood Count Auto Diff 4 Months D64.9 - Anemia, unspecified Microalbumin, Random (w Creat) 4 Months E11.9 - Type 2 diabetes mellitus without complications Hemoglobin A1c 4 Months E11.9 - Type 2 diabetes mellitus without complications Comprehensive [facility]. Panel Fast 4 Months E78.00 - Pure hypercholesterolemia, unspecified Lipid Panel 4 Months E78.00 - Pure hypercholesterolemia, unspecified UA CC w/rflx Micro + Cult 4 Months R30.0 - Dysuria Coding Level of Care Code Est Pt Prev Care 40-64y(26120) Diagnoses Annual physical exam Z00.00 Coronary artery disease involving [place] heart without angina pectoris, unspecified vessel or lesion type I25.10 Coronary Disease-Associated Artery/Lesion type: unspecified vessel or lesion type [place] vs. transplanted heart: [place] heart Associated angina: without angina Palpitations R00.2 Benign essential hypertension I10 Pure hypercholesterolemia E78.00 Type 2 diabetes mellitus with albuminuria E11.29; R80.9 Proteinuria, unspecified type R80.9 Proteinuria type: unspecified Vitamin D deficiency E55.9 Primary osteoarthritis of left hip M16.12 Primary osteoarthritis of right knee M17.11 Obstructive sleep apnea G47.33 Anemia, unspecified type D64.9 Anemia type: unspecified type Elevated PSA R97.20 Primary insomnia F51.01 Anxiety F41.9 Overweight (BMI 25.0-29.9) E66.3
== END 2024-01-24 09:35 | disposition home or self-care (01) ==
PROVIDERS: PCP Internal Medicine; Visit Provider Internal Medicine
DX: Z00.00 Encounter for general adult medical examination without abnormal findings (principal); E11.29 Type 2 diabetes mellitus with other diabetic kidney complication; I25.10 Atherosclerotic heart disease of native coronary artery without angina pectoris; R00.2 Palpitations; I10 Essential (primary) hypertension; E78.00 Pure hypercholesterolemia, unspecified; R80.9 Proteinuria, unspecified; E55.9 Vitamin D deficiency, unspecified; M16.12 Unilateral primary osteoarthritis, left hip; M17.11 Unilateral primary osteoarthritis, right knee; G47.33 Obstructive sleep apnea (adult) (pediatric); D64.9 Anemia, unspecified

== ENCOUNTER → 2024-01-24 09:02 | Outpatient (BNVA) | payer OTHER, SELFPAY | PROVIDERS: PCP Internal Medicine; Visit Provider Internal Medicine | DX: Z00.00 Encounter for general adult medical examination without abnormal findings (principal); I25.10 Atherosclerotic heart disease of native coronary artery without angina pectoris; R00.2 Palpitations; I10 Essential (primary) hypertension; E78.00 Pure hypercholesterolemia, unspecified; E11.29 Type 2 diabetes mellitus with other diabetic kidney complication; R80.9 Proteinuria, unspecified; E55.9 Vitamin D deficiency, unspecified; M17.11 Unilateral primary osteoarthritis, right knee; D64.9 Anemia, unspecified; G47.33 Obstructive sleep apnea (adult) (pediatric); R97.20 Elevated prostate specific antigen [PSA]; F51.01 Primary insomnia; F41.9 Anxiety disorder, unspecified; E66.3 Overweight; Z68.30 Body mass index [BMI] 30.0-30.9, adult; Z79.82 Long term (current) use of aspirin; Z79.899 Other long term (current) drug therapy; Z96.642 Presence of left artificial hip joint; Z99.89 Dependence on other enabling machines and devices | CPT/HCPCS: 96127 ==

== ENCOUNTER 2024-01-30 08:58 | Outpatient (AMB) | payer OTHER, SELFPAY ==
--- NOTE | 2024-01-30 09:03 | MHC.OFFVIS ---
Intake Visit Reasons: 3M Follow Up-PSA/Testo(set) Intake Note: Patient is Present for Follow Up PSA/Testosterone Results Urology Medication:Tadalafil Antibiotic Allergies:None Blood Thinners:Aspirin Recent Labs: 01/09/24- PSA: 3.75 Testosterone: 189 Hemoglobin A1C: 6.5(H) Patient reports no medical changes or updates at this time. [place] Administrator Required: No Accompanied by: Self / Same As Patient Allergies amlodipine Allergy (Unknown, Verified 01/30/24 09:04) gi atorvastatin Allergy (Unknown, Verified 01/30/24 09:04) myalgia at 80 mg, muscle px chlorthalidone Allergy (Unknown, Verified 01/30/24 09:04) excessive urination glipizide Allergy (Unknown, Verified 01/30/24 09:04) Unknown hydrochlorothiazide Allergy (Unknown, Verified 01/30/24 09:04) dizziness, excessive urination ibuprofen [From MOTRIN] Allergy (Unknown, Verified 01/30/24 09:04) irregular heartbeat metformin Allergy (Unknown, Verified 01/30/24 09:04) chokling sensation metoprolol Allergy (Unknown, Verified 01/30/24 09:04) slow heart rate nifedipine Allergy (Unknown, Verified 01/30/24 09:04) tachy/ktae buspirone [From BUSPAR] Adverse Reaction (Unknown, Verified 01/30/24 09:04) STOMACH UPSET canagliflozin [Invokana] Adverse Reaction (Unknown, Verified 01/30/24 09:04) SYNCOPE clonidine [From CATAPRES] Adverse Reaction (Unknown, Verified 01/30/24 09:04) STOMACH UPSET SHELLFISH Allergy (Severe, Uncoded 01/30/24 09:04) ANAPHYLAXIS Sucralfate Allergy (Unknown, Uncoded 01/30/24 09:04) chest pain Medication List - Last Reconciled 01/30/24 by Benny Suazo MD acetaminophen (Tylenol Extra Strength) 1,000 mg (2 x 500 mg) PO Q8H PRN amlodipine 5 mg PO DAILY aspirin 81 mg PO DAILY atorvastatin 80 mg PO DAILY carvedilol 6.25 mg PO BID cholecalciferol (vitamin D3) 125 mcg PO DAILY clonazepam 1/2 to 1 tablet by mouth once a day as needed for increased anxiety; 30 days diclofenac sodium 1% 4 grams topical QID PRN 30 days evolocumab (Repatha SureClick) 140 mg subcut Q2W 90 days ezetimibe (Zetia) 10 mg PO DAILY gabapentin 200 mg (2 x 100 mg) PO BID 30 days hydromorphone 2 mg PO Q4-6H PRN lisinopril 40 mg PO DAILY melatonin 10 mg PO BEDTIME PRN metoclopramide HCl (Reglan) 10 mg PO Q6H PRN [id number] mcg (Centrum Silver Men) 1 tab PO DAILY omeprazole 20 mg PO DAILY tadalafil 5 mg PO DAILY 90 days tizanidine 4 mg PO Q8H PRN 30 days tramadol 50 - 100 mg PO QID PRN HPI Comments Details: Girish is a pleasant male. He is a patient of Dr. Reardno. He has seen for the following urologic conditions - elevated PSA - erectile dysfunction diabetes mellitus Follow-up after trial of tadalafil Labs - testosterone 190, PSA 3.7 Some response from daily 5 mg tadalafil At 20 mg tadalafil on demand Borderline low testosterone Repeat in three-month Does not report symptoms currently Elevated PSA Borderline MARYCARMEN normal PSA - 08/27 4.1 Erectile dysfunction Progressive Trouble maintaining erection Baseline diabetes PFSH Medical History Type 2 diabetes mellitus with albuminuria CAD (coronary artery disease) Fatigue Myalgia Overweight (BMI 25.0-29.9) Anxiety Primary insomnia Obstructive sleep apnea Anemia Left thigh pain Primary osteoarthritis of left hip Vitamin D deficiency Proteinuria Palpitations Impaired fasting glucose Pure hypercholesterolemia Benign essential hypertension Surgical History History of arthroplasty of right knee (~11/05/22) Hx of colonoscopy History of arthroplasty of left hip History of hip surgery Family History Father No problems noted. 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 Cognitive needs: No Hearing needs: No Vision needs: Yes (glasses) Review of Systems Const Denies chills and Denies fever(s) Card Reports no additional complaints and Denies syncope Resp Denies cough GI Denies abdominal pain and Denies heartburn Reports as per HPI and Denies change in libido Neuro Denies syncope Psych Denies change in libido Endo Denies change in libido Physical Exam Const General: cooperative, healthy appearing, comfortable and no acute distress Orientation/consciousness: patient oriented x3 HEENT Face and sinus: Yes normal facial exam Mouth: moist mucous membranes Neck Neck: Yes normal visual inspection, Yes full ROM and Yes trachea midline Chest Chest palpation & inspection: normal inspection of the chest Resp Effort & Inspection: normal respiratory effort, able to speak in complete sentences and no respiratory distress GI Inspection: Yes normal to inspection Back/Spine/Pelvis Cervical Spine: normal cervical lordosis Thoracic/Lumbar Spine: thoracic and lumbar spine normal to inspection Skin General skin exam: no rashes or lesions noted Neuro General: patient oriented x3, gait normal, tone normal and moves all extremities Extrem General: Yes normal to inspection and Yes capillary refill normal Assessment & Plan Assessment & Plan (1) Erectile dysfunction associated with type 2 diabetes mellitus: Code(s): E11.69 - Type 2 diabetes mellitus with other specified complication; N52.1 - Erectile dysfunction due to diseases classified elsewhere Category: Medical (2) Hypogonadism in male: Code(s): E29.1 - Testicular hypofunction Category: Medical Plan Three-month follow-up lab work tele Orders: Orders Testosterone, Total 3 Months E29.1 - Testicular hypofunction Lutenizing Hormone 3 Months E11.69 - Type 2 diabetes mellitus with other specified complication, E29.1 - Testicular hypofunction, N52.1 - Erectile dysfunction due to diseases classified elsewhere Medications: New tadalafil On demand medication take 60 minutes before intended activity 20 mg PO ONCE 30 days PRN 30 tabs 0RF sexual activity E11.69 - Type 2 diabetes mellitus with other specified complication, N52.1 - Erectile dysfunction due to diseases classified elsewhere Refilled tadalafil 5 mg PO DAILY 90 days 90 tabs 1RF sexual activity E11.69 - Type 2 diabetes mellitus with other specified complication, N52.1 - Erectile dysfunction due to diseases classified elsewhere Patient Instructions: Imaging studies, laboratory and physical exam results were discussed and reviewed in detail. No major barriers to patient understanding were identified. An opportunity to ask questions regarding the treatment plan was provided. All questions were answered. The patient expressed understanding and agreement with the above treatment plan. The patient is aware they should contact our office by phone for worsening of their current condition or the appearance of new urologic symptoms. Compliance is encouraged with any medications and followup testing that is ordered. It is a privilege to participate in the urologic care of your patient. If you have any questions or concerns regarding treatment for the above conditions, or other urologic issues, please do not hesitate to contact me. The office telephone contact is [phone]. This note is constructed using voice recognition software. While every effort has been made to ensure accuracy blast furnace keeper helper errors may have been included. Yours sincerely, Dr Benny Suazo MD, [facility] - Urology Providers of Expert, Compassionate Care for the Genitourinary System Coding Level of Care Code Est Pt Level 4 (34777) Diagnoses Erectile dysfunction associated with type 2 diabetes mellitus E11.69; N52.1 Hypogonadism in male E29.1
== END 2024-01-30 09:15 | disposition home or self-care (01) ==
PROVIDERS: PCP Internal Medicine; Visit Provider Urology
DX: E11.69 Type 2 diabetes mellitus with other specified complication (principal); N52.1 Erectile dysfunction due to diseases classified elsewhere; E29.1 Testicular hypofunction
CPT/HCPCS: 99214

== ENCOUNTER → 2024-01-30 08:58 | Outpatient (BNVA) | payer OTHER, SELFPAY | PROVIDERS: PCP Internal Medicine; Visit Provider Urology ==

== ENCOUNTER 2024-04-18 11:04 | Outpatient (REF) | payer OTHER, SELFPAY ==
--- OUTSIDE RECORDS SUMMARY | 2024-04-18 11:07 | XMS_ITS | Continuity of Care Document ---
Author Organization [facility] Address [address] [place] [id number] Insurance Providers Payer Plan Claims Address Claims Phone Policy Number Group Number Relation Employer Guarantor Name Guarantor Guarantor Address Guarantor Phone [facility], [address], [place] [address] tel:[phone] [id number] [phone] [id number] Self Girish Salvador 1965 [address], [place] [address] [place] [address] tel:[phone] Self Girish Salvador 1965 [address], [place] [address] Problems Unknown Problems Results Test Value / Unit Interpretation Reference Ran Comp. Metabolic Panel (14)[2 [id number]]?Collected: 03/14/2024 09:01 PM?Specimen Received: 03/14/2024 05:00 AM?Source: [facility] Glucose [499950] 115 mg/dL H 70-99 mg/dL BUN [328133] 12 mg/dL 8-27 mg/dL Creatinine [820560] 0.85 mg/dL 0.76-1.2 7 mg/dL eGFR [744141] 99 mL/min/1.73 >59 mL/min/1 .73 BUN/Creatinine Ratio [001783] 14 10-24 Sodium [001839] 143 mmol/L 134-144 mmol /L Potassium [551357] 4.3 mmol/L 3.5-5.2 m mol/L Chloride [182208] 104 mmol/L 96-106 mmo l/L Carbon Dioxide, Total [905530] 24 mmol/L 20-29 mmol/L Calcium [826010] 9.2 mg/dL 8.6-10.2 mg /dL Protein, Total [889862] 7.3 g/dL 6.0- 8.5 g/dL Albumin [337506] 4.3 g/dL 3.8-4.9 g/d L Globulin, Total [197171] 3.0 g/dL 1.5 -4.5 g/dL Bilirubin, Total [329937] 0.6 mg/dL 0. 0-1.2 mg/dL Alkaline Phosphatase [300439] 118 IU/L 44-121 IU/L AST (SGOT) [231457] 20 IU/L 0-40 IU/ L ALT (SGPT) [263147] 27 IU/L 0-44 IU/ L Lipid Panel[023867]?Collected: 03/14/2024 09:01 PM?Specimen Received: 03/14/2024 05:00 AM?Source: [facility] Cholesterol, Total [862068] 83 mg/dL L 100-199 mg/dL Triglycerides [685472] 65 mg/dL 0-149 mg/dL HDL Cholesterol [975077] 41 mg/dL >39 mg/dL VLDL Cholesterol Carlos [821940] 15 mg/dL 5-40 mg/dL LDL Chol Calc (NIH) [536337] 27 mg/dL 0-99 mg/dL Hemoglobin A1c[354351]?Collected: 03/14/2024 09:01 PM?Specimen Received: 03/14/2024 05:00 AM?Source: [facility] Hemoglobin A1c [037634] 6.8 % H 4.8- 5.6 % . Prediabetes: 5.7 - 6.4 Filomena betes: >6.4 Glycemic control for adults with diabetes: 7.0 Allergies, adverse reactions, alerts No known allergies and adverse reactions Medications No administered medications reported Vital Signs No vital signs reported Social History No smoking Hx information available
[2024-04-19 13:33] LABS: Lutenizing Hormone 2.9 mIU/mL (1.6-15.2)
[2024-04-23 11:53] LABS: Testosterone, Total 221 ng/dL (250-1100)
== END 2024-04-18 11:05 | disposition home or self-care (01) ==
LOC: HO.LAB 11:04
PROVIDERS: PCP Internal Medicine; Visit Provider Urology
DX: E29.1 Testicular hypofunction (principal); E11.69 Type 2 diabetes mellitus with other specified complication; N52.1 Erectile dysfunction due to diseases classified elsewhere
CPT/HCPCS: 36415; 83002; 84403

== ENCOUNTER 2024-04-28 08:59 | Outpatient (AMB) | payer OTHER, SELFPAY ==
--- NOTE | 2024-04-28 08:59 | MHC.OFFVIS ---
Intake Visit Reasons: 3M Testo/LH(Testo Pending) Intake Note: Patient is present for 3M TESTO/LH Urology Medication:TADALAFIL Antibiotic Allergy:ATORVASTATIN,METFORMIN Blood Thinner:ASPIRIN Chief Communications Officer Required: No Allergies amlodipine Allergy (Unknown, Verified 04/28/24 09:00) gi atorvastatin Allergy (Unknown, Verified 04/28/24 09:00) myalgia at 80 mg, muscle px chlorthalidone Allergy (Unknown, Verified 04/28/24 09:00) excessive urination glipizide Allergy (Unknown, Verified 04/28/24 09:00) Unknown hydrochlorothiazide Allergy (Unknown, Verified 04/28/24 09:00) dizziness, excessive urination ibuprofen [From MOTRIN] Allergy (Unknown, Verified 04/28/24 09:00) irregular heartbeat metformin Allergy (Unknown, Verified 04/28/24 09:00) chokling sensation metoprolol Allergy (Unknown, Verified 04/28/24 09:00) slow heart rate nifedipine Allergy (Unknown, Verified 04/28/24 09:00) tachy/kate buspirone [From BUSPAR] Adverse Reaction (Unknown, Verified 04/28/24 09:00) STOMACH UPSET canagliflozin [Invokana] Adverse Reaction (Unknown, Verified 04/28/24 09:00) SYNCOPE clonidine [From CATAPRES] Adverse Reaction (Unknown, Verified 04/28/24 09:00) STOMACH UPSET SHELLFISH Allergy (Severe, Uncoded 04/28/24 09:00) ANAPHYLAXIS Sucralfate Allergy (Unknown, Uncoded 04/28/24 09:00) chest pain HPI Comments Details: Girish is a pleasant male. He is a patient of Dr. Reardon. He has seen for the following urologic conditions - elevated PSA - erectile dysfunction diabetes mellitus Telemedicine Evaluation 15 min Consultation [facility] [employer] Testosterone remains overall low 5 mg daily tadalafil with 20 mg demand Has effective erections Happy with current outcome Refill provided Six-month follow-up Elevated PSA Borderline MARYCARMEN normal PSA - 08/27 4.1 Erectile dysfunction Progressive Trouble maintaining erection Baseline diabetes Labs - 01/27 190 04/28 220 LH 2.9 PFSH Medical History Type 2 diabetes mellitus with albuminuria CAD (coronary artery disease) Fatigue Myalgia Overweight (BMI 25.0-29.9) Anxiety Primary insomnia Obstructive sleep apnea Anemia Left thigh pain Primary osteoarthritis of left hip Vitamin D deficiency Proteinuria Palpitations Impaired fasting glucose Pure hypercholesterolemia Benign essential hypertension Surgical History History of arthroplasty of right knee (~11/05/22) Hx of colonoscopy History of arthroplasty of left hip History of hip surgery Family History Father No problems noted. 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 Cognitive needs: No Hearing needs: No Vision needs: Yes (glasses) Review of Systems Const All systems reviewed & are unremarkable except as noted in HPI and below Reports no additional complaints Resp Reports no additional complaints GI Reports no additional complaints Reports as per HPI Musc Reports no additional complaints Physical Exam Telemedicine evaluation Appropriate responses Regular breathing rate and rhythm HEENT Head: Yes normal to inspection Ears: hearing grossly normal bilaterally Eyes General: appearance normal, both eyes and all related structures Neck Neck: Yes normal visual inspection Chest Chest palpation & inspection: normal inspection of the chest Resp Effort & Inspection: normal respiratory effort and able to speak in complete sentences Telehealth Telehealth Telehealth Platform: [facility] Location of provider rendering services: practice address Location of patient: address on file Patient Identification confirmed using: Name, : Yes Telehealth method: video Patient verbally consented to treatment: Yes Patient verbally consented to billing insurance company: Yes Patient informed of any privacy concerns related to visit: Yes Minutes spent on Phone/Video with Pt.: 15 Assessment & Plan Assessment & Plan (1) Elevated PSA: Code(s): R97.20 - Elevated prostate specific antigen [PSA] Category: Medical (2) Erectile dysfunction associated with type 2 diabetes mellitus: Code(s): E11.69 - Type 2 diabetes mellitus with other specified complication; N52.1 - Erectile dysfunction due to diseases classified elsewhere Category: Medical (3) Hypogonadism in male: Code(s): E29.1 - Testicular hypofunction Category: Medical Plan Six-month follow-up Medications: Refilled tadalafil 5 mg PO DAILY 90 days 90 tabs 1RF sexual activity E11.69 - Type 2 diabetes mellitus with other specified complication, N52.1 - Erectile dysfunction due to diseases classified elsewhere tadalafil On demand medication take 60 minutes before intended activity 20 mg PO ONCE 30 days PRN 30 tabs 1RF sexual activity E11.69 - Type 2 diabetes mellitus with other specified complication, N52.1 - Erectile dysfunction due to diseases classified elsewhere Patient Instructions: Imaging studies, laboratory and physical exam results were discussed and reviewed in detail. No major barriers to patient understanding were identified. An opportunity to ask questions regarding the treatment plan was provided. All questions were answered. The patient expressed understanding and agreement with the above treatment plan. The patient is aware they should contact our office by phone for worsening of their current condition or the appearance of new urologic symptoms. Compliance is encouraged with any medications and followup testing that is ordered. It is a privilege to participate in the urologic care of your patient. If you have any questions or concerns regarding treatment for the above conditions, or other urologic issues, please do not hesitate to contact me. The office telephone contact is [phone]. This note is constructed using voice recognition software. While every effort has been made to ensure accuracy client executive errors may have been included. Yours sincerely, Dr Benny Suazo MD, [facility] - Urology Providers of Expert, Compassionate Care for the Genitourinary System Coding Level of Care Code Tele Est Pt Level 3 (33883) Diagnoses Elevated PSA R97.20 Erectile dysfunction associated with type 2 diabetes mellitus E11.69; N52.1 Hypogonadism in male E29.1
== END 2024-04-28 09:28 | disposition home or self-care (01) ==
LOC: HO.HUSH 08:59
PROVIDERS: PCP Internal Medicine; Visit Provider Urology
DX: R97.20 Elevated prostate specific antigen [PSA] (principal); E11.69 Type 2 diabetes mellitus with other specified complication; N52.1 Erectile dysfunction due to diseases classified elsewhere; E29.1 Testicular hypofunction
CPT/HCPCS: 99213

== ENCOUNTER 2024-05-20 09:55 | Outpatient (REF) | payer OTHER, SELFPAY ==
[2024-05-20 10:24] LABS: MANUAL DIFF FLAG NO
[2024-05-20 10:36] LABS: Estimated Average Glucose 143 mg/dL; Hemoglobin A1c % 6.6 % (<6.0); Total Hemoglobin (HGBA1C) 3432.0388 umol/L
[2024-05-20 10:38] LABS: Basophils Absolute Auto 0.1 X10*3/uL (0.0-0.2); Basophils Percent Auto 0.8 % (0-2); Eosinophils Absolute Auto 0.4 X10*3/uL (0.0-0.4); Eosinophils Percent Auto 5.8 % (0-4); Hematocrit 39.3 % (42.0-52.0); Imm Gran Abs Auto 0.02 X10*3/uL (0.00-0.03); Imm Gran Pct Auto 0.3 % (0.0-0.4); Lymphocytes Absolute Auto 1.8 X10*3/uL (1.2-4.9); Lymphocytes Percent Auto 28.8 % (20-40); Mean Corpuscular HGB Conc 33.1 g/dl (31.0-36.0); Mean Corpuscular Volume 87.7 fL (80.0-98.0); Mean Platelet Volume 9.4 fL (9.4-12.4); Monocytes Absolute Auto 0.8 X10*3/uL (0.1-1.2); Monocytes Percent Auto 13.3 % (2-11); Neutrophils Absolute Auto 3.2 x10*3/uL (2.0-8.3); Platelet Count 312 X10*3/uL (160-400); Red Blood Count 4.48 X10*6/uL (4.60-5.80); Red Cell Distribution Width 13.2 % (11.0-16.0); White Blood Count 6.3 X10*3/uL (4.8-10.8)
--- OUTSIDE RECORDS SUMMARY | 2024-05-20 10:58 | XMS_ITS | Continuity of Care Document ---
Author Organization [facility] Address [address] [address] Insurance Providers Payer Plan Claims Address Claims Phone Policy Number Group Number Relation Employer Guarantor Name Guarantor Guarantor Address Guarantor Phone [facility], [address], [place] [address] tel:[phone] [id number] [phone] [id number] Self Girish Salvador 1965 [address], [place] [address] [place] [address] tel:[phone] Self Girish Salvador 1965 [address], [place] [address] Problems Unknown Problems Results Test Value / Unit Interpretation Reference Ran Comp. Metabolic Panel (14)[[id number]]?Collected: 03/14/2024 09:01 PM?Specimen Received: 03/14/2024 05:00 AM?Source: [facility] Glucose [017582] 115 mg/dL H 70-99 mg/dL BUN [901813] 12 mg/dL 8-27 mg/dL Creatinine [130312] 0.85 mg/dL 0.76-1.2 7 mg/dL eGFR [009508] 99 mL/min/1.73 >59 mL/min/1 .73 BUN/Creatinine Ratio [544082] 14 10-24 Sodium [592101] 143 mmol/L 134-144 mmol /L Potassium [660634] 4.3 mmol/L 3.5-5.2 m mol/L Chloride [711253] 104 mmol/L 96-106 mmo l/L Carbon Dioxide, Total [242993] 24 mmol/L 20-29 mmol/L Calcium [796232] 9.2 mg/dL 8.6-10.2 mg /dL Protein, Total [667367] 7.3 g/dL 6.0- 8.5 g/dL Albumin [499009] 4.3 g/dL 3.8-4.9 g/d L Globulin, Total [225866] 3.0 g/dL 1.5 -4.5 g/dL Bilirubin, Total [917855] 0.6 mg/dL 0. 0-1.2 mg/dL Alkaline Phosphatase [532019] 118 IU/L 44-121 IU/L AST (SGOT) [465537] 20 IU/L 0-40 IU/ L ALT (SGPT) [241273] 27 IU/L 0-44 IU/ L Lipid Panel[142109]?Collected: 03/14/2024 09:01 PM?Specimen Received: 03/14/2024 05:00 AM?Source: [facility] Cholesterol, Total [166288] 83 mg/dL L 100-199 mg/dL Triglycerides [407327] 65 mg/dL 0-149 mg/dL HDL Cholesterol [269011] 41 mg/dL >39 mg/dL VLDL Cholesterol Carlos [409385] 15 mg/dL 5-40 mg/dL LDL Chol Calc (NIH) [439071] 27 mg/dL 0-99 mg/dL Hemoglobin A1c[930151]?Collected: 03/14/2024 09:01 PM?Specimen Received: 03/14/2024 05:00 AM?Source: [facility] Hemoglobin A1c [607020] 6.8 % H 4.8- 5.6 % . Prediabetes: 5.7 - 6.4 Filomena betes: >6.4 Glycemic control for adults with diabetes: 7.0 Allergies, adverse reactions, alerts No known allergies and adverse reactions Medications No administered medications reported Vital Signs No vital signs reported Social History No smoking Hx information available
[2024-05-20 11:10] LABS: Alanine Aminotransferase 31 U/L (0-40); Albumin Level 3.8 g/dL (3.5-5.0); Alkaline Phosphatase 99 U/L (39-117); Anion Gap 10 (12-20); Aspartate Amino Transferase 24 U/L (5-37); Bilirubin Total 0.5 mg/dL (0.0-1.0); Blood Urea Nitrogen 14 mg/dL (9-16); Calcium 8.6 mg/dL (8.4-10.2); Carbon Dioxide 27 mmol/L (22-29); Chloride 109 mmol/L (96-108); Cholesterol 84 mg/dL (<200); Estimated Glomerular Filt Rate > 60; Glucose Fasting 131 mg/dL (60-99); Glucose Random 131 mg/dL (60-115); HDL Cholesterol 35 mg/dL (>40); LDL Cholesterol Calculated 32 mg/dL (<100); Potassium 4.1 mmol/L (3.3-5.1); Sodium 142 mmol/L (135-145); Total Protein 7.2 g/dL (6.5-8.0); Triglycerides 86 mg/dL (<150)
[2024-05-20 11:19] LABS: Appearance Urine Clear; Color Urine Yellow; Glucose Urine UA Negative (Negative); Leukocyte Esterase Urine Negative (Negative); Nitrite Urine Negative (Negative); Specific Gravity - Urine 1.015 (1.005-1.025); UMIC TRIGGER UA YES; UMIC TRIGGER UACC YES; Urine Blood Negative (Negative); Urine Ketones Negative (Negative); Urine Protein 100 (2+) mg/dL (Neg-Trace)
[2024-05-20 11:23] LABS: Bacteria Urine None Seen (None Seen); Hyaline Casts Urine 0-2 /LPF (0-2); RBC Urine 0-2 /HPF (0-2); Squamous Epithelial Cell Urine 0-2 /HPF (0-2); WBC Urine 0-5 /HPF (0-5)
[2024-05-20 11:57] LABS: Total Protein Urine Random 108 mg/dL (<12)
[2024-05-20 12:01] LABS: Creatinine Urine 118.95 mg/dL
== END 2024-05-20 09:56 | disposition home or self-care (01) ==
LOC: HO.LAB 09:55
PROVIDERS: Absent Provider Internal Medicine Hypertension Specialist; PCP Internal Medicine; Visit Provider Internal Medicine
DX: E11.9 Type 2 diabetes mellitus without complications (principal); E78.00 Pure hypercholesterolemia, unspecified; D64.9 Anemia, unspecified; E11.29 Type 2 diabetes mellitus with other diabetic kidney complication; R80.9 Proteinuria, unspecified; R30.0 Dysuria
CPT/HCPCS: 36415; 80048; 80053; 80061; 81001; 82043; 82570; 83036; 84156; 85025

== ENCOUNTER 2024-05-28 09:31 | Outpatient (AMB) | payer OTHER, SELFPAY ==
[2024-05-28 09:38] VITALS: BP 126/80; PULSE 66; O2SAT 98; BMI 31.5
--- NOTE | 2024-05-28 09:38 | HO.NEPHOV_ITS ---
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 Required: No Accompanied by: Self / Same As Patient Allergies amlodipine Allergy (Unknown, Verified 05/28/24 09:40) gi atorvastatin Allergy (Unknown, Verified 05/28/24 09:40) myalgia at 80 mg, muscle px chlorthalidone Allergy (Unknown, Verified 05/28/24 09:40) excessive urination glipizide Allergy (Unknown, Verified 05/28/24 09:40) Unknown hydrochlorothiazide Allergy (Unknown, Verified 05/28/24 09:40) dizziness, excessive urination ibuprofen [From MOTRIN] Allergy (Unknown, Verified 05/28/24 09:40) irregular heartbeat metformin Allergy (Unknown, Verified 05/28/24 09:40) chokling sensation metoprolol Allergy (Unknown, Verified 05/28/24 09:40) slow heart rate nifedipine Allergy (Unknown, Verified 05/28/24 09:40) tachy/kate buspirone [From BUSPAR] Adverse Reaction (Unknown, Verified 05/28/24 09:40) STOMACH UPSET canagliflozin [Invokana] Adverse Reaction (Unknown, Verified 05/28/24 09:40) SYNCOPE clonidine [From CATAPRES] Adverse Reaction (Unknown, Verified 05/28/24 09:40) STOMACH UPSET SHELLFISH Allergy (Severe, Uncoded 04/28/24 09:00) ANAPHYLAXIS Sucralfate Allergy (Unknown, Uncoded 04/28/24 09:00) chest pain Medication List - Last Reconciled 05/28/24 by Jarvis Rose MD acetaminophen (Tylenol Extra Strength) 1,000 mg (2 x 500 mg) PO Q8H PRN amlodipine 5 mg PO DAILY aspirin 81 mg PO DAILY atorvastatin 80 mg PO DAILY carvedilol 6.25 mg PO BID cholecalciferol (vitamin D3) 125 mcg PO DAILY clonazepam 1/2 to 1 tablet by mouth once a day as needed for increased anxiety; 30 days diclofenac sodium 1% 4 grams topical QID PRN 30 days evolocumab (Repatha SureClick) 140 mg subcut Q2W 90 days ezetimibe (Zetia) 10 mg PO DAILY gabapentin 200 mg (2 x 100 mg) PO BID 30 days hydromorphone 2 mg PO Q4-6H PRN lisinopril 40 mg PO DAILY melatonin 10 mg PO BEDTIME PRN metoclopramide HCl (Reglan) 10 mg PO Q6H PRN [id number] mcg (Centrum Silver Men) 1 tab PO DAILY omeprazole 20 mg PO DAILY tadalafil 5 mg PO DAILY 90 days tadalafil 20 mg PO ONCE PRN 30 days tizanidine 4 mg PO Q8H PRN 30 days tramadol 50 - 100 mg PO QID PRN HPI Comments Details: Middle-aged man with a history of longstanding hypertension diabetes mellitus with proteinuria. However no new over the last 15-20 years. He is currently on lisinopril for protection. New recently amlodipine was added. In the past he was on calcium channel matt which caused leg edema. However he is able to tolerate amlodipine 5 mg. He has gained some weight. He is not monitoring his blood sugars regularly. 11/12/23 Overall doing well Gained few pounds Left ankle is mildly swollen 05/28/24 : Overall doing well. Non ew issues. BP better contorlled A1C is stable at 6.6% Gained about 3- 5 lbs ! [facility] Medical History Type 2 diabetes mellitus with albuminuria CAD (coronary artery disease) Fatigue Myalgia Overweight (BMI 25.0-29.9) Anxiety Primary insomnia Obstructive sleep apnea Anemia Left thigh pain Primary osteoarthritis of left hip Vitamin D deficiency Proteinuria Palpitations Impaired fasting glucose Pure hypercholesterolemia Benign essential hypertension Surgical History History of arthroplasty of right knee (~11/05/22) Hx of colonoscopy History of arthroplasty of left hip History of hip surgery Family History Father No problems noted. 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 Cognitive needs: No Hearing needs: No Vision needs: Yes (glasses) Physical Exam Vital Signs: Last Vital Signs Pulse 66 05/28/24 09:38 BP 126/80 05/28/24 09:38 Pulse Ox 98 05/28/24 09:38 Oxygen Delivery Method Room Air 05/28/24 09:38 BMI result Body Mass Index 31.5 Results Reviewed Nephrology Results: Hgb 13.0 g/dl (14.0-18.0) L 05/20/24 WBC 6.3 X10*3/uL (4.8-10.8) 05/20/24 Plt Count 312 X10*3/uL (160-400) 05/20/24 Sodium 142 mmol/L (135-145) 05/20/24 Potassium 4.1 mmol/L (3.3-5.1) 05/20/24 Chloride 109 mmol/L (96-108) H 05/20/24 Carbon Dioxide 27 mmol/L (22-29) 05/20/24 BUN 14 mg/dL (9-16) 05/20/24 Creatinine 0.90 mg/dL (0.5-1.4) 05/20/24 Calcium 8.6 mg/dL (8.4-10.2) 05/20/24 Urine Protein 100 (2+) mg/dL (Neg-Trace) H 05/20/24 Urine Creatinine 118.95 mg/dL 05/20/24 Assessment & Plan Assessment & Plan (1) Proteinuria: Code(s): R80.9 - Proteinuria, unspecified Category: Medical Qualifiers: Proteinuria type: unspecified Qualified Code(s): R80.9 - Proteinuria, unspecified (2) Benign essential hypertension: Code(s): I10 - Essential (primary) hypertension Category: Medical (3) Type 2 diabetes mellitus with albuminuria: Code(s): E11.29 - Type 2 diabetes mellitus with other diabetic kidney complication; R80.9 - Proteinuria, unspecified Category: Medical Plan Middle-aged man with proteinuria in the setting of longstanding diabetes mellitus. He probably has underlying diabetic nephropathy. Renal function stable. Goal is to slow the progression of renal disease. We will continue to maximize CLEVE inhibition. blood pressure should be maintained less than 130/80. Discussed importance of tight control of blood sugar to maintain hemoglobin A1c at the target range. He would benefit from SGLT-2 inhibitor. We also discussed weight loss. Today I have not made any changes. Encouraged him to stay on low-sodium diet. Continue to avoid nephrotoxic agents including NSAIDs. Still eating fast food. Orders: Orders Basic Metabolic Panel 6 Months R80.9 - Proteinuria, unspecified Creatinine Urine 6 Months R80.9 - Proteinuria, unspecified Total Protein Urine Random 6 Months R80.9 - Proteinuria, unspecified UA and rflx microscopic 6 Months R80.9 - Proteinuria, unspecified Coding Level of Care Code Est Pt Level 4 (11833) Diagnoses Proteinuria, unspecified type R80.9 Proteinuria type: unspecified Benign essential hypertension I10 Type 2 diabetes mellitus with albuminuria E11.29; R80.9
== END 2024-05-28 09:51 | disposition home or self-care (01) ==
PROVIDERS: PCP Internal Medicine; Visit Provider Internal Medicine Hypertension Specialist
DX: R80.9 Proteinuria, unspecified (principal); I10 Essential (primary) hypertension; E11.29 Type 2 diabetes mellitus with other diabetic kidney complication
CPT/HCPCS: 99214

== ENCOUNTER 2024-06-01 09:01 | Outpatient (AMB) | payer OTHER, SELFPAY ==
[2024-06-01 09:16] VITALS: BP 130/84; PULSE 76; O2SAT 97; BMI 31.2
--- NOTE | 2024-06-01 09:16 | MHC.PC.OV ---
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 Accompanied by: Self / Same As Patient Allergies amlodipine Allergy (Unknown, Verified 06/01/24 09:41) gi atorvastatin Allergy (Unknown, Verified 06/01/24 09:41) myalgia at 80 mg, muscle px chlorthalidone Allergy (Unknown, Verified 06/01/24 09:41) excessive urination glipizide Allergy (Unknown, Verified 06/01/24 09:41) Unknown hydrochlorothiazide Allergy (Unknown, Verified 06/01/24 09:41) dizziness, excessive urination ibuprofen [From MOTRIN] Allergy (Unknown, Verified 06/01/24 09:41) irregular heartbeat metformin Allergy (Unknown, Verified 06/01/24 09:41) chokling sensation metoprolol Allergy (Unknown, Verified 06/01/24 09:41) slow heart rate nifedipine Allergy (Unknown, Verified 06/01/24 09:41) tachy/kate buspirone [From BUSPAR] Adverse Reaction (Unknown, Verified 06/01/24 09:41) STOMACH UPSET canagliflozin [Invokana] Adverse Reaction (Unknown, Verified 06/01/24 09:41) SYNCOPE clonidine [From CATAPRES] Adverse Reaction (Unknown, Verified 06/01/24 09:41) STOMACH UPSET SHELLFISH Allergy (Severe, Uncoded 06/01/24 09:41) ANAPHYLAXIS Sucralfate Allergy (Unknown, Uncoded 06/01/24 09:41) chest pain Medication List - Last Reconciled 06/01/24 by Sim Reardon MD acetaminophen (Tylenol Extra Strength) 1,000 mg (2 x 500 mg) PO Q8H PRN amlodipine 5 mg PO DAILY aspirin 81 mg PO DAILY atorvastatin 80 mg PO DAILY carvedilol 6.25 mg PO BID cholecalciferol (vitamin D3) 125 mcg PO DAILY clonazepam 1/2 to 1 tablet by mouth once a day as needed for increased anxiety; 30 days diclofenac sodium 1% 4 grams topical QID PRN 30 days evolocumab (Repatha SureClick) 140 mg subcut Q2W 90 days ezetimibe (Zetia) 10 mg PO DAILY gabapentin 200 mg (2 x 100 mg) PO BID 30 days lisinopril 40 mg PO DAILY melatonin 10 mg PO BEDTIME PRN metoclopramide HCl (Reglan) 10 mg PO Q6H PRN [id number] mcg (Centrum Silver Men) 1 tab PO DAILY omeprazole 20 mg PO DAILY tadalafil 5 mg PO DAILY 90 days tadalafil 20 mg PO ONCE PRN 30 days Tobacco use date assessed: 06/01/24 Dental Screening Dental Screen Date: 06/01/24 Did you have a dental visit in the last 12 months?: No Did you have a dental problem in the last 6 months where you did not have access to dental care?: No Was dental information given to patient?: No HPI CAD, DM, hyperlipidemia, HTN, OA HPI Details Patient comes in today for his follow up visit States that he is currently experiencing increased pain over his lower back Thinks that this is mostly due to him moving around a lot of heavy equipments at the OR when he was at work last night and overnight Is thinking about calling out of work from his daytime job later today due to his low back pain States that he feels okay otherwise He denies any headaches or dizziness Denies any chest pains, no SOB No nausea/vomiting, no abdominal pain No change in bowel habits noted He had his follow up labs done a couple of weeks ago - to discuss his results [facility] Medical History Type 2 diabetes mellitus with albuminuria CAD (coronary artery disease) Fatigue Myalgia Overweight (BMI 25.0-29.9) Anxiety Primary insomnia Obstructive sleep apnea Anemia Left thigh pain Primary osteoarthritis of left hip Vitamin D deficiency Proteinuria Palpitations Impaired fasting glucose Pure hypercholesterolemia Benign essential hypertension Surgical History History of arthroplasty of right knee (~11/05/22) Hx of colonoscopy History of arthroplasty of left hip History of hip surgery Family History Father No problems noted. 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 1. Little interest or pleasure in doing things: not at all 2. Feeling down, depressed, or hopeless: not at all 3. Trouble falling or staying asleep, or sleeping too much: not at all 4. Feeling tired or having little energy: several days 5. Poor appetite or overeating: not at all 6. Feeling bad about yourself - or that you are a failure or have let yourself or your family down: not at all 7. Trouble concentrating on things, such as reading the newspaper or watching television: not at all 8. Moving or speaking so slowly that other people could have noticed. Or the opposite - being so fidgety or restless that you have been moving around a lot more than usual: not at all 9. Thoughts that you would be better off or of hurting yourself in some way: not at all Total score: 1 Depression Screening Interpretation: Negative Depression Screening Done: Yes 90818 - PHQ-9 Billing: Yes Source: Developed by Drs. Alex Clarke, Nhung Wolf, Jese Leos and colleagues, with an educational kristin from [employer]. Thrive Questionnaire Date Thrive assessed: 06/01/24 I am a: Patient What is your living situation today?: I have a steady place to live Within the past 12 months, did the food you bought not last and you didn't have the money to get more?: I choose not to answer this question Within the past 12 months, did you worry whether your food would run out before you got money to buy more?: I choose not to answer this question Do you have trouble paying for medicines?: No Do you have trouble getting transportation to medical appointments?: No Do you have trouble paying your heating and electricity bill?: No Do you have trouble taking care of your child, family member or friend?: No Do you have trouble with day-to-day activities such as bathing, preparing meals, shopping, managing finances, etc.?: No Are you currently unemployed and looking for a job?: No Are you interested in more education?: No Please select the resources that you would like help with: None Currently or been in a relationship where the following occur: I choose not to answer THRIVE Score: 0 AUDIT C Alcohol Use Questionnaire (AUDIT-C) 1. How often do you have a drink containing alcohol?: Never 3. How often do you have six or more drinks on one occasion?: Never Total Score: 0 Score Reviewed/Action Taken: Yes DILLON-7 AMB Questionnaire DILLON-7 Date DILLON - 7 assessed: 06/01/24 Feeling nervous, anxious, or on edge: 0 = Not at all Not being able to stop or control worryin = Not at all Worrying too much about different things: 0 = Not at all Trouble relaxin = Not at all Being so restless that it is hard to sit still: 0 = Not at all Becoming easily annoyed or irritable: 0 = Not at all Feeling afraid as if something awful might happen: 0 = Not at all Total DILLON-7 score (0-4 normal; 5-9 mild; 10-14 moderate; 15-21 severe): 0 Source: Developed by Drs. Alex Clarke, Nhung Wolf, Jese Leos and colleagues, with an educational kristin from [employer]. Review of Systems Const Denies chills, Denies fatigue, Denies fever(s) and Denies headache(s) ENT Denies dysphagia, Denies dizziness, Denies otalgia, Denies headache(s), Denies neck pain, Denies odynophagia and Denies sore throat Card Denies chest pain, Denies irregular heart rhythm, Denies palpitations and Denies dyspnea Resp Denies chest congestion, Denies cough and Denies dyspnea GI Denies abdominal pain, Denies constipation, Denies dysphagia, Denies heartburn, Denies diarrhea, Denies nausea, Denies odynophagia and Denies vomiting Denies difficulty urinating, Denies dysuria and Denies urinary frequency Musc Reports back pain (increased - see HPI), Reports arthralgias (right knee) and Denies neck pain Skin/Breast Denies rash Neuro Denies dizziness, Denies headache(s) and Denies paresthesias Endo Denies fatigue and Denies palpitations Physical exam (Primary Care) Vital Signs: Last Vital Signs Pulse 76 06/01/24 09:16 BP 130/84 06/01/24 09:16 Pulse Ox 97 06/01/24 09:16 Oxygen Delivery Method Room Air 06/01/24 09:16 BMI result Body Mass Index 31.2 Tobacco/Smoking Status: Tobacco use Status Tobacco use date assessed 06/01/24 06/01/24 09:23 Patient Tobacco Use Status Never used Tobacco 06/01/24 09:23 e-Cigarette/Vaping Use Never Used 06/01/24 09:23 PHQ-9: PHQ-9 Score PHQ-9: Total score 1 06/01/24 09:50 Depression Screening Interpretation: Negative Thrive Assessment: Date of Thrive Assessment Date Thrive assessed 06/01/24 06/01/24 09:23 Currently or been in a relationship where the following occur: I choose not to answer Const General: no acute distress and alert HENMT Ears: TM's normal bilaterally and EAC's normal Throat: Yes posterior oropharynx normal and Yes tonsils normal (no TP congestion) Neck Neck: Yes no lymphadenopathy and Yes supple Thyroid: Thyroid normal Resp Auscultation: clear to auscultation bilaterally, no rales and no wheezes Cardio Rate: regular rate Rhythm: regular rhythm Heart sounds: no murmurs GI Palpation (GI): Soft to palpation and nontender Auscultation: normal bowel sounds General: Yes no CVA tenderness Back/Spine/Pelvis Back: no CVA tenderness Thoracic/Lumbar Spine: lumbar spinal tenderness (increased, especially on the right side) Skin Rashes: no rashes Extrem General: Yes no clubbing, cyanosis or edema Right lower extremity: knee Details: tenderness; no swelling Results Reviewed Results Reviewed: Laboratory Tests 05/20/24 05/20/24 10:14 10:22 WBC 6.3 Hgb 13.0 L Hct 39.3 L Plt Count 312 Sodium 142 Potassium 4.1 Creatinine 0.90 Estimated GFR > 60 Fasting Glucose 131 H Hemoglobin A1c % 6.6 H Calcium 8.6 AST 24 ALT 31 Triglycerides 86 Cholesterol 84 LDL Cholesterol, Calc 32 HDL Cholesterol 35 L Ur Specific Mead 1.015 Urine Protein 100 (2+) H Urine Glucose (UA) Negative Urine Blood Negative Urine Nitrite Negative Ur Leukocyte Esterase Negative Microalb/Creat Ratio 691.0 H Coding Level of Care Code Est Pt Level 4 (92236) Complex EM visit Add On G2211 Diagnoses Coronary artery disease involving [place] heart without angina pectoris, unspecified vessel or lesion type I25.10 Associated angina: without angina Coronary Disease-Associated Artery/Lesion type: unspecified vessel or lesion type [place] vs. transplanted heart: [place] heart Palpitations R00.2 Benign essential hypertension I10 Type 2 diabetes mellitus with albuminuria E11.29; R80.9 Pure hypercholesterolemia E78.00 Proteinuria, unspecified type R80.9 Proteinuria type: unspecified Vitamin D deficiency E55.9 Primary osteoarthritis of left hip M16.12 Primary osteoarthritis of right knee M17.11 Acute midline low back pain without sciatica M54.50 Back pain laterality: midline Chronicity: acute Sciatica presence: without sciatica Obstructive sleep apnea G47.33 Anemia, unspecified type D64.9 Anemia type: unspecified type Elevated PSA R97.20 Primary insomnia F51.01 Anxiety F41.9 Overweight (BMI 25.0-29.9) E66.3 Additional Codes PHQ-9 - 07307 - PHQ-9 Billing: Yes ([id number]) Assessment & Plan Assessment & Plan (1) CAD (coronary artery disease): Comment: Coronary calcium score greater than 1000, February 2021 Code(s): I25.10 - Atherosclerotic heart disease of [place] coronary artery without angina pectoris Category: Medical Qualifiers: Associated angina: without angina Coronary Disease-Associated Artery/Lesion type: unspecified vessel or lesion type [place] vs. transplanted heart: [place] heart Qualified Code(s): I25.10 - Atherosclerotic heart disease of [place] coronary artery without angina pectoris Plan: Patient had coronary CTA done in 2020 to assess his CV risks - test came out with a significantly elevated coronary calcium score of > 1000 suggestive of 3-vessel disease [place] [facility] [place] came out normal Continue Aspirin 81 mg QD and Carvedilol 6.25 mg BID Follow up with cardiology as scheduled (2) Palpitations: Comment: Echocardiogram (normal EF, mild TR and mild MR) and Holter monitor (SR with rare PAC and PVC) done last year (2019) were mostly normal Code(s): R00.2 - Palpitations Category: Medical Plan: Patient states that his symptoms have been stable and have not been recurring too often for a while now Follow up with cardiology as scheduled (3) Benign essential hypertension: Code(s): I10 - Essential (primary) hypertension Category: Medical Plan: Reinforced low sodium diet - goal is systolic BP of at least 120 to 130 mm or less Continue Amlodipine 5 mg QD, Lisinopril 40 mg QD and Carvedilol 6.25 mg BID Follow up with cardiology as scheduled (4) Type 2 diabetes mellitus with albuminuria: Code(s): E11.29 - Type 2 diabetes mellitus with other diabetic kidney complication; R80.9 - Proteinuria, unspecified Category: Medical Plan: His HgbA1c was at 6.6% on his labs done a couple of weeks ago (was previously at 6.5%) - goal is at least <7.0% but ideally <6.5% Reinforced low calorie diet/exercise as tolerated He is currently on NO meds for his DM and would like to continue to keep it this way for as long as possible Will recheck his FBS and HgbA1c in 4 months for follow up (5) Pure hypercholesterolemia: Code(s): E78.00 - Pure hypercholesterolemia, unspecified Category: Medical Plan: Results of his labs done a couple of weeks ago reviewed and discussed with patient - he is advised that his cholesterol numbers remain very well-controlled and at goal Reinforced low cholesterol diet Continue Atorvastatin 80 mg QD, Ezetimibe 10 mg QD and Repatha 140 mg SQ every 2 weeks Will recheck his labs and fasting lipids in 4 months for follow up (6) Proteinuria: Code(s): R80.9 - Proteinuria, unspecified Category: Medical Qualifiers: Proteinuria type: unspecified Qualified Code(s): R80.9 - Proteinuria, unspecified Plan: Patient still has significant proteinuria on his recent labs but this appears to be stable [place] [facility] [place] (7) Vitamin D deficiency: Code(s): E55.9 - Vitamin D deficiency, unspecified Category: Medical Plan: Continue Vitamin D3 2000 units QD (8) Primary osteoarthritis of left hip: Comment: S/P total left hip arthroplasty with [facility] in August 2019 and S/P physical therapy, with significant improvement of hip pain Code(s): M16.12 - Unilateral primary osteoarthritis, left hip Category: Medical Plan: S/P left hip arthroplasty in 2019 Continue Tylenol 325 mg every 4 to 6 hours as needed Follow up with orthopedics ([facility]) as scheduled or as needed (9) Primary osteoarthritis of right knee: Code(s): M17.11 - Unilateral primary osteoarthritis, right knee Category: Medical Plan: MRI of the right knee done at [facility] on 02/13/2020 revealed (+) significant OA changes S/P total right knee arthroplasty with [facility] on 11/05/22 and he also completed physical therapy for his knee He reports that he is still experiencing a lot of pain often in his knee and was recently recommended to undergo a revision arthroplasty, which he is still debating on Follow up with [facility] as scheduled (10) Low back pain: Code(s): M54.50 - Low back pain, unspecified Category: Medical Qualifiers: Back pain laterality: midline Chronicity: acute Sciatica presence: without sciatica Qualified Code(s): M54.50 - Low back pain, unspecified Plan: Patient is advised that he likely has acute lumbar myofascial/musculoskeletal strain as a consequence of his recent activity (see HPI) Lumbar spine x-rays done on 08/20/2022 revealed (+) 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 He is very compliant and benefitting from the use of CPAP. No specific issues concerning CPAP device. Code(s): G47.33 - Obstructive sleep apnea (adult) (pediatric) Category: Medical Plan: Continue using his CPAP device when sleeping at night Follow up with Sleep Medicine as scheduled (12) Anemia: Code(s): D64.9 - Anemia, unspecified Category: Medical Qualifiers: Anemia type: unspecified type Qualified Code(s): D64.9 - Anemia, unspecified Plan: Stable Iron studies rechecked back in April 2023 were again normal Patient had a normal colonoscopy with Dr. Dietz on 07/21/2008 and most recently in July 2020; EGD done at [facility] in 2017 also came out normal Will continue to monitor his CBC regularly (13) Elevated PSA: Code(s): R97.20 - Elevated prostate specific antigen [PSA] Category: Medical Plan: His PSA level came back most recently at 4.13 in August 2023 Patient denies any acute urinary symptoms Follow up with urology (Dr. Suazo) as scheduled (14) Primary insomnia: Code(s): F51.01 - Primary insomnia Category: Medical Plan: Sleep hygiene reinforced Continue OTC Melatonin PRN for sleep (15) Anxiety: Code(s): F41.9 - Anxiety disorder, unspecified Category: Medical Plan: Continue Clonazepam 1 mg 1/2 to 1 tablet once a day as needed (16) Overweight (BMI 25.0-29.9): Code(s): E66.3 - Overweight Category: Medical Plan: Reinforced diet/exercise as tolerated/lose weight Plan Follow up in 4 months Orders: Orders Comprehensive [place]. Panel Fast 4 Months E78.00 - Pure hypercholesterolemia, unspecified Complete Blood Count Auto Diff 4 Months D64.9 - Anemia, unspecified Lipid Panel 4 Months E78.00 - Pure hypercholesterolemia, unspecified TSH reflex Free T4 4 Months E78.00 - Pure hypercholesterolemia, unspecified UA CC w/rflx Micro + Cult 4 Months R30.0 - Dysuria Vitamin D 25-OH Total 4 Months E55.9 - Vitamin D deficiency, unspecified Medications: New tizanidine 4 mg PO Q8H 30 days PRN 90 tabs 0RF muscle spasms tramadol 50 mg PO TID PRN 30 tabs 0RF pain
== END 2024-06-01 10:03 | disposition home or self-care (01) ==
PROVIDERS: PCP Internal Medicine; Visit Provider Internal Medicine
DX: I25.10 Atherosclerotic heart disease of native coronary artery without angina pectoris (principal); R00.2 Palpitations; I10 Essential (primary) hypertension; E11.29 Type 2 diabetes mellitus with other diabetic kidney complication; R80.9 Proteinuria, unspecified; E78.00 Pure hypercholesterolemia, unspecified; E55.9 Vitamin D deficiency, unspecified; M16.12 Unilateral primary osteoarthritis, left hip; M17.11 Unilateral primary osteoarthritis, right knee; M54.50 Low back pain, unspecified; G47.33 Obstructive sleep apnea (adult) (pediatric); D64.9 Anemia, unspecified; R97.20 Elevated prostate specific antigen [PSA]; F51.01 Primary insomnia; F41.9 Anxiety disorder, unspecified; E66.3 Overweight

== ENCOUNTER → 2024-06-01 09:01 | Outpatient (BNVA) | payer OTHER, SELFPAY | PROVIDERS: PCP Internal Medicine; Visit Provider Internal Medicine | DX: I25.10 Atherosclerotic heart disease of native coronary artery without angina pectoris (principal); R00.2 Palpitations; I10 Essential (primary) hypertension; E11.29 Type 2 diabetes mellitus with other diabetic kidney complication; R80.9 Proteinuria, unspecified; E78.00 Pure hypercholesterolemia, unspecified; E55.9 Vitamin D deficiency, unspecified; M17.11 Unilateral primary osteoarthritis, right knee; M54.50 Low back pain, unspecified; G47.33 Obstructive sleep apnea (adult) (pediatric); D64.9 Anemia, unspecified; R97.20 Elevated prostate specific antigen [PSA]; F51.01 Primary insomnia; F41.9 Anxiety disorder, unspecified; E66.3 Overweight; Z68.31 Body mass index [BMI] 31.0-31.9, adult; Z79.82 Long term (current) use of aspirin; Z79.899 Other long term (current) drug therapy; Z96.642 Presence of left artificial hip joint; Z96.651 Presence of right artificial knee joint | CPT/HCPCS: 96127 ==

== ENCOUNTER 2024-06-10 08:41 | Emergency (ER) | payer OTHER, SELFPAY ==
--- NOTE | ~2024-06-10 | CT_ITS ---
EXAMINATION: CT ABDOMEN AND PELVIS WITH CONTRAST CLINICAL INFORMATION: Abdominal pain. COMPARISON: CT abdomen and pelvis without contrast 05/09/2015. TECHNIQUE: Multidetector volumetric images were obtained from the superior aspect of the liver through the pubic symphysis following administration 85 mL of Omnipaque 350 intravenous contrast. Sagittal and coronal reformatted images were obtained on the technologist's workstation. Oral contrast: No This CT examination was performed using dose optimization techniques as appropriate, variously including the following: *Automated exposure control *Adjustment of mA and/or kV according to patient size (this includes techniques or standardized protocols for targeted exams where dose is matched to indication/reason for exam; i.e. extremities or head) *Use of iterative reconstruction technique DLP: 651 mGy/cm. FINDINGS: LUNG BASES: There is minimal dependent atelectasis. Heart size is normal a small hiatal hernia suspected. LIVER, GALLBLADDER, AND BILIARY TREE: The liver is normal in size, shape, and attenuation. No focal hepatic lesion or biliary ductal dilatation is present. The gallbladder is unremarkable with no evidence of radiopaque gallstones, gallbladder wall thickening, or obvious pericholecystic inflammatory changes. PANCREAS: Unremarkable. SPLEEN: Unremarkable. ADRENAL GLANDS: There is an 8 mm hypodense lesion in the medial limb left adrenal gland and 9 mm hypodense lesion medial limb right adrenal gland. KIDNEYS AND URETERS: The kidneys are normal in size, shape, and attenuation. No hydronephrosis, hydroureter, or calculi seen. No perinephric stranding. There is a 5 mm hypodense lesion in the left kidney and pole likely cyst. BLADDER: The bladder is nondistended without any bladder wall thickening. GASTROINTESTINAL TRACT: There is scattered stool and gas seen in colon without distention. The small bowel loops are normal caliber. Appendix is normal caliber. No inflammatory process, free air or free fluid seen. ABDOMINAL WALL: No significant hernia is appreciated. LYMPH NODES: Normal. VASCULAR: Mild sclerotic calcification of abdominal aorta and the common iliac artery branches are noted PELVIS: There is mild prostate enlargement. Scattered phleboliths are seen throughout the pelvis. There is no free air. No evidence of inguinal hernia. OSSEOUS STRUCTURES: No aggressive lytic or sclerotic process seen. There is a total left hip prosthesis. CT/CT abdomen pelvis w IV con IMPRESSION: No acute intra-abdominal process seen. There is mild constipation. Bilateral adrenal subcentimeter nonenhancing lesions are too small to correctly characterize. Left renal upper pole tiny cyst Small hiatal hernia. Fleischner guidelines were followed. Electronically signed by: Florentino Yap MD 06/10/2024 12:50 PM EST
[2024-06-10 09:09] VITALS: BP 135/76; PULSE 67; RESP 20; TEMP 36.2; O2SAT 99; BMI 30.5
[2024-06-10 09:49] LABS: Basophils Absolute Auto 0.1 X10*3/uL (0.0-0.2); Basophils Percent Auto 0.9 % (0-2); Eosinophils Absolute Auto 0.3 X10*3/uL (0.0-0.4); Eosinophils Percent Auto 5.4 % (0-4); Hematocrit 37.6 % (42.0-52.0); Hemoglobin 12.4 g/dl (14.0-18.0); Imm Gran Abs Auto 0.02 X10*3/uL (0.00-0.03); Imm Gran Pct Auto 0.3 % (0.0-0.4); Lymphocytes Absolute Auto 1.9 X10*3/uL (1.2-4.9); Lymphocytes Percent Auto 32.4 % (20-40); MANUAL DIFF FLAG NO; Mean Corpuscular Hemoglobin 29.2 pg (27.0-33.0); Mean Corpuscular Volume 88.5 fL (80.0-98.0); Monocytes Absolute Auto 0.9 X10*3/uL (0.1-1.2); Monocytes Percent Auto 15.2 % (2-11); Neutrophils Absolute Auto 2.7 x10*3/uL (2.0-8.3); Neutrophils Percent Auto 45.8 % (45-73); Platelet Count 266 X10*3/uL (160-400); Red Blood Count 4.25 X10*6/uL (4.60-5.80); Red Cell Distribution Width 13.3 % (11.0-16.0); White Blood Count 5.8 X10*3/uL (4.8-10.8)
--- OUTSIDE RECORDS SUMMARY | 2024-06-10 09:55 | XMS_ITS | Encounter Summary ---
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 Name Role Phone Sim Reardon MD Primary Care Provider [phone] Encounter Details Date Type Department Care Team (Late st Contact Info) Description 07/17/2021 Telephone [facility] [address] [place] [address] Mehul Marie MD Social History Tobacco Use Types Packs/Day Years Used Date Smoking Tobacco: Never Smokeless Tobacco: Never Alcohol Use Standard Drinks/Week Comments No 0 (1 standard drink = 0.6 oz pur e alcohol) Sex and Gender Information Value Date Recorded Sex Assigned at Not on file Legal Sex Male 5:03 PM EST Gender Identity Not on file Sexual Orientation Not on file documented as of this encounter Miscellaneous Notes * Telephone Encounter - Karen Guadalupe - 07/17/2021 11:51 AM EDT Pt called, He needs a refill for carvedilol. Please send to [facility] on [facility]. Thank you documented in this encounter Plan of Treatment Not on file documented as of this encounter Visit Diagnoses Not on filedocumented in this encounter Care Teams Optical Fabricator Relationship Specialty Start Date End Date Sim Reardon MD [address] [place] [address] PCP - General 05/16/20 documented as of this encounter
--- OUTSIDE RECORDS SUMMARY | 2024-06-10 09:55 | XMS_ITS | Clinical Summary ---
Author Organization [facility] Facility Address [address] [place] [id number] Care Team Providers Care Garment Presser Name Role Phone Sim Reardon MD Primary Care Provider [phone] Allergies No known active allergies Medications aspirin (ST LUIS ARMANDO) 81 MG EC tablet Take 81 mg by mouth 1 (one) time each day Active omeprazole (PriLOSEC) [address] capsule Take 20 mg by mouth 1 (one) time each day Do not crush or chew. Active Multiple Vitamin (MULTIVITAMIN ADULT PO) Take 1 tablet by mouth 1 (one) time each day Active lisinopril 40 MG tablet Take 40 mg by mouth 1 (one) time each day Active gabapentin (NEURONTIN) 100 MG capsule Take 100 mg by mouth 1 (one) time each day Active diclofenac (VOLTAREN) 0.1 % ophthalmic solution 1 drop 4 (four) times a day Active clonazePAM (KlonoPIN) 1 MG tablet Take 1 mg by mouth every 6 (six) hours if needed for anxiety Active acetaminophen (TYLENOL) 500 MG tablet Take 2 mg by mouth every 6 (six) hours if needed for mild pain Active Melatonin ER 10 MG tablet controlled-rele ase Take 1 tablet by mouth at bed time Active atorvastatin (LIPITOR) 80 MG tablet TAKE 1 TABLET BY MOUTH EVERYDAY. LAB WORK ON 05/18/2021 Active ezetimibe (ZETIA) 10 MG tablet Take 10 mg by mouth 1 (one) time each day 06/06/2021 Active Cholecalciferol (Vitamin D) 125 MCG (5000 UT) capsule Take 1 tablet by mouth 3 (three) times a week Active oxyCODONE (OXY-IR) 5 MG immediate release capsule Take 5 mg by mouth every 4 (four) hours if needed for moderate pain Active carvedilol (COREG) 6.25 MG tablet TAKE 1 TABLET BY MOUTH IN THE MORNING AND 1 TABLET IN THE EVENING. TAKE WITH MEALS. 180 tablet 5 08/13/2022 Active amLODIPine (NORVASC) 5 MG tablet TAKE 1 TABLET BY MOUTH 1 TIME EACH DAY. 90 tablet 5 08/13/2022 Active tiZANidine (ZANAFLEX) 4 MG capsule Take 4 mg by mouth 3 (three) times a day if needed for muscle spasms Active Calcium Carbonate Antacid (TUMS PO) Take by mouth Active Active Problems Problem Noted Date Diagnosed Date Hypertensive chronic kidney disease, unspecified, with chronic kidney disease stage I through stage IV, or unspecified 06/19/2021 Persistent proteinuria 12/19/2020 Type 2 diabetes mellitus with diabetic nephropat hy 12/19/2020 Essential (primary) hypertension 12/19/2020 Chronic kidney disease stage 2 12/19/2020 Immunizations Name Administration Dates Next Due Influenza Split High Dose Preservative Free IM 1 Family History Medical History Relation Comments Hypertension Mother Hypertension Sibling Brother. Relation Status Comments Father Mother Sibling Social History Tobacco Use Types Packs/Day Years Used Date Smoking Tobacco: Never Smokeless Tobacco: Never Tobacco Cessation:Counseling Given: Not Answered Alcohol Use Standard Drinks/Week Comments No 0 (1 standard drink = 0.6 oz pur e alcohol) Sex and Gender Information Value Date Recorded Sex Assigned at Not on file Legal Sex Male 5:03 PM EST Gender Identity Not on file Sexual Orientation Not on file Last Filed Vital Signs Vital Sign Reading Time Taken Comments Blood Pressure 120/80 09/12/2022 4:36 PM EDT Pulse 73 09/12/2022 4:36 PM EDT Temperature - - Respiratory Rate - - Oxygen Saturation 98% 06/05/2019 12:00 PM EST Inhaled Oxygen Concentration - - Weight 96.2 kg (212 lb) 09/12/2022 4:36 PM EDT Height 175.3 cm (5' 9 ) 01/04/2020 12:00 PM EDT Body Mass Index 31.31 01/04/2020 12:00 PM EDT Plan of Treatment Health Maintenance Due Date Last Done Comments Pneumococcal Vaccine: Pediat rics (0 to 5 Years) and At-Risk Patients (6 to 64 Years) (1 of 2 - PCV) 01/25/1970 Colorectal Cancer Screening: Annual FOBT 01/25/2013 Colorectal Cancer Screening: Colonoscopy 01/25/2013 Colorectal Cancer Screening: Sigmoidoscopy 01/25/2013 Diabetes: Ophthalmology Exam 06/06/2020 Diabetes: Pedal Pulse Checked 06/06/2020 Diabetes: Sensory Foot Exam 06/06/2020 Diabetes: Visual Foot Exam 06/06/2020 Diabetes: Hemoglobin A1C 04/25/2022 01/24/2022 Influenza Vaccine (#1) 2024 02/17/2015 Hepatitis B Vaccine Aged Out No longe r eligible based on patient's age to complete this topic Procedures Procedure Name Priority Date/Time Associated Diagnosis Comments HEMOGLOBIN A1C Routine 01/24/2022 9:50 AM EDT Persistent proteinuria Type 2 diabetes mellitus with diabetic nephropathy (HCC) Essential (primary) hypertension Chronic kidney disease stage 2 from Last 3 Months or Most Recently Relevant to Health Maintenance Results * (ABNORMAL) Hemoglobin A1c (01/24/2022 9:50 AM EDT) Hemoglobin A1C 6.4(H) (4.0-5.6) % [facility] Comment: MONITORING: In known diabetic patients, hemoglobin A1c targets should be discussed with health care provider. DIAGNOSTIC USE: ??The [place] Diabetes Association (ADA) and the World Health Organization (WHO) recommend the use of HbA1c to diagnose diabetes using a threshold of 6.5%. Patients who have an HbA1c between 5.7% and 6.4% are considered at increased risk for developing diabetes in the future. CAUTION: Falsely low HbA1c results may be observed in patients with hemolytic anemia, homozygous forms of abnormal hemoglobin (e.g. SS, CC, SC), , recent blood loss or hemoglobin F greater than 7%. Fructosamine may be used as an alternate test in these cases. REFERENCE: ADA: Standards of Medical Care in Diabetes 2020, The Journal of Clinical and Applied Research and Education Volume 43, Supplement 1 Testing performed or reported by [facility], a Service of [facility], [address] [place] [id number] Maday Martinez MD, [place] Technician [facility]# [id number] Blood (Blood, Venous) 01/24/2022 9:50 AM EDT 01/24/2022 9:51 AM EDT us Mehul Papamarkakis MD LAB BLOOD ORDERABLES Ida blaine Result [facility] from Last 3 Months or Most Recently Relevant to Health Maintenance Insurance [facility] Care Teams Garment Presser Relationship Specialty Start Date End Date Sim Reardon MD [address] [place] [address] PCP - General 05/16/20
[2024-06-10 10:04] LABS: Alanine Aminotransferase 33 U/L (0-40); Albumin Level 3.8 g/dL (3.5-5.0); Alkaline Phosphatase 91 U/L (39-117); Anion Gap 9 (12-20); Aspartate Amino Transferase 29 U/L (5-37); Bilirubin Direct 0.3 mg/dL (0.0-0.5); Bilirubin Total 0.6 mg/dL (0.0-1.0); Blood Urea Nitrogen 14 mg/dL (9-16); Calcium 8.2 mg/dL (8.4-10.2); Carbon Dioxide 25 mmol/L (22-29); Chloride 110 mmol/L (96-108); Creatinine Clr Calc Pharmacy 111.6; Estimated Glomerular Filt Rate > 60; Glucose Random 125 mg/dL (60-115); Lipase 30 U/L (8-78); Potassium 4.3 mmol/L (3.3-5.1); Sodium 140 mmol/L (135-145); Total Protein 7.5 g/dL (6.5-8.0)
[2024-06-10] MEDS: iohexoL 350 MG/ML 100 ML INFUS..BTL IV (12:19)
--- NOTE | 2024-06-10 12:41 | ED_ITS ---
HPI - GI Bleed General Chief complaint: GI Bleed Stated complaint: rectal bleeding Time Seen by Provider: 06/10/24 11:07 Source: patient Limitations: no limitations History of Present Illness ED Provider: Stephanie Mckeon PA-C HPI Narrative: 59-year-old male with a history of hypertension, hyperlipidemia, diabetes, known coronary artery disease on daily aspirin therapy, presents with lower GI bleeding. Patient states he had a bowel movement today, the toilet was full of blood. Patient brought a picture. Patient only had 1 episode. Associated right mid to lower abdominal cramping. Denies nausea, vomiting or fever. Related Data Home Medications ?Medication ?Instructions ?Recorded ?Confirmed aspirin 81 mg tablet,delayed 81 mg PO DAILY 05/23/20 06/01/24 release melatonin 10 mg capsule 10 mg PO BEDTIME PRN 12/25/22 06/01/24 [id number]-[id number] 300 mcg-K 60 1 tab PO DAILY 12/25/22 06/01/24 mcg-lycop 600 mcg-lutein 300 mcg tablet (Centrum Silver Men) cholecalciferol (vitamin D3) 125 125 mcg PO DAILY 11/12/23 06/01/24 mcg (5,000 unit) capsule Previous Rx's ?Medication ?Instructions ?Recorded diclofenac sodium 1 % topical gel 4 g topical QID PRN pain 30 days 07/26/21 #100 grams atorvastatin 80 mg tablet 80 mg PO DAILY #90 tabs 05/28/23 acetaminophen 500 mg tablet 1,000 mg (2 x 500 mg) PO Q8H PRN 12/24/23 (Tylenol Extra Strength) fever #30 tabs metoclopramide HCl 10 mg tablet 10 mg PO Q6H PRN nausea and 12/24/23 (Reglan) vomiting and diarrhea #30 tabs omeprazole 20 mg capsule,delayed 20 mg PO DAILY #90 caps 01/01/24 release carvedilol 6.25 mg tablet 6.25 mg PO BID #180 tabs 01/20/24 evolocumab 140 mg/mL subcutaneous 140 mg subcut Q2W 90 days #7 mL 01/29/24 pen injector (Jason Sanchez) ezetimibe 10 mg tablet (Zetia) 10 mg PO DAILY #90 tabs 01/31/24 amlodipine 5 mg tablet 5 mg PO DAILY #30 tabs 09/30/24 lisinopril 40 mg tablet 40 mg PO DAILY #90 tabs 03/19/24 clonazepam 1 mg tablet See Rx Instructions .Route 03/31/24 .COMPLEX 30 days #30 tabs tadalafil 20 mg tablet 20 mg PO ONCE PRN sexual activity 04/28/24 30 days #30 tabs tadalafil 5 mg tablet 5 mg PO DAILY sexual activity 90 04/28/24 days #90 tabs tizanidine 4 mg tablet 4 mg PO Q8H PRN muscle spasms 30 06/01/24 days #90 tabs tramadol 50 mg tablet 50 mg PO TID PRN pain #30 tabs 06/01/24 gabapentin 100 mg capsule 200 mg (2 x 100 mg) PO BID 30 days 06/10/24 #120 caps Allergies Allergy/AdvReac Type Severity Reaction Status Date / Time amlodipine Allergy Unknown gi Verified 06/10/24 09:13 atorvastatin Allergy Unknown myalgia at Verified 06/10/24 09:13 80 mg, muscle px chlorthalidone Allergy Unknown excessive Verified 06/10/24 09:13 urination glipizide Allergy Unknown Unknown Verified 06/10/24 09:13 hydrochlorothiazide Allergy Unknown dizziness, Verified 06/10/24 09:13 excessive urination ibuprofen [From MOTRIN] Allergy Unknown irregular Verified 06/10/24 09:13 heartbeat metformin Allergy Unknown chokling Verified 06/10/24 09:13 sensation metoprolol Allergy Unknown slow heart Verified 06/10/24 09:13 rate nifedipine Allergy Unknown tachy/kaet Verified 06/10/24 09:13 buspirone [From BUSPAR] AdvReac Unknown STOMACH Verified 06/10/24 09:13 UPSET canagliflozin [Invokana] AdvReac Unknown SYNCOPE Verified 06/10/24 09:13 clonidine [From CATAPRES] AdvReac Unknown STOMACH Verified 06/10/24 09:13 UPSET SHELLFISH Allergy Severe ANAPHYLAXIS Uncoded 06/01/24 09:41 Sucralfate Allergy Unknown chest pain Uncoded 06/01/24 09:41 Review of Systems 2 Review of Systems: Yes all other systems are reviewed and are negative Constitutional: Constitutional: Denies fatigue and Denies fever(s) Cardiovascular: Cardiovascular: Denies chest pain and Denies dyspnea Respiratory: Respiratory: Denies dyspnea Gastrointestinal: Gastrointestinal: Reports abdominal pain, Reports hematochezia, Denies diarrhea, Denies nausea and Denies vomiting Endocrine: Endocrine: Denies fatigue PMFSH Past Medical History Attestation statement: The following information was validated with the patient. Medical History Type 2 diabetes mellitus with albuminuria CAD (coronary artery disease) Fatigue Myalgia Overweight (BMI 25.0-29.9) Anxiety Primary insomnia Obstructive sleep apnea Anemia Left thigh pain Primary osteoarthritis of left hip Vitamin D deficiency Proteinuria Palpitations Impaired fasting glucose Pure hypercholesterolemia Benign essential hypertension Surgical History History of arthroplasty of right knee (~11/05/22) Hx of colonoscopy History of arthroplasty of left hip History of hip surgery Family History Family History Father No problems noted. 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 Cognitive needs: No Hearing needs: No Vision needs: Yes (glasses) Physical Exam 2 Vital Signs: Vital Signs: Last Vital Signs Temp 97.2 F 06/10/24 09:09 Pulse 64 06/10/24 13:05 Resp 16 06/10/24 13:05 BP 132/84 06/10/24 13:05 Pulse Ox 96 06/10/24 13:05 O2 Del Method Room Air 06/10/24 13:05 BMI result Body Mass Index 30.5 Const: Other: Alert well-appearing Orientation/consciousness: patient oriented x3 Resp: Effort & Inspection: normal respiratory effort Cardio: Other: Normal peripheral perfusion GI: Other: Abdomen is soft, nondistended, mild tenderness over right lower abdomen without guarding Skin: Other: Warm dry no rash Neuro: General: patient oriented x3, gait normal, no focal motor deficits and CN's II-XI intact bilaterally Psych: Other: Calm cooperative Medications Administered Discontinued Medications Generic Name Dose Route Start Last Admin Trade Name Loren PRN Reason Stop Dose Admin Iohexol 100 ml 06/10/24 12:18 06/10/24 12:19 Iohexol 350 Mg/Ml 100 Ml Infus..Btl IV 06/10/24 12:19 85 ml ONCE ONE Administration Medical Decision Making Medical Decision Making [facility] Narrative: 59-year-old male with a history of hypertension, hyperlipidemia, diabetes, known coronary artery disease on daily aspirin therapy, presents with lower GI bleeding. Patient states he had a bowel movement today, the toilet was full of blood. Patient brought a picture. Patient only had 1 episode. Associated right mid to lower abdominal cramping. Denies nausea, vomiting or fever. Problem: Anticoagulated, diabetes History: Per patient I have considered the following differential diagnoses: Upper GI bleed, lower GI bleed, polyp, cancer, diverticulosis, diverticulitis Plan: Patient here with evidence of lower GI bleeding, he has had 1 additional episode since he arrived. Given concurrent pain, we will obtain a CT scan. His H&H are stable, we will repeat. I have independently reviewed the following tests: Labs: No leukocytosis, H&H are 12.4 and 37.6, no electrolyte abnormality noted, nature unchanged CT abdomen and pelvis: CT/CT abdomen pelvis w IV con IMPRESSION: No acute intra-abdominal process seen. There is mild constipation. Bilateral adrenal subcentimeter nonenhancing lesions are too small to correctly characterize. Left renal upper pole tiny cyst Small hiatal hernia. Fleischner guidelines were followed. Electronically signed by: Florentino Yap MD 06/10/2024 12:50 PM [facility] Lab Data 06/10/24 13:07 06/10/24 09:43 Labs: Lab Results 06/10/24 06/10/24 Range/Units 09:43 13:07 WBC 5.8 (4.8-10.8) X10*3/uL RBC 4.25 L (4.60-5.80) X10*6/uL Hgb 12.4 L 12.1 L (14.0-18.0) g/dl Hct 37.6 L 36.8 L (42.0-52.0) % MCV 88.5 (80.0-98.0) fL MCH 29.2 (27.0-33.0) pg MCHC 33.0 (31.0-36.0) g/dl RDW 13.3 (11.0-16.0) % Plt Count 266 (160-400) X10*3/uL MPV 9.0 L (9.4-12.4) fL Immature Gran % (Auto) 0.3 (0.0-0.4) % Neut % (Auto) 45.8 (45-73) % Lymph % (Auto) 32.4 (20-40) % [place] % (Auto) 15.2 H (2-11) % Eos % (Auto) 5.4 H (0-4) % Baso % (Auto) 0.9 (0-2) % Lymph # (Auto) 1.9 (1.2-4.9) X10*3/uL [place] # (Auto) 0.9 (0.1-1.2) X10*3/uL Eos # (Auto) 0.3 (0.0-0.4) X10*3/uL Baso # (Auto) 0.1 (0.0-0.2) X10*3/uL Abs Immat Gran (auto) 0.02 (0.00-0.03) X10*3/uL Absolute Neuts (auto) 2.7 (2.0-8.3) x10*3/uL Absolute Nucleated RBC 0.000 (0.0-0.012) X10*3/uL Nucleated RBC % (auto) 0.0 (0.0-0.2) /100WBC Sodium 140 (135-145) mmol/L Potassium 4.3 (3.3-5.1) mmol/L Chloride 110 H (96-108) mmol/L Carbon Dioxide 25 (22-29) mmol/L Anion Gap 9 L (12-20) BUN 14 (9-16) mg/dL Creatinine 0.82 (0.5-1.4) mg/dL Estim Creat Clear Calc 111.6 Estimated GFR > 60 Random Glucose 125 H (60-115) mg/dL Calcium 8.2 L (8.4-10.2) mg/dL Total Bilirubin 0.6 (0.0-1.0) mg/dL Direct Bilirubin 0.3 (0.0-0.5) mg/dL AST 29 (5-37) U/L ALT 33 (0-40) U/L Alkaline Phosphatase 91 (39-117) U/L Total Protein 7.5 (6.5-8.0) g/dL Albumin 3.8 (3.5-5.0) g/dL Lipase 30 (8-78) U/L Discharge Plan Discharge Clinical Impression: Acute lower GI bleeding, Constipation Patient Disposition: Home, Self-Care Instructions: Constipation (ED) Additional Instructions: The CT scan did not reveal any acute process or active bleeding. You were found to be constipated. See home care instructions. You should be using an zmgp-hre-bwwbjwm stool softener such as Colace, 1 to 2 times a day. In addition you can use cbsb-lzv-hjeghpi MiraLax, 1 to 2 times a day, until you begin having regular large volume bowel movements. You could have internal hemorrhoids, that bleed when you have a bowel movement. You need to follow up with your primary care provider to schedule an outpatient colonoscopy with your pillowcase cutter. To note all of your screening labs were normal, and there was no change in your blood count. Prescriptions: No Action atorvastatin 80 mg tablet 80 mg PO DAILY Qty: 90 3RF omeprazole 20 mg capsule,delayed release(DR/EC) 20 mg PO DAILY Qty: 90 1RF carvedilol 6.25 mg tablet 6.25 mg PO BID Qty: 180 1RF Repatha SureClick 140 mg/mL pen injector 140 mg subcut Q2W 90 Days Qty: 7 2RF Rx Instructions: [id number]. REPATHA SURE INJ 140MG/ML is approved through 02/08/2024. ezetimibe [Zetia] 10 mg tablet 10 mg PO DAILY Qty: 90 3RF amlodipine 5 mg tablet 5 mg PO DAILY Qty: 30 6RF lisinopril 40 mg tablet 40 mg PO DAILY Qty: 90 0RF clonazepam 1 mg tablet See Rx Instructions .ROUTE .COMPLEX 30 Days Qty: 30 0RF Rx Instructions: 1/2 to 1 tablet by mouth once a day as needed for increased anxiety; gabapentin 100 mg capsule 200 mg PO BID 30 Days Qty: 120 5RF aspirin 81 mg tablet,delayed release (DR/EC) 81 mg PO DAILY diclofenac sodium 1 % gel 4 g topical QID PRN (Reason: pain) 30 Days Qty: 100 5RF melatonin 10 mg capsule 10 mg PO BEDTIME PRN Centrum Silver Men [id number] mcg tablet 1 tab PO DAILY cholecalciferol (vitamin D3) 125 mcg (5,000 unit) capsule 125 mcg PO DAILY Rx Instructions: 3x weekly metoclopramide HCl [Reglan] 10 mg tablet 10 mg PO Q6H PRN (Reason: nausea and vomiting and diarrhea) Qty: 30 0RF acetaminophen [Tylenol Extra Strength] 500 mg tablet 1,000 mg PO Q8H PRN (Reason: fever) Qty: 30 0RF tizanidine 4 mg tablet 4 mg PO Q8H PRN (Reason: muscle spasms) 30 Days Qty: 90 0RF tramadol 50 mg tablet 50 mg PO TID PRN (Reason: pain) Qty: 30 0RF tadalafil 5 mg tablet 5 mg PO DAILY 90 Days Qty: 90 1RF tadalafil 20 mg tablet 20 mg PO ONCE PRN (Reason: sexual activity) 30 Days Qty: 30 1RF Rx Instructions: On demand medication take 60 minutes before intended activity Print Language: Afghan
[2024-06-10 13:05] VITALS: BP 132/84; PULSE 64; RESP 16; O2SAT 96
[2024-06-10 13:22] LABS: Hematocrit 36.8 % (42.0-52.0); Hemoglobin 12.1 g/dl (14.0-18.0)
[2024-06-10 13:55] VITALS: BP 132/84; PULSE 64; RESP 16; TEMP 36.2; O2SAT 96
== END 2024-06-10 13:56 | disposition home or self-care (01) ==
PROVIDERS: Physician Assistant Medical; Emergency Provider Emergency Medicine; PCP Internal Medicine
DX: K92.2 Gastrointestinal hemorrhage, unspecified (principal); K59.00 Constipation, unspecified; R10.30 Lower abdominal pain, unspecified; I10 Essential (primary) hypertension; E11.9 Type 2 diabetes mellitus without complications; E78.5 Hyperlipidemia, unspecified; I25.10 Atherosclerotic heart disease of native coronary artery without angina pectoris; Z79.899 Other long term (current) drug therapy
CPT/HCPCS: 36415; 74177; 80048; 80076; 83690; 85014; 85018; 85025; 99283; 99284; Q9967

== ENCOUNTER → 2024-06-10 11:30 | Outpatient (BNV) | payer OTHER, SELFPAY | PROVIDERS: Emergency Provider Emergency Medicine; PCP Internal Medicine; Visit Provider Radiology Diagnostic Radiology | DX: R10.9 Unspecified abdominal pain (principal) | CPT/HCPCS: 74177 ==

== ENCOUNTER 2024-06-19 10:05 | Outpatient (AMB) | payer OTHER, SELFPAY ==
[2024-06-19 10:09] VITALS: BP 132/80; PULSE 73; O2SAT 97; BMI 30.3
--- NOTE | 2024-06-19 10:09 | MHC.PC.OV ---
Vital Signs 06/19/24 10:09 Height 5 ft 10 in Weight 211 lb 6 oz BMI 30.3 BP 132/80 Blood Pressure Location Lt brachial Position Sitting Pulse 73 Pulse Source Pulse Oximeter Pulse Oximetry (%) 97 Oxygen Delivery Method Room Air Intake Visit Reasons: ED/rectal bleeding Retirement Manager Required: No Accompanied by: Self / Same As Patient Allergies amlodipine Allergy (Unknown, Verified 06/19/24 10:54) gi atorvastatin Allergy (Unknown, Verified 06/19/24 10:54) myalgia at 80 mg, muscle px chlorthalidone Allergy (Unknown, Verified 06/19/24 10:54) excessive urination glipizide Allergy (Unknown, Verified 06/19/24 10:54) Unknown hydrochlorothiazide Allergy (Unknown, Verified 06/19/24 10:54) dizziness, excessive urination ibuprofen [From MOTRIN] Allergy (Unknown, Verified 06/19/24 10:54) irregular heartbeat metformin Allergy (Unknown, Verified 06/19/24 10:54) chokling sensation metoprolol Allergy (Unknown, Verified 06/19/24 10:54) slow heart rate nifedipine Allergy (Unknown, Verified 06/19/24 10:54) tachy/kate buspirone [From BUSPAR] Adverse Reaction (Unknown, Verified 06/19/24 10:54) STOMACH UPSET canagliflozin [Invokana] Adverse Reaction (Unknown, Verified 06/19/24 10:54) SYNCOPE clonidine [From CATAPRES] Adverse Reaction (Unknown, Verified 06/19/24 10:54) STOMACH UPSET SHELLFISH Allergy (Severe, Uncoded 06/19/24 10:54) ANAPHYLAXIS Sucralfate Allergy (Unknown, Uncoded 06/19/24 10:54) chest pain Medication List - Last Reconciled 06/19/24 by Sim Reardon MD acetaminophen (Tylenol Extra Strength) 1,000 mg (2 x 500 mg) PO Q8H PRN amlodipine 5 mg PO DAILY aspirin 81 mg PO DAILY atorvastatin 80 mg PO DAILY carvedilol 6.25 mg PO BID cholecalciferol (vitamin D3) 125 mcg PO DAILY clonazepam 1/2 to 1 tablet by mouth once a day as needed for increased anxiety; 30 days diclofenac sodium 1% 4 grams topical QID PRN 30 days evolocumab (Repatha SureClick) 140 mg subcut Q2W 90 days ezetimibe (Zetia) 10 mg PO DAILY gabapentin 200 mg (2 x 100 mg) PO BID 30 days lisinopril 40 mg PO DAILY melatonin 10 mg PO BEDTIME PRN metoclopramide HCl (Reglan) 10 mg PO Q6H PRN [id number] mcg (Centrum Silver Men) 1 tab PO DAILY omeprazole 20 mg PO DAILY tadalafil 5 mg PO DAILY 90 days tadalafil 20 mg PO ONCE PRN 30 days tizanidine 4 mg PO Q8H PRN 30 days tramadol 50 mg PO TID PRN Tobacco use date assessed: 06/19/24 Dental Screening Dental Screen Date: 06/19/24 Did you have a dental visit in the last 12 months?: No Did you have a dental problem in the last 6 months where you did not have access to dental care?: No Was dental information given to patient?: No HPI ED/rectal bleeding HPI Details Patient comes in today for his [facility] follow-up visit He went to the ER last week on 06/10/2024 for further evaluation when he noticed (+) bright red blood in the toilet after he had a bowel movement He recalls experiencing some right mid to lower abdominal pain prior to the above incident He was worked up briefly in the ER - his labs came back normal an abdominal and pelvic CT done were also unrevealing other than mild constipation as evidenced by the presence of scattered stool and gas seen in the colon without distention His last colonoscopy with Dr. Dietz was in 2019 - he has not had repeat colonoscopy done since EGD last done in 2020 revealed (+) gastric polyps that were benign on pathology; (+) esophagitis States that he has a scheduled appt with J Luis next week on 06/29/24 and he will likely be scheduled for a repeat colonoscopy following his appointment He denies any headaches or dizziness Any chest pains, no increased shortness of breath No nausea/vomiting, no abdominal pain at present No change in bowel habits noted [facility] Medical History Type 2 diabetes mellitus with albuminuria CAD (coronary artery disease) Fatigue Myalgia Overweight (BMI 25.0-29.9) Anxiety Primary insomnia Obstructive sleep apnea Anemia Left thigh pain Primary osteoarthritis of left hip Vitamin D deficiency Proteinuria Palpitations Impaired fasting glucose Pure hypercholesterolemia Benign essential hypertension Surgical History History of arthroplasty of right knee (~11/05/22) Hx of colonoscopy History of arthroplasty of left hip History of hip surgery Family History Father No problems noted. 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 1. Little interest or pleasure in doing things: not at all 2. Feeling down, depressed, or hopeless: not at all 3. Trouble falling or staying asleep, or sleeping too much: not at all 4. Feeling tired or having little energy: several days 5. Poor appetite or overeating: not at all 6. Feeling bad about yourself - or that you are a failure or have let yourself or your family down: not at all 7. Trouble concentrating on things, such as reading the newspaper or watching television: not at all 8. Moving or speaking so slowly that other people could have noticed. Or the opposite - being so fidgety or restless that you have been moving around a lot more than usual: not at all 9. Thoughts that you would be better off or of hurting yourself in some way: not at all Total score: 1 Depression Screening Interpretation: Negative Depression Screening Done: Yes 74919 - PHQ-9 Billing: Yes Source: Developed by Drs. Alex Clarke, Nhung Wolf, Jese eLos and colleagues, with an educational kristin from [employer]. Thrive Questionnaire Date Thrive assessed: 06/19/24 I am a: Patient What is your living situation today?: I have a steady place to live Within the past 12 months, did the food you bought not last and you didn't have the money to get more?: I choose not to answer this question Within the past 12 months, did you worry whether your food would run out before you got money to buy more?: I choose not to answer this question Do you have trouble paying for medicines?: No Do you have trouble getting transportation to medical appointments?: No Do you have trouble paying your heating and electricity bill?: No Do you have trouble taking care of your child, family member or friend?: No Do you have trouble with day-to-day activities such as bathing, preparing meals, shopping, managing finances, etc.?: No Are you currently unemployed and looking for a job?: No Are you interested in more education?: No Please select the resources that you would like help with: None Currently or been in a relationship where the following occur: I choose not to answer THRIVE Score: 0 AUDIT C Alcohol Use Questionnaire (AUDIT-C) 1. How often do you have a drink containing alcohol?: Never 3. How often do you have six or more drinks on one occasion?: Never Total Score: 0 Score Reviewed/Action Taken: Yes DILLON-7 AMB Questionnaire DILLON-7 Date DILLON - 7 assessed: 06/19/24 Feeling nervous, anxious, or on edge: 0 = Not at all Not being able to stop or control worryin = Not at all Worrying too much about different things: 0 = Not at all Trouble relaxin = Not at all Being so restless that it is hard to sit still: 0 = Not at all Becoming easily annoyed or irritable: 0 = Not at all Feeling afraid as if something awful might happen: 0 = Not at all Total DILLON-7 score (0-4 normal; 5-9 mild; 10-14 moderate; 15-21 severe): 0 Source: Developed by Drs. Alex Clarke, Nhung Wolf, Jese Leos and colleagues, with an educational kristin from [employer]. Review of Systems Const Denies chills, Denies fatigue, Denies fever(s) and Denies headache(s) ENT Denies dysphagia, Denies dizziness, Denies otalgia, Denies headache(s), Denies neck pain, Denies odynophagia and Denies sore throat Card Denies chest pain, Denies irregular heart rhythm, Denies palpitations and Denies dyspnea Resp Denies chest congestion, Denies cough and Denies dyspnea GI Denies abdominal pain, Reports hematochezia (see HPI), Denies constipation, Denies dysphagia, Denies heartburn, Denies diarrhea, Denies nausea, Denies odynophagia and Denies vomiting Denies difficulty urinating, Denies dysuria and Denies urinary frequency Musc Reports back pain (over the lower back), Reports arthralgias (right knee) and Denies neck pain Skin/Breast Denies rash Neuro Denies dizziness, Denies headache(s) and Denies paresthesias Endo Denies fatigue and Denies palpitations Physical exam (Primary Care) Vital Signs: Last Vital Signs Pulse 73 06/19/24 10:09 BP 132/80 06/19/24 10:09 Pulse Ox 97 06/19/24 10:09 Oxygen Delivery Method Room Air 06/19/24 10:09 BMI result Body Mass Index 30.3 Tobacco/Smoking Status: Tobacco use Status Tobacco use date assessed 06/19/24 06/19/24 10:16 Patient Tobacco Use Status Never used Tobacco 06/19/24 10:16 e-Cigarette/Vaping Use Never Used 06/19/24 10:16 PHQ-9: PHQ-9 Score PHQ-9: Total score 1 06/19/24 10:56 Depression Screening Interpretation: Negative Thrive Assessment: Date of Thrive Assessment Date Thrive assessed 06/19/24 06/19/24 10:16 Currently or been in a relationship where the following occur: I choose not to answer Const General: no acute distress and alert HENMT Ears: TM's normal bilaterally and EAC's normal Throat: Yes posterior oropharynx normal and Yes tonsils normal (no TP congestion) Neck Neck: Yes no lymphadenopathy and Yes supple Thyroid: Thyroid normal Resp Auscultation: clear to auscultation bilaterally, no rales and no wheezes Cardio Rate: regular rate Rhythm: regular rhythm Heart sounds: no murmurs GI Palpation (GI): Soft to palpation and nontender Auscultation: normal bowel sounds General: Yes no CVA tenderness Back/Spine/Pelvis Back: no CVA tenderness Thoracic/Lumbar Spine: lumbar spinal tenderness (increased, especially on the right side) Skin Rashes: no rashes Extrem General: Yes no clubbing, cyanosis or edema Right lower extremity: knee Details: tenderness; no swelling Coding Level of Care Code Est Pt Level 3 (20372) Diagnoses Rectal bleeding K62.5 Coronary artery disease involving [place] heart without angina pectoris, unspecified vessel or lesion type I25.10 Coronary Disease-Associated Artery/Lesion type: unspecified vessel or lesion type [place] vs. transplanted heart: [place] heart Associated angina: without angina Additional Codes PHQ-9 - 50576 - PHQ-9 Billing: Yes ([id number]) Assessment & Plan Assessment & Plan (1) Rectal bleeding: Code(s): K62.5 - Hemorrhage of anus and rectum Category: Medical Plan: Patient had one episode of rectal bleeding last week for which he presented to the ER for further evaluation Suspect that this may likely be due to hemorrhoids or diverticulosis His workups done at the ER, including labs and abdominal/pelvic CT, came back unrevealing He has a GI follow-up appointment with Dr. Dietz next week, after which she would likely be scheduled for repeat colonoscopy for further evaluation (2) CAD (coronary artery disease): Comment: Coronary calcium score greater than 1000, February 2021 Code(s): I25.10 - Atherosclerotic heart disease of [place] coronary artery without angina pectoris Category: Medical Qualifiers: Coronary Disease-Associated Artery/Lesion type: unspecified vessel or lesion type [place] vs. transplanted heart: [place] heart Associated angina: without angina Qualified Code(s): I25.10 - Atherosclerotic heart disease of [place] coronary artery without angina pectoris Plan: Patient had coronary CTA done in 2020 to assess his CV risks - test came out with a significantly elevated coronary calcium score of > 1000 suggestive of 3-vessel disease Nuclear [place] [facility] [place] came out normal Continue Aspirin 81 mg QD and Carvedilol 6.25 mg BID Follow up with cardiology as scheduled Plan Follow up as scheduled in October 2024
--- OUTSIDE RECORDS SUMMARY | 2024-06-19 10:52 | XMS_ITS | Encounter Summary ---
Author Organization [facility] Address [address] [place] [address] Phone Care Team Providers Care Leather Products Supervisor Name Role Phone Sim Reardon MD Primary Care Provider [phone]- [phone] Encounter Details Date Type Department Care Team (Late st Contact Info) Description 07/17/2021 Telephone [facility] [address] [place] [address] Mehul Marie MD Social History Tobacco [...] a refill for carvedilol. Please send to [facility] on [facility]. Thank you documented in this encounter Plan of Treatment Not on file documented as of this encounter Visit Diagnoses Not on filedocumented in this encounter Care Teams Leather Products Supervisor Relationship Specialty Start Date End Date Sim Reardon MD [address] [place] [address] PCP - General 05/16/20 documented as of this encounter
--- OUTSIDE RECORDS SUMMARY | 2024-06-19 10:52 | XMS_ITS | Clinical Summary ---
Author Organization [facility] Address [address] [place] [address] Care Team Providers Care Eating Disorder Specialist Name Role Phone Sim Reardon MD Primary Care Provider [phone]- [phone] Allergies No known active allergies Medications aspirin [...] AM EDT) Hemoglobin A1C 6.4(H) (4.0-5.6) % [facility] Comment: MONITORING: In known diabetic patients, hemoglobin A1c targets should be discussed with health care provider. DIAGNOSTIC USE: ??The [place] Diabetes Association (ADA) and the World Health [...] Supplement 1 Testing performed or reported by [facility], a Service of [facility], [address] [place] [id number] Maday Martinez MD, Casting House Worker [facility]# [id number] Blood (Blood, Venous) 01/24/2022 9:50 AM EDT 01/24/2022 9:51 AM EDT us Mehul Papamarkakis MD LAB BLOOD ORDERABLES Ida blaine Result [facility] from Last 3 Months or Most Recently Relevant to Health Maintenance Insurance [facility] Care Teams Eating Disorder Specialist Relationship Specialty Start Date End Date Sim Reardon MD [address] [place] [address] PCP - General 05/16/20
--- OUTSIDE RECORDS SUMMARY | 2024-06-19 10:52 | XMS_ITS | Patient Health Record ---
Author Organization [facility] Address [address] [place] [address] Care Team Providers Care Cable Mechanic Name Role Phone Alexys PRIETO, [place] Primary Care Provider Ravindra Vick Jr Unavailable [phone] ALLERGIES Allergen (clinical drug ingredient) Drug/Non Drug Allergy documented on EMR Reaction Allergy Type Onset Date Status Shellfish (FN) shell fish (uncoded) Unknown Allergy Active REASON FOR REFERRAL No Information MEDICATIONS Medication SIG (Take, Route, Frequency, Duration) Notes Start Date End Date Status Baby Aspirin Active Atorvastatin Calcium 40 MG 1 tablet Oral ly Once a day Active Tums Smoothies 750 MG 1 tablet Orally prn Active Vitamin D3 1000 UNIT 1 capsule Orally On ce a day Active Ezetimibe 10 MG Oral for 90 Ac tive Multi Vitamin/Minerals - 1 Orally QD Active Diclofenac Sodium 1 % External for 25 Active Nisoldipine ER 8.5 MG 1 tablet on an emp ty stomach Orally Once a day Active Tylenol 500 mg Activ e Omeprazole 20 MG 1 capsule Orally Onc e a day Active Melatonin 5 MG Orally Activ e clonazePAM 1 MG 1 tablet Orally once a day Active Gabapentin 100 MG Orally Ac tive Lisinopril 40 MG 1 tablet Orally Once a day Active Diclofenac 1% gel as needed Ac tive oxyCODONE ER 5 mg PRN Ac tive Carvedilol 3.125 MG Orally Active IMMUNIZATIONS Vaccine Route Administration Date Status Comme nts Influenza Unknown 02/10/2018 Administered Influenza Unknown 02/17/2020 Administered Influenza Unknown 03/28/2021 Administered SOCIAL HISTORY Sex Assigned At : Social History Observation Description Sex Assigned At Unknown PROBLEMS Problem Type ICD Code Onset Dates Problem Status W/U Status Risk SNOMED Code Notes Problem Colon cancer screening (Z12.11) Active confirmed 920334472 Problem Other dysphagia (R13.19) Active confirmed 04244706 Problem Gastroesophageal reflux disease without esophagitis (K21.9) Active confirmed 307092710 Problem Anemia, unspecified type (D64.9) Active confirmed 865083355 PLAN OF TREATMENT Future Test Test Name Order Date UPPER GI ENDOSCOPY 02/25/2013 UPPER GI ENDOSCOPY 02/15/2016 COLONOSCOPY 03/19/2018 UPPER GI ENDOSCOPY 07/11/2020 Next Appt Details Provider Name:Ravindra tracey Jr, 06/29/2024 01:55:00 PM, [address], [address], [place], [address], Insurance Providers Payer Name Payer Address Payer Phone Subscriber Number Group Number Insured Name Patient Relationship to Insured Coverage Start Date Coverage End Date [facility] [address] [place] [phone] [id number] ZENAIDA RAMIRES Self - patient is the insured MEDICAL (GENERAL) HISTORY Medical History History ICD Code Colonoscopy, 07/23/18, normal examination , ten-year followup Upper endoscopy, 04/06/16, no H. pylori o r Dukes's Gastroesophageal reflux disease Hypertension Elevated cholesterol Irritable bowel syndrome Diabetes mellitus, type 2 anxiety/depression Nerve damage - left leg obstructive sleep apnea/CPAP Surgical History Surgery Date(Month/Year) left hip replacement 2019
== END 2024-06-19 11:56 | disposition home or self-care (01) ==
PROVIDERS: PCP Internal Medicine; Visit Provider Internal Medicine
DX: K62.5 Hemorrhage of anus and rectum (principal); I25.10 Atherosclerotic heart disease of native coronary artery without angina pectoris

== ENCOUNTER → 2024-06-19 10:05 | Outpatient (BNVA) | payer OTHER, SELFPAY | PROVIDERS: PCP Internal Medicine; Visit Provider Internal Medicine | DX: K62.5 Hemorrhage of anus and rectum (principal); I25.10 Atherosclerotic heart disease of native coronary artery without angina pectoris; Z79.82 Long term (current) use of aspirin; Z79.899 Other long term (current) drug therapy | CPT/HCPCS: 96127 ==

== ENCOUNTER 2024-08-04 10:08 | Day surgery (SDC) | payer OTHER, SELFPAY ==
--- OUTSIDE RECORDS SUMMARY | 2024-07-01 07:51 | XMS_ITS ---
Author Organization [facility] Address [address] [place] [address] Care Team Providers Care Fire Battalion Chief Name Role Phone Alexys PRIETO, Sim Primary Care Provider Ravindra Vick Jr Unavailable [phone] ALLERGIES Allergen (clinical drug ingredient) Drug/Non Drug Allergy documented on EMR Reaction Allergy Type Onset Date Status Shellfish (FN) shell fish (uncoded) Unknown Allergy Active REASON FOR VISIT Patient presents today for rectal bleeding MEDICATIONS Medication SIG (Take, Route, Frequency, Duration) Notes Start Date End Date Status tiZANidine HCl 4 MG Oral for 30 Days Active amLODIPine Besylate 5 MG Oral for 56 Days Active traMADol HCl 50 MG Oral for 7 Days Active Repatha SureClick 140 MG/ML INJECT 140 MG (1 PEN) SUBCUTANEOUSLY EVERY 2 WEEKS FOR 90 DAYS Subcutaneous for 28 Days Active Ezetimibe 10 MG Oral for 90 Ac tive Diclofenac Sodium 1 % External for 25 Active Tylenol 500 mg Activ e Melatonin 5 MG Orally Activ e Gabapentin 100 MG Orally Ac tive Diclofenac 1% gel as needed Ac tive oxyCODONE ER 5 mg PRN Ac tive Carvedilol 3.125 MG Orally Active Baby Aspirin Active Atorvastatin Calcium 40 MG 1 tablet Orally Once a day A ctive Tums Smoothies 750 MG 1 tablet Orally prn Active Multi Vitamin/Minerals - 1 Orally QD Active Vitamin D3 1000 UNIT 1 capsule Orally Once a day Active Omeprazole 20 MG 1 capsule Orally Once a day Active Nisoldipine ER 8.5 MG 1 tablet on an emp ty stomach Orally Once a day Active clonazePAM 1 MG 1 tablet Orally once a day Active Lisinopril 40 MG 1 tablet Orally Once a day Active PROBLEMS Problem Type ICD Code Onset Dates Problem Status W/U Status Risk SNOMED Code Notes Problem Rectal bleeding (K62.5) Active confirmed 75749480 VITAL SIGNS Temperature 96.9 degrees Fahrenheit 06/29/19 25 Blood pressure systolic 001 mm Hg 06/29/19 25 Blood pressure diastolic 01 mm Hg 025 Height 70.25 in 06/29/2024 Weight 212.8 lbs 06/29/2024 BMI 30.31 kg/m2 06/29/2024 Encounters Encounter Location Date Provider Diagnosis [facility] [address] [place] [address] 06/29/2024 Ravindra Dietz Jr Rectal bleeding K62.5 ; Anemia, unspecified type D64.9 ; Gastroesophageal reflux disease without esophagitis K21.9 and Aspirin long-term use Z79.82 ASSESSMENTS Encounter Date Diagnosis Assessment Notes Treatment Notes Treatment Clinical Notes 06/29/2024 Rectal bleeding (ICD -10 - K62.5) 06/29/2024 Anemia, unspecified type (ICD-10 - D64.9) 06/29/2024 Gastroesophageal ref lux disease without esophagitis (ICD-10 - K21.9) 06/29/2024 Aspirin long-term us e (ICD-10 - Z79.82) PLAN OF TREATMENT Future Test Test Name Order Date UPPER GI ENDOSCOPY 06/29/2024 COLONOSCOPY 06/29/2024 Next Appt Details Follow Up: prn, Reason: Provider Name:Ravindra tracey Jr, 08/04/2024 11:30:00 AM, [address] [place] [address] , [place], [place], [id number], Progress Notes * Examination Category Sub-Category Detail Notes General Examination GENERAL APPEARANCE: in no ac oscar distress HEAD: normocephalic EYES: sclera non-icteric NECK/THYROID: no lymphadenopathy HEART: S1, S2 normal, no mu rmurs CHEST: normal shape and exp ansion LUNGS: clear to auscultatio n bilaterally ABDOMEN: soft, nontender, non distended, bowel sounds present, no organomegaly SKIN: anicteric EXTREMITIES: no clubbing, cyanosi s, or edema PSYCH: cognitive function i ntact ORAL CAVITY: mucosa moist
--- OUTSIDE RECORDS SUMMARY | 2024-07-01 07:51 | XMS_ITS | Encounter Summary ---
Author Organization [facility] Address [address] [place] [address] Phone Care Team Providers Care Event Av Operator Name Role Phone Sim Reardon MD Primary Care Provider [phone]- [phone] Encounter Details Date Type Department Care Team (Late st Contact Info) Description 07/17/2021 Telephone [facility] [address] [place] [address] Mehul Marie MD Social History Tobacco [...] a refill for carvedilol. Please send to [facility] on [facility]. Thank you documented in this encounter Plan of Treatment Not on file documented as of this encounter Visit Diagnoses Not on filedocumented in this encounter Care Teams Event Av Operator Relationship Specialty Start Date End Date Sim Reardon MD [address] [place] [address] PCP - General 05/16/20 documented as of this encounter
--- OUTSIDE RECORDS SUMMARY | 2024-07-01 07:51 | XMS_ITS | Clinical Summary ---
Author Organization [facility] Facility Address [address] [place] [address] Care Team Providers Care Lighting Fixture Installer Name Role Phone Sim Reardon MD Primary Care Provider +1- [phone] Allergies No known active allergies Medications aspirin [...] AM EDT) Hemoglobin A1C 6.4(H) (4.0-5.6) % [facility] Comment: MONITORING: In known diabetic patients, hemoglobin A1c targets should be discussed with health care provider. DIAGNOSTIC USE: ??The [place] Diabetes Association (ADA) and the World Health [...] Supplement 1 Testing performed or reported by [facility], a Service of [facility], [address] [place] [address] Maday Martinez MD, Material Hauler [facility]# [id number] Blood (Blood, Venous) 01/24/2022 9:50 AM EDT 01/24/2022 9:51 AM EDT us Mehul Papamarkakis MD LAB BLOOD ORDERABLES Ida blaine Result [facility] from Last 3 Months or Most Recently Relevant to Health Maintenance Insurance [facility] Care Teams Lighting Fixture Installer Relationship Specialty Start Date End Date Sim Reardon MD [address] [place] [address] PCP - General 05/16/20
--- OUTSIDE RECORDS SUMMARY | 2024-07-01 07:51 | XMS_ITS | Patient Health Record ---
Author Organization [facility] Address [address] [place] [address] Care Team Providers Care Automotive Metalsmith Name Role Phone Alexys PRIETO, [place] Primary Care Provider Ravindra Vick Jr Unavailable [phone] ALLERGIES Allergen (clinical drug ingredient) Drug/Non Drug Allergy documented on EMR Reaction Allergy Type Onset Date Status Shellfish (FN) shell fish (uncoded) Unknown Allergy Active REASON FOR REFERRAL No Information MEDICATIONS Medication SIG (Take, Route, Frequency, Duration) Notes Start Date End Date Status Multi Vitamin/Minerals - 1 Orally QD Active Vitamin D3 1000 UNIT 1 capsule Orally Once a day Active Diclofenac Sodium 1 % External for 25 Active Omeprazole 20 MG 1 capsule Orally Once a day Active Tylenol 500 mg Activ e Nisoldipine ER 8.5 MG 1 tablet on an emp ty stomach Orally Once a day Active Melatonin 5 MG Orally Activ e Lisinopril 40 MG 1 tablet Orally Once a day Active Gabapentin 100 MG Orally Ac tive clonazePAM 1 MG 1 tablet Orally once a day Active Diclofenac 1% gel as needed Ac tive oxyCODONE ER 5 mg PRN Ac tive Carvedilol 3.125 MG Orally Active tiZANidine HCl 4 MG Oral for 30 Days Active Baby Aspirin Active amLODIPine Besylate 5 MG Oral for 56 Days Active Atorvastatin Calcium 40 MG 1 tablet Orally Once a day A ctive traMADol HCl 50 MG Oral for 7 Days Active Tums Smoothies 750 MG 1 tablet Orally prn Active Repatha SureClick 140 MG/ML INJECT 140 MG (1 PEN) SUBCUTANEOUSLY EVERY 2 WEEKS FOR 90 DAYS Subcutaneous for 28 Days Active Ezetimibe 10 MG Oral for 90 Ac tive IMMUNIZATIONS Vaccine Route Administration Date Status Comme nts Influenza Unknown 02/10/2018 Administered Influenza Unknown 02/17/2020 Administered Influenza Unknown 03/28/2021 Administered Influenza Unknown 02/25/2024 Administered SOCIAL HISTORY Sex Assigned At : Social History Observation Description Sex Assigned At Unknown PROBLEMS Problem Type ICD Code Onset Dates Problem Status W/U Status Risk SNOMED Code Notes Problem Colon cancer screening (Z12.11) Active confirmed 486055713 Problem Rectal bleeding (K62.5) Active confirmed 76855124 Problem Other dysphagia (R13.19) Active confirmed 32921867 Problem Gastroesophageal reflux disease without esophagitis (K21.9) Active confirmed 728244163 Problem Anemia, unspecified type (D64.9) Active confirmed 694987751 VITAL SIGNS Temperature 96.9 degrees Fahrenheit 06/29/2024 Blood pressure diastolic 01 mm Hg 06/29/2024 Height 70.25 in 06/29/2024 Blood pressure systolic 001 mm Hg 06/29/2024 Weight 212.8 lbs 06/29/2024 BMI 30.31 kg/m2 06/29/2024 Encounters Encounter Location Date Provider Diagnosis [facility] [address] [place] [address] 06/29/2024 Ravindra Dietz Jr Rectal bleeding K62.5 [...] 02/15/2016 COLONOSCOPY 03/19/2018 UPPER GI ENDOSCOPY 07/11/2020 UPPER GI ENDOSCOPY 06/29/2024 COLONOSCOPY 06/29/2024 Next Appt Details Provider Name:Ravindra tracey Jr, 08/04/2024 11:30:00 AM, [address] [place] [address] , [place], [place], [phone], Insurance Providers Payer Name Payer Address Payer Phone Subscriber Number Group Number Insured Name Patient Relationship to Insured Coverage Start Date Coverage End Date [facility] [address] [facility] [place] [phone] [id number] ZENAIDA RAMIRES Self - patient is the insured MEDICAL (GENERAL) HISTORY Medical History History ICD Code Colonoscopy, 07/23/18, normal examination , ten-year followup Upper endoscopy, 07/24 no BE or HP Gastroesophageal reflux disease Hypertension Elevated cholesterol Irritable bowel syndrome Diabetes mellitus, type 2 anxiety/depression Nerve damage - left leg obstructive sleep apnea/CPAP Surgical History Surgery Date(Month/Year) right knee replacement left hip replacement 2019
[2024-07-31 12:16] VITALS: BMI 30.3
--- NOTE | 2024-08-03 09:00 | HO.ANESPROP2 ---
Documented by User: Shirley Mayorga NP 08/03/24 09:02 HPI - Anesthesia Eval Consult details Narrative: 59yo M for Upper Endoscopy and Colonoscopy Follows [facility] [place]. 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) Elevated PSA (Acute) Left-sided low back pain with left-sided sciatica (Acute) Aspiration into airway (Acute) Annual physical exam (Acute) Primary osteoarthritis of right knee (Acute) CAD (coronary artery disease) (Acute) Fatigue (Acute) Myalgia (Acute) Chest pain (Acute) Overweight (BMI 25.0-29.9) (Acute) Anxiety (Acute) Primary insomnia (Acute) Obstructive sleep apnea (Acute) Anemia (Acute) Left thigh pain (Acute) Primary osteoarthritis of left hip (Acute) Vitamin D deficiency (Acute) Proteinuria (Acute) Palpitations (Acute) Impaired fasting glucose (Acute) Pure hypercholesterolemia (Acute) Benign essential hypertension (Acute) Blepharitis of eyelid of right eye (Acute) Past Medical History Medical History Type 2 diabetes mellitus with albuminuria CAD (coronary artery disease) Fatigue Myalgia Overweight (BMI 25.0-29.9) Anxiety Primary insomnia Obstructive sleep apnea Anemia Left thigh pain Primary osteoarthritis of left hip Vitamin D deficiency Proteinuria Palpitations Impaired fasting glucose Pure hypercholesterolemia Benign essential hypertension Family History Family History Father No problems noted. 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 Cognitive needs: No Hearing needs: No Vision needs: Yes (glasses) Meds Allergies Allergy/AdvReac Type Severity Reaction Status Date / Time chlorthalidone Allergy Unknown excessive Verified 08/04/24 10:24 urination glipizide Allergy Unknown Unknown Verified 08/04/24 10:24 hydrochlorothiazide Allergy Unknown dizziness, Verified 08/04/24 10:24 excessive urination ibuprofen [From MOTRIN] Allergy Unknown irregular Verified 08/04/24 10:24 heartbeat metformin Allergy Unknown chokling Verified 08/04/24 10:24 sensation metoprolol Allergy Unknown slow heart Verified 08/04/24 10:24 rate nifedipine Allergy Unknown tachy/kate Verified 08/04/24 10:24 buspirone [From BUSPAR] AdvReac Unknown STOMACH Verified 08/04/24 10:24 UPSET canagliflozin [Invokana] AdvReac Unknown SYNCOPE Verified 08/04/24 10:24 clonidine [From CATAPRES] AdvReac Unknown STOMACH Verified 08/04/24 10:24 UPSET SHELLFISH Allergy Severe ANAPHYLAXIS Uncoded 08/04/24 10:24 Sucralfate Allergy Unknown chest pain Uncoded 08/04/24 10:24 Home Medications ?Medication ?Instructions ?Recorded ?Confirmed ?Last Taken ?Type aspirin 81 mg tablet,delayed 81 mg PO DAILY 05/23/20 08/04/24 07/17/20 History release melatonin 10 mg capsule 10 mg PO BEDTIME PRN Insomnia 12/25/22 08/04/24 Unknown History sgestaic-gj-blxux 300 mcg-K 60 1 tab PO DAILY 12/25/22 08/04/24 Unknown History mcg-lycop 600 mcg-lutein 300 mcg tablet (Centrum Silver Men) cholecalciferol (vitamin D3) 125 125 mcg PO DAILY 11/12/23 08/04/24 Unknown History mcg (5,000 unit) capsule Exam Height,Weight and Vital Signs: Height 5 ft 10.25 in Weight 96.388 kg Narrative Narrative: EKG 2023 EKG Details: EKG shows normal sinus rhythm with normal EKG Assessment and Plan Assessment Anesthesia Assessment: Chart Reviewed Final Anesthetic Review Family History of Problems with Anesthesia: No History of Problems with Anesthesia: No Documented by User: Bhavna Swift MD 08/04/24 10:36 [facility] Past Medical History Medical History Type 2 diabetes mellitus with albuminuria CAD (coronary artery disease) Fatigue Myalgia Overweight (BMI 25.0-29.9) Anxiety Primary insomnia Obstructive sleep apnea Anemia Left thigh pain Primary osteoarthritis of left hip Vitamin D deficiency Proteinuria Palpitations Impaired fasting glucose Pure hypercholesterolemia Benign essential hypertension Family History Family History Father No problems noted. 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 Cognitive needs: No Hearing needs: No Vision needs: Yes (glasses) Meds Allergies Allergy/AdvReac Type Severity Reaction Status Date / Time chlorthalidone Allergy Unknown excessive Verified 08/04/24 10:24 urination glipizide Allergy Unknown Unknown Verified 08/04/24 10:24 hydrochlorothiazide Allergy Unknown dizziness, Verified 08/04/24 10:24 excessive urination ibuprofen [From MOTRIN] Allergy Unknown irregular Verified 08/04/24 10:24 heartbeat metformin Allergy Unknown chokling Verified 08/04/24 10:24 sensation metoprolol Allergy Unknown slow heart Verified 08/04/24 10:24 rate nifedipine Allergy Unknown tachy/kate Verified 08/04/24 10:24 buspirone [From BUSPAR] AdvReac Unknown STOMACH Verified 08/04/24 10:24 UPSET canagliflozin [Invokana] AdvReac Unknown SYNCOPE Verified 08/04/24 10:24 clonidine [From CATAPRES] AdvReac Unknown STOMACH Verified 08/04/24 10:24 UPSET SHELLFISH Allergy Severe ANAPHYLAXIS Uncoded 08/04/24 10:24 Sucralfate Allergy Unknown chest pain Uncoded 08/04/24 10:24 Home Medications ?Medication ?Instructions ?Recorded ?Confirmed ?Last Taken ?Type aspirin 81 mg tablet,delayed 81 mg PO DAILY 05/23/20 08/04/24 07/17/20 History release melatonin 10 mg capsule 10 mg PO BEDTIME PRN Insomnia 12/25/22 08/04/24 Unknown History apvhkazw-mf-ebfde 300 mcg-K 60 1 tab PO DAILY 12/25/22 08/04/24 Unknown History mcg-lycop 600 mcg-lutein 300 mcg tablet (Centrum Silver Men) cholecalciferol (vitamin D3) 125 125 mcg PO DAILY 11/12/23 08/04/24 Unknown History mcg (5,000 unit) capsule Exam Airway Mallampati Class: II TM Dist: >3cm Neck ROM: Full Loose/Missing/Broken Teeth: No Heart: RRR Lungs: CTA Assessment and Plan Assessment Anesthesia Assessment: Anesthesia Plan Discussed Final Anesthetic Review NPO: Yes ASA Class: III Final Preanesthetic Review: Meds/Allgs Chart Reviewed, Consent Obtained/Reviewed and Anes Risks/Benef Reviewed Patient Risk: Intermediate Procedure Risk: Intermediate Anesthetic Plan Anesthetic Plan: MAC: Disposition: Standard PACU
[2024-08-04 10:23] VITALS: BMI 29.9
--- NOTE | 2024-08-04 10:28 | MHC.SHP ---
Pre-Procedural Eval Section A - 24 Hr Update-Section A only Date of Service: 08/04/24 Section B - Complete if H&P > 30 days Chief Complaint: Gastro-esophageal reflux disease without esophagit Details of Present Illness: see H&P no changes Relevant Family History (Specify if Yes): No Relevant Social History: None Present Medications: see Short Stay Collaborative assessment Medical History: No relevant PMH History of Previous Operations: No relevant previous surgery Allergies: Allergies Allergy/AdvReac Type Severity Reaction Status Date / Time chlorthalidone Allergy Unknown excessive Verified 08/04/24 10:24 urination glipizide Allergy Unknown Unknown Verified 08/04/24 10:24 hydrochlorothiazide Allergy Unknown dizziness, Verified 08/04/24 10:24 excessive urination ibuprofen [From MOTRIN] Allergy Unknown irregular Verified 08/04/24 10:24 heartbeat metformin Allergy Unknown chokling Verified 08/04/24 10:24 sensation metoprolol Allergy Unknown slow heart Verified 08/04/24 10:24 rate nifedipine Allergy Unknown tachy/kate Verified 08/04/24 10:24 buspirone [From BUSPAR] AdvReac Unknown STOMACH Verified 08/04/24 10:24 UPSET canagliflozin [Invokana] AdvReac Unknown SYNCOPE Verified 08/04/24 10:24 clonidine [From CATAPRES] AdvReac Unknown STOMACH Verified 08/04/24 10:24 UPSET SHELLFISH Allergy Severe ANAPHYLAXIS Uncoded 08/04/24 10:24 Sucralfate Allergy Unknown chest pain Uncoded 08/04/24 10:24 Review of Systems Sugical H&P ROS: Negative: Constitution, Cardiovascular, Respiratory, Neurological, Psychiatric, Hem-Onc, Allergic/Immunologic, Gastrointestinal, Genitourinary, Musculoskeletal, Integumentary, Endocrine and Eyes/Ears/Nose/Throat Exam Surgical H&P Exam: Normal: HEENT, Normal: Heart, Normal: Lungs, Normal: Extremities, Normal: Abdomen, Normal: Skin and Normal: Neurological Plan Diagnosis/Plan: Unchanged I have reviewed the history and physical and performed a pertinent physical examination on my patient. No changes have occurred unless specified. Time Spent With Patient Time: Total time managing care of this patient today ____ minutes.
[2024-08-04 10:30] VITALS: BP 144/81; PULSE 75; RESP 16; TEMP 36.9; O2SAT 95
[2024-08-04] MEDS: Lactated Ringers 1,000 ML 100 ML IVCONT (10:41)
[2024-08-04 11:21] VITALS: BP 99/51; PULSE 80; RESP 12; TEMP 36.1; O2SAT 97
[2024-08-04 11:34] VITALS: BP 111/70; PULSE 73; RESP 12; TEMP 36.1; O2SAT 97
--- NOTE | 2024-08-04 12:01 | OP_ITS ---
DATE OF SERVICE: 08/04/2024 SURGEON: Ravindra Dietz MD INDICATIONS: GI bleeding. PREOPERATIVE DIAGNOSIS: POSTOPERATIVE DIAGNOSIS: PROCEDURE PERFORMED: Upper endoscopy with biopsy, colonoscopy to the terminal ilium. ESTIMATED BLOOD LOSS: COMPLICATIONS: ANESTHESIA: Monitored anesthesia care. ASSISTANTS: SPECIMENS: DESCRIPTION OF PROCEDURE: A history and physical was performed. The risks and benefits of the procedure were explained to the patient. Informed consent was obtained. The patient was placed in the left lateral decubitus position. The Olympus video gastroscope was introduced into the esophagus, stomach, and duodenum. Examination was performed. The scope was removed. He was repositioned for colonoscopy. A digital rectal exam was performed and was found to be normal. The Olympus pediatric video colonoscope was introduced into the rectum and advanced to the cecum. The cecum was identified by transillumination, palpation, and identification of ileocecal valve. Examination was performed. The scope was removed. He tolerated both procedures well, returned to recovery area in stable condition. FINDINGS: Upper endoscopy: 1. Esophagus: The esophagus was normal. The EG junction was slightly irregular. This was biopsied. 2. Stomach: The stomach showed nodular area in the antrum measuring approximately 15 x 20 mm. This appeared to be consistent with a focal area of gastritis. Biopsies were obtained from the mucosa. 3. Duodenum: The bulb and 2nd portion were normal. Colonoscopy: The terminal ileum was examined and appeared normal. The visualized colonic mucosa was within normal limits without evidence of masses or ulcers. No polyps were identified. The quality of the prep was good. Retroflexed examination showed some moderate-sized internal hemorrhoids. IMPRESSION: 1. Gastritis. 2. Hemorrhoids. RECOMMENDATION: Follow up the biopsy results. 10 year screening colonooscopy. MD SKYE Virk/JENNYL / [id number] MTDD
== END 2024-08-04 12:10 | disposition home or self-care (01) ==
PROVIDERS: PCP Internal Medicine; Visit Provider Internal Medicine Gastroenterology
PROC: (CPT 45378; principal; 2024-08-04 11:30)
DX: K62.5 Hemorrhage of anus and rectum (principal); K64.8 Other hemorrhoids; K58.9 Irritable bowel syndrome, unspecified; K21.9 Gastro-esophageal reflux disease without esophagitis; K29.50 Unspecified chronic gastritis without bleeding; D64.9 Anemia, unspecified; I10 Essential (primary) hypertension; E78.00 Pure hypercholesterolemia, unspecified; E11.9 Type 2 diabetes mellitus without complications; F41.8 Other specified anxiety disorders; G47.33 Obstructive sleep apnea (adult) (pediatric); Z79.82 Long term (current) use of aspirin; Z99.89 Dependence on other enabling machines and devices; Z79.620 Long term (current) use of immunosuppressive biologic; Z79.899 Other long term (current) drug therapy; Z88.8 Allergy status to other drugs, medicaments and biological substances
CPT/HCPCS: 45378; 43239; 88305; 88313; 88342; J2003; J2704

== ENCOUNTER → 2024-08-18 08:09 | Outpatient (REF) | payer OTHER, SELFPAY ==
--- NOTE | 2024-08-18 08:12 | CA_ITS ---
Transthoracic Echocardiogram Patient (Last, First, Middle): Girish Salvador R Gender: Male Date of : 1965 Age: 59 Procedure Date: 08/18/2024 Procedure Type: Transthoracic Echocardiogram Location: OP Height: 175.26 cm Weight: 96.16 kg BSA: 2.12 m2 Heart Rate: bpm BP: 124 / 80 mmHg Explosives Operator: LOLA Referring MD: Bhupinder Puente MD Supervisor Painting Shipyard: Bhupinder Puente MD Symptoms: I10 - Essential (primary) hypertension Study Quality: Good ECG Rhythm: Sinus Conclusions: - 1. Normal LV ejection fraction 55-60% with mild LVH with grade 1 diastolic dysfunction 2. Mildly dilated left atrium 3. Cardiac valvular Dopplers within normal limits 4. Mildly dilated ascending aorta 5. Normal RV systolic pressure 6. No gross pericardial effusion Findings Left Ventricle Normal left ventricular size and systolic function. There is mildly increased left ventricular wall thickness. The visually estimated ejection fraction is between 55-60%. Spectral Doppler is indicative of an impaired relaxation filling pattern. E/E prime ratio is <8, consistent with normal filling pressures. Evidence suggests grade I (mild) diastolic dysfunction. Right Ventricle Normal right ventricular cavity size and systolic function. Atria The left atrium is mildly dilated. There is no evidence of interatrial shunt. The right atrium is normal in size. Aortic Valve There is mild calcification of the aortic valve. There is no aortic valve stenosis. There is no aortic valve regurgitation. Mitral Valve There is mild anterior and posterior mitral leaflet thickening. There is trace mitral valve regurgitation. There is no mitral valve stenosis. Pulmonic Valve The pulmonic valve was not well visualized. Tricuspid Valve Likely normal tricuspid valve structure and function. There is trace tricuspid valve regurgitation. The right ventricular systolic pressure is normal. The right ventricular systolic pressure is 26 mmHg. Normal right atrial pressure. There is no evidence of pulmonary hypertension. Great Vessels The pulmonary artery was not well visualized. There is mild dilatation of the ascending aorta measuring 3.80 cm. Venous The inferior vena cava is normal in size and collapses greater than 50% with inspiration. Pericardium/Pleural There is no evidence of pericardial effusion. Prior Study Comparison Changes noted compared to prior study dated: 12/15/2019. Ascending aorta is mildly enlarged Measurements 2D Linear Measurements IVSd: 1.23 0.6-0.9/0.6-1.0 cm LVIDd: 5.23 3.9-5.3/4.2-5.9 cm LVIDd Index: 2.47 2.4-3.2/2.2-3.1 cm/m2 LVIDs: 3.26 2.0-3.6 cm LVPWd: 1.21 0.7-1.1 cm Ao Root: 3.10 2.1-3.5 cm LA Diam: 4.10 2.7-3.8/3.0-4.0 cm LAIDs Index: 1.93 1.5-2.3 cm/m2 LV Mass: 320.49 67-162/88-224 g LV Mass Index: 151.17 43-95/49-115 g/m2 LVOT Diam: 2.00 3.0+(-)1.3 cm Mitral Valve MV Pk E: 0.64 MV PK A: 0.87 MV Decel Time: 241.00 E/A: 0.70 E'Lateral: 9.90 E'Medial: 7.51 E/E' Med: 8.50 E/E' Lat: 6.40 PHT: 71.00 MVA PHT: 3.10 Decel Kay: 2.64 Aortic Valve AoV Pk Jeffry: 1.85 AoV Mn Jeffry: 1.19 AoV VTI: 0.40 AoV Pk Grad: 14.00 Aov Mn Grad: 7.00 EDITH Cont.VTI: 1.74 LVOT LVOT Pk Jeffry: 0.95 LVOT Mn Jeffry: 0.63 LVOT VTI: 0.22 LVOT Pk Grad: 4.00 LVOT Mn Grad: 2.00 LVOT Diam: 2.00 LVOT Area: 3.14 Diastolic Function MV Pk E: 0.64 MV Pk A: 0.87 E/A: 0.70 E'Medial: 7.51 E/E' Med: 8.50 E' Laterial: 9.90 E/E' Lat: 6.40 Right Ventricle TAPSE (mm): 27.00 TVS' Jeffry: 14.00 Tricuspid Valve TR Pk Jeffry: 2.41 TR Pk Grad: 23.00 RA Press: 3.00 RVSP: 26.00 Great Vessels Aorta Ao Root-2D: 3.10 2.0-3.7 cm Ao Asc: 3.80 2.1-3.4 cm Pulmonary Valve PV Pk Jeffry: 1.06 Peak PV Grad: 4.00 Updated in Other Vendor System with Status of Final Bhupinder Puente MD electronically signed on 08/18/2024 1:07:29 PM with status of Final
--- OUTSIDE RECORDS SUMMARY | 2024-08-18 08:15 | XMS_ITS ---
Author Organization [facility] Address [address] [place] [address] [place] [address] Care Team Providers Care Crimper Operator Name Role Phone Alexys PRIETO, Dupree Primary Care Provider Nury Dietz Jr, Ravindra Avelar [phone] REASON FOR VISIT path Medications Medication SIG (Take, Route, Fr equency, Duration) Notes Start Date End Date Status Omeprazole 40 MG 1 capsule 1/2 to 1 h our before morning meal Orally Once a day for 30 days 08/13/2024 Active Encounters Encounter Location Date Provider Diagnosis [facility] [address] [place] [address] 08/13/2024 Ravindra Dietz Jr Plan Of Treatment Medication Medication Name Sig Start Date Stop Date Notes Omeprazole 40 MG 1 capsule 1/2 to 1 h our before morning meal Orally Once a day for 30 days 08/13/2024 Next Appt Details Provider Name:Ravindra tracey Jr, 02/17/2025 09:20:00 AM, [address] [place] [address], [address], [place], [address], Progress Notes * ZENAIDA RAMIRES RDOB:1965 (59 yo M)Acc No.[id number]:08/13/2024 Patient:?ZENAIDA RAMIRES :1965???Age:59 Y???Sex:Male Address:[address] [place] [address] * Refills? Start Omeprazole Capsule Delayed Release, 40 MG, Orally, 30, 1 capsule 1/2 to 1 hour before morning meal, Once a day, 30 days, Refills=5 * true * Date:? Generated for Kimberly barger/Fransisca/Anthony on:?08/18/2024 08:14 AM EDT
--- OUTSIDE RECORDS SUMMARY | 2024-08-18 08:15 | XMS_ITS | Patient Health Record ---
Author Organization [facility] Address [address] [place] [address] Care Team Providers Care Matcher Offbearer Name Role Phone Alexys PRIETO, Badger Primary Care Provider Ravindra Vick Jr Unavailable Allergies Allergen (clinical drug ingredient) Drug/Non Drug Allergy documented on EMR Reaction Allergy Type Onset Date Status Shellfish (FN) shell fish (uncoded) Unknown Allergy Active Results Component Value Reference Range Notes Pathology Reviewed date:08/13/2024 09:02:19 AM Interpretation: Performing Lab:[facility], [address] [place] [phone] Notes/Report: Name: Girish Salvador Age/Sex: 59/M : 1965 Unit#: [id number] Attend Dr: Ravindra Dietz MD Re08/04/24 Status : [facility] Location: [facility] Disch: SPEC : [id number] RECD : 08/04/24 STATUS: SADE OBRIEN NUM: [id number] FEROZ: 08/04/24-[address] [facility] DR: Ravindra Dietz MD ENTERED: 08/04/24 42 SP TYPE: Surgical OTHR DR: Sim Reardon MD ORDERED: HE Stain/6, Gross Micro L4/2, IHC, Special st. 2/2, H. pylori, AB/PAS/2 Diagnosis A. Stomach, antrum, biopsy: Antral-type mucosa with moderate chronic active/erosive inflammation and reg enerative changes; no Helicobacter organisms identified. B. EG junction, biopsy: - Cardiofundic-type mucosa with moderate chronic active inflammation; no intestinal metaplasia seen. - Active esophagitis (maximum eosinophil count 4 per high powered field). Clinical History Pre-Op Dx: GI bleed Post-Op Dx: Gastriti s, normal colonoscopy Microscopic Description A, B. Microscopic se ctions examined. No metaplastic changes are seen, supported by AB/PAS stains (A and B); no Helicobacter organisms are seen, supported by H. pylori immunostain (A). Material Received A. Antrum bx's B. EG junction Gross Description Received in two parts. Part A: Received in formalin labeled ?antral bx's? are 4 melara-pink irregular tissue fragments ranging fr om 0.15-0.25 cm, submitted in toto in a cassette labeled A. Part B: Received in formalin labeled ?EG junction? are 4 melara-pink irregular tissue fragments ranging fr om 0.2-0.35 cm, submitted in toto in a cassette labeled B. CEDS Special studies orde red and performed: Immunostain for H. pylori on A; AB/PAS stains on A and B CONTINUED ON NEXT PAGE Name: Girish Salvador Age/Sex: 59/M : 1965 Unit#: [id number] Attend Dr: Ravindra Dietz MD Re08/04/24 Status : [facility] Location: [facility] Disch: SPEC : [id number] RECD : 08/04/240 STATUS: [facility] NUM: [id number] FEROZ: 08/04/24-[address]: Ravindra Dietz MD ENTERED: 08/04/24- 42 SP TYPE: Surgical OTHR DR: Sim Reardon MD ORDERED: HE Stain/6, Gross Micro L4/2, IHC, Special st. 2/2, H. pylori, AB/PAS/2 Copies To: Sim Reardon MD [facility] Primary Care,[address] [place] [address] Ravindra Dietz MD [facility] [address] [place] [address] Signed (si gnature on file) Yohannes Thornton MD 08/06/24 1556 END OF REPORT Reason For Referral No Information Medications Medication SIG (Take, Route, Frequency, Duration) Notes [...] Active Melatonin 5 MG Orally Activ e Omeprazole 40 MG 1 capsule 1/2 to 1 h our before morning meal Orally Once a day for 30 days 08/13/2024 Active Lisinopril 40 MG 1 tablet Orally [...] 10 MG Oral for 90 Ac tive Immunizations Vaccine Route Administration Date Status Comme nts Influenza Unknown 02/10/2018 Administered Influenza Unknown 02/17/2020 Administered Influenza Unknown 03/28/2021 Administered Influenza Unknown 02/25/2024 Administered Problems Problem Type SNOMED Code ICD Code Onset Dates Problem Status W/U Status Risk Notes Problem 404707292 Colon cancer screening (Z12.11) Active confirmed Problem 60225428 Rectal bleeding (K62.5) Active confirmed Problem 23006775 Other dysphagia (R13.19) Active confirmed Problem 212354823 Gastroesophageal reflux disease without esophagitis (K21.9) Active confirmed Problem 471946219 Anemia, unspecif ied type (D64.9) Active confirmed Vital Signs Temperature 96.9 degrees Fahrenheit 06/29/2024 Blood pressure diastolic 01 mm Hg 06/29/2024 Height 70.25 in 06/29/2024 Blood pressure systolic 001 mm Hg 06/29/2024 Weight 212.8 lbs 06/29/2024 BMI 30.31 kg/m2 06/29/2024 Encounters Encounter Location Date Provider Diagnosis [facility] Outpatient [address] [place] [phone] 08/04/2024 Ravindra Dietz Jr GI bleed K92.2 and Gastritis K29.70 [facility] [address] [place] [phone] 06/29/2024 Ravindra Dietz Jr Rectal bleeding K62.5 ; Anemia, unspecified type D64.9 ; Gastroesophageal reflux disease without esophagitis K21.9 and Aspirin long-term use Z79.82 [facility] [address] [address] 08/13/2024 Ravindra Dietz Jr Assessments Encounter Date Diagnosis (ICD Code) Assessment Notes Treatment Notes Treatment Clinical Notes Section Notes 08/04/2024 Gastritis (ICD-10 - K29.70) 08/04/2024 GI bleed (ICD-10 - K92.2) 06/29/2024 Rectal bleeding (ICD-10 - K62.5) W discussed his symptoms today. We discussed care of the hemorrhoids with OTC hydrocortisone cream. Further evaluation with EGD and Colonoscopy is scheduled. Stop aspirin 1 week before. He understands risks and benefits and agrees to proceed. 06/29/2024 Anemia, unspecified type (ICD-10 - D64.9) W discussed his symptoms today. We discussed care of the hemorrhoids with OTC hydrocortisone cream. Further evaluation with EGD and Colonoscopy is scheduled. Stop aspirin 1 week before. He understands risks and benefits and agrees to proceed. 06/29/2024 Gastroesophageal reflux disease without esophagitis (ICD-10 - K21.9) W discussed his symptoms today. We discussed care of the hemorrhoids with OTC hydrocortisone cream. Further evaluation with EGD and Colonoscopy is scheduled. Stop aspirin 1 week before. He understands risks and benefits and agrees to proceed. 06/29/2024 Aspirin long-term use (ICD-10 - Z79.82) W discussed his symptoms today. We discussed care of the hemorrhoids with OTC hydrocortisone cream. Further evaluation with EGD and Colonoscopy is scheduled. Stop aspirin 1 week before. He understands risks and benefits and agrees to proceed. Plan Of Treatment Future Test Test Name Order Date UPPER GI ENDOSCOPY 02/25/2013 UPPER GI ENDOSCOPY 02/15/2016 COLONOSCOPY 03/19/2018 UPPER GI ENDOSCOPY 07/11/2020 UPPER GI ENDOSCOPY 06/29/2024 COLONOSCOPY 06/29/2024 Next Appt Details Provider Name:Ravindra Alex tracey , 02/17/2025 09:20:00 AM, [address] [facility], [address], [place], [address], Insurance Providers Payer Name Payer Address Payer Phone Subscriber Number Group Number Insured Name Patient Relationship to Insured Coverage Start Date Coverage End Date [facility] [address] [place] [phone] [id number] GIRISH SALVADOR Self - patient is the insured Medical (General) History Medical History History ICD Code Colonoscopy, 07/23/18, normal examination , ten-year followup Upper endoscopy, 07/24 no BE or HP Gastroesophageal reflux disease Hypertension Elevated cholesterol Irritable bowel syndrome Diabetes mellitus, type 2 anxiety/depression Nerve damage - left leg obstructive sleep apnea/CPAP Surgical History Surgery Date(Month/Year) right knee replacement left hip replacement 2019
--- OUTSIDE RECORDS SUMMARY | 2024-08-18 08:15 | XMS_ITS | Clinical Summary ---
Author Organization [facility] Address [address] [place] [address] Care Team Providers Care Hearing Aid Specialist Name Role Phone Sim Reardon MD Primary Care Provider +1- [phone] Allergies No known active allergies Medications aspirin [...] Chronic kidney disease stage 2 12/19/2020 Immunizations Immunization Administration Dates Next Due Influenza Split High [...] Due Date Last Done Comments Pneumococcal Vaccine: 50+ Ye ars (1 of 2 - PCV) 01/25/1983 Colorectal Cancer Screening: Annual FOBT 01/25/2013 Colorectal Cancer Screening: Colonoscopy 01/25/2013 Colorectal Cancer Screening: Sigmoidoscopy 01/25/2013 Diabetes: Ophthalmology Exam 06/06/2020 Diabetes: Pedal Pulse Checked 06/06/2020 Diabetes: Sensory Foot Exam 06/06/2020 Diabetes: Visual Foot Exam 06/06/2020 Diabetes: Hemoglobin A1C 04/25/2022 01/24/2022 Influenza Vaccine (Season Ended) 2025 02/18/20 15 Hepatitis B Vaccine Aged Out No longe [...] AM EDT) Hemoglobin A1C 6.4(H) (4.0-5.6) % [facility] Comment: MONITORING: In known diabetic patients, hemoglobin A1c targets should be discussed with health care provider. DIAGNOSTIC USE: ??The [place] Diabetes Association (ADA) and the World Health [...] Supplement 1 Testing performed or reported by [facility], a Service of [facility], [address] [place] [address] Maday Martinez MD, Palliative Care Nurse Practitioner [facility]# [id number] Blood (Blood, Venous) 01/24/2022 9:50 AM EDT 01/24/2022 9:51 AM EDT Mehul Marie MD LAB BLOOD ORDERABLES Ida valladares Result [facility] from Last 3 Months or Most Recently Relevant to Health Maintenance Insurance [facility] Care Teams Hearing Aid Specialist Relationship Specialty Start Date End Date Sim Reardon MD [address] [place] [address] PCP - General 05/16/20
--- OUTSIDE RECORDS SUMMARY | 2024-08-18 08:15 | XMS_ITS | Encounter Summary ---
Author Organization [facility] Address [address] [place] [address] Phone Care Team Providers Care Chief Lock Operator Name Role Phone Sim Reardon MD Primary Care Provider +1- [phone] Encounter Details Date Type Department Care Team (Late st Contact Info) Description 07/17/2021 Telephone [facility] [address] [place] [address] Mehul Marie MD Social History Tobacco [...] a refill for carvedilol. Please send to [facility] on [facility]. Thank you documented in this encounter Plan of Treatment Not on file documented as of this encounter Visit Diagnoses Not on filedocumented in this encounter Care Teams Chief Lock Operator Relationship Specialty Start Date End Date Sim Reardon MD [address] [place] [address] PCP - General 05/16/20 documented as of this encounter
--- OUTSIDE RECORDS SUMMARY | 2024-08-18 08:15 | XMS_ITS ---
Author Organization [facility] Address [address] [place] [address] Care Team Providers Care Calender Tender Name Role Phone Alexys PRIETO, Sim Primary Care Provider Ravindra Vick Jr Unavailable Allergies Allergen (clinical drug ingredient) Drug/Non Drug Allergy documented on EMR Reaction Allergy Type Onset Date Status Shellfish (FN) shell fish (uncoded) Unknown Allergy Active REASON FOR VISIT Patient presents today for rectal bleeding Medications Medication SIG (Take, Route, Frequency, Duration) [...] 1 tablet Orally Once a day Active Problems Problem Type SNOMED Code ICD Code Onset Dates Problem Status W/U Status Risk Notes Problem 87201291 Rectal bleeding (K62.5) Active confirmed Vital Signs Temperature 96.9 degrees Fahrenheit 06/29/19 25 Blood pressure systolic 001 mm Hg 06/29/19 25 Blood pressure diastolic 01 mm Hg 025 Height 70.25 in 06/29/2024 Weight 212.8 lbs 06/29/2024 BMI 30.31 kg/m2 06/29/2024 Encounters Encounter Location Date Provider Diagnosis [facility] [address] [place] [address] 06/29/2024 Ravindra Dietz Jr Rectal bleeding K62.5 ; Anemia, unspecified type D64.9 ; Gastroesophageal reflux disease without esophagitis K21.9 and Aspirin long-term use Z79.82 Assessments Encounter Date Diagnosis (ICD Code) Assessment Notes Treatment Notes Treatment Clinical Notes Section Notes 06/29/2024 Rectal bleeding (ICD-10 - K62.5) W [...] Follow Up: prn, Reason: Provider Name:Ravindra tracey , 02/17/2025 09:20:00 AM, [address], [address], [place], [address], Progress Notes * GIRISH RAMIRES RDOB:1965 (59 yo M)Acc No.[id number]:06/29/2024 Progress Notes Patient:?GIRISH RAMIRES Provider:?Ravindra Dietz MD :1965???Age:59 Y???Sex:Male Burton e:06/29/2024 Address:[address] [place] [address], [phone] Pcp:Sim Reardon MD Subjective: * Chief Complaints: * ???Patient presents today fo r rectal bleeding * HPI: ???New symptom(s):? Girish is seen with rectal bleeding over a 10 day period in June. ?No abdominal or rectal pain. ?He does have a history of hemorrhoids. ?ER visit from this month is reviewed in detail. ?Personal cell phone images are reviewed, showing blood in ?the toilet and external hemorrhoid. * ROS:?General/Constitutional:?Change in appetite?denies.?Fatigue?denies.?ENT:?Patient denies?difficulty swallowing.?Respiratory:?Patient denies?shortness of breath.?Cardiovascular:?Patient denies?chest pain.?Gastrointestinal:?Comments?See HPI for details.?Genitourinary:?Difficulty urinating?denies.?Incontinence?denies.?Musculoskeletal:?Patient denies?muscle aches.?Skin:?Patient denies?pruritis.?Neurologic:?Patient denies?low back pain.?Psychiatric:?Patient denies?mental or physical abuse.? * Medical History:? * Surgical History:?left hip r eplacement 2020right knee replacement * Hospitalization/Major Diagno stic Procedure:?No Hospitalization History. * Family History:?Father: dece ased.?Mother: alive, diagnosed with HTN (hypertension).? Patient denies family history of colon cancer, colon polyps or liver ds. * Social History:?Tobacco Use:?Tobacco Use/Smoking?Are you a: nonsmoker.?Drugs/Alcohol:?Alcohol Screen?Points: 0, Interpretation: Negative.?Miscellaneous:?Marital status: Lives with his fiance. 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 * Medications:?TakingLisinopri l 40 MG Tablet 1 tablet Orally Once a dayclonazePAM 1 MG Tablet 1 tablet Orally once a dayOmeprazole 20 MG Capsule Delayed Release 1 capsule Orally Once a dayNisoldipine ER 8.5 MG Tablet Extended Release 24 Hour 1 tablet on an empty stomach Orally Once a dayMulti Vitamin/Minerals - Tablet 1 Orally QDVitamin D3 1000 UNIT Capsule 1 capsule Orally Once a dayTums Smoothies 750 MG Tablet Chewable 1 tablet Orally prnAtorvastatin Calcium 40 MG Tablet 1 tablet Orally Once a dayBaby Aspirin Carvedilol 3.125 MG Tablet Orally oxyCODONE ER 5 mg , Notes: PRNDiclofenac 1% gel as neededGabapentin 100 MG Capsule Orally Melatonin 5 MG Tablet Orally Tylenol 500 mg Diclofenac Sodium 1 % Gel External Ezetimibe 10 MG Tablet Oral Repatha SureClick 140 MG/ML Solution Auto-injector INJECT 140 MG (1 PEN) SUBCUTANEOUSLY EVERY 2 WEEKS FOR 90 DAYS Subcutaneous traMADol HCl 50 MG Tablet Oral amLODIPine Besylate 5 MG Tablet Oral tiZANidine HCl 4 MG Tablet Oral Taking Lisinopril 40 MG Tablet 1 tablet Orally Once a dayTaking clonazePAM 1 MG Tablet 1 tablet Orally once a dayTaking Omeprazole 20 MG Capsule Delayed Release 1 capsule Orally Once a dayTaking Nisoldipine ER 8.5 MG Tablet Extended Release 24 Hour 1 tablet on an empty stomach Orally Once a dayTaking Multi Vitamin/Minerals - Tablet 1 Orally QDTaking Vitamin D3 1000 UNIT Capsule 1 capsule Orally Once a dayTaking Tumchristopher Smoothies 750 MG Tablet Chewable 1 tablet Orally prnTaking Atorvastatin Calcium 40 MG Tablet 1 tablet Orally Once a dayTaking Baby Aspirin Taking Carvedilol 3.125 MG Tablet Orally Taking oxyCODONE ER 5 mg , Notes: PRNTaking Diclofenac 1% gel as neededTaking Gabapentin 100 MG Capsule Orally Taking Melatonin 5 MG Tablet Orally Taking Tylenol 500 mg Taking Diclofenac Sodium 1 % Gel External Taking Ezetimibe 10 MG Tablet Oral Taking Repatha SureClick 140 MG/ML Solution Auto-injector INJECT 140 MG (1 PEN) SUBCUTANEOUSLY EVERY 2 WEEKS FOR 90 DAYS Subcutaneous Taking traMADol HCl 50 MG Tablet Oral Taking amLODIPine Besylate 5 MG Tablet Oral Taking tiZANidine HCl 4 MG Tablet Oral * Allergies:?shell fishyes[All ergies Verified] Objective: * Vitals:?Wt:212.8 lbs, Ht: 70 .25 in, BMI:30.31 Index, BP:001/01 mm Hg, Temp:96.9, Wt-k.52. * Examination: ???General Examination: ?GENERAL APPEARANCE:?in no acute distress.?HEAD:?normocephalic.?EYES:?sclera non-icteric.?ORAL CAVITY:?mucosa moist.?NECK/THYROID:?no lymphadenopathy.?SKIN:?anicteric.?HEART:?S1, S2 normal, no murmurs.?LUNGS:?clear to auscultation bilaterally.?CHEST:?normal shape and expansion.?ABDOMEN:?soft, nontender, nondistended, bowel sounds present, no organomegaly .?EXTREMITIES:?no clubbing, cyanosis, or edema.?PSYCH:?cognitive function intact.? Assessment: * Assessment: 1.?Rectal bleeding - K62.5 ( Primary)?2.?Anemia, unspecified type - D64.9?3.?Gastroesophageal reflux disease without esophagitis - K21.9?4.?Aspirin long-term use - Z79.82? W discussed his symptoms tod ay. We discussed care of the hemorrhoids with OTC hydrocortisone cream. Further evaluation with EGD and Colonoscopy is scheduled. Stop aspirin 1 week before. He understands risks and benefits and agrees to proceed. Plan: * Treatment: * Procedure Codes:?3017F COLOR ECTAL CA SCREEN DOC [id number] Pt scrn tbco id as non [id number] DOC RSN FOR NOT SCREEN/REC F/U HBP * Preventive Medicine:? ??Counseling:?Care goal follow-up plan:?Above Normal BMI Follow-up?Dietary management education, guidance, and counseling,?BMI management provided?Yes.? * Follow Up:?prn * * Sign off status: Completed true * Provider:?Ravindra Dietz MD Date:?0 06/29/2024 Generated for Kimberly barger/Fransisca/eTransmitting on:?08/18/2024 08:15 AM EDT History and Physical Notes * HPI (History of Present Illness) Category Sub-Category Detail Notes Category Not es New symptom(s) Girish is seen with rectal bleeding over a 10 day period in June. No abdominal or rectal pain. He does have a history of hemorrhoids. ER visit from this month is reviewed in detail. Personal cell phone images are reviewed, showing blood in the toilet and external hemorrhoid. Examination Category Sub-Category Detail Notes Category Not es General Examination GENERAL APPEARANCE: in no acute di stress HEAD: normocephalic EYES: sclera non-icteric NECK/THYROID: no lymphadenopathy HEART: S1, S2 normal, no mu rmurs CHEST: normal shape and exp ansion LUNGS: clear to auscultatio n bilaterally ABDOMEN: soft, nontender, non distended, bowel sounds present, no organomegaly SKIN: anicteric EXTREMITIES: no clubbing, cyanosi s, or edema PSYCH: cognitive function i ntact ORAL CAVITY: mucosa moist
--- OUTSIDE RECORDS SUMMARY | 2024-08-18 08:15 | XMS_ITS ---
Author Organization [facility] Address [address] [place] [address] Care Team Providers Care Agricultural Plow Operator Name Role Phone Sim Reardon MD Primary Care Provider Ravindra Vick Jr REASON FOR VISIT anemia,rectal bleeding,gerd Encounters Encounter Location Date Provider Diagnosis [facility] Outpatient [address] [place] [phone] 08/04/2024 Ravindra Dietz Jr GI bleed K92.2 and Gastritis K29.70 Assessments Encounter Date Diagnosis (ICD Code) Assessment Notes Treatment Notes Treatment Clinical Notes Section Notes 08/04/2024 GI bleed (ICD-10 - K92.2) 08/04/2024 Gastritis (ICD-10 - K29.70) Plan Of Treatment Next Appt Details Provider Name:Ravindra tracey Jr, 02/17/2025 09:20:00 AM, [address] [facility], [address], [place], [address], Progress Notes * ZENAIDA RAMIRES RDOB:1965 (59 yo M)Acc No.[id number]:08/04/2024 EGD and COL/MAC Patient:?ZENAIDA RAMIRES Provider:?Ravindra Dietz MD :1965???Age:59 Y???Sex:Male Burton e:08/04/2024 Address[address] [phone] Pcp:Sim Reardon MD Subjective: * Chief Complaints: * ???1. Anemia,rectal bleeding ,gerd. * Medical History:? Objective: * Vitals:? Assessment: * Assessment: 1.?Gastritis - K29.70 (Prima ry)???2.?GI bleed - K92.2??? Plan: * Treatment: * Procedure Codes:?84820 DIAGN OSTIC COLONOSCOPY, 0529F INTRVL 3+YRS PTS CLNSCP DOCD, 78420 UPPER GI ENDOSCOPY, BIOPSY * * The named appointment provid er may or may not be the originator of this progress note, and it is not deemed complete until electronically signed by the appointment provider. Sign off status: Pending * Provider:?Ravindra Dietz MD Date:?0 08/04/2024 Generated for Kimberly barger/Fransisca/Jaynasmitting on:?08/18/2024 08:15 AM EDT
== END ==
LOC: HO.CARD 08:09
PROVIDERS: PCP Internal Medicine; Visit Provider Internal Medicine Cardiovascular Disease
DX: I10 Essential (primary) hypertension (principal)
CPT/HCPCS: 93306

== ENCOUNTER → 2024-08-18 08:12 | Outpatient (BNV) | payer OTHER, SELFPAY | PROVIDERS: PCP Internal Medicine; Visit Provider Internal Medicine Cardiovascular Disease | DX: I51.7 Cardiomegaly (principal); I51.89 Other ill-defined heart diseases | CPT/HCPCS: 93306 ==

== ENCOUNTER → 2024-09-18 07:54 | Outpatient (REF) | payer OTHER, SELFPAY ==
--- NOTE | ~2024-09-18 | NM_ITS ---
Lexiscan Myocardial perfusion study Indication: Atherosclerotic cardiovascular disease to evaluate for myocardial ischemia Technique: The patient was brought in for a Lexiscan perfusion study on 09/18/2024 and was injected 0.4 mg of Lexiscan intravenously. Within a minute of this injection study mCi of sestamibi was given intravenously. Images were obtained using the SPECT gamma camera interlaced with the gating device. Images were obtained in supine position. Resting perfusion study was performed on 09/21/2024. Patient was administered 30 mCi of sestamibi intravenously at rest. Images were then obtained in supine position. Images obtained without without CT attenuation. Total DLP 83 mGy-cm. Images were processed with the software and compared side to side in short axis, horizontal long axis and vertical long axis views. Findings: Both stress and rest perfusion study was suboptimal due to intense subdiaphragmatic uptake within the liver and the stomach interfering with the inferior wall uptake The stress perfusion study showed nonattenuated images show mildly reduced uptake in the inferior wall of the LV myocardium with reduced confidence of interpretation due to subdiaphragmatic uptake interfering with inferior wall uptake. Attenuated corrected images are suboptimal related moderately reduced uptake in the apex noted.. The gated study shows reduced LV systolic function with calculated LVEF of 40%. LV cavity is moderately dilated in size. The gated study shows normal systolic wall thickening and contraction of segments. Resting study shows no clear significant change in perfusion pattern compared to stress perfusion study. Gating at rest reveals normal systolic wall motion with ejection fraction at 39%. The findings are consistent with no clear reversible defect suggestive of ischemia. Fixed apical and inferior defect may suggest nontransmural infarct although defect related to subdiaphragmatic uptake cannot be ruled out.. NM/NM cardiolite stress test Impression: 1. Myocardial perfusion imaging study shows no clear reversible ischemia although confidence of interpretation is low 2. Gated LVEF is 40% 3. Transient ischemic dilatation not present Nondiagnostic changes on EKG. Electronically signed by: Bhupinder Puente MD 09/21/2024 04:01 PM EDT
--- NOTE | 2024-09-18 07:56 | CA_ITS ---
Acquisition Time: 2024-09-18 08:08:47 Total Exercise Time: 00:02:00 Test Indications: CAD Medications: SEE H&P Protocol: LEXISCAN Max HR: 118 BPM 73% of Pred: 160 BPM Max BP: 128/80 mmHG Max Work Load: 1.0 METS Pharmacological stress test with Lexiscan while pt marches in his chair, with reports of SOB, dizziness and nausea, without any arrythmias, with normotensive response to injection. Nondiagnostic EKG for ischemia. In recovery, pt treated with IVP Aminophylline 75 mg to reverse Lexiscan after which pt feeling back to baseline. Nuclear images pending. Test reviewed with Dr. Puente. PS- Pt unable to walk on treadmill due to reports of hip and knee issues. Referred By: Bhupinder Puente Electronically Signed By: Burak Juarez
--- OUTSIDE RECORDS SUMMARY | 2024-09-18 07:59 | XMS_ITS ---
Author Organization [facility] Address [address] [place] [address] [place] [address] Care Team Providers Care Help Desk Internship Name Role Phone Alexys PRIETO, [place] Primary Care Provider Nury Dietz Jr, Ravindra Avelar REASON FOR VISIT path Medications Medication SIG (Take, Route, Fr equency, Duration) Notes Start Date End Date Status Omeprazole 40 MG 1 capsule 1/2 to 1 h our before morning meal Orally Once a day for 30 days 08/13/2024 Active Encounters Encounter Location Date Provider Diagnosis [facility] [address] [place] [address] 08/13/2024 Ravindra Dietz Jr Plan Of Treatment Medication Medication Name Sig Start Date Stop Date Notes Omeprazole 40 MG 1 capsule 1/2 to 1 h our before morning meal Orally Once a day for 30 days 08/13/2024 Next Appt Details Provider Name:Ravindra tracey Jr, 02/17/2025 09:20:00 AM, [address] [place] [address], [address], [place], [address], Progress Notes * ZENAIDA RAMIRES RDOB:1965 (59 yo M)Acc No.[id number]:08/13/2024 Patient:?ZENAIDA RAMIRES :1965???Age:59 Y???Sex:Male Address:[address] [place] [address] * Refills? Start Omeprazole Capsule Delayed Release, 40 MG, Orally, 30, 1 capsule 1/2 to 1 hour before morning meal, Once a day, 30 days, Refills=5 * true * Date:? Generated for Kimberly barger/Fransisca/Anthony on:?09/18/2024 07:59 AM EDT
--- OUTSIDE RECORDS SUMMARY | 2024-09-18 07:59 | XMS_ITS | Clinical Summary ---
Author Organization [facility] Address [address] [place] [address] Care Team Providers Care Freight Clerk Name Role Phone Sim Reardon MD Primary Care Provider [phone]- [phone] Allergies No known active allergies Medications aspirin [...] AM EDT) Hemoglobin A1C 6.4(H) (4.0-5.6) % [facility] Comment: MONITORING: In known diabetic patients, hemoglobin A1c targets should be discussed with health care provider. DIAGNOSTIC USE: ??The [place] Diabetes Association (ADA) and the World Health [...] Supplement 1 Testing performed or reported by [facility], a Service of [facility], [address] [place] [address] Maday Martinez MD, Fence Repairman [facility]# [id number] Blood (Blood, Venous) 01/24/2022 9:50 AM EDT 01/24/2022 9:51 AM EDT Mehul Marie MD LAB BLOOD ORDERABLES Ida valladares Result [facility] from Last 3 Months or Most Recently Relevant to Health Maintenance Insurance [facility] Care Teams Freight Clerk Relationship Specialty Start Date End Date Sim Reardon MD [address] [place] [address] PCP - General 05/16/20
--- OUTSIDE RECORDS SUMMARY | 2024-09-18 07:59 | XMS_ITS | Continuity of Care Document ---
Author Organization [facility] Address [address] [address] Insurance Providers Payer Plan Claims Address Claims Phone Policy Number Group Number Relation Employer Guarantor Name Guarantor Guarantor Address Guarantor Phone [facility], [address], [place] [address] tel:[phone] Self Girish Salvador 1965 [address], [place] [address] [place] [address] tel:[phone] Self Girish Salvador 1965 [address], [place] [address] Problems Unknown Problems Results Test Value / Unit Interpretation Reference Ran Comp. Metabolic Panel (14)[3 [id number]]?Collected: 03/14/2024 09:01 PM?Specimen Received: 03/14/2024 05:00 AM?Source: [facility] Glucose [400034] 115 mg/dL H 70-99 mg/dL BUN [245831] 12 mg/dL 8-27 mg/dL Creatinine [059287] 0.85 mg/dL 0.76-1.2 7 mg/dL eGFR [955332] 99 mL/min/1.73 >59 mL/min/1 .73 BUN/Creatinine Ratio [851986] 14 10-24 Sodium [388871] 143 mmol/L 134-144 mmol /L Potassium [023147] 4.3 mmol/L 3.5-5.2 m mol/L Chloride [953800] 104 mmol/L 96-106 mmo l/L Carbon Dioxide, Total [606758] 24 mmol/L 20-29 mmol/L Calcium [679646] 9.2 mg/dL 8.6-10.2 mg /dL Protein, Total [453797] 7.3 g/dL 6.0- 8.5 g/dL Albumin [937153] 4.3 g/dL 3.8-4.9 g/d L Globulin, Total [344455] 3.0 g/dL 1.5 -4.5 g/dL Bilirubin, Total [685068] 0.6 mg/dL 0. 0-1.2 mg/dL Alkaline Phosphatase [258035] 118 IU/L 44-121 IU/L AST (SGOT) [408924] 20 IU/L 0-40 IU/ L ALT (SGPT) [049611] 27 IU/L 0-44 IU/ L Lipid Panel[833348]?Collected: 03/14/2024 09:01 PM?Specimen Received: 03/14/2024 05:00 AM?Source: [facility] Cholesterol, Total [110208] 83 mg/dL L 100-199 mg/dL Triglycerides [511681] 65 mg/dL 0-149 mg/dL HDL Cholesterol [036111] 41 mg/dL >39 mg/dL VLDL Cholesterol Carlos [408794] 15 mg/dL 5-40 mg/dL LDL Chol Calc (NIH) [041172] 27 mg/dL 0-99 mg/dL Hemoglobin A1c[322293]?Collected: 03/14/2024 09:01 PM?Specimen Received: 03/14/2024 05:00 AM?Source: [facility] Hemoglobin A1c [746017] 6.8 % H 4.8- 5.6 % . Prediabetes: 5.7 - 6.4 Filomena betes: >6.4 Glycemic control for adults with diabetes: 7.0 Allergies, adverse reactions, alerts No known allergies and adverse reactions Medications No administered medications reported Vital Signs No vital signs reported Social History No smoking Hx information available
--- OUTSIDE RECORDS SUMMARY | 2024-09-18 08:00 | XMS_ITS ---
Author Organization [facility] Address [address] [place] [address] Care Team Providers Care Dimension Mill Worker Name Role Phone Sim Reardon MD Primary Care Provider Ravindra Vick Jr [phone] REASON FOR VISIT anemia,rectal bleeding,gerd Encounters Encounter Location Date Provider Diagnosis [facility] Outpatient [address] [place] [id number] 08/04/2024 Ravindra Dietz Jr GI bleed K92.2 and Gastritis K29.70 Assessments Encounter Date Diagnosis (ICD Code) Assessment Notes Treatment Notes Treatment Clinical Notes Section Notes 08/04/2024 GI bleed (ICD-10 - K92.2) 08/04/2024 Gastritis (ICD-10 - K29.70) Plan Of Treatment Next Appt Details Provider Name:Ravindra tracey Jr, 02/17/2025 09:20:00 AM, [address], [address], [place], [address], Progress Notes * ZENAIDA RAMIRES RDOB:1965 (59 yo M)Acc No.[id number]:08/04/2024 EGD and COL/MAC Patient:?ZENAIDA RAMIRES Provider:?Ravindra Dietz MD :1965???Age:59 Y???Sex:Male Burton e:08/04/2024 Address:[address] [id number] Pcp:Sim Reardon MD Subjective: * Chief Complaints: * ???1. Anemia,rectal bleeding ,gerd. * Medical History:? Objective: * Vitals:? Assessment: * Assessment: 1.?Gastritis - K29.70 (Prima ry)???2.?GI bleed - K92.2??? Plan: * Treatment: * Procedure Codes:?54654 DIAGN OSTIC COLONOSCOPY, 0529F INTRVL 3+YRS PTS CLNSCP DOCD, 56994 UPPER GI ENDOSCOPY, BIOPSY * * The named appointment provid er may or may not be the originator of this progress note, and it is not deemed complete until electronically signed by the appointment provider. Sign off status: Pending * Provider:?Ravindra Dietz MD Date:?0 08/04/2024 Generated for Kimberly barger/Fransisca/eTmavericksmitting on:?09/18/2024 07:59 AM EDT
--- OUTSIDE RECORDS SUMMARY | 2024-09-18 08:00 | XMS_ITS | Patient Health Record ---
Author Organization [facility] Address [address] [place] [address] Care Team Providers Care Loan Examiner Name Role Phone Alexys PRIETO, [place] Primary Care Provider Ravindra Vick Jr Unavailable Allergies Allergen (clinical drug ingredient) Drug/Non Drug Allergy documented on EMR Reaction Allergy Type Onset Date Status Shellfish (FN) shell fish (uncoded) Unknown Allergy Active Results Component Value Reference Range Notes Pathology Reviewed date:08/13/2024 09:02:19 AM Interpretation: Performing Lab:[facility], [address] [place] [phone] Notes/Report: Name: Girish Salvador Age/Sex: 59/M : 1965 Unit#: [id number] Attend Dr: Ravindra Dietz MD Re08/04/24 Status : [facility] Location: [facility] Disch: SPEC : [id number] RECD : 08/04/24 STATUS: SADE OBRIEN NUM: [id number] FEROZ: 08/04/24-1103 [facility] DR: Ravindra Dietz MD ENTERED: [...] Girish Salvador Age/Sex: 59/M : 1965 Unit#: [id number] Attend Dr: Ravindra Dietz MD Re08/04/24 Status : [facility] Location: [facility] Disch: SPEC : [id number] RECD : 08/04/240 STATUS: [facility] NUM: [id number] FEROZ: 08/04/24-[address]: Ravindra Dietz MD ENTERED: 08/04/24- 42 SP TYPE: Surgical OTHR DR: Sim Reardon MD ORDERED: HE Stain/6, Gross Micro L4/2, IHC, Special st. 2/2, H. pylori, AB/PAS/2 Copies To: Sim Reardon MD [facility],[address] [place] [address] Ravindra Dietz MD [facility] [address] [place] [address] Signed (si gnature on file) Yohannes Thornton [...] Problem Status W/U Status Risk Notes Problem 332387063 Colon cancer screening (Z12.11) Active confirmed Problem 09352461 Rectal bleeding (K62.5) Active confirmed Problem 99908466 Other dysphagia (R13.19) Active confirmed Problem 842334486 Gastroesophageal reflux disease without esophagitis (K21.9) Active confirmed Problem 025918173 Anemia, unspecif ied type (D64.9) Active confirmed Vital Signs Temperature 96.9 degrees Fahrenheit 06/29/2024 Blood pressure diastolic 01 mm Hg 06/29/2024 Height 70.25 in 06/29/2024 Blood pressure systolic 001 mm Hg 06/29/2024 Weight 212.8 lbs 06/29/2024 BMI 30.31 kg/m2 06/29/2024 Encounters Encounter Location Date Provider Diagnosis [facility] [address] [place] [id number] 08/04/2024 Ravindra Dietz Jr GI bleed K92.2 and Gastritis K29.70 [facility] [address] [place] [address] 06/29/2024 Ravindra Dietz Jr Rectal bleeding K62.5 ; Anemia, unspecified type D64.9 ; Gastroesophageal reflux disease without esophagitis K21.9 and Aspirin long-term use Z79.82 [facility] [address] [address] 08/13/2024 Ravindra Dietz Jr Assessments Encounter Date [...] Alex tracey , 02/17/2025 09:20:00 AM, [address] [facility], [address], [place], [address], Insurance Providers Payer Name Payer Address Payer Phone Subscriber Number Group Number Insured Name Patient Relationship to Insured Coverage Start Date Coverage End Date [facility] [address] [place] [address] [id number] GIRISH SALVADOR Self - patient is the [...]
--- OUTSIDE RECORDS SUMMARY | 2024-09-18 08:00 | XMS_ITS | Encounter Summary ---
Author Organization [facility] Address [address] [place] [address] Phone Care Team Providers Care Surgical Instrument Repair Specialist Name Role Phone Sim Reardon MD Primary Care Provider [phone] Encounter Details Date Type Department Care Team (Late st Contact Info) Description 07/17/2021 Telephone [facility] [address] [place] [address] Mehul Marie MD Social History [...] a refill for carvedilol. Please send to [facility]. Thank you documented in this encounter Plan of Treatment Not on file documented as of this encounter Visit Diagnoses Not on filedocumented in this encounter Care Teams Surgical Instrument Repair Specialist Relationship Specialty Start Date End Date Sim Reardon MD [address] [place] [address] PCP - General 05/16/20 documented as of this encounter
--- OUTSIDE RECORDS SUMMARY | 2024-09-18 08:00 | XMS_ITS ---
Author Organization [facility] Address [address] [place] [address] Care Team Providers Care Clerk General Name Role Phone Alexys PRIETO, Sim Primary Care Provider Ravindra Vick Jr Unavailable [phone] Allergies Allergen (clinical drug ingredient) Drug/Non Drug [...] Problem Status W/U Status Risk Notes Problem 63743544 Rectal bleeding (K62.5) Active confirmed Vital Signs Temperature 96.9 degrees Fahrenheit 06/29/19 25 Blood pressure systolic 001 mm Hg 06/29/19 25 Blood pressure diastolic 01 mm Hg 025 Height 70.25 in 06/29/2024 Weight 212.8 lbs 06/29/2024 BMI 30.31 kg/m2 06/29/2024 Encounters Encounter Location Date Provider Diagnosis [facility] [address] [place] [address] 06/29/2024 Ravindra Dietz Jr Rectal bleeding K62.5 [...] 09:20:00 AM, [address], [address], [place], [address], Progress Notes * GIRISH RAMIRES RDOB:1965 (59 yo M)Acc No.[id number]:06/29/2024 Progress Notes Patient:?GIRISH RAMIRES Provider:?Ravindra Dietz MD :1965???Age:59 Y???Sex:Male Burton e:06/29/2024 Address:[address] [place] [address], [id number] Pcp:Sim Reardon MD Subjective: * Chief Complaints: [...] Procedure Codes:?3017F COLOR ECTAL CA SCREEN DOC [id number] Pt scrn tbco id as non [id number] DOC RSN FOR NOT SCREEN/REC F/U HBP * Preventive Medicine:? ??Counseling:?Care goal follow-up plan:?Above Normal BMI Follow-up?Dietary management education, guidance, and counseling,?BMI management provided?Yes.? * Follow Up:?prn * * Sign off status: Completed true * Provider:?Ravindra Dietz MD Date:?0 06/29/2024 Generated for Kimberly barger/Fransisca/eTransmitting on:?09/18/2024 07:59 AM EDT History and Physical Notes * [...]
== END ==
LOC: HO.CARD 07:54
PROVIDERS: PCP Internal Medicine; Visit Provider Internal Medicine Cardiovascular Disease
DX: R07.9 Chest pain, unspecified (principal); R00.2 Palpitations; I25.10 Atherosclerotic heart disease of native coronary artery without angina pectoris
CPT/HCPCS: 78452; 93017; A9500; J0280; J2785

== ENCOUNTER → 2024-09-18 07:56 | Outpatient (BNV) | payer OTHER, SELFPAY | PROVIDERS: PCP Internal Medicine | DX: R06.02 Shortness of breath (principal); R42 Dizziness and giddiness | CPT/HCPCS: 78452; 93016; 93018 ==

== ENCOUNTER 2024-10-06 08:47 | Outpatient (AMB) | payer OTHER, SELFPAY ==
--- NOTE | 2024-10-06 08:49 | MHC.OFFVIS ---
Vital Signs 10/06/24 08:50 Height 5 ft 10 in Weight 211 lb 10.3 oz BMI 30.4 BP 124/82 Blood Pressure Location Lt brachial Position Sitting Pulse 65 Intake Visit Reasons: 1 yr follow up Intake Note: 1 year follow-up with ekg Global Upstream Marketing Manager Required: No Allergies chlorthalidone Allergy (Unknown, Verified 08/04/24 10:24) excessive urination glipizide Allergy (Unknown, Verified 08/04/24 10:24) Unknown hydrochlorothiazide Allergy (Unknown, Verified 08/04/24 10:24) dizziness, excessive urination ibuprofen [From MOTRIN] Allergy (Unknown, Verified 08/04/24 10:24) irregular heartbeat metformin Allergy (Unknown, Verified 08/04/24 10:24) chokling sensation metoprolol Allergy (Unknown, Verified 08/04/24 10:24) slow heart rate nifedipine Allergy (Unknown, Verified 08/04/24 10:24) tachy/kate buspirone [From BUSPAR] Adverse Reaction (Unknown, Verified 08/04/24 10:24) STOMACH UPSET canagliflozin [Invokana] Adverse Reaction (Unknown, Verified 08/04/24 10:24) SYNCOPE clonidine [From CATAPRES] Adverse Reaction (Unknown, Verified 08/04/24 10:24) STOMACH UPSET SHELLFISH Allergy (Severe, Uncoded 08/04/24 10:24) ANAPHYLAXIS Sucralfate Allergy (Unknown, Uncoded 08/04/24 10:24) chest pain Medication List - Last Reconciled 10/06/24 by Bhupinder Puente MD acetaminophen (Tylenol Extra Strength) 1,000 mg (2 x 500 mg) PO Q8H PRN amlodipine 5 mg PO DAILY aspirin 81 mg PO DAILY atorvastatin 80 mg PO DAILY carvedilol 6.25 mg PO BID cholecalciferol (vitamin D3) 125 mcg PO DAILY clonazepam 1/2 to 1 tablet by mouth once a day as needed for increased anxiety; 30 days evolocumab (Repatha SureClick) 140 mg subcut Q2W ezetimibe (Zetia) 10 mg PO DAILY gabapentin 200 mg (2 x 100 mg) PO BID 30 days lisinopril 40 mg PO DAILY melatonin 10 mg PO BEDTIME PRN metoclopramide HCl (Reglan) 10 mg PO Q6H PRN [id number] mcg (Familia Hernandez) 1 tab PO DAILY omeprazole 20 mg PO DAILY tadalafil 5 mg PO DAILY 90 days tadalafil 20 mg PO ONCE PRN 30 days tizanidine 4 mg PO Q8H PRN 30 days tramadol 50 mg PO TID PRN HPI Comments Details: Girish comes for follow-up after stress testing. This showed normal myocardial perfusion. Gated LVEF was low although echocardiogram done a month ago shows normal LV ejection fraction. Shows mild left atrial enlargement with mild LVH and mild ascending aortic enlargement. Overall otherwise doing well. 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 Denies any exertional chest pain or shortness of breath. Has gained some weight. Denies any prolonged palpitation irregular heartbeat. Denies any orthopnea, PND, leg edema. No lightheadedness, syncope. Takes all his medications. Last LDL of 32 mg/dL [facility] Medical History Type 2 diabetes mellitus with albuminuria CAD (coronary artery disease) Fatigue Myalgia Overweight (BMI 25.0-29.9) Anxiety Primary insomnia Obstructive sleep apnea Anemia Left thigh pain Primary osteoarthritis of left hip Vitamin D deficiency Proteinuria Palpitations Impaired fasting glucose Pure hypercholesterolemia Benign essential hypertension Surgical History History of arthroplasty of right knee (~11/05/22) Hx of colonoscopy History of arthroplasty of left hip History of hip surgery Family History Father No problems noted. 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 Cognitive needs: No Hearing needs: No Vision needs: Yes (glasses) Review of Systems Const Denies chills, Denies fatigue, Denies fever(s), Denies frequent falls, Denies weakness, Denies weight gain and Denies weight loss ENT Denies dizziness Card Denies chest pain, Denies leg edema, Denies lightheadedness, Denies palpitations, Denies dyspnea, Denies dyspnea on exertion, Denies orthopnea and Denies other (loss of consciousness) Resp Denies cough, Denies dyspnea and Denies dyspnea on exertion GI Denies hematochezia and Denies change in stool character Musc Denies abnormal gait, Denies muscle weakness, Denies numbness, Denies radiating pain into limb and Denies tingling Neuro Denies abnormal gait, Denies dizziness, Denies frequent falls, Denies numbness, Denies tingling and Denies weakness Endo Denies fatigue and Denies palpitations Physical Exam Vital Signs: Last Vital Signs Pulse 65 10/06/24 08:50 BP 124/82 10/06/24 08:50 BMI result Body Mass Index 30.4 Const General: cooperative, comfortable, no acute distress, alert and awake Nutritional Appearance: overweight Orientation/consciousness: patient oriented x3 Limitations: no limitations Neck Neck: Yes trachea midline, Yes supple and Yes no JVD Resp Effort & Inspection: normal respiratory effort Auscultation: clear to auscultation bilaterally Cardio Jugular venous distension: no JVD Palpation: normal PMI Rate: regular rate Rhythm: regular rhythm Heart sounds: S1 normal heart sound present, S2 normal heart sound present, no click, no gallops and no murmurs GI Auscultation: normal bowel sounds Skin General skin exam: no rashes or lesions noted Neuro General: patient oriented x3 Extrem General: Yes no clubbing, cyanosis or edema Assessment & Plan Assessment & Plan (1) CAD (coronary artery disease): Comment: Coronary calcium score greater than 1000, February 2021 Code(s): I25.10 - Atherosclerotic heart disease of pilot [place] coronary artery without angina pectoris Category: Medical Qualifiers: Coronary Disease-Associated Artery/Lesion type: unspecified vessel or lesion type [place] vs. transplanted heart: pilot station heart Associated angina: without angina Qualified Code(s): I25.10 - Atherosclerotic heart disease of pilot [place] coronary artery without angina pectoris Plan: CAD with heavy calcium score but normal myocardial perfusion suggestive of nonobstructive coronary disease with no active cardiac symptoms at this point time. Continue aggressive medical therapy. Advise low-dose aspirin therapy. Continue aggressive lipid modification which is currently well optimized on triple therapy. Importance of good lipid control was discussed. Encouraged to participate in regular physical activity and weight loss program to avoid presence or development of diabetes. Blood pressure is currently well optimized, see below. (2) Enlarged thoracic aorta: Code(s): I77.89 - Other specified disorders of arteries and arterioles Category: Medical Plan: Mildly enlarged thoracic aorta most likely atherosclerotic in nature. Currently does not require any surgical interventions. Continue aggressive vascular risk factor modifications above. Follow-up echocardiogram in 1 year's time. (3) Benign essential hypertension: Code(s): I10 - Essential (primary) hypertension Category: Medical Plan: Hypertension which has difficult control in the past with some orthostatic symptoms. Currently he has not had any orthostatic symptoms on current regimen. Importance of good blood pressure control was discussed. Low-salt diet was discussed. Stress mitigation strategies were discussed. Encouraged to continue current medications. Target goal blood pressure less than 130/84. Will follow up in the clinic in 1 year's time, sooner p.r.n.. Thank you for allowing me to partake in his care Coding Level of Care Code Est Pt Level 4 (84112) Complex EM visit Add On G2211 Diagnoses Coronary artery disease involving pilot station heart without angina pectoris, unspecified vessel or lesion type I25.10 Coronary Disease-Associated Artery/Lesion type: unspecified vessel or lesion type [place] vs. transplanted heart: pilot [place] heart Associated angina: without angina Enlarged thoracic aorta I77.89 Benign essential hypertension I10
[2024-10-06 08:50] VITALS: BP 124/82; PULSE 65; BMI 30.4
--- OUTSIDE RECORDS SUMMARY | 2024-10-06 09:21 | XMS_ITS | Clinical Summary ---
Author Organization [facility] Facility Address [address] [place] [address] Care Team Providers Care Scissors Sharpener Name Role Phone Sim Reardon MD Primary Care Provider +1- [phone] Allergies No known active allergies Medications aspirin [...] AM EDT) Hemoglobin A1C 6.4(H) (4.0-5.6) % [facility] Comment: MONITORING: In known diabetic patients, hemoglobin A1c targets should be discussed with health care provider. DIAGNOSTIC USE: ??The [place] Diabetes Association (ADA) and the World Health [...] Supplement 1 Testing performed or reported by [facility], a Service of [facility], [address] [place] [address] Maday Martinez MD, Log Buncher [facility]# [id number] Blood specimen (specimen) Venous blood / Unknown 01/24/2022 9:50 AM EDT 01/24/2022 9:51 AM EDT Mehul Marie MD LAB BLOOD ORDERABLES Ida valladares Result [facility] from Last 3 Months or Most Recently Relevant to Health Maintenance Insurance [facility] Care Teams Scissors Sharpener Relationship Specialty Start Date End Date Sim Reardon MD [address] [place] [address] PCP - General 05/16/20
== END 2024-10-06 09:11 | disposition home or self-care (01) ==
LOC: HO.HCS 08:48
PROVIDERS: PCP Internal Medicine; Visit Provider Internal Medicine Cardiovascular Disease
DX: I25.10 Atherosclerotic heart disease of native coronary artery without angina pectoris (principal); I77.89 Other specified disorders of arteries and arterioles; I10 Essential (primary) hypertension
CPT/HCPCS: 93010; 99214

== ENCOUNTER → 2024-10-06 08:47 | Outpatient (BNVA) | payer OTHER, SELFPAY | PROVIDERS: PCP Internal Medicine; Visit Provider Internal Medicine Cardiovascular Disease | DX: I25.10 Atherosclerotic heart disease of native coronary artery without angina pectoris (principal); I10 Essential (primary) hypertension; I77.89 Other specified disorders of arteries and arterioles | CPT/HCPCS: 93005 ==

== ENCOUNTER 2024-10-21 09:51 | Outpatient (REF) | payer OTHER, SELFPAY ==
[2024-10-21 10:07] LABS: MANUAL DIFF FLAG NO
[2024-10-21 10:47] LABS: Basophils Percent Auto 0.7 % (0-2); Eosinophils Absolute Auto 0.3 X10*3/uL (0.0-0.4); Eosinophils Percent Auto 6.1 % (0-4); Hemoglobin 12.9 g/dl (14.0-18.0); Imm Gran Abs Auto 0.02 X10*3/uL (0.00-0.03); Imm Gran Pct Auto 0.4 % (0.0-0.4); Lymphocytes Absolute Auto 1.8 X10*3/uL (1.2-4.9); Lymphocytes Percent Auto 31.5 % (20-40); Mean Corpuscular HGB Conc 33.1 g/dl (31.0-36.0); Mean Corpuscular Hemoglobin 28.9 pg (27.0-33.0); Mean Corpuscular Volume 87.4 fL (80.0-98.0); Mean Platelet Volume 9.5 fL (9.4-12.4); Monocytes Absolute Auto 0.7 X10*3/uL (0.1-1.2); Monocytes Percent Auto 13.3 % (2-11); Neutrophils Absolute Auto 2.7 x10*3/uL (2.0-8.3); Platelet Count 336 X10*3/uL (160-400); Red Blood Count 4.46 X10*6/uL (4.60-5.80); Red Cell Distribution Width 13.3 % (11.0-16.0); White Blood Count 5.6 X10*3/uL (4.8-10.8)
--- OUTSIDE RECORDS SUMMARY | 2024-10-21 10:58 | XMS_ITS | Clinical Summary ---
Author Organization [facility] Facility Address [address] [place] [id number] Care Team Providers Care Balance Recesser Name Role Phone Sim Reardon MD Primary Care Provider +1- [phone] Allergies No known active allergies Medications aspirin [...] AM EDT) Hemoglobin A1C 6.4(H) (4.0-5.6) % [facility] Comment: MONITORING: In known diabetic patients, hemoglobin A1c targets should be discussed with health care provider. DIAGNOSTIC USE: The [place] Diabetes Association (ADA) and the World Health [...] Supplement 1 Testing performed or reported by [facility], a Service of [facility], [address] [place] [address] Maday Martinez MD, Electrical Systems Designer [facility]# [id number] Blood specimen (specimen) Venous blood / Unknown 01/24/2022 9:50 AM EDT 01/24/2022 9:51 AM EDT Mehul Marie MD LAB BLOOD ORDERABLES Ida valladares Result [facility] from Last 3 Months or Most Recently Relevant to Health Maintenance Insurance [facility] Care Teams Balance Recesser Relationship Specialty Start Date End Date Sim Reardon MD [address] [place] [address] PCP - General 05/16/20
[2024-10-21 11:26] LABS: Alanine Aminotransferase 34 U/L (0-40); Alkaline Phosphatase 95 U/L (39-117); Anion Gap 10 (12-20); Aspartate Amino Transferase 29 U/L (5-37); Bilirubin Total 0.4 mg/dL (0.0-1.0); Blood Urea Nitrogen 14 mg/dL (9-16); Calcium 8.8 mg/dL (8.4-10.2); Carbon Dioxide 28 mmol/L (22-29); Chloride 107 mmol/L (96-108); Cholesterol 82 mg/dL (<200); Estimated Glomerular Filt Rate > 60; Glucose Fasting 124 mg/dL (60-99); HDL Cholesterol 35 mg/dL (>40); LDL Cholesterol Calculated 30 mg/dL (<100); Potassium 3.8 mmol/L (3.3-5.1); Sodium 141 mmol/L (135-145); Total Protein 7.2 g/dL (6.5-8.0); Triglycerides 85 mg/dL (<150)
[2024-10-21 11:46] LABS: TSH reflex Free T4 0.64 uIU/mL (0.32-4.0); Vitamin D 25-OH Total 35.6 ng/mL (>30)
[2024-10-21 11:52] LABS: Appearance Urine Clear; Color Urine Yellow; Glucose Urine UA Negative (Negative); Leukocyte Esterase Urine Negative (Negative); Nitrite Urine Negative (Negative); PH 7.5 (5.0-9.0); Specific Gravity - Urine 1.015 (1.005-1.025); UMIC TRIGGER UACC YES; Urine Blood Negative (Negative); Urine Ketones Negative (Negative); Urine Protein 100 (2+) mg/dL (Neg-Trace)
[2024-10-21 11:56] LABS: Bacteria Urine None Seen (None Seen); Hyaline Casts Urine 0-2 /LPF (0-2); RBC Urine 0-2 /HPF (0-2); Squamous Epithelial Cell Urine 0-2 /HPF (0-2); WBC Urine 0-5 /HPF (0-5)
== END 2024-10-21 09:52 | disposition home or self-care (01) ==
LOC: HO.LAB 09:51
PROVIDERS: PCP Internal Medicine; Visit Provider Internal Medicine
DX: E78.00 Pure hypercholesterolemia, unspecified (principal); E55.9 Vitamin D deficiency, unspecified; D64.9 Anemia, unspecified; R30.0 Dysuria
CPT/HCPCS: 36415; 80053; 80061; 81001; 82306; 84443; 85025

== ENCOUNTER 2024-10-27 08:46 | Outpatient (AMB) | payer OTHER, SELFPAY ==
--- NOTE | 2024-10-27 08:48 | MHC.OFFVIS ---
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: No Allergies chlorthalidone Allergy (Unknown, Verified 10/27/24 08:49) excessive urination glipizide Allergy (Unknown, Verified 10/27/24 08:49) Unknown hydrochlorothiazide Allergy (Unknown, Verified 10/27/24 08:49) dizziness, excessive urination ibuprofen (From MOTRIN) Allergy (Unknown, Verified 10/27/24 08:49) irregular heartbeat metformin Allergy (Unknown, Verified 10/27/24 08:49) chokling sensation metoprolol Allergy (Unknown, Verified 10/27/24 08:49) slow heart rate nifedipine Allergy (Unknown, Verified 10/27/24 08:49) tachy/kate buspirone (From BUSPAR) Adverse Reaction (Unknown, Verified 10/27/24 08:49) STOMACH UPSET canagliflozin (Invokana) Adverse Reaction (Unknown, Verified 10/27/24 08:49) SYNCOPE clonidine (From CATAPRES) Adverse Reaction (Unknown, Verified 10/27/24 08:49) STOMACH UPSET SHELLFISH Allergy (Severe, Uncoded 10/27/24 08:49) ANAPHYLAXIS Sucralfate Allergy (Unknown, Uncoded 10/27/24 08:49) chest pain HPI Comments Details: Girish is a pleasant male. He is a patient of Dr. Reardon. He has seen for the following urologic conditions - elevated PSA - erectile dysfunction diabetes mellitus Six-month follow-up Has come off tadalafil Testosterone remains overall low Urinary Symptoms Review - Nocturia: Occurs once per night - Urinary stream: Adequate Elevated PSA Borderline MARYCARMEN normal PSA - 08/27 4.1 Erectile dysfunction Progressive Trouble maintaining erection Baseline diabetes Responded well to 5 mg daily with 20 mg on demand Labs - 01/27 190 04/28 220 LH 2.9 PFSH Medical History Type 2 diabetes mellitus with albuminuria CAD (coronary artery disease) Fatigue Myalgia Overweight (BMI 25.0-29.9) Anxiety Primary insomnia Obstructive sleep apnea Anemia Left thigh pain Primary osteoarthritis of left hip Vitamin D deficiency Proteinuria Palpitations Impaired fasting glucose Pure hypercholesterolemia Benign essential hypertension Surgical History History of arthroplasty of right knee (~11/05/22) Hx of colonoscopy History of arthroplasty of left hip History of hip surgery Family History Father No problems noted. 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 Cognitive needs: No Hearing needs: No Vision needs: Yes (glasses) Review of Systems Const Denies chills and Denies fever(s) Card Reports no additional complaints and Denies syncope Resp Denies cough GI Denies abdominal pain and Denies heartburn Reports as per HPI and Denies change in libido Neuro Denies syncope Psych Denies change in libido Endo Denies change in libido Physical Exam Const General: cooperative, healthy appearing, comfortable and no acute distress Orientation/consciousness: patient oriented x3 HEENT Face and sinus: Yes normal facial exam Mouth: moist mucous membranes Neck Neck: Yes normal visual inspection, Yes full ROM and Yes trachea midline Chest Chest palpation & inspection: normal inspection of the chest Resp Effort & Inspection: normal respiratory effort, able to speak in complete sentences and no respiratory distress GI Inspection: Yes normal to inspection Back/Spine/Pelvis Cervical Spine: normal cervical lordosis Thoracic/Lumbar Spine: thoracic and lumbar spine normal to inspection Skin General skin exam: no rashes or lesions noted Neuro General: patient oriented x3, gait normal, tone normal and moves all extremities Extrem General: Yes normal to inspection and Yes capillary refill normal Assessment & Plan Assessment & Plan (1) Erectile dysfunction associated with type 2 diabetes mellitus: Code(s): E11.69 - Type 2 diabetes mellitus with other specified complication; N52.1 - Erectile dysfunction due to diseases classified elsewhere Category: Medical (2) Elevated PSA: Code(s): R97.20 - Elevated prostate specific antigen [PSA] Category: Medical Plan 1. Low Testosterone Patient declined testosterone gel; annual monitoring planned. 2. Diabetes Mellitus No changes to diabetes management; current plan continued. Discussion Notes I discussed with the patient the option of using testosterone gel for low testosterone levels, but he declined. We agreed to monitor his testosterone levels annually. I also confirmed that his urinary stream is adequate and that he experiences nocturia once per night. We will continue with his current diabetes management plan. Patient Instructions - Return for lab work in 12 months to check testosterone levels. - Contact the clinic if any new symptoms or concerns arise. Orders: Orders Testosterone, Total 12 Months E11.69 - Type 2 diabetes mellitus with other specified complication, N52.1 - Erectile dysfunction due to diseases classified elsewhere Prostate Specific Antigen 12 Months E11.69 - Type 2 diabetes mellitus with other specified complication, N52.1 - Erectile dysfunction due to diseases classified elsewhere Patient Instructions: This note is constructed using voice recognition software. While every effort has been made to ensure accuracy mud mixer operator errors may have been included. Imaging studies, laboratory and physical exam results were discussed and reviewed in detail. No major barriers to patient understanding were identified. An opportunity to ask questions regarding the treatment plan was provided. All questions were answered. The patient expressed understanding and agreement with the above treatment plan. The patient is aware they should contact our office by phone for worsening of their current condition or the appearance of new urologic symptoms. Compliance is encouraged with any medications and followup testing that is ordered. It is a privilege to participate in the urologic care of your patient. If you have any questions or concerns regarding treatment for the above conditions, or other urologic issues, please do not hesitate to contact me. The office telephone contact is [phone]. Sincerely, Dr Benny Suazo MD, [facility] - Urology Compassionate Specialist Care for the Genitourinary System Coding Level of Care Code Est Pt Level 3 (69942) Diagnoses Erectile dysfunction associated with type 2 diabetes mellitus E11.69; N52.1 Elevated PSA R97.20
--- OUTSIDE RECORDS SUMMARY | 2024-10-27 09:08 | XMS_ITS | Clinical Summary ---
Author Organization [facility] Facility Address [address] [place] [address] Care Team Providers Care Jackspooler Name Role Phone Sim Reardon MD Primary Care Provider +1- [phone] Allergies No known active allergies Medications aspirin [...] AM EDT) Hemoglobin A1C 6.4(H) (4.0-5.6) % [facility] Comment: MONITORING: In known diabetic patients, hemoglobin A1c targets should be discussed with health care provider. DIAGNOSTIC USE: The [place] Diabetes Association (ADA) and the World Health [...] Supplement 1 Testing performed or reported by [facility], a Service of [facility], [address] [place] [address] Maday Martinez MD, Composition Weatherboard Applier [facility]# [id number] Blood specimen (specimen) Venous blood / Unknown 01/24/2022 9:50 AM EDT 01/24/2022 9:51 AM EDT Mehul Marie MD LAB BLOOD ORDERABLES Ida valladares Result [facility] from Last 3 Months or Most Recently Relevant to Health Maintenance Insurance [facility] Care Teams Jackspooler Relationship Specialty Start Date End Date Sim Reardon MD [address] [place] [address] PCP - General 05/16/20
== END 2024-10-27 09:04 | disposition home or self-care (01) ==
LOC: HO.HUSH 08:46
PROVIDERS: PCP Internal Medicine; Visit Provider Urology
DX: E11.69 Type 2 diabetes mellitus with other specified complication (principal); N52.1 Erectile dysfunction due to diseases classified elsewhere; R97.20 Elevated prostate specific antigen [PSA]
CPT/HCPCS: 99213

== ENCOUNTER 2024-10-29 09:02 | Outpatient (AMB) | payer OTHER, SELFPAY ==
[2024-10-29 09:04] VITALS: BP 128/84; PULSE 73; O2SAT 95; BMI 30.6
--- NOTE | 2024-10-29 09:04 | A.OFFPC_ITS ---
Vital Signs 10/29/24 09:04 Height 5 ft 10 in Weight 213 lb 8 oz BMI 30.6 BP 128/84 Blood Pressure Location Lt brachial Position Sitting Pulse 73 Pulse Source Pulse Oximeter Pulse Oximetry (%) 95 Oxygen Delivery Method Room Air Intake Visit Reasons: 4 month f/u Qc Tech Required: No Accompanied by: Self / Same As Patient Allergies chlorthalidone Allergy (Unknown, Verified 10/29/24 09:28) excessive urination glipizide Allergy (Unknown, Verified 10/29/24 09:28) Unknown hydrochlorothiazide Allergy (Unknown, Verified 10/29/24 09:28) dizziness, excessive urination ibuprofen (From MOTRIN) Allergy (Unknown, Verified 10/29/24 09:28) irregular heartbeat metformin Allergy (Unknown, Verified 10/29/24:) chokling sensation metoprolol Allergy (Unknown, Verified 10/29/24 09:28) slow heart rate nifedipine Allergy (Unknown, Verified 10/29/24 09:28) tachy/kate buspirone (From BUSPAR) Adverse Reaction (Unknown, Verified 10/29/24 09:28) STOMACH UPSET canagliflozin (Invokana) Adverse Reaction (Unknown, Verified 10/29/24 09:28) SYNCOPE clonidine (From CATAPRES) Adverse Reaction (Unknown, Verified 10/29/24 09:28) STOMACH UPSET SHELLFISH Allergy (Severe, Uncoded 10/29/24 09:28) ANAPHYLAXIS Sucralfate Allergy (Unknown, Uncoded 10/29/24 09:28) chest pain Medication List - Last Reconciled 10/29/24 by Sim Reardon MD acetaminophen (Tylenol Extra Strength) 1,000 mg (2 x 500 mg) PO Q8H PRN amlodipine 5 mg PO DAILY aspirin 81 mg PO DAILY atorvastatin 80 mg PO DAILY carvedilol 6.25 mg PO BID cholecalciferol (vitamin D3) 125 mcg PO DAILY clonazepam 1/2 to 1 tablet by mouth once a day as needed for increased anxiety; 30 days evolocumab (Repatha SureClick) 140 mg subcut Q2W ezetimibe (Zetia) 10 mg PO DAILY gabapentin 200 mg (2 x 100 mg) PO BID 30 days lisinopril 40 mg PO DAILY melatonin 10 mg PO BEDTIME PRN metoclopramide HCl (Reglan) 10 mg PO Q6H PRN [id number] [phone] mcg (Centrum Silver Men) 1 tab PO DAILY omeprazole 20 mg PO DAILY tizanidine 4 mg PO Q8H PRN 30 days tramadol 50 mg PO TID PRN Tobacco use date assessed: 10/29/24 Dental Screening Dental Screen Date: 10/29/24 Did you have a dental visit in the last 12 months?: No Did you have a dental problem in the last 6 months where you did not have access to dental care?: No Was dental information given to patient?: No HPI 4 month f/u HPI Details Patient comes in today for his follow-up visit States that he feels okay He denies any headaches or dizziness Denies any chest pains, no increased shortness of breath No nausea/vomiting, no abdominal pain No change in bowel habits noted He had his follow-up labs done last week - to discuss his results [facility] Medical History Type 2 diabetes mellitus with albuminuria CAD (coronary artery disease) Fatigue Myalgia Overweight (BMI 25.0-29.9) Anxiety Primary insomnia Obstructive sleep apnea Anemia Left thigh pain Primary osteoarthritis of left hip Vitamin D deficiency Proteinuria Palpitations Impaired fasting glucose Pure hypercholesterolemia Benign essential hypertension Surgical History History of arthroplasty of right knee (~11/05/22) Hx of colonoscopy History of arthroplasty of left hip History of hip surgery Family History Father No problems noted. 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 1. Little interest or pleasure in doing things: not at all 2. Feeling down, depressed, or hopeless: not at all 3. Trouble falling or staying asleep, or sleeping too much: several days 4. Feeling tired or having little energy: not at all 5. Poor appetite or overeating: not at all 6. Feeling bad about yourself - or that you are a failure or have let yourself or your family down: not at all 7. Trouble concentrating on things, such as reading the newspaper or watching television: not at all 8. Moving or speaking so slowly that other people could have noticed. Or the opposite - being so fidgety or restless that you have been moving around a lot more than usual: not at all 9. Thoughts that you would be better off or of hurting yourself in some way: not at all Total score: 1 Depression Screening Interpretation: Negative Depression Screening Done: Yes 77412 - PHQ-9 Billing: Yes Source: Developed by Drs. Alex Clarke, Nhung Wolf, Jese Leos and colleagues, with an educational kristin from [employer]. Thrive Questionnaire Date Thrive assessed: 10/29/24 I am a: Patient What is your living situation today?: I have a steady place to live Within the past 12 months, did the food you bought not last and you didn't have the money to get more?: Never true Within the past 12 months, did you worry whether your food would run out before you got money to buy more?: Never true Do you have trouble paying for medicines?: No Do you have trouble getting transportation to medical appointments?: No Do you have trouble paying your heating and electricity bill?: I choose not to answer this question Do you have trouble taking care of your child, family member or friend?: No Do you have trouble with day-to-day activities such as bathing, preparing meals, shopping, managing finances, etc.?: No Are you currently unemployed and looking for a job?: No Are you interested in more education?: No Please select the resources that you would like help with: None Currently or been in a relationship where the following occur: I choose not to answer THRIVE Score: 0 AUDIT C Alcohol Use Questionnaire (AUDIT-C) 1. How often do you have a drink containing alcohol?: Never 3. How often do you have six or more drinks on one occasion?: Never Total Score: 0 Score Reviewed/Action Taken: Yes DILLON-7 AMB Questionnaire DILLON-7 Date DILLON - 7 assessed: 10/29/24 Feeling nervous, anxious, or on edge: 1 = Several days Not being able to stop or control worryin = Several days Worrying too much about different things: 1 = Several days Trouble relaxin = Several days Being so restless that it is hard to sit still: 1 = Several days Becoming easily annoyed or irritable: 1 = Several days Feeling afraid as if something awful might happen: 1 = Several days Total DILLON-7 score (0-4 normal; 5-9 mild; 10-14 moderate; 15-21 severe): 7 Source: Developed by Drs. Alex Clarke, Nhung Wolf, Jese Leos and colleagues, with an educational kristin from [employer]. Review of Systems Const Denies chills, Denies fatigue, Denies fever(s) and Denies headache(s) ENT Denies dysphagia, Denies dizziness, Denies otalgia, Denies headache(s), Denies neck pain, Denies odynophagia and Denies sore throat Card Denies chest pain, Denies irregular heart rhythm, Denies palpitations and Denies dyspnea Resp Denies chest congestion, Denies cough and Denies dyspnea GI Denies abdominal pain, Denies constipation, Denies dysphagia, Denies heartburn, Denies diarrhea, Denies nausea, Denies odynophagia and Denies vomiting Denies difficulty urinating, Denies dysuria and Denies urinary frequency Musc Denies abnormal gait, Reports back pain (over the lower back), Reports arthralgias (right knee) and Denies neck pain Skin/Breast Denies rash Neuro Denies abnormal gait, Denies dizziness, Denies headache(s) and Denies paresthesias Psych Denies change in appetite Endo Denies fatigue and Denies palpitations Physical exam (Primary Care) Vital Signs: Last Vital Signs Pulse 73 10/29/24 09:04 BP 128/84 10/29/24 09:04 Pulse Ox 95 10/29/24 09:04 Oxygen Delivery Method Room Air 10/29/24 09:04 BMI result Body Mass Index 30.6 Tobacco/Smoking Status: Tobacco use Status Tobacco use date assessed 10/29/24 10/29/24 09:08 Patient Tobacco Use Status Never used Tobacco 10/29/24 09:08 e-Cigarette/Vaping Use Never Used 10/29/24 09:08 PHQ-9: PHQ-9 Score PHQ-9: Total score 1 10/29/24 09:30 Depression Screening Interpretation: Negative Thrive Assessment: Date of Thrive Assessment Date Thrive assessed 10/29/24 10/29/24 09:08 Currently or been in a relationship where the following occur: I choose not to answer Const General: no acute distress and alert HENMT Ears: TM's normal bilaterally and EAC's normal Throat: Yes posterior oropharynx normal and Yes tonsils normal (no TP congestion) Neck Neck: Yes no lymphadenopathy and Yes supple Thyroid: Thyroid normal Resp Auscultation: clear to auscultation bilaterally, no rales and no wheezes Cardio Rate: regular rate Rhythm: regular rhythm Heart sounds: no murmurs GI Palpation (GI): Soft to palpation and nontender Auscultation: normal bowel sounds General: Yes no CVA tenderness Back/Spine/Pelvis Back: no CVA tenderness Thoracic/Lumbar Spine: lumbar spinal tenderness (increased, especially on the right side) Skin Rashes: no rashes Extrem General: Yes no clubbing, cyanosis or edema Right lower extremity: knee Details: tenderness; no swelling Results Reviewed Results Reviewed: Laboratory Tests 10/21/24 10/21/24 09:59 10:04 WBC 5.6 Hgb 12.9 L Hct 39.0 L Plt Count 336 D Sodium 141 Potassium 3.8 Creatinine 0.93 Estimated GFR > 60 Fasting Glucose 124 H Calcium 8.8 D AST 29 ALT 34 Triglycerides 85 Cholesterol 82 LDL Cholesterol, Calc 30 HDL Cholesterol 35 L 25-OH Vitamin D Total 35.6 TSH 0.64 Urine pH 7.5 Ur Specific [place] 1.015 Urine Protein 100 (2+) H Urine Glucose (UA) Negative Urine Blood Negative Urine Nitrite Negative Ur Leukocyte Esterase Negative Coding Level of Care Code Est Pt Level 4 (89158) Diagnoses Coronary artery disease involving [place] heart without angina pectoris, unspecified vessel or lesion type I25.10 Coronary Disease-Associated Artery/Lesion type: unspecified vessel or lesion type [place] vs. transplanted heart: [place] heart Associated angina: without angina Palpitations R00.2 Benign essential hypertension I10 Type 2 diabetes mellitus with albuminuria E11.29; R80.9 Pure hypercholesterolemia E78.00 Proteinuria, unspecified type R80.9 Proteinuria type: unspecified Vitamin D deficiency E55.9 Rectal bleeding K62.5 Primary osteoarthritis of left hip M16.12 Primary osteoarthritis of right knee M17.11 Acute midline low back pain without sciatica M54.50 Chronicity: acute Back pain laterality: midline Sciatica presence: without sciatica Obstructive sleep apnea G47.33 Anemia, unspecified type D64.9 Anemia type: unspecified type Elevated PSA R97.20 Primary insomnia F51.01 Anxiety F41.9 Overweight (BMI 25.0-29.9) E66.3 Additional Codes PHQ-9 - 69175 - PHQ-9 Billing: Yes ([id number]) Assessment & Plan Assessment & Plan (1) CAD (coronary artery disease): Comment: Coronary calcium score greater than 1000, February 2021 Code(s): I25.10 - Atherosclerotic heart disease of [place] coronary artery without angina pectoris Category: Medical Qualifiers: Coronary Disease-Associated Artery/Lesion type: unspecified vessel or lesion type [place] vs. transplanted heart: [place] heart Associated angina: without angina Qualified Code(s): I25.10 - Atherosclerotic heart disease of [place] coronary artery without angina pectoris Plan: Patient had coronary CTA done in 2020 to assess his CV risks - test came out with a significantly elevated coronary calcium score of > 1000 suggestive of 3- vessel disease Nuclear stress testing done at [facility] in April 2021 came out normal Continue Aspirin 81 mg QD and Carvedilol 6.25 mg BID Follow up with cardiology as scheduled (2) Palpitations: Comment: Echocardiogram (normal EF, mild TR and mild MR) and Holter monitor (SR with rare PAC and PVC) done last year (2019) were mostly normal Code(s): R00.2 - Palpitations Category: Medical Plan: Patient states that his symptoms have been stable and have not recurred in a while now Follow up with cardiology as scheduled (3) Benign essential hypertension: Code(s): I10 - Essential (primary) hypertension Category: Medical Plan: Reinforced low sodium diet - goal is systolic BP of at least 120 to 130 mm or less Continue Amlodipine 5 mg QD, Lisinopril 40 mg QD and Carvedilol 6.25 mg BID Follow up with cardiology as scheduled (4) Type 2 diabetes mellitus with albuminuria: Code(s): E11.29 - Type 2 diabetes mellitus with other diabetic kidney complication; R80.9 - Proteinuria, unspecified Category: Medical Plan: His HgbA1c was at 6.6% when last checked a few months ago (was previously at 6.5%) - goal is at least <7.0% but ideally <6.5% FBS was at 124 mg/dl on his recent labs Reinforced low calorie diet/exercise as tolerated He is currently on NO meds for his DM and would like to continue to keep it this way for as long as possible Will recheck his FBS and HgbA1c in 4 months for follow up (5) Pure hypercholesterolemia: Code(s): E78.00 - Pure hypercholesterolemia, unspecified Category: Medical Plan: Results of his labs done last week reviewed and discussed with patient - his cholesterol numbers remain very well-controlled and are at goal Reinforced low cholesterol diet Continue Atorvastatin 80 mg QD, Ezetimibe 10 mg QD and Repatha 140 mg SQ every 2 weeks Will recheck his labs and fasting lipids in 4 months for follow up (6) Proteinuria: Code(s): R80.9 - Proteinuria, unspecified Category: Medical Qualifiers: Proteinuria type: unspecified Qualified Code(s): R80.9 - Proteinuria, unspecified Plan: Patient still has significant proteinuria on his recent labs but this appears to be stable Follow up with [facility] Nephrology as scheduled (7) Vitamin D deficiency: Code(s): E55.9 - Vitamin D deficiency, unspecified Category: Medical Plan: Continue Vitamin D3 2000 units QD (8) Rectal bleeding: Code(s): K62.5 - Hemorrhage of anus and rectum Category: Medical Plan: Resolved with no recent recurrence Patient had one episode of rectal bleeding earlier in June 2024 - this was likely due to hemorrhoids or diverticulosis His workups done at the ER, including labs and abdominal/pelvic CT, all came back unrevealing Follow up with GI (Dr. Dietz) as scheduled (9) Primary osteoarthritis of left hip: Comment: S/P total left hip arthroplasty with [facility] in August 2019 and S/P physical therapy, with significant improvement of hip pain Code(s): M16.12 - Unilateral primary osteoarthritis, left hip Category: Medical Plan: S/P left hip arthroplasty in 2019 Continue Tylenol 325 mg every 4 to 6 hours as needed Follow up with orthopedics ([facility]) as scheduled or as needed (10) Primary osteoarthritis of right knee: Code(s): M17.11 - Unilateral primary osteoarthritis, right knee Category: Medical Plan: MRI of the right knee done at [facility] on 02/13/2020 revealed (+) significant OA changes S/P total right knee arthroplasty with [facility] on 11/05/22 and he also completed physical therapy for his knee He reports that he is still experiencing a lot of pain often in his knee and was recently recommended to undergo a revision arthroplasty, which he is still debating on Follow up with [facility] as scheduled (11) Low back pain: Code(s): M54.50 - Low back pain, unspecified Category: Medical Qualifiers: Chronicity: acute Back pain laterality: midline Sciatica presence: without sciatica Qualified Code(s): M54.50 - Low back pain, unspecified Plan: Patient is advised that he likely has acute lumbar myofascial/musculoskeletal strain as a consequence of his recent activity (see HPI) Lumbar spine x-rays done on 08/20/2022 revealed (+) 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 He is very compliant and benefitting from the use of CPAP. No specific issues concerning CPAP device. Code(s): G47.33 - Obstructive sleep apnea (adult) (pediatric) Category: Medical Plan: Continue using his CPAP device when sleeping at night Follow up with Sleep Medicine as scheduled (13) Anemia: Code(s): D64.9 - Anemia, unspecified Category: Medical Qualifiers: Anemia type: unspecified type Qualified Code(s): D64.9 - Anemia, unspecified Plan: Stable Iron studies rechecked back in April 2023 were again normal Patient had a normal colonoscopy with Dr. Dietz on 07/21/2008 and most recently in July 2020; EGD done at [facility] in 2017 also came out normal Will continue to monitor his CBC regularly (14) Elevated PSA: Code(s): R97.20 - Elevated prostate specific antigen [PSA] Category: Medical Plan: His PSA level came back most recently at 4.13 in August 2023 Patient denies any acute urinary symptoms Follow up with urology (Dr. Suazo) as scheduled (15) Primary insomnia: Code(s): F51.01 - Primary insomnia Category: Medical Plan: Sleep hygiene reinforced Continue OTC Melatonin PRN for sleep (16) Anxiety: Code(s): F41.9 - Anxiety disorder, unspecified Category: Medical Plan: Continue Clonazepam 1 mg 1/2 to 1 tablet once a day as needed (17) Overweight (BMI 25.0-29.9): Comment: Patient has been moderately obese. Lately he has gained a few more lb because he was relatively sedentary during winter. Code(s): E66.3 - Overweight Category: Medical Plan: Reinforced diet/exercise as tolerated/lose weight Plan To return as scheduled on 01/27/2025 for his annual physical examination Orders: Orders Complete Blood Count Auto Diff 01/18/25 D64.9 - Anemia, unspecified, Z00.00 - Encounter for general adult medical examination without abnormal findings Comprehensive [place]. Panel Fast 01/18/25 E78.00 - Pure hypercholesterolemia, unspecified, Z00.00 - Encounter for general adult medical examination without abnormal findings UA CC w/rflx Micro + Cult 01/18/25 R30.0 - Dysuria, Z00.00 - Encounter for general adult medical examination without abnormal findings Prostate Specific Antigen 01/18/25 N40.0 - Benign prostatic hyperplasia without lower urinary tract symptoms, R73.01 - Impaired fasting glucose, Z00.00 - Encounter for general adult medical examination without abnormal findings Lipid Panel 01/18/25 E78.00 - Pure hypercholesterolemia, unspecified, Z00.00 - Encounter for general adult medical examination without abnormal findings TSH reflex Free T4 01/18/25 E78.00 - Pure hypercholesterolemia, unspecified, Z00.00 - Encounter for general adult medical examination without abnormal findings Hemoglobin A1c 01/18/25 R73.01 - Impaired fasting glucose, Z00.00 - Encounter for general adult medical examination without abnormal findings
--- OUTSIDE RECORDS SUMMARY | 2024-10-29 09:46 | XMS_ITS | Clinical Summary ---
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 DIAGNOSTIC USE: The [place] Diabetes Association (ADA) and the World Health [...] Supplement 1 Testing performed or reported by [facility], a Service of [facility], [address] [place] [address] Maday Martinez MD, Assistant Public Defender [facility]# [id number] Blood specimen (specimen) Venous blood / Unknown 01/24/2022 9:50 AM EDT 01/24/2022 9:51 AM EDT Mehul Marie MD LAB BLOOD ORDERABLES Ida valladares Result [facility] from Last 3 Months or Most Recently Relevant to Health Maintenance Insurance [facility] Care Teams Wool Washing Machine Operator Relationship Specialty Start Date End Date Sim Reardon MD [address] [place] [address] PCP - General 05/16/20
== END 2024-10-29 09:35 | disposition home or self-care (01) ==
LOC: HO.HMCH 09:03
PROVIDERS: PCP Internal Medicine; Visit Provider Internal Medicine
DX: I25.10 Atherosclerotic heart disease of native coronary artery without angina pectoris (principal); R00.2 Palpitations; I10 Essential (primary) hypertension; E11.29 Type 2 diabetes mellitus with other diabetic kidney complication; R80.9 Proteinuria, unspecified; E78.00 Pure hypercholesterolemia, unspecified; E55.9 Vitamin D deficiency, unspecified; K62.5 Hemorrhage of anus and rectum; M16.12 Unilateral primary osteoarthritis, left hip; M17.11 Unilateral primary osteoarthritis, right knee; M54.50 Low back pain, unspecified; G47.33 Obstructive sleep apnea (adult) (pediatric); D64.9 Anemia, unspecified; R97.20 Elevated prostate specific antigen [PSA]; F51.01 Primary insomnia; F41.9 Anxiety disorder, unspecified; E66.3 Overweight

== ENCOUNTER → 2024-10-29 09:02 | Outpatient (BNVA) | payer OTHER, SELFPAY | PROVIDERS: PCP Internal Medicine; Visit Provider Internal Medicine | DX: I25.10 Atherosclerotic heart disease of native coronary artery without angina pectoris (principal); R00.2 Palpitations; I10 Essential (primary) hypertension; E11.29 Type 2 diabetes mellitus with other diabetic kidney complication; R80.9 Proteinuria, unspecified; E78.00 Pure hypercholesterolemia, unspecified; E55.9 Vitamin D deficiency, unspecified; K62.5 Hemorrhage of anus and rectum; M16.12 Unilateral primary osteoarthritis, left hip; M17.11 Unilateral primary osteoarthritis, right knee; M54.50 Low back pain, unspecified; G47.33 Obstructive sleep apnea (adult) (pediatric); D64.9 Anemia, unspecified; R97.20 Elevated prostate specific antigen [PSA]; F51.01 Primary insomnia; F41.9 Anxiety disorder, unspecified; E66.3 Overweight; Z68.30 Body mass index [BMI] 30.0-30.9, adult | CPT/HCPCS: 96127 ==

== ENCOUNTER 2024-11-25 10:06 | Outpatient (REF) | payer OTHER, SELFPAY ==
--- OUTSIDE RECORDS SUMMARY | 2024-11-25 10:59 | XMS_ITS | Continuity of Care Document ---
Author Organization [facility] Address [address] [address] Insurance Providers Payer Plan Claims Address Claims Phone Policy Number Group Number Relation Employer Guarantor Name Guarantor Guarantor Address Guarantor Phone [facility], [address], [place] [address] tel:[phone] Self Girish Salvador 1965 [address], [place] [address] [place] [address] tel:[phone] Self Girish Salvador 1965 [address], [place] [address] Problems Unknown Problems Results Test Result Date/Time Value / Unit Interp. Refere [facility] Range Comp. Metabolic Panel (14)[[id number]] Collected: 03/14/2024 09:01 PM Specimen Received: 03/14/2024 05:00 AM Source: [facility] Glucose [[id number]] 03/15/2024 03:19 PM 115 mg/dL H 70-99 mg/dL BUN [[id number]] 03/15/2024 03:13 PM 12 mg/dL 8-2 7 mg/dL Creatinine [[id number]] 03/15/2024 03:13 PM 0.85 mg/dL 0.76-1.27 mg/dL eGFR [[id number]] 03/15/2024 03:13 PM 99 mL/min/1.73 >59 mL/min/1.73 BUN/Creatinine Ratio [[id number]] 03/15/2024 03:13 PM 14 10-24 Sodium [[id number]] 03/15/2024 03:14 PM 143 mmol/L 134-144 mmol/L Potassium [[id number]] 03/15/2024 03:15 PM 4.3 mmol/L 3.5-5.2 mmol/L Chloride [[id number]] 03/15/2024 03:11 PM 104 mmol/L 96-106 mmol/L Carbon Dioxide, Total [[id number]] 03/15/2024 03:26 PM 24 mmol/L 20-29 mmol/L Calcium [[id number]] 03/15/2024 03:12 PM 9.2 mg/dL 8.6-10.2 mg/dL Protein, Total [[id number]] 03/15/2024 03:30 PM 7.3 g/dL 6.0-8.5 g/dL Albumin [[id number]] 03/15/2024 03:14 PM 4.3 g/dL 3.8-4.9 g/dL Globulin, Total [[id number]] 03/15/2024 03:30 PM 3.0 g/dL 1.5-4.5 g/dL Bilirubin, Total [[id number]] 03/15/2024 03:14 PM 0.6 mg/dL 0.0-1.2 mg/dL Alkaline Phosphatase [[id number]] 03/15/2024 03:18 PM 118 IU/L 44-121 IU/L AST (SGOT) [[id number]] 03/15/2024 03:13 PM 20 IU/L 0-40 IU/L ALT (SGPT) [[id number]] 03/15/2024 03:17 PM 27 IU/L 0-44 IU/L Lipid Panel[[id number]] Collected: 03/14/2024 09:01 PM Specimen Received: 03/14/2024 05:00 AM Source: [facility] Cholesterol, Total [[id number]] 03/15/2024 03:35 PM 83 mg/dL L 100-199 mg/d L Triglycerides [[id number]] 03/15/2024 03:33 PM 65 mg/dL 0-149 mg/dL HDL Cholesterol [[id number]] 03/15/2024 03:32 PM 41 mg/dL >39 mg/dL VLDL Cholesterol Carlos [[id number]] 03/15/2024 03:35 PM 15 mg/dL 5-40 mg/dL LDL Chol Calc ([facility]) [[id number]] 03/15/2024 03:35 PM 27 mg/dL 0-99 mg/dL Hemoglobin A1c[[id number]] Collected: 03/14/2024 09:01 PM Specimen Received: 03/14/2024 05:00 AM Source: [facility] Hemoglobin A1c [[id number]] 03/15/2024 12:29 PM 6.8 % H 4.8-5.6 % . Prediabetes: 5.7 - 6.4 Di abetes: >6.4 Glycemic control for adults with diabetes: 7.0 Allergies, adverse reactions, alerts No known allergies and adverse reactions Medications No administered medications reported Vital Signs No vital signs reported Social History No smoking Hx information available
--- OUTSIDE RECORDS SUMMARY | 2024-11-25 10:59 | XMS_ITS | Patient Health Record ---
Author Organization [facility] Address [address] [place] [address] Care Team Providers Care Medical Office Representative Name Role Phone Alexys PRIETO, Sim Primary Care Provider Ravindra Vick Jr Unavailable Allergies Allergen (clinical drug ingredient) Drug/Non Drug Allergy documented on EMR Reaction Allergy Type Onset Date Status Shellfish (FN) shell fish (uncoded) Unknown Allergy Active Results Component Value Reference Range Notes Pathology Reviewed date:08/13/2024 09:02:19 AM Interpretation: Performing Lab:[facility], [address] [place] [id number] Notes/Report: Reason For Referral No Information Medications Medication [...] Problem Status W/U Status Risk Notes Problem 244366047 Colon cancer screening (Z12.11) Active confirmed Problem 41135801 Rectal bleeding (K62.5) Active confirmed Problem 32018619 Other dysphagia (R13.19) Active confirmed Problem 875661280 Gastroesophageal reflux disease without esophagitis (K21.9) Active confirmed Problem 396303411 Anemia, unspecif ied type (D64.9) Active confirmed Vital Signs Temperature 96.9 degrees Fahrenheit 06/29/2024 Blood pressure diastolic 01 mm Hg 06/29/2024 Height 70.25 in 06/29/2024 Blood pressure systolic 001 mm Hg 06/29/2024 Weight 212.8 lbs 06/29/2024 BMI 30.31 kg/m2 06/29/2024 Encounters Encounter Location Date Provider Diagnosis [facility] Out[facility] [address] [place] [id number] 08/04/2024 Ravindra Dietz Jr GI bleed K92.2 and Gastritis K29.70 [facility] [address] [place] [phone] 06/29/2024 Ravindra Dietz Jr Rectal bleeding K62.5 ; Anemia, unspecified type D64.9 ; Gastroesophageal reflux disease without esophagitis K21.9 and Aspirin long-term use Z79.82 [facility] [address] [place] [phone] 08/13/2024 Ravindra Dietz Jr Assessments Encounter Date [...] 06/29/2024 Next Appt Details Provider Name:Ravindra tracey , 02/17/2025 09:20:00 AM, [address] [place] [address], [address], [place], [address], Insurance Providers Payer Name Payer Address Payer Phone Subscriber Number Group Number Insured Name Patient Relationship to Insured Coverage Start Date Coverage End Date [facility] [address] [place] [address] [id number] ZENAIDA RAMIRES Self - patient is the insured Medical [...]
--- OUTSIDE RECORDS SUMMARY | 2024-11-25 10:59 | XMS_ITS | Continuity of Care Document ---
Author Organization [facility] Address [address] [address] Insurance Providers Payer Plan Claims Address Claims Phone Policy Number Group Number Relation Employer Guarantor Name Guarantor Guarantor Address Guarantor Phone [facility], [address], [place] [address] tel:[phone] Self Girish Salvador 1965 [address], [place] [address] [place] [address] tel:[phone] Self Girish Salvador 1965 [address], [place] [address] Problems Unknown Problems Results Test Result Date/Time Value / Unit Interp. Refere [facility] Range Comp. Metabolic Panel (14)[[id number]] Collected: 03/14/2024 09:01 PM Specimen Received: 03/14/2024 05:00 AM Source: [facility] Glucose [[id number]] 03/15/2024 03:19 PM 115 mg/dL H 70-99 mg/dL BUN [169489] 03/15/2024 03:13 PM 12 mg/dL 8-2 7 mg/dL Creatinine [766686] 03/15/2024 03:13 PM 0.85 mg/dL 0.76-1.27 mg/dL eGFR [[id number]] 03/15/2024 03:13 PM 99 mL/min/1.73 >59 mL/min/1.73 BUN/Creatinine Ratio [154999] 03/15/2024 03:13 PM 14 10-24 Sodium [556636] 03/15/2024 03:14 PM 143 mmol/L 134-144 mmol/L Potassium [648122] 03/15/2024 03:15 PM 4.3 mmol/L 3.5-5.2 mmol/L Chloride [195000] 03/15/2024 03:11 PM 104 mmol/L 96-106 mmol/L Carbon Dioxide, Total [039201] 03/15/2024 03:26 PM 24 mmol/L 20-29 mmol/L Calcium [445567] 03/15/2024 03:12 PM 9.2 mg/dL 8.6-10.2 mg/dL Protein, Total [564642] 03/15/2024 03:30 PM 7.3 g/dL 6.0-8.5 g/dL Albumin [574657] 03/15/2024 03:14 PM 4.3 g/dL 3.8-4.9 g/dL Globulin, Total [091755] 03/15/2024 03:30 PM 3.0 g/dL 1.5-4.5 g/dL Bilirubin, Total [865909] 03/15/2024 03:14 PM 0.6 mg/dL 0.0-1.2 mg/dL Alkaline Phosphatase [341099] 03/15/2024 03:18 PM 118 IU/L 44-121 IU/L AST (SGOT) [925803] 03/15/2024 03:13 PM 20 IU/L 0-40 IU/L ALT (SGPT) [657948] 03/15/2024 03:17 PM 27 IU/L 0-44 IU/L Lipid Panel[[id number]] Collected: 03/14/2024 09:01 PM Specimen Received: 03/14/2024 05:00 AM Source: [facility] Cholesterol, Total [[id number]] 03/15/2024 03:35 PM 83 mg/dL L 100-199 mg/d L Triglycerides [337543] 03/15/2024 03:33 PM 65 mg/dL 0-149 mg/dL HDL Cholesterol [254455] 03/15/2024 03:32 PM 41 mg/dL >39 mg/dL VLDL Cholesterol Carlos [[id number]] 03/15/2024 03:35 PM 15 mg/dL 5-40 mg/dL LDL Chol Calc ([facility] [[email or web address]]) [[id number]] 03/15/2024 03:35 PM 27 mg/dL 0-99 mg/dL Hemoglobin A1c[[id number]] Collected: 03/14/2024 09:01 PM Specimen Received: 03/14/2024 05:00 AM Source: [facility] Hemoglobin A1c [[id number]] 03/15/2024 12:29 PM 6.8 % H 4.8-5.6 % . Prediabetes: 5.7 - 6.4 Di abetes: >6.4 Glycemic control for adults with diabetes: 7.0 Allergies, adverse reactions, alerts No known allergies and adverse reactions Medications No administered medications reported Vital Signs No vital signs reported Social History No smoking Hx information available
--- OUTSIDE RECORDS SUMMARY | 2024-11-25 10:59 | XMS_ITS | Clinical Summary ---
Author Organization [facility] Address [address] [place] [address] Care Team Providers Care Lock Installer Name Role Phone Sim Reardon MD Primary Care Provider [phone] Allergies No known active allergies Medications aspirin [...] Hemoglobin A1C 04/25/2022 01/24/2022 Influenza Vaccine (#1) 2025 02/17/2015 Hepatitis B Vaccine Aged Out No [...] AM EDT) Hemoglobin A1C 6.4(H) (4.0-5.6) % [facility] Comment: MONITORING: In known diabetic patients, hemoglobin A1c targets should be discussed with health care provider. DIAGNOSTIC USE: The [place] Diabetes Association (ADA) and the World Health [...] Supplement 1 Testing performed or reported by [facility], a Service of [facility], [address] [place] [address] Maday Martinez MD, Box Toe Maker [facility]# [id number] Blood specimen (specimen) Venous blood / Unknown 01/24/2022 9:50 AM EDT 01/24/2022 9:51 AM EDT Mehul Marie MD LAB BLOOD ORDERABLES Ida valladares Result [facility] from Last 3 Months or Most Recently Relevant to Health Maintenance Insurance [facility] Care Teams Lock Installer Relationship Specialty Start Date End Date Sim Reardon MD [address] [place] [address] PCP - General 05/16/20
[2024-11-25 12:03] LABS: Anion Gap 10 (12-20); Blood Urea Nitrogen 13 mg/dL (9-16); Calcium 8.5 mg/dL (8.4-10.2); Carbon Dioxide 28 mmol/L (22-29); Chloride 107 mmol/L (96-108); Estimated Glomerular Filt Rate > 60; Potassium 3.9 mmol/L (3.3-5.1); Sodium 141 mmol/L (135-145)
[2024-11-25 12:45] LABS: Appearance Urine Clear; Glucose Urine UA Negative (Negative); PH 7.0 (5.0-9.0); Specific Gravity - Urine 1.010 (1.005-1.025); UMIC TRIGGER UA YES
[2024-11-25 14:26] LABS: Total Protein Urine Random 81 mg/dL (<12)
== END 2024-11-25 10:07 | disposition home or self-care (01) ==
LOC: HO.LAB 10:06
PROVIDERS: PCP Internal Medicine; Visit Provider Internal Medicine Hypertension Specialist
DX: E11.29 Type 2 diabetes mellitus with other diabetic kidney complication (principal); R80.9 Proteinuria, unspecified
CPT/HCPCS: 36415; 80048; 81001; 82570; 84156

== ENCOUNTER 2024-12-07 09:36 | Outpatient (AMB) | payer OTHER, SELFPAY ==
--- NOTE | 2024-12-07 09:40 | HO.NEPHOV_ITS ---
Vital Signs 12/07/24 09:41 Height 5 ft 10 in Weight 213 lb 8 oz BMI 30.6 BP 130/78 Blood Pressure Location Lt brachial Position Sitting Pulse 73 Pulse Source Pulse Oximeter Pulse Oximetry (%) 94 Oxygen Delivery Method Room Air Intake Visit Reasons: 6mon follow-up w/labs Conf Funnel Coater Required: No Accompanied by: Self / Same As Patient Allergies chlorthalidone Allergy (Unknown, Verified 12/07/24 09:43) excessive urination glipizide Allergy (Unknown, Verified 12/07/24 09:43) Unknown hydrochlorothiazide Allergy (Unknown, Verified 12/07/24 09:43) dizziness, excessive urination ibuprofen (From MOTRIN) Allergy (Unknown, Verified 12/07/24 09:43) irregular heartbeat metformin Allergy (Unknown, Verified 12/07/24 09:43) chokling sensation metoprolol Allergy (Unknown, Verified 12/07/24 09:43) slow heart rate nifedipine Allergy (Unknown, Verified 12/07/24 09:43) tachy/kate buspirone (From BUSPAR) Adverse Reaction (Unknown, Verified 12/07/24 09:43) STOMACH UPSET canagliflozin (Invokana) Adverse Reaction (Unknown, Verified 12/07/24 09:43) SYNCOPE clonidine (From CATAPRES) Adverse Reaction (Unknown, Verified 12/07/24 09:43) STOMACH UPSET SHELLFISH Allergy (Severe, Uncoded 10/29/24 09:28) ANAPHYLAXIS Sucralfate Allergy (Unknown, Uncoded 10/29/24 09:28) chest pain Medication List - Last Reconciled 12/07/24 by Jarvis Rose MD acetaminophen (Tylenol Extra Strength) 1,000 mg (2 x 500 mg) PO Q8H PRN amlodipine 5 mg PO DAILY aspirin 81 mg PO DAILY atorvastatin 80 mg PO DAILY carvedilol 6.25 mg PO BID cholecalciferol (vitamin D3) 125 mcg PO DAILY clonazepam 1/2 to 1 tablet by mouth once a day as needed for increased anxiety; 30 days evolocumab (Repatha SureClick) 140 mg subcut Q2W ezetimibe (Zetia) 10 mg PO DAILY gabapentin 200 mg (2 x 100 mg) PO BID 30 days lisinopril 40 mg PO DAILY melatonin 10 mg PO BEDTIME PRN metoclopramide HCl (Reglan) 10 mg PO Q6H PRN [id number] mcg (Centrdat Hernandez) 1 tab PO DAILY omeprazole 20 mg PO DAILY tizanidine 4 mg PO Q8H PRN 30 days tramadol 50 mg PO TID PRN Do you need a note to return to daycare/school/sports/work: No HPI Comments Details: Middle-aged man with a history of longstanding hypertension diabetes mellitus with proteinuria. However no new over the last 15-20 years. He is currently on lisinopril for protection. New recently amlodipine was added. In the past he was on calcium channel matt which caused leg edema. However he is able to tolerate amlodipine 5 mg. He has gained some weight. He is not monitoring his blood sugars regularly. 11/12/23 Overall doing well Gained few pounds Left ankle is mildly swollen 05/28/24 : Overall doing well. No new issues. BP better controlled A1C is stable at 6.6% Gained about 3- 5 lbs ! 12/07/24: No specific complaints. Blood sugar and BP are acceptable base don home readings [facility] Medical History Type 2 diabetes mellitus with albuminuria CAD (coronary artery disease) Fatigue Myalgia Overweight (BMI 25.0-29.9) Anxiety Primary insomnia Obstructive sleep apnea Anemia Left thigh pain Primary osteoarthritis of left hip Vitamin D deficiency Proteinuria Palpitations Impaired fasting glucose Pure hypercholesterolemia Benign essential hypertension Surgical History History of arthroplasty of right knee (~11/05/22) Hx of colonoscopy History of arthroplasty of left hip History of hip surgery Family History Father No problems noted. 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 Cognitive needs: No Hearing needs: No Vision needs: Yes (glasses) Physical Exam Vital Signs: Last Vital Signs Pulse 73 12/07/24 09:41 BP 130/78 12/07/24 09:41 Pulse Ox 94 12/07/24 09:41 Oxygen Delivery Method Room Air 12/07/24 09:41 BMI result Body Mass Index 30.6 Const General: comfortable; No acute distress Orientation/consciousness: patient oriented x3 Eyes General: appearance normal, both eyes and all related structures Visual Shirley: normal visual shirley by confrontation Neck Neck: Yes supple and Yes no JVD Resp Effort & Inspection: normal respiratory effort and respiratory effort not decreased Cardio Palpation: no palpable S3 and no palpable S4 Heart sounds: no rubs GI Inspection: Yes normal to inspection Palpation (GI): Soft to palpation Percussion: Yes normal to percussion Auscultation: normal bowel sounds General: Yes no CVA tenderness Back/Spine/Pelvis Back: no CVA tenderness Skin General skin exam: no petechiae and no purpura Neuro General: patient oriented x3 and no focal motor deficits Extrem General: No clubbing and No edema Results Reviewed Nephrology Results: Hgb, (14.0-18.0) 12.9 g/dl L 10/21/24 WBC, (4.8-10.8) 5.6 X10*3/uL 10/21/24 Plt Count, (160-400) 336 X10*3/uL Δ 10/21/24 Sodium, (135-145) 141 mmol/L 11/25/24 Potassium, (3.3-5.1) 3.9 mmol/L 11/25/24 Chloride, (96-108) 107 mmol/L 11/25/24 Carbon Dioxide, (22-29) 28 mmol/L 11/25/24 BUN, (9-16) 13 mg/dL 11/25/24 Creatinine, (0.5-1.4) 0.94 mg/dL 11/25/24 Calcium, (8.4-10.2) 8.5 mg/dL 11/25/24 Urine Protein, (Neg-Trace) 100 (2+) mg/dL H 11/25/24 Urine Creatinine 71.55 mg/dL 11/25/24 Assessment & Plan Assessment & Plan (1) Proteinuria: Code(s): R80.9 - Proteinuria, unspecified Category: Medical Qualifiers: Proteinuria type: unspecified Qualified Code(s): R80.9 - Proteinuria, unspecified (2) Benign essential hypertension: Code(s): I10 - Essential (primary) hypertension Category: Medical (3) Type 2 diabetes mellitus with albuminuria: Code(s): E11.29 - Type 2 diabetes mellitus with other diabetic kidney complication; R80.9 - Proteinuria, unspecified Category: Medical Plan Middle-aged man with proteinuria in the setting of longstanding diabetes mellitus. He probably has underlying diabetic nephropathy. Renal function stable. Goal is to slow the progression of renal disease. We will continue to maximize CLEVE inhibition. blood pressure should be maintained less than 130/80. Discussed importance of tight control of blood sugar to maintain hemoglobin A1c at the target range. He would benefit from SGLT-2 inhibitor. U MACR is 691 and UPCR is 1.0 Recheck SPEP We also discussed weight loss. Today I have not made any changes. Encouraged him to stay on low-sodium diet. Continue to avoid nephrotoxic agents including NSAIDs. Still eating fast food. Encouraged to cut down. Orders: Orders Basic Metabolic Panel 6 Months I10 - Essential (primary) hypertension, R80.9 - Proteinuria, unspecified Creatinine Urine 6 Months I10 - Essential (primary) hypertension, R80.9 - Proteinuria, unspecified Protein Electrophoresis, Serum 6 Months I10 - Essential (primary) hypertension, R80.9 - Proteinuria, unspecified UA and rflx microscopic 6 Months I10 - Essential (primary) hypertension, R80.9 - Proteinuria, unspecified Total Protein Urine Random 6 Months I10 - Essential (primary) hypertension, R80.9 - Proteinuria, unspecified Coding Level of Care Code Est Pt Level 4 (81858) Diagnoses Proteinuria, unspecified type R80.9 Proteinuria type: unspecified Benign essential hypertension I10 Type 2 diabetes mellitus with albuminuria E11.29; R80.9
[2024-12-07 09:41] VITALS: BP 130/78; PULSE 73; O2SAT 94; BMI 30.6
--- OUTSIDE RECORDS SUMMARY | 2024-12-07 10:11 | XMS_ITS | Patient Health Record ---
Author Organization [facility] Address [address] [place] [address] Care Team Providers Care Curriculum Writer Name Role Phone Alexys PRIETO, Sim Primary Care Provider Ravindra Vick Jr Unavailable Allergies Allergen (clinical drug ingredient) Drug/Non Drug Allergy documented on EMR Reaction Allergy Type Onset Date Status Shellfish (FN) shell fish (uncoded) Unknown Allergy Active Results Component Value Reference Range Notes Pathology Reviewed date:08/13/2024 09:02:19 AM Interpretation: Performing Lab:[facility], [address] [place] [phone] Notes/Report: Reason For Referral No Information Medications [...] Problem Status W/U Status Risk Notes Problem 976801983 Colon cancer screening (Z12.11) Active confirmed Problem 69563836 Rectal bleeding (K62.5) Active confirmed Problem 79609310 Other dysphagia (R13.19) Active confirmed Problem 330683015 Gastroesophageal reflux disease without esophagitis (K21.9) Active confirmed Problem 450292192 Anemia, unspecif ied type (D64.9) Active confirmed Vital Signs Temperature 96.9 degrees Fahrenheit 06/29/2024 Blood pressure diastolic 01 mm Hg 06/29/2024 Height 70.25 in 06/29/2024 Blood pressure systolic 001 mm Hg 06/29/2024 Weight 212.8 lbs 06/29/2024 BMI 30.31 kg/m2 06/29/2024 Encounters Encounter Location Date Provider Diagnosis [facility] [place] [address] [place] [id number] 08/04/2024 Ravindra Dietz Jr GI bleed K92.2 and Gastritis K29.70 [facility] [address] [place] [phone] 06/29/2024 Ravindra Dietz Jr Rectal bleeding K62.5 ; Anemia, unspecified type D64.9 ; Gastroesophageal reflux disease without esophagitis K21.9 and Aspirin long-term use Z79.82 [facility] [address] [place] [phone] 08/13/2024 Ravindra Dietz Jr Assessments Encounter Date [...] Provider Name:Ravindra tracey , 02/17/2025 09:20:00 AM, [address] [place] [address], [address], [place], [phone], Insurance Providers Payer Name Payer Address Payer Phone Subscriber Number Group Number Insured Name Patient Relationship to Insured Coverage Start Date Coverage End Date [facility] [address] [place] [address] [id number] ZENAIDA RAMIRES Self - patient is the [...]
--- OUTSIDE RECORDS SUMMARY | 2024-12-07 10:11 | XMS_ITS | Clinical Summary ---
Author Organization [facility] Address [address] [place] [address] Care Team Providers Care Certified Orthotic Fitter Name Role Phone Sim Reardno MD Primary Care Provider [phone]- [phone] Allergies No known active allergies Medications aspirin [...] AM EDT) Hemoglobin A1C 6.4(H) (4.0-5.6) % [facility] Comment: MONITORING: In known diabetic patients, hemoglobin A1c targets should be discussed with health care provider. DIAGNOSTIC USE: The [place] Diabetes [employer] (ADA) and the World Health [...] Supplement 1 Testing performed or reported by [facility], a Service of [facility], [address] [address] Maday Martinez MD, Turbo Operator [facility]# [id number] Blood specimen (specimen) Venous blood / Unknown 01/24/2022 9:50 AM EDT 01/24/2022 9:51 AM EDT Mehul Marie MD LAB BLOOD ORDERABLES Ida valladares Result [facility] from Last 3 Months or Most Recently Relevant to Health Maintenance [facility] Care Teams Certified Orthotic Fitter Relationship Specialty Start Date End Date Sim Reardon MD [address] [place] [address] PCP - General 05/16/20
== END 2024-12-07 10:00 | disposition home or self-care (01) ==
LOC: HO.HKA 09:37
PROVIDERS: PCP Internal Medicine; Visit Provider Internal Medicine Hypertension Specialist
DX: R80.9 Proteinuria, unspecified (principal); I10 Essential (primary) hypertension; E11.29 Type 2 diabetes mellitus with other diabetic kidney complication
CPT/HCPCS: 99214

== ENCOUNTER 2024-12-17 09:37 | Outpatient (AMB) | payer OTHER, SELFPAY ==
[2024-12-17 09:47] VITALS: BP 130/78; PULSE 66; O2SAT 97; BMI 30.7
--- NOTE | 2024-12-17 09:47 | A.OFFVIS_ITS ---
Vital Signs 12/17/24 09:47 Height 5 ft 10 in Weight 213 lb 13.574 oz BMI 30.7 BP 130/78 Blood Pressure Location Lt brachial Position Sitting Pulse 66 Pulse Source Pulse Oximeter Pulse Oximetry (%) 97 Oxygen Delivery Method Room Air Intake Visit Reasons: Obstructive sleep apnea Allergies chlorthalidone Allergy (Unknown, Verified 12/17/24 09:53) excessive urination glipizide Allergy (Unknown, Verified 12/17/24 09:53) Unknown hydrochlorothiazide Allergy (Unknown, Verified 12/17/24 09:53) dizziness, excessive urination ibuprofen (From MOTRIN) Allergy (Unknown, Verified 12/17/24 09:53) irregular heartbeat metformin Allergy (Unknown, Verified 12/17/24 09:53) chokling sensation metoprolol Allergy (Unknown, Verified 12/17/24 09:53) slow heart rate nifedipine Allergy (Unknown, Verified 12/17/24 09:53) tachy/kate buspirone (From BUSPAR) Adverse Reaction (Unknown, Verified 12/17/24 09:53) STOMACH UPSET canagliflozin (Invokana) Adverse Reaction (Unknown, Verified 12/17/24 09:53) SYNCOPE clonidine (From CATAPRES) Adverse Reaction (Unknown, Verified 12/17/24 09:53) STOMACH UPSET SHELLFISH Allergy (Severe, Uncoded 12/17/24 09:53) ANAPHYLAXIS Sucralfate Allergy (Unknown, Uncoded 12/17/24 09:53) chest pain Medication List - Last Reconciled 12/17/24 by Lazarus An MD acetaminophen (Tylenol Extra Strength) 1,000 mg (2 x 500 mg) PO Q8H PRN amlodipine 5 mg PO DAILY aspirin 81 mg PO DAILY atorvastatin 80 mg PO DAILY carvedilol 6.25 mg PO BID cholecalciferol (vitamin D3) 125 mcg PO DAILY clonazepam 1/2 to 1 tablet by mouth once a day as needed for increased anxiety; 30 days evolocumab (Repatha SureClick) 140 mg subcut Q2W ezetimibe (Zetia) 10 mg PO DAILY gabapentin 200 mg (2 x 100 mg) PO BID 30 days lisinopril 40 mg PO DAILY melatonin 10 mg PO BEDTIME PRN metoclopramide HCl (Reglan) 10 mg PO Q6H PRN [id number] mcg (Centrdat Hernandez) 1 tab PO DAILY omeprazole 20 mg PO DAILY tizanidine 4 mg PO Q8H PRN 30 days tramadol 50 mg PO TID PRN Do you need a note to return to daycare/school/sports/work: No HPI HPI Obstructive sleep apnea: Details: Girish is 59 years old gentleman 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 6 months follow-up for his sleep apnea He is slightly overweight, but keep it, stable. He is a case of obstructive sleep apnea diagnosed since about 7 or 8 years ago, and has been using CPAP machine with benefits. CPAP device is old but still working fine and he does not want to change it to a new 1. He gets good 6-7 hours sleep every night. [facility] Medical History Type 2 diabetes mellitus with albuminuria CAD (coronary artery disease) Fatigue Myalgia Overweight (BMI 25.0-29.9) Anxiety Primary insomnia Obstructive sleep apnea Anemia Left thigh pain Primary osteoarthritis of left hip Vitamin D deficiency Proteinuria Palpitations Impaired fasting glucose Pure hypercholesterolemia Benign essential hypertension Surgical History History of arthroplasty of right knee (~11/05/22) Hx of colonoscopy History of arthroplasty of left hip History of hip surgery Family History Father No problems noted. 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 Cognitive needs: No Hearing needs: No Vision needs: Yes (glasses) Review of Systems Const Denies chills, Denies fatigue, Denies fever(s), Denies frequent falls, Denies weakness, Denies weight gain and Denies weight loss ENT Denies dizziness Card Denies chest pain, Denies leg edema, Denies lightheadedness, Denies palpitations, Denies dyspnea, Denies dyspnea on exertion, Denies orthopnea and Denies other (loss of consciousness) Resp Denies cough, Denies dyspnea and Denies dyspnea on exertion GI Denies hematochezia and Denies change in stool character Musc Denies abnormal gait, Denies muscle weakness, Denies numbness, Denies radiating pain into limb and Denies tingling Neuro Denies abnormal gait, Denies dizziness, Denies frequent falls, Denies numbness, Denies tingling and Denies weakness Endo Denies fatigue and Denies palpitations Physical Exam Const General: healthy appearing (Slightly overweight), comfortable, no acute distress, alert and awake Orientation/consciousness: patient oriented x3 HEENT Head: Yes normal to inspection General nose exam: No nasal polyps present and No nasal discharge present Face and sinus: Yes sinuses nontender Mouth: oropharynx normal Throat: Yes posterior oropharynx normal Eyes General: appearance normal, both eyes and all related structures Neck Neck: Yes normal visual inspection, Yes no lymphadenopathy, Yes trachea midline and Yes no JVD Thyroid: Thyroid normal Resp Effort & Inspection: normal respiratory effort Auscultation: clear to auscultation bilaterally, no crackles and no wheezes Percussion: percussion normal Cardio Palpation: normal PMI Rate: regular rate Rhythm: regular rhythm Heart sounds: no gallops and no murmurs Peripheral pulses: Peripheral pulses 2+ throughout GI Palpation (GI): Soft to palpation, nontender, No hepatosplenomegaly present and no masses Auscultation: normal bowel sounds Back/Spine/Pelvis Thoracic/Lumbar Spine: thoracic and lumbar spine normal to inspection Skin General skin exam: no rashes or lesions noted Neuro General: patient oriented x3 and no focal motor deficits Cranial nerves: Yes CN's II-XII intact bilaterally Extrem General: Yes normal to inspection, Yes no clubbing, cyanosis or edema and Yes no calf tenderness Psych Appearance: grossly normal and well kempt Speech and movement: Normal speech and movement present Results Reviewed Results Reviewed: CPAP device is old, not transmitting the data for compliance. But according to the patient he uses every night at least for 6-7 hours per night. Assessment & Plan Assessment & Plan (1) Overweight (BMI 25.0-29.9): Comment: Patient has been moderately obese. But he tries to maintain it at current level. Code(s): E66.3 - Overweight Category: Medical Plan: I did discuss with him about the weight and advised him to lose about 10-12 lb if possible . (2) Obstructive sleep apnea: Comment: Obstructive sleep apnea, well treated with use of CPAP. He is very compliant and benefitting from the use of CPAP. No specific issues concerning CPAP device, even though it is 7 years old Code(s): G47.33 - Obstructive sleep apnea (adult) (pediatric) Category: Medical Plan: Commended for good compliance and advised to continue using the CPAP every night. Coding Level of Care Code Est Pt Level 3 (62705) Diagnoses Overweight (BMI 25.0-29.9) E66.3 Obstructive sleep apnea G47.33
--- NOTE | 2024-12-17 09:47 | MHC.OFFVIS ---
Vital Signs 12/17/24 09:47 Height 5 ft 10 in Weight 213 lb 13.574 oz BMI 30.7 BP 130/78 Blood Pressure Location Lt brachial Position Sitting Pulse 66 Pulse Source Pulse Oximeter Pulse Oximetry (%) 97 Oxygen Delivery Method Room Air Intake Visit Reasons: Obstructive sleep apnea Intake Note: pt is here for follow up and states he is feeling good Internist Medical Doctor Md Required: No Allergies chlorthalidone Allergy (Unknown, Verified 12/17/24 09:53) excessive urination glipizide Allergy (Unknown, Verified 12/17/24 09:53) Unknown hydrochlorothiazide Allergy (Unknown, Verified 12/17/24 09:53) dizziness, excessive urination ibuprofen (From MOTRIN) Allergy (Unknown, Verified 12/17/24 09:53) irregular heartbeat metformin Allergy (Unknown, Verified 12/17/24 09:53) chokling sensation metoprolol Allergy (Unknown, Verified 12/17/24 09:53) slow heart rate nifedipine Allergy (Unknown, Verified 12/17/24 09:53) tachy/kate buspirone (From BUSPAR) Adverse Reaction (Unknown, Verified 12/17/24 09:53) STOMACH UPSET canagliflozin (Invokana) Adverse Reaction (Unknown, Verified 12/17/24 09:53) SYNCOPE clonidine (From CATAPRES) Adverse Reaction (Unknown, Verified 12/17/24 09:53) STOMACH UPSET SHELLFISH Allergy (Severe, Uncoded 12/17/24 09:53) ANAPHYLAXIS Sucralfate Allergy (Unknown, Uncoded 12/17/24 09:53) chest pain PFSH Medical History Type 2 diabetes mellitus with albuminuria CAD (coronary artery disease) Fatigue Myalgia Overweight (BMI 25.0-29.9) Anxiety Primary insomnia Obstructive sleep apnea Anemia Left thigh pain Primary osteoarthritis of left hip Vitamin D deficiency Proteinuria Palpitations Impaired fasting glucose Pure hypercholesterolemia Benign essential hypertension Surgical History History of arthroplasty of right knee (~11/05/22) Hx of colonoscopy History of arthroplasty of left hip History of hip surgery Family History Father No problems noted. 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
--- OUTSIDE RECORDS SUMMARY | 2024-12-17 10:18 | XMS_ITS | Clinical Summary ---
Author Organization [facility] Facility Address [address] [place] [address] Care Team Providers Care Arch Support Maker Name Role Phone Sim Reardon MD Primary Care Provider [phone]- [phone] Allergies No known active allergies Medications aspirin [...] with health care provider. DIAGNOSTIC USE: The Citizen Of [place] Diabetes Association (ADA) and the World Health [...] Supplement 1 Testing performed or reported by [facility], a Service of [facility], [address] [place] [address] Maday Martinez MD, Engineering Group Manager [facility]# [id number] Blood specimen (specimen) Venous blood / Unknown 01/24/2022 9:50 AM EDT 01/24/2022 9:51 AM EDT Mehul Marie MD LAB BLOOD ORDERABLES Ida valladares Result [facility] from Last 3 Months or Most Recently Relevant to Health Maintenance Insurance [facility] Care Teams Arch Support Maker Relationship Specialty Start Date End Date Sim Reardon MD [address] [place] [address] PCP - General 05/16/20
--- OUTSIDE RECORDS SUMMARY | 2024-12-17 10:18 | XMS_ITS | Patient Health Record ---
Author Organization [facility] Address [address] [place] [address] Care Team Providers Care Machine Cloth Trimmer Name Role Phone Alexys PRIETO, Sim Primary Care Provider Ravindra Vick Jr Unavailable Allergies Allergen (clinical drug ingredient) Drug/Non Drug Allergy documented on EMR Reaction Allergy Type Onset Date Status Shellfish (FN) shell fish (uncoded) Unknown Allergy Active Results Component Value Reference Range Notes Pathology Reviewed date:08/13/2024 09:02:19 AM Interpretation: Performing Lab:[facility], [address] [place] [id number] Notes/Report: Reason For Referral No Information Medications [...] Problem Status W/U Status Risk Notes Problem 246863628 Colon cancer screening (Z12.11) Active confirmed Problem 96781700 Rectal bleeding (K62.5) Active confirmed Problem 70209211 Other dysphagia (R13.19) Active confirmed Problem 383205759 Gastroesophageal reflux disease without esophagitis (K21.9) Active confirmed Problem 382515517 Anemia, unspecif ied type (D64.9) Active confirmed Vital Signs Temperature 96.9 degrees Fahrenheit 06/29/2024 Blood pressure diastolic 01 mm Hg 06/29/2024 Height 70.25 in 06/29/2024 Blood pressure systolic 001 mm Hg 06/29/2024 Weight 212.8 lbs 06/29/2024 BMI 30.31 kg/m2 06/29/2024 Encounters Encounter Location Date Provider Diagnosis [facility] [place] [address] [place] [id number] 08/04/2024 Ravindra Dietz Jr GI bleed K92.2 and Gastritis K29.70 [facility] [address] [place] [phone] 06/29/2024 Ravindra Dietz Jr Rectal bleeding K62.5 ; Anemia, unspecified type D64.9 ; Gastroesophageal reflux disease without esophagitis K21.9 and Aspirin long-term use Z79.82 [facility] [address] [place] [phone] 08/13/2024 Ravindra Dietz Jr Assessments Encounter Date [...] Provider Name:Ravindra tracey , 02/17/2025 09:20:00 AM, [address] [place] [address], [address], [place], [address], Insurance Providers Payer Name Payer Address Payer Phone Subscriber Number Group Number Insured Name Patient Relationship to Insured Coverage Start Date Coverage End Date [facility] [address] [place] [address] [phone] [id number] ZENAIDA RAMIRES Self - patient is the [...]
== END 2024-12-17 09:59 | disposition home or self-care (01) ==
LOC: HO.HPS 09:38
PROVIDERS: PCP Internal Medicine; Visit Provider Internal Medicine
DX: E66.3 Overweight (principal); G47.33 Obstructive sleep apnea (adult) (pediatric)
CPT/HCPCS: 99213

== ENCOUNTER 2025-01-20 08:29 | Outpatient (REF) | payer OTHER, SELFPAY ==
--- OUTSIDE RECORDS SUMMARY | 2024-08-04 07:30 | XMS_ITS ---
Author Organization [facility] Address [address] [place] [address] [address] [place] [address] Care Team Providers Care Sales And Marketing Representative Name Role Phone Sim Reardon MD Primary Care Provider Ravindra Vick Jr REASON FOR VISIT anemia,rectal bleeding,gerd Encounters Encounter Location Date Provider Diagnosis [facility] [place] [address] [place] [phone] 08/04/2024 Ravindra Dietz Jr GI bleed K92.2 and Gastritis K29.70 Assessments Encounter Date Diagnosis (ICD Code) Assessment Notes Treatment Notes Treatment Clinical Notes Section Notes 08/04/2024 GI bleed (ICD-10 - K92.2) 08/04/2024 Gastritis (ICD-10 - K29.70) Plan Of Treatment Next Appt Details Provider Name:Ravindra tracey Jr, 02/17/2025 09:20:00 AM, [address] [facility], [address], [place], [address], Progress Notes * ZENAIDA RAMIRES RDOB:1965 (59 yo M)Acc No.[id number]:08/04/2024 EGD and COL/MAC Patient: ZENAIDA MILLER Provider: Karen Dietz MD :1965 A ge:59 Y S ex:Male Date:08/04/2024 Address:[address] [id number] Pcp:Sim Reardon MD Subjective: * Chief Complaints: * 1 . Anemia,rectal bleeding,gerd. * Medical History: Objective: * Vitals: Assessment: * Assessment: 1. G astritis - K29.70 (Primary) 2 . G I bleed - K92.2 Plan: * Treatment: * Procedure Codes: 4 5378 DIAGNOSTIC COLONOSCOPY, 0529F INTRVL 3+YRS PTS CLNSCP DOCD, [address] UPPER GI ENDOSCOPY, BIOPSY * * The named appointment provid er may or may not be the originator of this progress note, and it is not deemed complete until electronically signed by the appointment provider. Sign off status: Pending * Provider: Karen Dietz MD Date: 0 08/04/2024 Generated for Kimberly barger/Fransisca/Marisaitting on: 0 01/20/2025 09:37 AM EDT
[2025-01-20 08:51] LABS: MANUAL DIFF FLAG NO
[2025-01-20 09:13] LABS: Hematocrit 40.7 % (42.0-52.0); Hemoglobin 13.2 g/dl (14.0-18.0); Imm Gran Abs Auto 0.02 X10*3/uL (0.00-0.03); Imm Gran Pct Auto 0.3 % (0.0-0.4); Lymphocytes Absolute Auto 2.0 X10*3/uL (1.2-4.9); Mean Corpuscular HGB Conc 32.4 g/dl (31.0-36.0); Mean Corpuscular Hemoglobin 28.7 pg (27.0-33.0); Mean Corpuscular Volume 88.5 fL (80.0-98.0); NRBC Abs Auto 0.000 X10*3/uL (0.0-0.012); NRBC Pct Auto 0.0 /100WBC (0.0-0.2); Platelet Count 311 X10*3/uL (160-400); Red Blood Count 4.60 X10*6/uL (4.60-5.80); White Blood Count 6.9 X10*3/uL (4.8-10.8)
[2025-01-20 09:23] LABS: Hemoglobin A1C 180.7549 umol/L; Total Hemoglobin (HGBA1C) 3529.3992 umol/L
[2025-01-20 09:36] LABS: Appearance Urine Clear; Glucose Urine UA Negative (Negative); PH 7.0 (5.0-9.0); Specific Gravity - Urine 1.010 (1.005-1.025); UMIC TRIGGER UACC YES
--- OUTSIDE RECORDS SUMMARY | 2025-01-20 09:38 | XMS_ITS | Patient Health Record ---
Author Organization [facility] Address [address] [place] [address] Care Team Providers Care Oncologist Name Role Phone Alexys PRIETO, Sim Primary Care Provider Ravindra Vick Jr Unavailable [phone] Allergies Allergen (clinical drug ingredient) Drug/Non Drug Allergy documented on EMR Reaction Allergy Type Onset Date Status Shellfish (FN) shell fish (uncoded) Unknown Allergy Active Results Component Value Reference Range Notes Pathology Reviewed date:08/13/2024 09:02:19 AM Interpretation: Performing Lab:[facility], [address] [place] [id number] Notes/Report: Reason For Referral No Information Medications [...] Problem Status W/U Status Risk Notes Problem 798785326 Colon cancer screening (Z12.11) Active confirmed Problem 82911598 Rectal bleeding (K62.5) Active confirmed Problem 92399512 Other dysphagia (R13.19) Active confirmed Problem 104973360 Gastroesophageal reflux disease without esophagitis (K21.9) Active confirmed Problem 194684053 Anemia, unspecif ied type (D64.9) Active confirmed Vital Signs Temperature 96.9 degrees Fahrenheit 06/29/2024 Blood pressure diastolic 01 mm Hg 06/29/2024 Height 70.25 in 06/29/2024 Blood pressure systolic 001 mm Hg 06/29/2024 Weight 212.8 lbs 06/29/2024 BMI 30.31 kg/m2 06/29/2024 Encounters Encounter Location Date Provider Diagnosis [facility] Out[facility] [address] [place] [id number] 08/04/2024 Ravindra Dietz Jr GI bleed K92.2 and Gastritis K29.70 [facility] [address] [place] [phone] 06/29/2024 Ravindra Dietz Jr Rectal bleeding K62.5 ; Anemia, unspecified type D64.9 ; Gastroesophageal reflux disease without esophagitis K21.9 and Aspirin long-term use Z79.82 [facility] [address] [place] [phone] 08/13/2024 Ravindra Dietz Jr Assessments Encounter Date [...] Name:Ravindra tracey , 02/17/2025 09:20:00 AM, [address] [place] [address], [address], [place], [address], Insurance Providers Payer Name Payer Address Payer Phone Subscriber Number Group Number Insured Name Patient Relationship to Insured Coverage Start Date Coverage End Date [facility] [address] [place] [phone] [id number] ZENAIDA RAMIRES Self - patient is the [...]
--- OUTSIDE RECORDS SUMMARY | 2025-01-20 09:38 | XMS_ITS | Encounter Summary ---
Author Organization [facility] Address [address] [place] [address] Phone Care Team Providers Care Grinding Wheel Facer Name Role Phone Sim Reardon MD Primary Care Provider +1- [phone] Encounter Details Date Type Department Care Team (Late st Contact Info) Description 07/17/2021 Telephone [facility] [address] [place] [address] Mehul Marie MD Social History Tobacco [...] a refill for carvedilol. Please send to [facility]. Thank you documented in this encounter Plan of Treatment Not on file documented as of this encounter Visit Diagnoses Not on filedocumented in this encounter Care Teams Grinding Wheel Facer Relationship Specialty Start Date End Date Sim Reardon MD [address] [place] [address] PCP - General 05/16/20 documented as of this encounter
--- OUTSIDE RECORDS SUMMARY | 2025-01-20 09:38 | XMS_ITS | Clinical Summary ---
Author Organization [facility] Facility Address [address] [place] [address] Care Team Providers Care Pickle Solution Maker Name Role Phone Sim Reardon MD Primary Care Provider +1- [phone] Allergies No known active allergies Medications aspirin [...] AM EDT) Hemoglobin A1C 6.4(H) (4.0-5.6) % [facility] Comment: MONITORING: In known diabetic patients, hemoglobin A1c targets should be discussed with health care provider. DIAGNOSTIC USE: The [place] Diabetes Association (ADA) and the World Health [...] Supplement 1 Testing performed or reported by [facility], a Service of [facility], [address] [place] [address] Maday Martinez MD, Heel Lining Paster [facility]# [id number] Blood specimen (specimen) Venous blood / Unknown 01/24/2022 9:50 AM EDT 01/24/2022 9:51 AM EDT Mehul Marie MD LAB BLOOD ORDERABLES Ida valladares Result [facility] from Last 3 Months or Most Recently Relevant to Health Maintenance Insurance [facility] Care Teams Pickle Solution Maker Relationship Specialty Start Date End Date Sim Reardon MD [address] [place] [address] PCP - General 05/16/20
[2025-01-20 09:49] LABS: Alanine Aminotransferase 39 U/L (0-40); Albumin Level 4.2 g/dL (3.5-5.0); Alkaline Phosphatase 102 U/L (39-117); Anion Gap 9 (12-20); Aspartate Amino Transferase 30 U/L (5-37); Blood Urea Nitrogen 13 mg/dL (9-16); Calcium 8.8 mg/dL (8.4-10.2); Carbon Dioxide 30 mmol/L (22-29); Chloride 107 mmol/L (96-108); Cholesterol 80 mg/dL (<200); Estimated Glomerular Filt Rate > 60; HDL Cholesterol 36 mg/dL (>40); Potassium 4.1 mmol/L (3.3-5.1); Sodium 142 mmol/L (135-145); Total Protein 7.5 g/dL (6.5-8.0); Triglycerides 67 mg/dL (<150)
[2025-01-20 10:00] LABS: Prostate Specific Antigen 4.14 ng/mL (<0.05-4.0)
== END 2025-01-20 08:30 | disposition home or self-care (01) ==
LOC: HO.LAB 08:29
PROVIDERS: PCP Internal Medicine; Visit Provider Internal Medicine
DX: Z00.00 Encounter for general adult medical examination without abnormal findings (principal); Z12.5 Encounter for screening for malignant neoplasm of prostate; D64.9 Anemia, unspecified; E78.00 Pure hypercholesterolemia, unspecified; N40.0 Benign prostatic hyperplasia without lower urinary tract symptoms; R73.01 Impaired fasting glucose
CPT/HCPCS: 36415; 80053; 80061; 81001; 83036; 84153; 84443; 85025

== ENCOUNTER 2025-01-27 09:06 | Outpatient (AMB) | payer OTHER, SELFPAY ==
--- OUTSIDE RECORDS SUMMARY | 2024-08-04 07:30 | XMS_ITS ---
Author Organization [facility] Address [address] [place] [address] Care Team Providers Care Workers Compensation Claims Analyst Name Role Phone Sim Reardon MD Primary Care Provider Ravindra Vick Jr [phone] REASON FOR VISIT anemia,rectal bleeding,gerd Encounters Encounter Location Date Provider Diagnosis [facility] [address] [place] [id number] 08/04/2024 Ravindra Dietz Jr GI bleed K92.2 and Gastritis K29.70 Assessments Encounter Date Diagnosis (ICD Code) Assessment Notes Treatment Notes Treatment Clinical Notes Section Notes 08/04/2024 GI bleed (ICD-10 - K92.2) 08/04/2024 Gastritis (ICD-10 - K29.70) Plan Of Treatment Next Appt Details Provider Name:Ravindra tracey Jr, 02/17/2025 09:20:00 AM, [address], [address], [place], [address], Progress Notes * ZENAIDA RAMIRES RDOB:1965 (60 yo M)Acc No.[id number]:08/04/2024 EGD and COL/MAC Patient: ZENAIDA MILLER Provider: Karen Dietz MD :1965 A ge:59 Y S ex:Male Date:08/04/2024 Address:[address] [id number] Pcp:Sim Reardon MD Subjective: * Chief Complaints: * 1 . Anemia,rectal bleeding,gerd. * Medical History: Objective: * Vitals: Assessment: * Assessment: 1. G astritis - K29.70 (Primary) 2 . G I bleed - K92.2 Plan: * Treatment: * Procedure Codes: 4 5378 DIAGNOSTIC COLONOSCOPY, 0529F INTRVL 3+YRS PTS CLNSCP DOCD, [address] UPPER GI ENDOSCOPY, BIOPSY * * The named appointment provid er may or may not be the originator of this progress note, and it is not deemed complete until electronically signed by the appointment provider. Sign off status: Pending * Provider: Karen Dietz MD Date: 0 08/04/2024 Generated for Kimberly barger/Fransisca/Marisaitting on: 0 01/27/2025 10:41 AM EDT
[2025-01-27 09:08] VITALS: BP 128/80; PULSE 69; O2SAT 95; BMI 30.5
--- NOTE | 2025-01-27 09:08 | A.OFFPC_ITS ---
Vital Signs 01/27/25 09:08 Height 5 ft 10 in Weight 212 lb 6 oz BMI 30.5 BP 128/80 Blood Pressure Location Lt brachial Position Sitting Pulse 69 Pulse Source Pulse Oximeter Pulse Oximetry (%) 95 Oxygen Delivery Method Room Air Intake Visit Reasons: Annual Exam Staff Trainer Required: No Accompanied by: Self / Same As Patient Allergies chlorthalidone Allergy (Unknown, Verified 01/27/25 09:16) excessive urination glipizide Allergy (Unknown, Verified 01/27/25 09:16) Unknown hydrochlorothiazide Allergy (Unknown, Verified 01/27/25 09:16) dizziness, excessive urination ibuprofen (From MOTRIN) Allergy (Unknown, Verified 01/27/25 09:16) irregular heartbeat metformin Allergy (Unknown, Verified 01/27/25 09:16) chokling sensation metoprolol Allergy (Unknown, Verified 01/27/25 09:16) slow heart rate nifedipine Allergy (Unknown, Verified 01/27/25 09:16) tachy/kate buspirone (From BUSPAR) Adverse Reaction (Unknown, Verified 01/27/25 09:16) STOMACH UPSET canagliflozin (Invokana) Adverse Reaction (Unknown, Verified 01/27/25 09:16) SYNCOPE clonidine (From CATAPRES) Adverse Reaction (Unknown, Verified 01/27/25 09:16) STOMACH UPSET SHELLFISH Allergy (Severe, Uncoded 01/27/25 09:16) ANAPHYLAXIS Sucralfate Allergy (Unknown, Uncoded 01/27/25 09:16) chest pain Medication List - Last Reconciled 01/27/25 by Sim Reardon MD acetaminophen (Tylenol Extra Strength) 1,000 mg (2 x 500 mg) PO Q8H PRN amlodipine 5 mg PO DAILY aspirin 81 mg PO DAILY atorvastatin 80 mg PO DAILY carvedilol 6.25 mg PO BID cholecalciferol (vitamin D3) 125 mcg PO DAILY clonazepam 1/2 to 1 tablet by mouth once a day as needed for increased anxiety; 30 days evolocumab (Repatha SureClick) 140 mg subcut Q2W ezetimibe 10 mg PO DAILY gabapentin 200 mg (2 x 100 mg) PO BID 30 days lisinopril 40 mg PO DAILY melatonin 10 mg PO BEDTIME PRN metoclopramide HCl (Reglan) 10 mg PO Q6H PRN [id number] mcg (Centrum Silver Men) 1 tab PO DAILY omeprazole 20 mg PO DAILY tizanidine 4 mg PO Q8H PRN 30 days tramadol 50 mg PO TID PRN Tobacco use date assessed: 01/27/25 Dental Screening Dental Screen Date: 01/27/25 Did you have a dental visit in the last 12 months?: No Did you have a dental problem in the last 6 months where you did not have access to dental care?: No Was dental information given to patient?: No HPI Annual Exam HPI Details Patient comes in today for his annual physical examination States that he feels okay He denies any headaches or dizziness Denies any chest pains, no increased shortness of breath No nausea/vomiting, no abdominal pain No change in bowel habits noted He denies any acute urinary symptoms He had his follow-up labs done last week - to discuss his results He is up-to-date with his cancer screenings - had his colonoscopy last done in 2020 and is recommended to get repeat colonoscopy in 10 years (2030) [facility] Medical History (Updated 01/27/25 @ 09:50 by Sim Reardon MD) Obesity (BMI 30-39.9) Type 2 diabetes mellitus with albuminuria CAD (coronary artery disease) Fatigue Myalgia Overweight (BMI 25.0-29.9) Anxiety Primary insomnia Obstructive sleep apnea Anemia Left thigh pain Primary osteoarthritis of left hip Vitamin D deficiency Proteinuria Palpitations Impaired fasting glucose Pure hypercholesterolemia Benign essential hypertension Surgical History History of arthroplasty of right knee (~11/05/22) Hx of colonoscopy History of arthroplasty of left hip History of hip surgery Family History Father No problems noted. 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 1. Little interest or pleasure in doing things: not at all 2. Feeling down, depressed, or hopeless: not at all 3. Trouble falling or staying asleep, or sleeping too much: several days 4. Feeling tired or having little energy: not at all 5. Poor appetite or overeating: not at all 6. Feeling bad about yourself - or that you are a failure or have let yourself or your family down: not at all 7. Trouble concentrating on things, such as reading the newspaper or watching television: not at all 8. Moving or speaking so slowly that other people could have noticed. Or the opposite - being so fidgety or restless that you have been moving around a lot more than usual: not at all 9. Thoughts that you would be better off or of hurting yourself in some way: not at all Total score: 1 Depression Screening Interpretation: Negative Depression Screening Done: Yes 17956 - PHQ-9 Billing: Yes Source: Developed by Drs. Alex Clarke, Nhung Wolf, Jese Leos and colleagues, with an educational kristin from [employer]. Thrive Questionnaire Date Thrive assessed: 01/27/25 I am a: Patient What is your living situation today?: I have a steady place to live Within the past 12 months, did the food you bought not last and you didn't have the money to get more?: Never true Within the past 12 months, did you worry whether your food would run out before you got money to buy more?: Never true Do you have trouble paying for medicines?: No Do you have trouble getting transportation to medical appointments?: No Do you have trouble paying your heating and electricity bill?: I choose not to answer this question Do you have trouble taking care of your child, family member or friend?: No Do you have trouble with day-to-day activities such as bathing, preparing meals, shopping, managing finances, etc.?: No Are you currently unemployed and looking for a job?: No Are you interested in more education?: No Please select the resources that you would like help with: None Currently or been in a relationship where the following occur: I choose not to answer THRIVE Score: 0 AUDIT C Alcohol Use Questionnaire (AUDIT-C) 1. How often do you have a drink containing alcohol?: Never 3. How often do you have six or more drinks on one occasion?: Never Total Score: 0 Score Reviewed/Action Taken: Yes DILLON-7 AMB Questionnaire DILLON-7 Date DILLON - 7 assessed: 10/29/24 Source: Developed by Drs. Alex Clarke, Nhung Wolf, Jese Leos and colleagues, with an educational kristin from [employer]. Review of Systems Const Denies chills, Denies fatigue, Denies fever(s), Denies headache(s), Denies malaise and Denies weakness Eyes Denies blurry vision, Denies change in vision, Denies irritation and Denies itchy eyes ENT Denies dysphagia, Denies dizziness, Denies otalgia, Denies headache(s), Denies nasal congestion, Denies neck pain, Denies odynophagia and Denies sore throat Card Denies chest pain, Denies rapid heart rate, Denies irregular heart rhythm, Denies palpitations and Denies dyspnea Resp Denies chest congestion, Denies cough, Denies dyspnea and Denies wheezing GI Denies abdominal pain, Denies bloating, Denies constipation, Denies dysphagia, Denies heartburn, Denies diarrhea, Denies nausea, Denies odynophagia and Denies vomiting Denies hematuria, Denies difficulty urinating, Denies dysuria, Denies urinary frequency and Denies urinary urgency Musc Denies back pain, Denies arthralgias, Denies joint swelling, Denies muscle weakness and Denies neck pain Skin/Breast Denies change in pigmentation, Denies lesions, Denies rash and Denies unusual bruising Neuro Denies dizziness, Denies headache(s), Denies paresthesias and Denies weakness Endo Denies fatigue and Denies palpitations Aller/Immun Denies itchy eyes and Denies wheezing Physical exam (Primary Care) Vital Signs: Last Vital Signs Pulse 69 01/27/25 09:08 BP 128/80 01/27/25 09:08 Pulse Ox 95 01/27/25 09:08 Oxygen Delivery Method Room Air 01/27/25 09:08 BMI result Body Mass Index 30.5 Tobacco/Smoking Status: Tobacco use Status Tobacco use date assessed 01/27/25 01/27/25 09:11 Patient Tobacco Use Status Never used Tobacco 01/27/25 09:11 e-Cigarette/Vaping Use Never Used 01/27/25 09:11 PHQ-9: PHQ-9 Score PHQ-9: Total score 1 01/27/25 09:11 Depression Screening Interpretation: Negative Thrive Assessment: Date of Thrive Assessment Date Thrive assessed 01/27/25 01/27/25 09:11 Currently or been in a relationship where the following occur: I choose not to answer Const General: no acute distress, alert and awake Orientation/consciousness: patient oriented x3 HENMT Head: Yes normocephalic and Yes atraumatic Ears: external ears normal, TM's normal bilaterally and EAC's normal General nose exam: No nasal discharge present Face and sinus: Yes normal facial exam and Yes sinuses nontender Teeth and gingiva: dentition normal Throat: Yes posterior oropharynx normal and Yes tonsils normal (no TP congestion) Eyes Eyelids: Yes eyelids normal Conjunctivae: conjunctivae normal Pupils: Equal, round and reactive pupils present EOM: EOMs intact bilaterally Neck Neck: Yes no lymphadenopathy and Yes supple Thyroid: Thyroid normal Resp Auscultation: clear to auscultation bilaterally, no rales and no wheezes Cardio Rate: regular rate Rhythm: regular rhythm Heart sounds: no murmurs GI Palpation (GI): Soft to palpation, nontender and No hepatosplenomegaly present Auscultation: normal bowel sounds General: Yes no CVA tenderness Back/Spine/Pelvis Back: no CVA tenderness Thoracic/Lumbar Spine: thoracic and lumbar spine normal to inspection Skin Lesions: no lesions Rashes: no rashes Neuro General: patient oriented x3, moves all extremities, no focal motor deficits and CN's II-XI intact bilaterally Cranial nerves: Yes Equal, round and reactive pupils present Cognition (Neuro): normal cognition Gait exam (Neuro): Normal gait present Extrem General: Yes no clubbing, cyanosis or edema Results Reviewed Results Reviewed: Laboratory Tests 10/21/24 01/20/25 01/20/25 10:04 08:39 08:49 WBC 6.9 Hgb 13.2 L Hct 40.7 L Plt Count 311 Sodium 142 Potassium 4.1 Creatinine 0.95 Estimated GFR > 60 Fasting Glucose 133 H Hemoglobin A1c % 6.8 H Calcium 8.8 AST 30 ALT 39 Triglycerides 67 Cholesterol 80 LDL Cholesterol, Calc 31 HDL Cholesterol 36 L Prostate Specific Ag 4.14 H 25-OH Vitamin D Total 35.6 TSH 0.72 Ur Specific [place] 1.010 Urine Protein 100 (2+) H Urine Glucose (UA) Negative Urine Blood Negative Urine Nitrite Negative Ur Leukocyte Esterase Negative Coding Level of Care Code Est Pt Prev Care 40-64y(87676) Diagnoses Annual physical exam Z00.00 Coronary artery disease involving [place] heart without angina pectoris, unspecified vessel or lesion type I25.10 Coronary Disease-Associated Artery/Lesion type: unspecified vessel or lesion type [place] vs. transplanted heart: [place] heart Associated angina: without angina Palpitations R00.2 Benign essential hypertension I10 Type 2 diabetes mellitus with albuminuria E11.29; R80.9 Pure hypercholesterolemia E78.00 Proteinuria, unspecified type R80.9 Proteinuria type: unspecified Vitamin D deficiency E55.9 Primary osteoarthritis of left hip M16.12 Primary osteoarthritis of right knee M17.11 Acute midline low back pain without sciatica M54.50 Chronicity: acute Back pain laterality: midline Sciatica presence: without sciatica Obstructive sleep apnea G47.33 Anemia, unspecified type D64.9 Anemia type: unspecified type Elevated PSA R97.20 Primary insomnia F51.01 Anxiety F41.9 Obesity (BMI 30-39.9) E66.9 Additional Codes PHQ-9 - 30885 - PHQ-9 Billing: Yes ([id number]) Assessment & Plan Assessment & Plan (1) Annual physical exam: Code(s): Z00.00 - Encounter for general adult medical examination without abnormal findings Category: Medical Plan: Results of his labs done last week reviewed and discussed with patient He is up-to-date with his cancer screenings - had his colonoscopy last done in 2020 and is recommended to get repeat colonoscopy in 10 years (2030) (2) CAD (coronary artery disease): Comment: Coronary calcium score greater than 1000, February 2021 Code(s): I25.10 - Atherosclerotic heart disease of [place] coronary artery without angina pectoris Category: Medical Qualifiers: Coronary Disease-Associated Artery/Lesion type: unspecified vessel or lesion type [place] vs. transplanted heart: [place] heart Associated angina: without angina Qualified Code(s): I25.10 - Atherosclerotic heart disease of [place] coronary artery without angina pectoris Plan: Patient had coronary CTA done in 2020 to assess his CV risks - test came out with a significantly elevated coronary calcium score of > 1000 suggestive of 3- vessel disease Nuclear stress testing done at [facility] in April 2021 came out normal Continue Aspirin 81 mg QD and Carvedilol 6.25 mg BID Continue aggressive risk factor modification, especially with tight control of his blood pressure and cholesterol levels Follow up with cardiology as scheduled (3) Palpitations: Comment: Echocardiogram (normal EF, mild TR and mild MR) and Holter monitor (SR with rare PAC and PVC) done last year (2019) were mostly normal Code(s): R00.2 - Palpitations Category: Medical Plan: Patient states that his symptoms have been stable and have not recurred in a while now Follow up with cardiology as scheduled (4) Benign essential hypertension: Code(s): I10 - Essential (primary) hypertension Category: Medical Plan: Reinforced low sodium diet - goal is systolic BP of at least 120 to 130 mm or less Continue Amlodipine 5 mg QD, Lisinopril 40 mg QD and Carvedilol 6.25 mg BID Follow up with cardiology as scheduled (5) Type 2 diabetes mellitus with albuminuria: Code(s): E11.29 - Type 2 diabetes mellitus with other diabetic kidney complication; R80.9 - Proteinuria, unspecified Category: Medical Plan: His HgbA1c was at 6.8% on his labs done last week (HgbA1c was previously at 6.6% a few months ago) - goal is at least <7.0% but ideally <6.5% FBS was at 133 mg/dl on his recent labs He is currently on NO meds for his DM and would like to continue to keep it this way for as long as possible Have cautioned patient that his HgbA1c has been slowly but steadily inching up over the past year and he is now at 6.8% (from 6.5% a year ago) Patient admits to poor dietary compliance with regards to his blood sugar/diabetes and will now try to do better on this Reinforced low calorie diet/exercise as tolerated Will recheck his FBS and HgbA1c in 4 months for follow up (6) Pure hypercholesterolemia: Code(s): E78.00 - Pure hypercholesterolemia, unspecified Category: Medical Plan: Reinforced low cholesterol diet - his cholesterol levels remain well-suppressed but this is intentional due to his very high coronary CT score done a couple of years ago Continue Atorvastatin 80 mg QD, Ezetimibe 10 mg QD and Repatha 140 mg SQ every 2 weeks Will recheck his labs and fasting lipids in 4 months for follow up (7) Proteinuria: Code(s): R80.9 - Proteinuria, unspecified Category: Medical Qualifiers: Proteinuria type: unspecified Qualified Code(s): R80.9 - Proteinuria, unspecified Plan: Patient still has significant proteinuria on his recent labs but this appears to be stable Follow up with [facility] Nephrology as scheduled (8) Vitamin D deficiency: Code(s): E55.9 - Vitamin D deficiency, unspecified Category: Medical Plan: Continue Vitamin D3 2000 units QD (9) Primary osteoarthritis of left hip: Comment: S/P total left hip arthroplasty with [facility] in August 2019 and S/P physical therapy, with significant improvement of hip pain Code(s): M16.12 - Unilateral primary osteoarthritis, left hip Category: Medical Plan: S/P left hip arthroplasty in 2019 Continue Tylenol 325 mg every 4 to 6 hours as needed Follow up with orthopedics ([facility]) as scheduled or as needed (10) Primary osteoarthritis of right knee: Code(s): M17.11 - Unilateral primary osteoarthritis, right knee Category: Medical Plan: MRI of the right knee done at [facility] on 02/13/2020 revealed (+) significant OA changes S/P total right knee arthroplasty with [facility] on 11/05/22 and he also completed physical therapy for his knee He reports that he is still experiencing a lot of pain often in his knee and was recently recommended to undergo a revision arthroplasty, which he is still debating on Follow up with [facility] as scheduled (11) Low back pain: Code(s): M54.50 - Low back pain, unspecified Category: Medical Qualifiers: Chronicity: acute Back pain laterality: midline Sciatica presence: without sciatica Qualified Code(s): M54.50 - Low back pain, unspecified Plan: Patient is advised that he likely has acute lumbar myofascial/musculoskeletal strain as a consequence of his recent activity (see HPI) Lumbar spine x-rays done on 08/20/2022 revealed (+) 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 He is very compliant and benefitting from the use of CPAP. No specific issues concerning CPAP device, even though it is 7 years old Code(s): G47.33 - Obstructive sleep apnea (adult) (pediatric) Category: Medical Plan: Continue using his CPAP device when sleeping at night Follow up with Sleep Medicine as scheduled (13) Anemia: Code(s): D64.9 - Anemia, unspecified Category: Medical Qualifiers: Anemia type: unspecified type Qualified Code(s): D64.9 - Anemia, unspecified Plan: Stable Iron studies rechecked back in April 2023 were again normal Patient had a normal colonoscopy with Dr. Dietz on 07/21/2008 and most recently in July 2020; EGD done at [facility] in 2017 also came out normal Will continue to monitor his CBC regularly (14) Elevated PSA: Code(s): R97.20 - Elevated prostate specific antigen [PSA] Category: Medical Plan: His PSA level came back most recently at 4.14 on his labs done last week Patient denies any acute urinary symptoms Follow up with urology (Dr. Suazo) as scheduled (15) Primary insomnia: Code(s): F51.01 - Primary insomnia Category: Medical Plan: Sleep hygiene reinforced Continue OTC Melatonin PRN for sleep (16) Anxiety: Code(s): F41.9 - Anxiety disorder, unspecified Category: Medical Plan: Continue Clonazepam 1 mg 1/2 to 1 tablet once a day as needed (17) Obesity (BMI 30-39.9): Code(s): E66.9 - Obesity, unspecified Category: Medical Plan: Reinforced diet/exercise as tolerated/lose weight Plan Follow up in 4 months Orders: Orders Lipid Panel 4 Months E78.00 - Pure hypercholesterolemia, unspecified Complete Blood Count Auto Diff 4 Months D64.9 - Anemia, unspecified TSH reflex Free T4 4 Months E78.00 - Pure hypercholesterolemia, unspecified UA CC w/rflx Micro + Cult 4 Months R30.0 - Dysuria Comprehensive [place]. Panel Fast 4 Months E78.00 - Pure hypercholesterolemia, unspecified Hemoglobin A1c 4 Months R73.01 - Impaired fasting glucose Vitamin D 25-OH Total 4 Months E55.9 - Vitamin D deficiency, unspecified
--- OUTSIDE RECORDS SUMMARY | 2025-01-27 10:41 | XMS_ITS | Clinical Summary ---
Author Organization [facility] Facility Address [address] [place] [id number] Care Team Providers Care Net Architect Name Role Phone Sim Reardon MD Primary Care Provider [phone] Allergies No known active allergies Medications aspirin [...] AM EDT) Hemoglobin A1C 6.4(H) (4.0-5.6) % [facility] Comment: MONITORING: In known diabetic patients, hemoglobin A1c targets should be discussed with health care provider. DIAGNOSTIC USE: The [place] Diabetes Association (ADA) and the World Health [...] Supplement 1 Testing performed or reported by [facility], a Service of [facility], [address] [place] [address] Maday Martinez MD, Packager Or Packer And Weigher [facility]# [id number] Blood specimen (specimen) Venous blood / Unknown 01/24/2022 9:50 AM EDT 01/24/2022 9:51 AM EDT Mehul Marie MD LAB BLOOD ORDERABLES Ida valladares Result [facility] from Last 3 Months or Most Recently Relevant to Health Maintenance Insurance [facility] Care Teams Net Architect Relationship Specialty Start Date End Date Sim Reardon MD [address] [place] [address] PCP - General 05/16/20
--- OUTSIDE RECORDS SUMMARY | 2025-01-27 10:42 | XMS_ITS | Patient Health Record ---
Author Organization [facility] Address [address] [place] [address] Care Team Providers Care Echometer Engineer Name Role Phone Alexys PRIETO, Sim Primary Care Provider Ravindra Vick Jr Unavailable Allergies Allergen (clinical drug ingredient) Drug/Non Drug Allergy documented on EMR Reaction Allergy Type Onset Date Status Shellfish (FN) shell fish (uncoded) Unknown Allergy Active Results Component Value Reference Range Notes Pathology Reviewed date:08/13/2024 09:02:19 AM Interpretation: Performing Lab:[facility], [address] [place] [phone] Notes/Report: Reason For Referral No Information Medications [...] Problem Status W/U Status Risk Notes Problem 572058290 Colon cancer screening (Z12.11) Active confirmed Problem 41198065 Rectal bleeding (K62.5) Active confirmed Problem 28477338 Other dysphagia (R13.19) Active confirmed Problem 850886544 Gastroesophageal reflux disease without esophagitis (K21.9) Active confirmed Problem 456133295 Anemia, unspecif ied type (D64.9) Active confirmed Vital Signs Temperature 96.9 degrees Fahrenheit 06/29/2024 Blood pressure diastolic 01 mm Hg 06/29/2024 Height 70.25 in 06/29/2024 Blood pressure systolic 001 mm Hg 06/29/2024 Weight 212.8 lbs 06/29/2024 BMI 30.31 kg/m2 06/29/2024 Encounters Encounter Location Date Provider Diagnosis [facility] Outpatient [address] [place] [phone] 08/04/2024 Ravindra Dietz Jr GI bleed K92.2 and Gastritis K29.70 [facility] [address] [place] [phone] 06/29/2024 Ravindra Dietz Jr Rectal bleeding K62.5 ; Anemia, unspecified type D64.9 ; Gastroesophageal reflux disease without esophagitis K21.9 and Aspirin long-term use Z79.82 [facility] [address] [place] [phone] 08/13/2024 Ravindra Dietz Jr Assessments Encounter Date [...] Provider Name:Ravindra tracey , 02/17/2025 09:20:00 AM, [address] [place] [address], [address], [place], [id number], Insurance Providers Payer Name Payer Address Payer Phone Subscriber Number Group Number Insured Name Patient Relationship to Insured Coverage Start Date Coverage End Date [facility] [address] [place] [phone] [id number] ZENAIDA RAMIRES Self - patient is the [...]
--- OUTSIDE RECORDS SUMMARY | 2025-01-27 10:42 | XMS_ITS | Encounter Summary ---
Author Organization [facility] Address [address] [place] [address] Phone Care Team Providers Care Director Of Software Development Name Role Phone Sim Reardon MD Primary Care Provider [phone] Encounter Details Date Type Department Care Team (Late st Contact Info) Description 07/17/2021 Telephone [facility] [address] [place] [address] Mehul Marie MD Social History [...] a refill for carvedilol. Please send to [facility] on [facility]. Thank you documented in this encounter Plan of Treatment Not on file documented as of this encounter Visit Diagnoses Not on filedocumented in this encounter Care Teams Director Of Software Development Relationship Specialty Start Date End Date Sim Reardon MD [address] [place] [address] PCP - General 05/16/20 documented as of this encounter
== END 2025-01-27 09:34 | disposition home or self-care (01) ==
LOC: HO.HMCH 09:07
PROVIDERS: PCP Internal Medicine; Visit Provider Internal Medicine
DX: Z00.00 Encounter for general adult medical examination without abnormal findings (principal); E11.29 Type 2 diabetes mellitus with other diabetic kidney complication; I25.10 Atherosclerotic heart disease of native coronary artery without angina pectoris; R00.2 Palpitations; I10 Essential (primary) hypertension; R80.9 Proteinuria, unspecified; E78.00 Pure hypercholesterolemia, unspecified; E55.9 Vitamin D deficiency, unspecified; M16.12 Unilateral primary osteoarthritis, left hip; M17.11 Unilateral primary osteoarthritis, right knee; M54.50 Low back pain, unspecified; G47.33 Obstructive sleep apnea (adult) (pediatric)

== ENCOUNTER → 2025-01-27 09:06 | Outpatient (BNVA) | payer OTHER, SELFPAY | PROVIDERS: PCP Internal Medicine; Visit Provider Internal Medicine | DX: Z00.00 Encounter for general adult medical examination without abnormal findings (principal); E11.29 Type 2 diabetes mellitus with other diabetic kidney complication; I25.10 Atherosclerotic heart disease of native coronary artery without angina pectoris; R00.2 Palpitations; I10 Essential (primary) hypertension; R80.9 Proteinuria, unspecified; E78.00 Pure hypercholesterolemia, unspecified; E55.9 Vitamin D deficiency, unspecified; M16.12 Unilateral primary osteoarthritis, left hip; M17.11 Unilateral primary osteoarthritis, right knee; M54.50 Low back pain, unspecified; G47.33 Obstructive sleep apnea (adult) (pediatric); D64.9 Anemia, unspecified; R97.20 Elevated prostate specific antigen [PSA]; F51.01 Primary insomnia; F41.9 Anxiety disorder, unspecified; E66.9 Obesity, unspecified; R30.0 Dysuria; Z68.30 Body mass index [BMI] 30.0-30.9, adult | CPT/HCPCS: 96127 ==